=== PATIENT | male | born 1945 | race Caucasian/White ===

== ENCOUNTER 2017-10-18 08:28 | Inpatient (IN) | payer MEDICARE, SELFPAY ==
[2017-10-18] VITALS (15 sets, daily range): BP systolic 119–189; BP diastolic 68–94; PULSE 68–98; RESP 14–21; TEMP 36.5–36.9; O2SAT 88–98; BMI 35.1; BMI 35.2
--- NOTE | 2017-10-18 08:42 | EKG12_ITS ---
Test Reason : FALL Blood Pressure : / mmHG Vent. Rate : 069 BPM Atrial Rate : 069 BPM P-R Int : 206 ms QRS Dur : 086 ms QT Int : 422 ms P-R-T Axes : 015 -06 044 degrees QTc Int : 452 ms Normal sinus rhythm Normal ECG Confirmed by HELDER BEEBE ([id number]), senior editor LOUIS GUTIERRES ([id number]) on 10/21/2017 10:35:23 AM Referred By: MAXINE Confirmed By:HELDER BEEBE
[2017-10-18 08:59] LABS: Absolute Lymphocyte Count 0.93 X10^3/ul (0.83-4.51); Absolute Neutrophil Count 15.6 X10^3/uL (2.0-7.7); Basophil# 0.03 X10^3/uL; Basophil% 0.2 % (0-1); Eosinophil# 1.04 X10^3/uL; Eosinophils% 5.6 % (0-5); Hematocrit 39.8 % (40-54); Hemoglobin 12.9 g/dl (13.0-16.5); Lymphocyte # 0.93 X10^3/ul (4.0); Mean Corp Hgb Conc 32.4 g/gl (32-36); Mean Corpuscular Hgb 28.9 pg (27.0-32.0); Mean Corpuscular Volume 89.2 fL (80-94); Mean Platelet Vol. 9.6 fl (6.2-12.0); Monocyte# 1.14 X10^3/uL; Monocyte% 6.1 % (0-10); Neutrophil # 15.55 X10^3/uL (2.7-7.7); Neutrophil % 82.9 % (47-70); POSITIVE COUNT NO; POSITIVE DIFFERENTIAL NO; POSITIVE MORPHOLOGY NO; Platelet Count 260 K/mm3 (150-450); RBC Distribution Width CV 14.3 % (11.6-14.6); RBC Distribution Width SD 46.5 fl (35.1-43.9); Red Blood Count 4.46 M/mm3 (4.6-6.2); White Blood Count 18.7 K/mm3 (4.4-11.0)
--- NOTE | 2017-10-18 09:00 | RAD_ITS ---
STUDY: X-RAY CHEST REASON FOR EXAM: Male, 71 years old. Chest pain. TECHNIQUE: Single AP portable view of the chest. COMPARISON: None. FINDINGS: EKG electrodes are seen. Mild degree of vascular congestion. Blunting of left costophrenic angle. Normal size heart. Normal mediastinum and rica. Normal visualized pulmonary arteries. There is atherosclerotic tortuosity of the aortic arch and descending thoracic aorta. There are diffuse degenerative changes of the visualized thoracic spine. Normal visualized ribs, clavicles, and shoulders. There is no demonstrated abnormality of the visualized soft tissue structures of the upper abdomen. RAD/Chest 1 View (Portable) IMPRESSION: Mild degree of vascular congestion. Blunting of the left costophrenic angle. Electronically Signed: Oscar Alvarez MD at 9:27 EDT Tel [phone], Service support ,
[2017-10-18 09:13] LABS: Anion Gap 6 (5-15); BUN 45 mg/dL (7-18); BUN/Creat Ratio 17.1 RATIO (10-20); Calcium,Total 8.8 mg/dL (8.5-10.1); Chloride 107 mmol/L (98-107); Creatinine, Serum 2.63 mg/dL (0.70-1.30); EST Glomerular Filtration Rate 26 mL/min (>60); Est Glom Filt Rate - Afr Amer 31 mL/min (>60); Estimated Creatinine Clearance 27.44 ml/min; Glucose 111 mg/dL (74-106); Potassium 4.2 mmol/L (3.5-5.1); Sodium Level 139 mmol/L (136-145)
[2017-10-18 09:26] LABS: Allen Test POS; Base Excess -2 mmol/L (-2 to +2); Bicarbonate 25.1 mmol/L (22-26); Blood Gas Specimen Type ART; O2 Delivery Device Nasal Can; PO2 81 mmHG (75-100); SITE R Brachial; SO2 94 % (95-99); Time Given 917; Total Carbon Dioxide 27 mmol/L; pCO2 53.4 mmHg (35-45); pH 7.28 (7.35-7.45)
--- NOTE | 2017-10-18 09:31 | ED.VISSUMM ---
- ER Visit Summary Date of Service: 10/18/17 Chief Complaint: Generalized weakness and fall History of Present Illness: The patient is a 71 M suddenly hospitalized. Patient has a history of insulin-dependent diabetes, hypertension, COPD PD requiring as needed O2 and reportedly a prior stroke. Patient states he just got weak at home his legs gave out and he fell to the floor. He denies hitting his head. He denies any LOC. He denies being on blood thinners. Just states he feels so weak. He denies headache, neck pain, chest pain or abdominal pain. He denies fever or chills. He denies vomiting or diarrhea. Physical Examination: Older male no acute distress vital signs are stable afebrile on 2 L is 94% without hypoxia without O2 he is hypoxic. H EENT exam atraumatic. Pupils are round reactive light. No facial droop. Normal speech. Neck nontender. Lungs clear to auscultation bilaterally. Heart regular rhythm no murmur rate about 70. Abdomen is obese soft nontender. Normal bowel sounds no peritoneal signs. Patient is moving all 4 extremities. They are generally weak but symmetrical. 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 His lower extremities have 1+ pitting edema below the knees bilaterally. There is no hip pain, shortening or deformities. Back exam is nontender neurologically he is awake and alert. He was unsure of the month he did know the year and where he was at. He does seem to have a slow affect. But he is answering questions. Test Results: EKG shows a sinus rhythm rate is 69 with no acute signs of NM or ischemia. Blood gas shows a pH of 7.28 with a PCO2 of 53 and a PO2 of 81 on 2 L. CBC shows an elevated white count 18.7. Hemoglobin 12. No bands. Electrolytes unremarkable gap of 6 BUN of 45 creatinine 2.63 he has a history of chronic renal insufficiency. Seen on prior labs. Urinalysis pending. Troponin normal. BNP 105. Chest x-ray shows chronic changes with some vascular congestion but no significant acute abnormality. Emergency Department Course and Treatment: Nurses attempted to walk the patient he was too weak to stand. He will need to be admitted to the hospital. Treatment Plan: Hospitalist on page for admission. She will be started on broad-spectrum antibiotics, IV Zosyn, until we have a source. Disposition: Admission Impression: Acute generalized weakness Acute fall Respiratory acidosis Leukocytosis of uncertain etiology. This note was generated with Melodig[employer] dictation software. It may contain incorrect words, spelling, and punctuation that were not noted in review of the chart prior to signing ED Disposition - Plan for ED Patient: Chief Complaint: Fall Referrals: [facility] Doctor,Out of [Primary Care Provider] -
--- NOTE | 2017-10-18 09:34 | ED.DCSUM_ITS ---
- ER Visit Summary Date of Service: 10/18/17 Chief Complaint: Generalized weakness and fall History of Present Illness: The patient is a 71 M suddenly hospitalized. Patient has a history of insulin-dependent diabetes, hypertension, COPD PD requiring as needed O2 and reportedly a prior stroke. Patient states he just got weak at home his legs gave out and he fell to the floor. He denies hitting his head. He denies any LOC. He denies being on blood thinners. Just states he feels so weak. He denies headache, neck pain, chest pain or abdominal pain. He denies fever or chills. He denies vomiting or diarrhea. Physical Examination: Older male no acute distress vital signs are stable afebrile on 2 L is 94% without hypoxia without O2 he is hypoxic. H EENT exam atraumatic. Pupils are round reactive light. No facial droop. Normal speech. Neck nontender. Lungs clear to auscultation bilaterally. Heart regular rhythm no murmur rate about 70. Abdomen is obese soft nontender. Normal bowel sounds no peritoneal signs. Patient is moving all 4 extremities. They are generally weak but symmetrical. 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 His lower extremities have 1+ pitting edema below the knees bilaterally. There is no hip pain, shortening or deformities. Back exam is nontender neurologically he is awake and alert. He was unsure of the month he did know the year and where he was at. He does seem to have a slow affect. But he is answering questions. Test Results: EKG shows a sinus rhythm rate is 69 with no acute signs of LA or ischemia. Blood gas shows a pH of 7.28 with a PCO2 of 53 and a PO2 of 81 on 2 L. CBC shows an elevated white count 18.7. Hemoglobin 12. No bands. Electrolytes unremarkable gap of 6 BUN of 45 creatinine 2.63 he has a history of chronic renal insufficiency. Seen on prior labs. Urinalysis pending. Troponin normal. BNP 105. Chest x-ray shows chronic changes with some vascular congestion but no significant acute abnormality. Emergency Department Course and Treatment: Nurses attempted to walk the patient he was too weak to stand. He will need to be admitted to the hospital. Treatment Plan: Hospitalist on page for admission. She will be started on broad -spectrum antibiotics, IV Zosyn, until we have a source. Disposition: Admission Impression: Acute generalized weakness Acute fall Respiratory acidosis Leukocytosis of uncertain etiology. This note was generated with [employer] dictation software. It may contain incorrect words, spelling, and punctuation that were not noted in review of the chart prior to signing ED Disposition - Plan for ED Patient: Chief Complaint: Fall Referrals: [facility] Doctor,Out of [Primary Care Provider] -
--- NOTE | 2017-10-18 10:08 | ED.RN ---
called dr ted saleh. to fax med list
--- NOTE | 2017-10-18 10:20 | CM.ED ---
CM INITIAL ASSESSMENT: Assessment performed in the ED. Patient was alone in the room. He was agreeable to the interview, but fell asleep during questions. He was not easily awoken. His responses to questions were difficult to understand. Patient states he now lives in [place], but was unable to tell articulate his current address. Home: Patient states he lives alone, in a one story plan. He has three steps into the home. HHS/Aides: Patient denies. DME: Patient denies using walker, cane, wheelchair. Please reassess for validity. Home Oxygen: Unable to assess. Patient did not respond appropriately. Pharmacy: [facility] in [place] Advance Directives: Denies. Patient states he's in the process of getting these done, but is unable to verbalize who is his preferred POA. PCP: Dr. Orellana Specialists: Denies. Please reassess. DC Plan: Undetermined at this time. CM will continue to follow for safe and effective discharge planning.
--- NOTE | 2017-10-18 12:45 | CT_ITS ---
STUDY: CT BRAIN WITHOUT CONTRAST REASON FOR EXAM: Male, 71 years old. History of fall. RADIATION DOSAGE (If Supplied By Facility): CTDIvol = ( 44.99 ) mGy, DLP = ( 880.47 ) mGycm TECHNIQUE: Transaxial CT imaging of the brain was performed without administration of intravenous contrast material. Individualized dose optimization techniques were used for this CT. COMPARISON: None. FINDINGS: Normal soft tissue structures. Normal calvarium. There is mild cerebral atrophy with widening of the extra-axial spaces and ventricular dilatation. There are areas of decreased attenuation within the white matter tracts of the supratentorial brain, consistent with microvascular disease changes. Normal basal ganglia and thalami. Normal brainstem. Normal cerebellum. There is no intracranial hemorrhage. There are no findings of an acute ischemic infarction. Atherosclerotic calcification of the vertebral arteries and cavernous portions of the internal carotid arteries bilaterally. Opacification of the ethmoid sinuses bilaterally and mucosal thickening of the inferior aspects of both maxillary sinuses. Mild mucosal thickening of the sphenoid sinus. CT/Brain/Head without Contrast IMPRESSION: Chronic involutional changes of the brain. Sinusitis. Electronically Signed: Oscar Alvarez MD at 13:55 EDT Tel [phone], Service support ,
--- NOTE | 2017-10-18 13:00 | NURSING ---
DR HUDSON IN ER
[2017-10-18 13:08] LABS: Mucous, Urine 0 SEEN /hpf (<or=2+); Squamous Epithelial Cells - UA 0 SEEN /hpf (0-5)
--- NOTE | 2017-10-18 13:11 | NURSING ---
PCU [facility] GENERALIZED WEAKNESS, UNABLE TO WALK, LEUKOCYTOSIS, RESP ACIDOSIS
[2017-10-18 13:13] LABS: Color, Urine Yellow (Yellow); Glucose, Dipstick Normal (Normal); Ketone-Dipstick 5 mg/dl (Negative); Leukocyte Esterase-Dipstick 25 /ul (Negative); Nitrite-Dipstick Negative (Negative); Occult Blood-Urine 250 /ul (Negative); Protein-Dipstick 30 mg/dl (Negative); Specific Gravity, Urine 1.015 (1.002-1.030); Urine Bilirubin Dipstick Negative (Negative); Urine Clarity Sl. Cloudy (Clear); Urine Urobilinogen Normal (Normal)
--- NOTE | 2017-10-18 13:17 | ED.RN ---
samir started at 1315 unable to document in [facility] due to it being attempted to be documented by another nurse.
[2017-10-18 13:20] LABS: Red Blood Cells-Urine 0-5 SEEN /hpf (0-5); White Blood Cells 0-5 SEEN /hpf (0-5)
[2017-10-18 13:21] LABS: Amorphous Sediment 1+; Bacteria 1+ /hpf (None Seen)
[2017-10-18 14:24] LABS: Lactic Acid 0.8 mmol/L (0.4-2.0)
[2017-10-18] MEDS: 0.9% Normal Saline 1,000 ML 999 ML IV (15:21)
[2017-10-18 16:11] LABS: Bedside Glucose 101 mg/dL (70-110)
[2017-10-18] MEDS: 0.9% Normal Saline 1,000 ML 150 ML IV (16:18)
[2017-10-18] MEDS: Ipratropium/Albuterol Sulfate 3 ML AMPUL.NEB INHALATION (19:05)
--- NOTE | 2017-10-18 20:16 | PCM.HP.STD ---
Problem List (1) Generalized weakness Status: Acute History of Present Illness Date of Admission: 10/18/17 Chief Complaint: Generalized weakness The patient is a 71 year old M who was seen in the emergency room at [facility] after being brought in by squad with complaints of generalized weakness. Patient is a poor informant and I was unable to get much information from the patient as he appeared to be slow in his responses to my questions and also vague. Review of systems was unobtainable from the patient due to this fact. Patient was able to tell me that he lives alone at [place] [address], he does not have a or any children. I obtained information from his physician (Dr. Orellana) in [place] and he confirmed that the patient does not have MRDD or a cognitive defect, he does have uncontrolled type 2 diabetes and chronic kidney disease secondary to diabetes. Patient also had been hospitalized recently in [place]-patient states he was sightseeing there and had to be placed in the hospital due to elevated blood sugar and dehydration. Patient has no specific complaints today to this examiner although he does state that he has some dysuria. Patient denies any fever, chills, cough, purulent sputum production, or abdominal pain. Again, I am not sure how reliable this informant is. Evaluation in the emergency room included chest x-ray which showed vascular congestion, labs which showed an elevated creatinine at 2.63, BUN was elevated at 45, patient's white blood cell count was elevated at 18.7, patient's lactic acid was normal, patient's beta natruretic peptide was slightly elevated at 105, glucose of 111, and urine showed +1 bacteria with 250 occult blood. Patient had a CT of the vein performed which showed involutional changes. Patient had blood gases obtained on 2 L which showed a pH of 7.28, PCO2 of 53, PO2 of 81. During his stay in the emergency room, I had his nurse bolus the patient with 1 L fluid, patient became more alert and more responsive but he still cannot answer several of my questions.. I feel at this time the patient most probably has sepsis from acute cystitis and dehydration, and additionally hypoxia. I am going to admit the patient PCU and treated with IV Zosyn, blood cultures were obtained as well as urine cultures. Past Medical History Past Medical History (Chronic Problems): Chronic Problems Tobacco user (Chronic) Hypertensive retinopathy (Chronic) Benign essential HTN (Chronic) Allergies No Known Allergies Allergy (Verified 10/18/17 08:34) Home Medications: Ambulatory Orders Medication Instructions Recorded Furosemide [Lasix] 20 mg PO DAILY 10/18/17 Hydrochlorothiazide [Hctz] 12.5 mg PO DAILY 10/18/17 Insulin Glargine,Hum.rec.anlog 40 unit SQ BID 10/18/17 [Toujeo Solostar] Labetalol HCl 300 mg PO TID 10/18/17 Omeprazole 40 mg PO DAILY 10/18/17 Surgical History: no surgical history Psychiatric History: No pertinent psych hx Lives: Alone Smoking Status: Light Smoker (<10/day) Tobacco Use: Cigarettes Alcohol: None Drugs: None - *Family History Maternal History Items: Unknown Paternal History Items: Unknown Review of Systems Comment: Viable review of systems was unobtainable from this patient due to cognitive defects VTE Information - Inpt Only VTE Present on Admission: No VTE Mechan Device Prophylaxis: None VTE Pharm Prophylaxis ordered?: Yes Patient Problems: Active and Suspected Problems Generalized weakness (Acute) - Physical Exam General: Cooperative, No apparent distress, Well developed, Well nourished, Confused, Lethargic HEENT: Atraumatic, PERRLA, EOMI, Normocephalic Oral: Dry Mucosa Neck: Supple, Negative Carotid Bruits, No Nuchal Rigidity, Trachea Midline, Thyroid Normal Size and Texture Lungs: Clear to auscultation, Normal air movement, No rhonchi, No rales, Wheezes - Scattered expiratory wheezes bilaterally Cardiovascular: Regular rate, Regular Rhythm, Normal S1, Normal S2, No murmurs, PMI Normal, No rub noted, No Gallop Abdomen: Bowel Sounds Present, Soft, Non Tender, Non-Distended, Obese, No hernias noted Extremities: No clubbing, No cyanosis, Edema - Mild pitting edema of the lower legs is noted Skin: No rashes, No breakdown Musculoskeletal: No Muscle Wasting Neurological: Cranial nerves II-XII grossly intact, Neuro grossly intact, Sensory exam intact to light touch and pain Psych/Mental Status: Flat Affect, - - Patient is moderately confused Vital Signs Temp Pulse Resp BP Pulse Ox 98.3 F 69 20 H 135/74 H 98 10/18/17 15:41 10/18/17 16:35 10/18/17 15:41 10/18/17 15:41 10/18/17 15:41 Oxygen Flow Rate (L/min) 2 Oxygen Delivery Method Nasal Cannula Weight: 114.2 kg Body Mass Index (BMI) 35.2 Intake and Output for Last 24 Hours 10/16/17 10/17/17 10/18/17 23:59 23:59 23:59 Intake Total 456 / 456 Output Total 600 / 600 Balance -144 / -144 POC Glucose 10/18/17 15:57 POC Glucose 101 Assessment/Plan All Active Problems Generalized weakness (Acute) #1 acute sepsis secondary to presumed acute cystitis-patient will be admitted to PCU, he will be given IV fluids at 150 an hour for the next several hours and then his IV fluid rate will be decreased to 100 cc/h, he will be maintained on Zosyn IV, await urine and blood cultures #2 acute dehydration on a backdrop of chronic kidney disease secondary to type 2 diabetes (uncontrolled)-labs will be monitored, IV fluids will be given #3 uncontrolled type 2 diabetes #4 metabolic encephalopathy secondary to #1 and #2 #5 hypoxia-patient has a long history of cigarette smoking, patient states he is currently smoking only several cigarettes a day but was vague about this PT and OT will see the patient Code Visit Inpatient E&M: 99428 Init Hosp L3
[2017-10-18] MEDS: Piperacil/Tazobactam 3.375 GM/50 ML ML IV (21:22)
[2017-10-18] MEDS: Heparin Injection (Vial) 5,000 UNIT/ML VIAL 5000 UNIT SC (21:23)
[2017-10-18 22:00] LABS: Bedside Glucose 98 mg/dL (70-110)
[2017-10-18] MEDS: 0.9% Normal Saline 1,000 ML 100 ML IV (23:40)
[2017-10-19] VITALS (14 sets, daily range): BP systolic 131–140; BP diastolic 55–85; PULSE 67–80; RESP 16–22; TEMP 36.6–37; O2SAT 92–95
[2017-10-19] MEDS: Ipratropium/Albuterol Sulfate 3 ML AMPUL.NEB INHALATION ×4 (00:37→18:55)
[2017-10-19] MEDS: Piperacil/Tazobactam 3.375 GM/50 ML ML IV ×3 (05:30→22:33)
[2017-10-19] MEDS: Heparin Injection (Vial) 5,000 UNIT/ML VIAL 5000 UNIT SC ×3 (05:32→22:33)
[2017-10-19] MEDS: Labetalol 200 MG Tablet 300 MG PO ×3 (05:36→22:33)
--- NOTE | 2017-10-19 05:55 | RAD_ITS ---
STUDY: X-RAY CHEST REASON FOR EXAM: Male, 71 years old. Shortness of breath, weakness TECHNIQUE: Single AP portable view of the chest. COMPARISON: 10/18/2017. FINDINGS: EKG lines overlying the chest. The lungs are expanded. Hazy right lower lung opacity. Blunted left costophrenic angle. There is no demonstrated pleural abnormality. Normal size heart. Normal mediastinum and rica. Normal visualized pulmonary arteries. Normal visualized aortic arch and descending thoracic aorta. Normal visualized thoracic spine. Normal visualized ribs, clavicles, and shoulders. There is no demonstrated abnormality of the visualized soft tissue structures of the upper abdomen. RAD/Chest 1 View (Portable) IMPRESSION: Right lower lung atelectasis and/or infiltrate. Small left effusion. Electronically Signed: Wilber Mcarthur DO at 9:16 EDT , Service support ,
[2017-10-19 05:56] LABS: Basophil# 0.02 X10^3/uL; Basophil% 0.1 % (0-1); Eosinophils% 6.4 % (0-5); Hematocrit 36.8 % (40-54); Hemoglobin 11.6 g/dl (13.0-16.5); Lymphocyte % 12.1 % (19-41); Mean Corp Hgb Conc 31.5 g/gl (32-36); Mean Corpuscular Hgb 28.9 pg (27.0-32.0); Mean Corpuscular Volume 91.5 fL (80-94); Mean Platelet Vol. 10.2 fl (6.2-12.0); Monocyte# 1.43 X10^3/uL; Monocyte% 10.2 % (0-10); Neutrophil # 9.99 X10^3/uL (2.7-7.7); Neutrophil % 70.9 % (47-70); Platelet Count 267 K/mm3 (150-450); RBC Distribution Width CV 14.3 % (11.6-14.6); RBC Distribution Width SD 47.2 fl (35.1-43.9); Red Blood Count 4.02 M/mm3 (4.6-6.2); White Blood Count 14.1 K/mm3 (4.4-11.0)
[2017-10-19 05:58] LABS: POSITIVE COUNT NO; POSITIVE DIFFERENTIAL NO; POSITIVE MORPHOLOGY NO
[2017-10-19 06:16] LABS: Anion Gap 6 (5-15); BUN 34 mg/dL (7-18); BUN/Creat Ratio 15.2 RATIO (10-20); Chloride 108 mmol/L (98-107); Creatinine, Serum 2.23 mg/dL (0.70-1.30); EST Glomerular Filtration Rate 31 mL/min (>60); Est Glom Filt Rate - Afr Amer 37 mL/min (>60); Estimated Creatinine Clearance 31.37 ml/min; Glucose 80 mg/dL (74-106); Potassium 3.9 mmol/L (3.5-5.1); Sodium Level 143 mmol/L (136-145)
[2017-10-19 06:51] LABS: Bedside Glucose 82 mg/dL (70-110)
[2017-10-19] MEDS: 0.9% Normal Saline 1,000 ML 100 ML IV (09:24)
[2017-10-19] MEDS: Pantoprazole Sodium 40 MG Tablet PO (09:47)
[2017-10-19] MEDS: Glucerna Shake 120 ML LIQUID PO ×2 (09:47→12:17)
--- NOTE | 2017-10-19 11:01 | CT_ITS ---
STUDY: CT CHEST WITHOUT CONTRAST REASON FOR EXAM: Male, 71 years old. Cough. Right lower lobe infiltrate versus atelectasis on chest x-ray. Uncontrolled diabetes. Smoker. RADIATION DOSAGE (If Supplied By Facility): CTDIvol = ( 20.15 ) mGy, DLP = ( 569.53 ) mGycm TECHNIQUE: Transaxial imaging was performed without the administration of intravenous contrast material. Coronal and sagittal reconstructions were performed. Individualized dose optimization techniques were used for this CT. COMPARISON: 05/02/2016. FINDINGS: Calcified granuloma in the posterior aspect of the left upper lobe. Breathing motion degradation artifacts in the lower lobes. Minimal subsegmental atelectases in the left posterior lung base. No suspicious pneumonia. Minimal left posterior pleural thickening. Calcifications of the left coronary artery branches and right coronary artery. Cardiac size is normal. No pericardial fluid. Normal mediastinum. Normal hilar regions. Normal unenhanced pulmonary arteries. Normal aorta arch and descending thoracic aorta. Normal osseous structures. There is no demonstrated abnormality of the visualized upper abdomen. CT/Chest without Contrast IMPRESSION: 1. Calcified granuloma in the left upper lobe is unchanged. 2. Breathing motion degradation artifacts in the lower lobes. 3. No suspicious pneumonia. 4. Minimal subsegmental atelectasis in the left posterior lung base. 5. Minimal left posterior pleural thickening. Electronically Signed: Jason Thomson MD at 11:53 EDT , Service support ,
--- NOTE | 2017-10-19 11:02 | PCM.PROGNOTE ---
Patient Problems: Active and Suspected Problems Generalized weakness (Acute) Subjective: He feels better today. He has no chest pain, dysuria, or abdominal symptoms. +cough, but no change from baseline. Afebrile. WBC is elevated still, but trending down. - Physical Exam General: Alert, Oriented x3, Cooperative, No apparent distress HEENT: Atraumatic, PERRLA, EOMI, Normocephalic Oral: Moist Mucosa, No Gingival or Mucosal Lesions/ Ulcerations Neck: Supple, No JVD Lungs: Clear to auscultation, No rhonchi, No wheeze, No rales, Diminished Cardiovascular: Regular rate, Regular Rhythm, Normal S1, Normal S2, No murmurs, No Ectopic Activity Abdomen: Bowel Sounds Present, Soft, Non Tender, Non-Distended, No Hepato-splenomegaly, Obese Extremities: No clubbing, No cyanosis, Edema - trace to 1+ edema bilaterally. Skin: No rashes Musculoskeletal: No Tenderness to Palpation of Joints or Extremities, No Muscle Wasting Lymphatic: No Cervical, Supraclavicular, or Inguinal Adenopathy Neurological: Cranial nerves II-XII grossly intact, Neuro grossly intact Psych/Mental Status: Flat Affect Vital Signs Temp Pulse Resp BP Pulse Ox 98.4 F 70 20 H 140/67 H 94 10/19/17 09:30 10/19/17 09:30 10/19/17 09:30 10/19/17 09:30 10/19/17 09:30 Oxygen Flow Rate (L/min) 2 Oxygen Delivery Method Nasal Cannula Weight: 251 lb 12.286 oz Body Mass Index (BMI) 35.2 Intake and Output for Last 24 Hours 10/17/17 10/18/17 10/19/17 23:59 23:59 23:59 Intake Total 1111 / 1111 606 / 606 Output Total 1050 / 1050 400 / 400 Balance 61 / 61 206 / 206 Laboratory Tests Past 24 Hrs 10/19/17 10/19/17 05:15 05:15 WBC 14.1 H RBC 4.02 L Hgb 11.6 L Hct 36.8 L MCV 91.5 MCH 28.9 MCHC 31.5 L RDW 14.3 RDW Differential 47.2 H Plt Count 267 MPV 10.2 Immature Gran % (Auto) 0.300 Neut % (Auto) 70.9 H Lymph % (Auto) 12.1 L [place] % (Auto) 10.2 H Eos % (Auto) 6.4 H Baso % (Auto) 0.1 Absolute Neuts (auto) 10.0 H Absolute Lymphs (auto) 1.70 Total Counted Not Reportable Sodium 143 Potassium 3.9 Chloride 108 H Carbon Dioxide 29.0 Anion Gap 6 BUN 34 H Creatinine 2.23 H Estim Creat Clear Calc 31.37 Est GFR (MDRD) Af Amer 37 L Est GFR (MDRD) Non-Af 31 L BUN/Creatinine Ratio 15.2 Glucose 80 Calcium 8.0 L POC Glucose 10/19/17 10/18/17 10/18/17 06:42 21:16 15:57 POC Glucose 82 [address] 10/18/17 12:45 IMPRESSION: Chronic involutional changes of the brain. Sinusitis. Electronically Signed: Oscar Alvarez MD at 13:55 EDT Tel [phone], Service support , Chest X-Ray 10/19/17 05:55 IMPRESSION: Right lower lung atelectasis and/or infiltrate. Small left effusion. Electronically Signed: Wilber Mcarthur DO at 9:16 EDT , Service support , Medical Necessity - Tobacco Use Smoking Status: Light Smoker (<10/day) Tobacco Use: Cigarettes Assessment/Plan All Active Problems Generalized weakness (Acute) Patient is a 71 years old male, admitted for generalized weakness and confusion due to sepsis on 10/18/17. The source of infection was not clear, but thought to be due to UTI. Initial CXR was unremarkable. He had mild hypoxia, but etiology is not clear. He is a smoker, but has no previous diagnosis of COPD. #1 Sepsis. Lactic acid 0.8, but had high WBC count with hypoxia, hypercapnia, and DARYL. Source of infection is not clear, but presumed UTI. Started on Zosyn empirically. IVF resuscitation, continue maintenance IVF. #2 Acute cystitis. As above. #3 Right LL infiltrate vs. atelectasis. Non-contrast CT of chest today. #4 MIld respiratory failure with hypoxia/hypercapnia, acute. ABG with oxygen on admission showed pH 7.28, PCO2 53, PO2 81. He may have underlining COPD. Continue bronchodilator and oxygen supplement. Consider to add systemic steroid. 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 Sliding scale insulin. #6 Essential Hypertension. BP is stable. Continue Labetalol. #7 DARYL. Creatinine on admission was 2.63, improved to 2.23. Continue IVF. Monitor BMP. VTE prophylaxis: heparin sq. GI prophylaxis: PPI po. He is full code. Disposition: to be determined. Code Visit Inpatient E&M: 06462 Subs Hosp L3
--- NOTE | 2017-10-19 11:20 | PN_ITS ---
Patient Problems: Active and Suspected Problems Generalized weakness (Acute) Subjective: He feels better today. He has no chest pain, dysuria, or abdominal symptoms. + cough, but no change from baseline. Afebrile. WBC is elevated still, but trending down. - Physical Exam General: Alert, Oriented x3, Cooperative, No apparent distress HEENT: Atraumatic, PERRLA, EOMI, Normocephalic Oral: Moist Mucosa, No Gingival or Mucosal Lesions/ Ulcerations Neck: Supple, No JVD Lungs: Clear to auscultation, No rhonchi, No wheeze, No rales, Diminished Cardiovascular: Regular rate, Regular Rhythm, Normal S1, Normal S2, No murmurs, No Ectopic Activity Abdomen: Bowel Sounds Present, Soft, Non Tender, Non-Distended, No Hepato- splenomegaly, Obese Extremities: No clubbing, No cyanosis, Edema - trace to 1+ edema bilaterally. Skin: No rashes Musculoskeletal: No Tenderness to Palpation of Joints or Extremities, No Muscle Wasting Lymphatic: No Cervical, Supraclavicular, or Inguinal Adenopathy Neurological: Cranial nerves II-XII grossly intact, Neuro grossly intact Psych/Mental Status: Flat Affect Vital Signs Temp Pulse Resp BP Pulse Ox 98.4 F 70 20 H 140/67 H 94 10/19/17 09:30 10/19/17 09:30 10/19/17 09:30 10/19/17 09:30 10/19/17 09:30 Oxygen Flow Rate (L/min) 2 Oxygen Delivery Method Nasal Cannula Weight: 251 lb 12.286 oz Body Mass Index (BMI) 35.2 Intake and Output for Last 24 Hours 10/17/17 10/18/17 10/19/17 23:59 23:59 23:59 Intake Total 1111 / 1111 606 / 606 Output Total 1050 / 1050 400 / 400 Balance 61 / 61 206 / 206 Laboratory Tests Past 24 Hrs 10/19/17 10/19/17 05:15 05:15 WBC 14.1 H RBC 4.02 L Hgb 11.6 L Hct 36.8 L MCV 91.5 MCH 28.9 MCHC 31.5 L RDW 14.3 RDW Differential 47.2 H Plt Count 267 MPV 10.2 Immature Gran % (Auto) 0.300 Neut % (Auto) 70.9 H Lymph % (Auto) 12.1 L Power % (Auto) 10.2 H Eos % (Auto) 6.4 H Baso % (Auto) 0.1 Absolute Neuts (auto) 10.0 H Absolute Lymphs (auto) 1.70 Total Counted Not Reportable Sodium 143 Potassium 3.9 Chloride 108 H Carbon Dioxide 29.0 Anion Gap 6 BUN 34 H Creatinine 2.23 H Estim Creat Clear Calc 31.37 Est GFR (MDRD) Af Amer 37 L Est GFR (MDRD) Non-Af 31 L BUN/Creatinine Ratio 15.2 Glucose 80 Calcium 8.0 L POC Glucose 10/19/17 10/18/17 10/18/17 06:42 21:16 15:57 POC Glucose 82 [address] 10/18/17 12:45 IMPRESSION: Chronic involutional changes of the brain. Sinusitis. Electronically Signed: Oscar Alvarez MD at 13:55 EDT Tel [phone], Service support , Chest X-Ray 10/19/17 05:55 IMPRESSION: Right lower lung atelectasis and/or infiltrate. Small left effusion. Electronically Signed: Wilber Mcarthur DO at 9:16 EDT , Service support , Medical Necessity - Tobacco Use Smoking Status: Light Smoker (<10/day) Tobacco Use: Cigarettes Assessment/Plan All Active Problems Generalized weakness (Acute) Patient is a 71 years old male, admitted for generalized weakness and confusion due to sepsis on 10/18/17. The source of infection was not clear, but thought to be due to UTI. Initial CXR was unremarkable. He had mild hypoxia, but etiology is not clear. He is a smoker, but has no previous diagnosis of COPD. #1 Sepsis. Lactic acid 0.8, but had high WBC count with hypoxia, hypercapnia, and DARYL. Source of infection is not clear, but presumed UTI. Started on Zosyn empirically. IVF resuscitation, continue maintenance IVF. #2 Acute cystitis. As above. #3 Right LL infiltrate vs. atelectasis. Non-contrast CT of chest today. #4 MIld respiratory failure with hypoxia/hypercapnia, acute. ABG with oxygen on admission showed pH 7.28, PCO2 53, PO2 81. He may have underlining COPD. Continue bronchodilator and oxygen supplement. Consider to add systemic steroid. 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 Sliding scale insulin. #6 Essential Hypertension. BP is stable. Continue Labetalol. #7 DARYL. Creatinine on admission was 2.63, improved to 2.23. Continue IVF. Monitor BMP. VTE prophylaxis: heparin sq. GI prophylaxis: PPI po. He is full code. Disposition: to be determined. Code Visit Inpatient E&M: 52795 Subs Hosp L3
[2017-10-19] MEDS: Dext 5%-0.45% NS 1,000 ML 100 ML IV (12:17)
--- NOTE | 2017-10-19 12:30 | CASEMGMT ---
Addendum entered by Siobhan Valero 10/19/17 12:49: SW brought in list of nursing homes for pt, asked if he is able to read, pt states he can read, okay. SW [place] [facility] [place] in [place], pt is open to going to a facility in [place], has no preference. SW will follow up Saturday w/referrals to SNF's in [place]. GUY Goyal, DRIER FEEDER Original Note: SW spoke w/pt in room in regard to prior level of function and discharge plan. Pt confirmed is living at [place] [address], and states is normally independent with his ADL's. Pt states uses a walker, otherwise does not use any other DME. (As per PT, pt goes out for meals). SW asked if Dr. Orellana is his PCP, pt states no. SW asked who is PCP is, pt states, Dr. Orellana. SW asked what pharmacy he uses, pt cannot remember. Pt states he had a stroke 6 months ago, maybe longer, and since then has memory issues. SW asked who Melissa Green is listed on his face sheet. Pt states she is his [id number], was to his brother who has . SW asked pt about POA, pt states he wants to have a POA, plans to speak to an attorney law clerk about it, as he doesn't trust his [id number]. SW asked pt about going somewhere for rehab. Pt seems agreeable to this. Pt has had home health in the past, has not been to a rehab facility. SW explained will bring him a list of SNF's and have the SW follow up w/him on Saturday. Pt is agreeable. GUY Goyal, DRIER FEEDER
[2017-10-19 12:31] LABS: Bedside Glucose 141 mg/dL (70-110)
[2017-10-19 16:16] LABS: Bedside Glucose 235 mg/dL (70-110)
[2017-10-19] MEDS: Insulin Lispro 100 UNIT/ML INSULN.PEN SC (17:40)
[2017-10-19] MEDS: 0.45% Normal Saline 1,000 ML 100 ML IV (17:55)
[2017-10-19] MEDS: Acetaminophen 325 MG Tablet 650 MG PO (17:58)
[2017-10-20] VITALS (16 sets, daily range): BP systolic 130–165; BP diastolic 65–85; PULSE 66–80; RESP 14–18; TEMP 36.6–37.1; O2SAT 2–95
[2017-10-20 00:16] LABS: Bedside Glucose 96 mg/dL (70-110)
[2017-10-20 01:11] LABS: Bedside Glucose 176 mg/dL (70-110)
[2017-10-20] MEDS: Ipratropium/Albuterol Sulfate 3 ML AMPUL.NEB INHALATION ×3 (01:37→20:11)
[2017-10-20] MEDS: 0.45% Normal Saline 1,000 ML 100 ML IV ×3 (04:04→23:08)
[2017-10-20] MEDS: Heparin Injection (Vial) 5,000 UNIT/ML VIAL 5000 UNIT SC ×3 (05:08→21:50)
[2017-10-20] MEDS: Piperacil/Tazobactam 3.375 GM/50 ML ML IV ×3 (05:08→21:50)
[2017-10-20] MEDS: Labetalol 200 MG Tablet 300 MG PO ×3 (05:08→21:50)
[2017-10-20 05:51] LABS: Hematocrit 34.7 % (40-54); Hemoglobin 10.8 g/dl (13.0-16.5); Mean Corp Hgb Conc 31.1 g/gl (32-36); Mean Corpuscular Hgb 28.3 pg (27.0-32.0); Mean Corpuscular Volume 90.8 fL (80-94); Mean Platelet Vol. 9.7 fl (6.2-12.0); Platelet Count 259 K/mm3 (150-450); RBC Distribution Width CV 14.5 % (11.6-14.6); RBC Distribution Width SD 48.2 fl (35.1-43.9); Red Blood Count 3.82 M/mm3 (4.6-6.2); White Blood Count 10.8 K/mm3 (4.4-11.0)
[2017-10-20 06:23] LABS: Anion Gap 7 (5-15); BUN 29 mg/dL (7-18); BUN/Creat Ratio 13.3 RATIO (10-20); Calcium,Total 8.2 mg/dL (8.5-10.1); Chloride 112 mmol/L (98-107); Creatinine, Serum 2.18 mg/dL (0.70-1.30); EST Glomerular Filtration Rate 32 mL/min (>60); Est Glom Filt Rate - Afr Amer 38 mL/min (>60); Estimated Creatinine Clearance 32.09 ml/min; Glucose 73 mg/dL (74-106); Potassium 3.9 mmol/L (3.5-5.1); Sodium Level 145 mmol/L (136-145)
[2017-10-20 06:38] LABS: Scan Indicated on CBC? Y/N NO
[2017-10-20 06:51] LABS: Bedside Glucose 75 mg/dL (70-110)
[2017-10-20] MEDS: Pantoprazole Sodium 40 MG Tablet PO (07:51)
[2017-10-20] MEDS: Glucerna Shake 120 ML LIQUID PO ×3 (07:52→16:44)
[2017-10-20 11:50] LABS: Bedside Glucose 108 mg/dL (70-110)
--- NOTE | 2017-10-20 11:56 | PCM.PROGNOTE ---
Patient Problems: Active and Suspected Problems Generalized weakness (Acute) Subjective: He feels well today. He has no complains. PT evaluation from 10/19 indicates that he needs significant assistance. CT of chest on 10/19 showed no evidence of pneumonia. - Physical Exam General: Alert, Oriented x3, Cooperative, No apparent distress HEENT: Atraumatic, PERRLA, EOMI, Normocephalic Oral: Moist Mucosa, No Gingival or Mucosal Lesions/ Ulcerations Neck: Supple, No JVD Lungs: Clear to auscultation, No rhonchi, No wheeze, No rales, Diminished Cardiovascular: Regular rate, Regular Rhythm, Normal S1, Normal S2, No murmurs, No Ectopic Activity Abdomen: Bowel Sounds Present, Soft, Non Tender, Non-Distended, No Hepato-splenomegaly, Obese Extremities: No clubbing, No cyanosis, Edema - trace to 1+ edema bilaterally. Skin: No rashes Musculoskeletal: No Tenderness to Palpation of Joints or Extremities, No Muscle Wasting Lymphatic: No Cervical, Supraclavicular, or Inguinal Adenopathy Neurological: Cranial nerves II-XII grossly intact, Neuro grossly intact Psych/Mental Status: Flat Affect - Physical Exam Vital Signs Temp Pulse Resp BP Pulse Ox 98.2 F 66 18 136/68 H 2 10/20/17 07:42 10/20/17 11:09 10/20/17 07:42 10/20/17 07:42 10/20/17 08:38 Oxygen Flow Rate (L/min) 2 Oxygen Delivery Method Nasal Cannula Weight: 251 lb 12.286 oz Body Mass Index (BMI) 35.2 Intake and Output for Last 24 Hours 10/18/17 10/19/17 10/20/17 23:59 23:59 23:59 Intake Total 1111 / 1111 3200 / 3200 751 / 751 Output Total 1050 / 1050 1175 / 1175 975 / 975 Balance 61 / 61 2025 / 2024 -224 / -224 Laboratory Tests Past 24 Hrs 10/20/17 10/20/17 04:49 04:49 WBC 10.8 RBC 3.82 L Hgb 10.8 L Hct 34.7 L MCV 90.8 MCH 28.3 MCHC 31.1 L RDW 14.5 RDW Differential 48.2 H Plt Count 259 MPV 9.7 Sodium 145 Potassium 3.9 Chloride 112 H Carbon Dioxide 26.0 Anion Gap 7 BUN 29 H Creatinine 2.18 H Estim Creat Clear Calc 32.09 Est GFR (MDRD) Af Amer 38 L Est GFR (MDRD) Non-Af 32 L BUN/Creatinine Ratio 13.3 Glucose 73 L Calcium 8.2 L POC Glucose 10/20/17 10/20/17 10/20/17 11:25 06:47 01:05 POC Glucose 108 75 176 H 10/19/17 10/19/17 10/19/17 22:30 16:07 12:16 POC Glucose 96 235 H 141 H Diagnostic Data Brain CT 10/18/17 12:45 IMPRESSION: Chronic involutional changes of the brain. Sinusitis. Electronically Signed: Oscar Alvarez MD at 13:55 EDT Tel [phone], Service support , Chest X-Ray 10/19/17 05:55 IMPRESSION: Right lower lung atelectasis and/or infiltrate. Small left effusion. Electronically Signed: Wilber Mcarthur DO at 9:16 EDT , Service support , Chest CT 10/19/17 11:01 IMPRESSION: 1. Calcified granuloma in the left upper lobe is unchanged. 2. Breathing motion degradation artifacts in the lower lobes. 3. No suspicious pneumonia. 4. Minimal subsegmental atelectasis in the left posterior lung base. 5. Minimal left posterior pleural thickening. Electronically Signed: Jason Thomson MD at 11:53 EDT , Service support , Medical Necessity - Tobacco Use Smoking Status: Light Smoker (<10/day) Tobacco Use: Cigarettes Assessment/Plan All Active Problems Generalized weakness (Acute) Patient is a 71 years old male, admitted for generalized weakness and confusion due to sepsis on 10/18/17. The source of infection was not clear, but thought to be due to UTI. Initial CXR was unremarkable. He had mild hypoxia, but etiology is not clear. He is a smoker, but has no previous diagnosis of COPD. #1 Sepsis. Lactic acid 0.8, but had high WBC count with hypoxia, hypercapnia, and DARYL. Source of infection is not clear, but presumed UTI. Started on Zosyn empirically. Continue. S/P IVF resuscitation. BCX 10/18/17 no growth 48 hours. Urine CX 10/18/17 showed no growth. #2 Acute cystitis. As above. #3 Acute mental status change. With confusion. It seems that he is at baseline. He states that he has history of CVA in 02/2017. He likely has some degree of cognitive deficit. #4 Mild respiratory failure with hypoxia/hypercapnia, acute. ABG with oxygen on admission showed pH 7.28, PCO2 53, PO2 81. He may have underlining COPD. Continue bronchodilator and oxygen supplement. He is doing better. Non-contrast CT of chest was done, did not show any evidence of pneumonia. 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 Sliding scale insulin. Lantus on hold, but BS are stable. #6 Essential Hypertension. BP is stable. Continue Labetalol. #7 DARYL on CKD III. Creatinine on admission was 2.63, improved to 2.18, likely at baseline. D/C IVF(10/20). Monitor BMP. #8 Generalized weakness. He is significantly weaker than his baseline. PT/OT. Plan to continue rehab at SNF. VTE prophylaxis: heparin sq. GI prophylaxis: PPI po. He is full code. Disposition: [facility] for rehab. Code Visit Inpatient E&M: 63696 Subs Hosp L2
--- NOTE | 2017-10-20 12:09 | PN_ITS ---
Patient Problems: Active and Suspected Problems Generalized weakness (Acute) Subjective: He feels well today. He has no complains. PT evaluation from 10/19 indicates that he needs significant assistance. CT of chest on 10/19 showed no evidence of pneumonia. - Physical Exam General: Alert, Oriented x3, Cooperative, No apparent distress HEENT: Atraumatic, PERRLA, EOMI, Normocephalic Oral: Moist Mucosa, No Gingival or Mucosal Lesions/ Ulcerations Neck: Supple, No JVD Lungs: Clear to auscultation, No rhonchi, No wheeze, No rales, Diminished Cardiovascular: Regular rate, Regular Rhythm, Normal S1, Normal S2, No murmurs, No Ectopic Activity Abdomen: Bowel Sounds Present, Soft, Non Tender, Non-Distended, No Hepato- splenomegaly, Obese Extremities: No clubbing, No cyanosis, Edema - trace to 1+ edema bilaterally. Skin: No rashes Musculoskeletal: No Tenderness to Palpation of Joints or Extremities, No Muscle Wasting Lymphatic: No Cervical, Supraclavicular, or Inguinal Adenopathy Neurological: Cranial nerves II-XII grossly intact, Neuro grossly intact Psych/Mental Status: Flat Affect - Physical Exam Vital Signs Temp Pulse Resp BP Pulse Ox 98.2 F 66 18 136/68 H 2 10/20/17 07:42 10/20/17 11:09 10/20/17 07:42 10/20/17 07:42 10/20/17 08:38 Oxygen Flow Rate (L/min) 2 Oxygen Delivery Method Nasal Cannula Weight: 251 lb 12.286 oz Body Mass Index (BMI) 35.2 Intake and Output for Last 24 Hours 10/18/17 10/19/17 10/20/17 23:59 23:59 23:59 Intake Total 1111 / 1111 3200 / 3200 751 / 751 Output Total 1050 / 1050 1175 / 1175 975 / 975 Balance 61 / 61 2025 / 2024 -224 / -224 Laboratory Tests Past 24 Hrs 10/20/17 10/20/17 04:49 04:49 WBC 10.8 RBC 3.82 L Hgb 10.8 L Hct 34.7 L MCV 90.8 MCH 28.3 MCHC 31.1 L RDW 14.5 RDW Differential 48.2 H Plt Count 259 MPV 9.7 Sodium 145 Potassium 3.9 Chloride 112 H Carbon Dioxide 26.0 Anion Gap 7 BUN 29 H Creatinine 2.18 H Estim Creat Clear Calc 32.09 Est GFR (MDRD) Af Amer 38 L Est GFR (MDRD) Non-Af 32 L BUN/Creatinine Ratio 13.3 Glucose 73 L Calcium 8.2 L POC Glucose 10/20/17 10/20/17 10/20/17 11:25 06:47 01:05 POC Glucose 108 75 176 H 10/19/17 10/19/17 10/19/17 22:30 16:07 12:16 POC Glucose 96 235 H 141 H Diagnostic Data Brain CT 10/18/17 12:45 IMPRESSION: Chronic involutional changes of the brain. Sinusitis. Electronically Signed: Oscar Alvarez MD at 13:55 EDT Tel [phone], Service support , Chest X-Ray 10/19/17 05:55 IMPRESSION: Right lower lung atelectasis and/or infiltrate. Small left effusion. Electronically Signed: Wilber Mcarthur DO at 9:16 EDT , Service support , Chest CT 10/19/17 11:01 IMPRESSION: 1. Calcified granuloma in the left upper lobe is unchanged. 2. Breathing motion degradation artifacts in the lower lobes. 3. No suspicious pneumonia. 4. Minimal subsegmental atelectasis in the left posterior lung base. 5. Minimal left posterior pleural thickening. Electronically Signed: Jason Thomson MD at 11:53 EDT , Service support , Medical Necessity - Tobacco Use Smoking Status: Light Smoker (<10/day) Tobacco Use: Cigarettes Assessment/Plan All Active Problems Generalized weakness (Acute) Patient is a 71 years old male, admitted for generalized weakness and confusion due to sepsis on 10/18/17. The source of infection was not clear, but thought to be due to UTI. Initial CXR was unremarkable. He had mild hypoxia, but etiology is not clear. He is a smoker, but has no previous diagnosis of COPD. #1 Sepsis. Lactic acid 0.8, but had high WBC count with hypoxia, hypercapnia, and DARYL. Source of infection is not clear, but presumed UTI. Started on Zosyn empirically. Continue. S/P IVF resuscitation. BCX 10/18/17 no growth 48 hours. Urine CX 10/18/17 showed no growth. #2 Acute cystitis. As above. #3 Acute mental status change. With confusion. It seems that he is at baseline. He states that he has history of CVA in 02/2017. He likely has some degree of cognitive deficit. #4 Mild respiratory failure with hypoxia/hypercapnia, acute. ABG with oxygen on admission showed pH 7.28, PCO2 53, PO2 81. He may have underlining COPD. Continue bronchodilator and oxygen supplement. He is doing better. Non-contrast CT of chest was done, did not show any evidence of pneumonia. 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 Sliding scale insulin. Lantus on hold, but BS are stable. #6 Essential Hypertension. BP is stable. Continue Labetalol. #7 DARYL on CKD III. Creatinine on admission was 2.63, improved to 2.18, likely at baseline. D/C IVF(10/20). Monitor BMP. #8 Generalized weakness. He is significantly weaker than his baseline. PT/OT. Plan to continue rehab at SNF. VTE prophylaxis: heparin sq. GI prophylaxis: PPI po. He is full code. Disposition: [facility] for rehab. Code Visit Inpatient E&M: 56623 Subs Hosp L2
[2017-10-20 16:51] LABS: Bedside Glucose 75 mg/dL (70-110)
[2017-10-20 22:01] LABS: Bedside Glucose 125 mg/dL (70-110)
[2017-10-21] VITALS (17 sets, daily range): BP systolic 141–164; BP diastolic 64–72; PULSE 64–76; RESP 16–18; TEMP 36.5–37.1; O2SAT 93–96
[2017-10-21] MEDS: Piperacil/Tazobactam 3.375 GM/50 ML ML IV ×3 (05:51→21:31)
[2017-10-21] MEDS: Heparin Injection (Vial) 5,000 UNIT/ML VIAL 5000 UNIT SC ×3 (05:51→21:31)
[2017-10-21] MEDS: Labetalol 200 MG Tablet 300 MG PO ×3 (05:51→21:31)
[2017-10-21 06:13] LABS: Hematocrit 35.7 % (40-54); Hemoglobin 11.3 g/dl (13.0-16.5); Mean Corp Hgb Conc 31.7 g/gl (32-36); Mean Corpuscular Volume 91.8 fL (80-94); Mean Platelet Vol. 9.6 fl (6.2-12.0); Platelet Count 294 K/mm3 (150-450); RBC Distribution Width CV 14.5 % (11.6-14.6); RBC Distribution Width SD 47.9 fl (35.1-43.9); Red Blood Count 3.89 M/mm3 (4.6-6.2); White Blood Count 11.3 K/mm3 (4.4-11.0)
[2017-10-21 06:27] LABS: Anion Gap 7 (5-15); BUN 21 mg/dL (7-18); BUN/Creat Ratio 9.8 RATIO (10-20); Calcium,Total 8.6 mg/dL (8.5-10.1); Chloride 108 mmol/L (98-107); Creatinine, Serum 2.15 mg/dL (0.70-1.30); EST Glomerular Filtration Rate 32 mL/min (>60); Est Glom Filt Rate - Afr Amer 39 mL/min (>60); Estimated Creatinine Clearance 32.54 ml/min; Glucose 87 mg/dL (74-106); Sodium Level 145 mmol/L (136-145)
[2017-10-21 06:41] LABS: Scan Indicated on CBC? Y/N NO
[2017-10-21] MEDS: Ipratropium/Albuterol Sulfate 3 ML AMPUL.NEB INHALATION ×2 (06:48→20:04)
[2017-10-21 06:49] LABS: Bedside Glucose 92 mg/dL (70-110)
[2017-10-21] MEDS: Pantoprazole Sodium 40 MG Tablet PO (08:22)
[2017-10-21] MEDS: Glucerna Shake 120 ML LIQUID PO ×3 (08:22→17:22)
[2017-10-21] MEDS: 0.45% Normal Saline 1,000 ML 100 ML IV (08:23)
--- NOTE | 2017-10-21 09:13 | CASEMGMT ---
REFERRAL FAXED TO THE [facility].
--- NOTE | 2017-10-21 10:19 | PCM.PN.HOSP ---
Patient Problems: Active and Suspected Problems Generalized weakness (Acute) Subjective: Patient was seen and examined. He feels much improved. Denies any chest pain or dizziness or shortness of breath. Waiting on insurance precertification for discharge Objective: Physical Exam General: Alert, Oriented x3, Cooperative, No apparent distress HEENT: Atraumatic, PERRLA, EOMI, Normocephalic Oral: Moist Mucosa, No Gingival or Mucosal Lesions/ Ulcerations Neck: Supple, No JVD Lungs: Clear to auscultation, No rhonchi, No wheeze, No rales, Diminished Cardiovascular: Regular rate, Regular Rhythm, Normal S1, Normal S2, No murmurs, No Ectopic Activity Abdomen: Bowel Sounds Present, Soft, Non Tender, Non-Distended, No Hepato-splenomegaly, Obese Extremities: No clubbing, No cyanosis, Edema - trace to 1+ edema bilaterally. Skin: No rashes Musculoskeletal: No Tenderness to Palpation of Joints or Extremities, No Muscle Wasting Lymphatic: No Cervical, Supraclavicular, or Inguinal Adenopathy Neurological: Cranial nerves II-XII grossly intact, Neuro grossly intact Psych/Mental Status: Appropriate affect Vitals/I&O's: Vital Signs Temp Pulse Resp BP Pulse Ox 97.7 F L 72 18 141/65 H 95 10/21/17 09:35 10/21/17 09:35 10/21/17 09:35 10/21/17 09:35 10/21/17 09:35 Oxygen Flow Rate (L/min) 2 Oxygen Delivery Method Nasal Cannula Weight: 114.2 kg Body Mass Index (BMI) 35.2 Intake and Output for Last 24 Hours 10/19/17 10/20/17 10/21/17 23:59 23:59 23:59 Intake Total 3200 / 3200 2809 / 2809 716.8 / 716.8 Output Total 1175 / 1175 3075 / 3075 1100 / 1100 Balance 2024 / 2024 -266 / -266 -383.2 / -383.2 Laboratory Results 10/20/17 11:25: POC Glucose 108 10/20/17 16:41: POC Glucose 75 10/20/17 21:45: POC Glucose 125 H 10/21/17 05:20: WBC 11.3 H, RBC 3.89 L, Hgb 11.3 L, Hct 35.7 L, MCV 91.8, MCH 29.0, MCHC 31.7 L, RDW 14.5, RDW Differential 47.9 H, Plt Count 294, MPV 9.6 10/21/17 05:20: Sodium 145, Potassium 4.0, Chloride 108 H, Carbon Dioxide 30.0, Anion Gap 7, BUN 21 H, Creatinine 2.15 H, Estim Creat Clear Calc 32.54, Est GFR (MDRD) Af Amer 39 L, Est GFR (MDRD) Non-Af 32 L, BUN/Creatinine Ratio 9.8 L, Glucose 87, Calcium 8.6 10/21/17 06:45: POC Glucose 92 Current Medications Acetaminophen (Tylenol) 650 mg PO Q6H PRN PRN PRN Reason: Mild Pain (1-3)/Temp > 100.7 F Last Admin: 10/19/17 17:58 Dose: 650 mg Albuterol/Ipratropium (Duoneb) 3 ml INHALATION Q6H.RT [facility] Last Admin: 10/21/17 06:48 Dose: 3 ml Heparin Sodium (Porcine) (Heparin Na) 5,000 unit SC Q8 [facility] Last Admin: 10/21/17 05:51 Dose: 5,000 units Piperacillin Sod/Tazobactam Sod (Zosyn) 3.375 gm in 50 mls @ 12.5 mls/hr IV Q8 [facility] Last Admin: 10/21/17 05:51 Dose: 12.5 mls/hr Sodium Chloride () 1,000 mls @ 100 mls/hr IV .Q10H [facility] Last Admin: 10/21/17 08:23 Dose: 100 mls/hr Insulin Human Lispro (Humalog Kwikpen (Bkc)) 0 unit SC ACHS [facility] PRN Reason: Protocol Last Admin: 10/21/17 07:24 Dose: Not Given Labetalol HCl (Trandate) 300 mg PO TID [facility] Last Admin: 10/21/17 05:51 Dose: 300 mg Nutritional Formula (Lactose Free) (Glucerna Shake) 120 ml PO TIDCM [facility] Last Admin: 10/21/17 08:22 Dose: 120 ml Ondansetron HCl (Zofran) 4 mg IV Q8H PRN PRN PRN Reason: NAUSEA Pantoprazole Sodium (Protonix) 40 mg PO DAILY [facility] Last Admin: 10/21/17 08:22 Dose: 40 mg Sodium Chloride () 5 - 30 ml IV UD PRN PRN Reason: SALINE FLUSH Medical Necessity - Tobacco Use Smoking Status: Light Smoker (<10/day) Tobacco Use: Cigarettes Assessment/Plan All Active Problems Generalized weakness (Acute) 71 years old male, admitted for generalized weakness and confusion on 10/18/17. The source of infection was not clear, but thought to be due to UTI. Initial CXR was unremarkable. 1. Sepsis due to presumed UTI, blood and urine culture shows no growth, IV Zosyn day 4, will switch to oral Levaquin for 3 more days. 2. Acute cystitis, management as above 3. Acute mental status change, h/o CVA in 02/2017, at baseline now 4. Acute hypoxic/hypercapneic respiratory insufficiency, unclear etiology, CT scan of the chest did not show any acute pathology, remains on 2L oxygen, continue on breathing treatments as needed. 5. DM II with renal complications, sugars are fairly controlled, continue with insulin sliding scale as well as Accu-Cheks. 6. Essential Hypertension, controlled, continue on labetalol 7. DARYL on CKD III, creatinine on admission was 2.63, improved to 2.18, at baseline, follow-up with nephrology at discharge 8. Debility related to current co-morbidities, patient skilled for rehab. 9. DVT PPx- Heparin SC 10. Disposition: DC when bed is available Code Visit Inpatient E&M: 63556 Subs Hosp L2
--- NOTE | 2017-10-21 10:21 | CASEMGMT ---
RECEIVED CALL FROM [employer] ([facility] [place]). PER [employer], WHEN CHECKING INSURANCE, SHE FOUND OUT PT HAS ANTHEM. [employer] WILL FAX COPY OF INSURANCE CARD TO [facility]. [employer] IS ABLE TO TRY FOR PRE-CERT DESPITE THE [facility] BEING OUT OF NETWORK. RILEY UPDATED OF SAME.
--- NOTE | 2017-10-21 11:21 | CASEMGMT ---
RECEIVED CALL FROM [facility] AT [facility]. [facility] DOES NOT HAVE A MALE BED AVAILABLE AT THIS TIME. REFERRAL FAXED TO [facility] PER REQUEST.
[2017-10-21] MEDS: Insulin Lispro 100 UNIT/ML INSULN.PEN SC ×2 (11:26→21:38)
[2017-10-21 11:40] LABS: Bedside Glucose 221 mg/dL (70-110)
--- NOTE | 2017-10-21 13:52 | CASEMGMT ---
RILEY spoke with patient and he was not agreeing to go anywhere for rehab. SW also obtained his insurance card and he has [place] Medicare not straight Medicare. Physician went back in and spoke with patient and he agreed to TCU. RILEY spoke with [facility] in TCU and they have one bed available. She can take patient and she will start the pre-cert. RN NAZIA spoke with patient letting him know that TCU can take him pending insurance approval. RILEY notified [facility] and [place] that patient is going to [facility]CU. Plan: [facility] TCU pending insurance approval. Phuong BOB MSW
[2017-10-21 16:29] LABS: BNP,B-Type NATRIURETIC PEPTIDE 58.2 pg/mL (0-100)
[2017-10-21 16:36] LABS: Bedside Glucose 135 mg/dL (70-110)
[2017-10-21 22:36] LABS: Bedside Glucose 156 mg/dL (70-110)
[2017-10-22] VITALS (10 sets, daily range): BP systolic 131–159; BP diastolic 54–63; PULSE 67–75; RESP 16–18; TEMP 36.9–37.1; O2SAT 92–97
[2017-10-22] MEDS: Acetaminophen 325 MG Tablet 650 MG PO (01:37)
[2017-10-22] MEDS: Piperacil/Tazobactam 3.375 GM/50 ML ML IV ×2 (05:21→13:49)
[2017-10-22] MEDS: Labetalol 200 MG Tablet 300 MG PO ×2 (05:21→13:51)
[2017-10-22] MEDS: Heparin Injection (Vial) 5,000 UNIT/ML VIAL 5000 UNIT SC ×2 (05:21→13:49)
[2017-10-22 06:12] LABS: Hematocrit 35.1 % (40-54); Hemoglobin 11.2 g/dl (13.0-16.5); Mean Corp Hgb Conc 31.9 g/gl (32-36); Mean Corpuscular Hgb 28.9 pg (27.0-32.0); Mean Corpuscular Volume 90.7 fL (80-94); Mean Platelet Vol. 9.4 fl (6.2-12.0); Platelet Count 294 K/mm3 (150-450); RBC Distribution Width CV 14.3 % (11.6-14.6); RBC Distribution Width SD 46.3 fl (35.1-43.9); Red Blood Count 3.87 M/mm3 (4.6-6.2)
[2017-10-22 06:20] LABS: Scan Indicated on CBC? Y/N NO
[2017-10-22 06:35] LABS: Anion Gap 6 (5-15); BUN 22 mg/dL (7-18); BUN/Creat Ratio 10.2 RATIO (10-20); Calcium,Total 8.6 mg/dL (8.5-10.1); Chloride 106 mmol/L (98-107); Creatinine, Serum 2.15 mg/dL (0.70-1.30); EST Glomerular Filtration Rate 32 mL/min (>60); Est Glom Filt Rate - Afr Amer 39 mL/min (>60); Estimated Creatinine Clearance 32.54 ml/min; Glucose 97 mg/dL (74-106); Potassium 3.9 mmol/L (3.5-5.1); Sodium Level 141 mmol/L (136-145)
[2017-10-22 06:56] LABS: Bedside Glucose 105 mg/dL (70-110)
[2017-10-22] MEDS: Ipratropium/Albuterol Sulfate 3 ML AMPUL.NEB INHALATION ×2 (07:50→13:04)
[2017-10-22] MEDS: Glucerna Shake 120 ML LIQUID PO ×3 (08:05→18:15)
[2017-10-22] MEDS: Pantoprazole Sodium 40 MG Tablet PO (11:00)
[2017-10-22 11:10] LABS: Bedside Glucose 164 mg/dL (70-110)
--- NOTE | 2017-10-22 12:33 | PCM.TXEXTCAR ---
- Diet 10/18/17 14:40 Diet: Cardiac/Low Cholesterol/ Diabetic diet/1500mls fluid restriction Food consistency:: Regular Liquid Consistency:: Regular/Thin Is pt able to select menu?: Yes - Routine Orders/Code Status Suppository Type: Dulcolax 10mg Suppository Frequency: Daily PRN O2 Liters per Minute: 2 Keep PO Greater than or Equal to (%): 94 - Encourage use of incentive spirometer Routine Lab Work: CBC - weekly, BMP - weekly Code Status: Full Code - Therapies Physical Therapy: Eval and Treat Occupational Therapy: Eval and Treat - Allergies/Procedures Done in Hospital Allergies/Adverse Reactions: Allergies No Known Allergies Allergy (Verified 10/18/17 08:34) - Type of Care/Length of Stay Estimated LOS: Convalescent Care Less Than 30 days Type of Care Needed: Skilled Rehab Potential: Good Prognosis: Good - Additional Orders/Day of Discharge Day of Discharge: 10/22/17 - Dietary and Speech Recommendations Dietitian Recommendations/Changes: Rec diet change to 1800 nitish Cardiac/low sodium w/ fluid restriction as indicated d/t pmhx. D/C Glucerna TID as adequate intake at meals established. - Follow Up Care Primary Care Physician: Jose Alberto Doctor,Out of [NON-STAFF] - Please follow up with your Primary Care Physician in: in 2 weeks Please Follow Up With: Linda Chaves DO When: in 2 weeks
--- NOTE | 2017-10-22 12:36 | ECHOD_ITS ---
Reason For Study: dyspnea/SOB Procedure This was a 2D Doppler, Color Flow transthoracic echocardiogram. The study was technically difficult. Contrast injection was performed. Exam performed portable in patient room. Left Ventricle Normal LV size. Left ventricular systolic function is normal. The estimated ejection fraction is 65 %. There is evidence of diastolic dysfunction. No regional wall motion abnormalities noted. Right Ventricle Normal RV size. Normal systolic function. Atria Normal left atrium. Normal right atrium. No doppler evidence for ASD. Mitral Valve There is no mitral annular calcification. Normal mitral valve. Trivial mitral valve insufficiency. Tricuspid Valve Normal tricuspid valve. Trivial tricuspid valve insufficiency. Unable to estimate RV systolic pressure/pulmonary artery pressure due to technically difficult study. Aortic Valve Trisinus/trileaflet aortic valve. Mild diffuse aortic valve thickening. Mild diffuse aortic valve calcification. Mild aortic stenosis. Mild (1+) aortic valve insufficiency. Pulmonic Valve The pulmonic valve is not well visualized. Great Vessels Normal sized aortic root. Pericardium/Pleural No pericardial effusion. Medication Diluted definity 2.0ml given slow IV push to enhance endocardial definition. MMode/2D Measurements & Calculations LVIDd: 4.9 cm IVSd: 1.3 cm LVOT diam: 2.2 cm LVIDs: 2.8 cm LVPWd: 1.1 cm LVOT area: 3.8 cm2 FS: 41.8 % Ao root diam: 3.4 cm LAV(MOD-bp): 72.5 ml LA A4 area: 23.3 cm2 LAV(MOD-bp) Indexed: 31.5 ml/m2 LAV(MOD-sp2): 66.0 ml LAV(MOD-sp4): 79.4 ml RA A4 area: 21.4 cm2 Doppler Measurements & Calculations MV E max levi: 115.4 cm/sec Lat Peak E' Levi: 7.4 cm/sec Med Peak E' Levi: 6.3 cm/sec MV A max levi: 143.7 cm/sec E/E' lat: 15.5 E/E' med: 18.4 MV E/A: 0.80 Ao V2 max: 296.5 cm/sec AI max levi: 368.3 cm/sec LV V1 max: 125.2 cm/sec Ao max P.2 mmHg AI max P.3 mmHg LV V1 max P.3 mmHg Ao V2 mean: 205.4 cm/sec AI dec slope: 226.6 cm/sec2 LV V1 mean P.0 mmHg Ao mean P.5 mmHg AI P1/2t: 476.2 msec LV V1 mean: 82.3 cm/sec Ao V2 VTI: 67.4 cm LV V1 VTI: 27.7 cm JUSTINE(I,D): 1.6 cm2 JUSTINE(V,D): 1.6 cm2 SV(LVOT): 104.9 ml PA V2 max: 96.9 cm/sec Interpretation Summary The study was technically difficult. Contrast injection was performed. Left ventricular systolic function is normal. The estimated ejection fraction is 65 %. Trivial mitral valve insufficiency. Trivial tricuspid valve insufficiency. Mild aortic stenosis. Mild (1+) aortic valve insufficiency. Unable to estimate RV systolic pressure/pulmonary artery pressure due to technically difficult study. There is evidence of diastolic dysfunction. Ordering Physician: Emily Cooper Performed By: Taya Gómez RDCS, RVT
--- NOTE | 2017-10-22 12:37 | CASEMGMT ---
Social Work Phone call from Keiry in TCU and pt has been approved by insurance and can be admitted to TCU today. Physician notified and pt is ready for d/c today. Met with pt in room and informed and he is agreeable to transfer to TCU today. With pt permission phone call placed to pt friend Melissa and notified her of transfer today. Orders faxed to TCU. No further d/c needs. Plan: TCU today [facility]
--- NOTE | 2017-10-22 12:38 | PCM.DC.SUM ---
Discharge Date and Diagnosis - Problem List Patient Problems: Active and Suspected Problems Generalized weakness (Acute) Date of Admission: 10/18/17 Date of Discharge: 10/22/17 - Primary Discharge Diagnosis Active and Suspected Problems Generalized weakness (Acute) Sepsis secondary to UTI Acute cystitis Altered mental status Acute hypoxic/hypercapnic respiratory insufficiency Debility - Secondary Discharge Diagnosis Chronic Problems Tobacco user (Chronic) Hypertensive retinopathy (Chronic) Benign essential HTN (Chronic) Hospital Course and Treatment Imaging Results: 10/22/17 12:36 Echo Complete [ECHO] Routine None Operations: None Procedures: 2-D Echocardiogram Summary of Care Provided: 71 years old male, admitted for generalized weakness and confusion on 10/18/17. The source of infection was not clear, but thought to be due to UTI. Initial CXR was unremarkable. 1. Sepsis due to presumed UTI, blood and urine culture shows no growth, IV Zosyn day 4, discharged on 2 more days of levaquin. 2. Acute cystitis, management as above 3. Acute mental status change, h/o CVA in 02/2017, at baseline now 4. Acute hypoxic/hypercapneic respiratory insufficiency, unclear etiology, CT scan of the chest did not show any acute pathology, remains on 2L oxygen, encourage use of incentive spirometer, wean off oxygen. 5. DM II with renal complications, sugars are fairly controlled, continue with insulin sliding scale as well as Accu-Cheks. 6. Essential Hypertension, controlled, continue on labetalol 7. DARYL on CKD III, creatinine on admission was 2.63, improved to 2.18, at baseline, follow-up with nephrology at discharge 8. Debility related to current co-morbidities,discharged to SNF. Discharge Diet: Low fat/ Low Cholesterol, 2000 mg Sodium Diet Discharge Activity: Return to Normal Activity Home Medications: Medications to take at Discharge Labetalol HCl 300 mg PO TID 10/18/17 Omeprazole 40 mg PO DAILY 10/18/17 Acetaminophen [Tylenol Tablet] 650 mg PO Q6H PRN PRN tablet 10/22/17 Glucerna Shake 120 ml PO TIDCM liquid 10/22/17 Heparin Injection (Vial) [Heparin Na] 5,000 unit SC Q8 vial 10/22/17 Insulin Glargine,Hum.rec.anlog [Evelio Herndon] 5 unit SQ BID #0 10/22/17 Insulin Lispro [Humalog KwikPen] See Protocol SC ACHS insuln.pen 10/22/17 Ipratropium/Albuterol Sulfate [Duoneb] 3 ml INHALATION Q6H.RT ampul.neb 10/22/17 Levofloxacin [Levaquin] 500 mg PO DAILY #3 tablet 10/22/17 Following Prescrptions Were Given to Patient: Levofloxacin [Levaquin] 500 mg PO DAILY #3 tablet Primary Care Physician: Jose Alberto Doctor,Out of [NON-STAFF] - Please follow up with your Primary Care Physician in: in 2 weeks Please Follow Up With: Linda Chaves DO When: in 2 weeks Disposition: Halfway facility Minutes spent on discharge:: 45 Patient Condition:: Stable Medical Necessity - Tobacco Use Smoking Status: Light Smoker (<10/day) Tobacco Use: Cigarettes Meaningful Use Info Meaningful Use Diagnoses (Choose all that apply): None applicable Code Visit Inpatient E&M: 84898 Disch Hosp
[2017-10-22] MEDS: Insulin Lispro 100 UNIT/ML INSULN.PEN SC ×2 (13:49→18:15)
[2017-10-22 14:07] LABS: Hemoglobin A1c 6.3 % (4.2-6.3)
[2017-10-22 16:45] LABS: Bedside Glucose 160 mg/dL (70-110)
== END 2017-10-22 18:45 | disposition skilled nursing facility (03) | DRG 689 ==
LOC: ED 10:45 → PCU 13:23
PROVIDERS: Hospitalist; Admitting Provider Internal Medicine; Emergency Provider Emergency Medicine; Family Provider Family Medicine; PCP Family Medicine; Visit Provider Internal Medicine
DX: N30.00 Acute cystitis without hematuria (principal); G93.41 Metabolic encephalopathy; E86.0 Dehydration; F17.210 Nicotine dependence, cigarettes, uncomplicated; R53.81 Other malaise; H35.039 Hypertensive retinopathy, unspecified eye; Z86.73 Personal history of transient ischemic attack (TIA), and cerebral infarction without residual deficits; R06.89 Other abnormalities of breathing; I12.9 Hypertensive chronic kidney disease with stage 1 through stage 4 chronic kidney disease, or unspecified chronic kidney disease; E11.22 Type 2 diabetes mellitus with diabetic chronic kidney disease; N18.3 Chronic kidney disease, stage 3 (moderate); Z79.4 Long term (current) use of insulin
CPT/HCPCS: 36415; 36600; 70450; 71045; 71250; 80048; 81001; 82803; 82962; 83036; 83605; 83880; 84484; 85025; 85027; 87040; 87086; 93005; 93306; 94640; 97110; 97116; 97162; 97166; 97530; 97535; 97802; 99251; 99285; J7030; J7050; Q9957; A4216; C8929; G0463; J7799

== ENCOUNTER 2017-10-22 19:02 | Inpatient (IN) | payer MEDICARE, SELFPAY ==
[2017-10-22 19:12] VITALS: BP 159/77; PULSE 73; RESP 18; TEMP 35.9; O2SAT 94
[2017-10-22 19:59] VITALS: PULSE 79; RESP 16; O2SAT 95
[2017-10-22] MEDS: Ipratropium/Albuterol Sulfate 3 ML AMPUL.NEB INHALATION (19:59)
[2017-10-22 21:11] LABS: Bedside Glucose 149 mg/dL (70-110)
[2017-10-22] MEDS: levoFLOXacin 500 MG Tablet PO (21:19)
[2017-10-22] MEDS: Labetalol 200 MG Tablet 300 MG PO (21:20)
[2017-10-22 21:32] VITALS: BMI 34.8
[2017-10-22 21:36] VITALS: BMI 34.9
[2017-10-22] MEDS: Heparin Injection (Vial) 5,000 UNIT/ML VIAL 5000 UNIT SC (21:45)
--- NOTE | 2017-10-22 21:58 | PCM.HP.STD ---
Problem List (1) Fall Status: Acute (2) Sepsis Status: Acute (3) Encephalopathy Status: Acute (4) Urinary tract infection Status: Acute (5) Diabetes mellitus Status: Chronic (6) Hypertension Status: Chronic (7) Hyperlipidemia Status: Chronic (8) COPD (chronic obstructive pulmonary disease) Status: Chronic (9) Stroke Status: Chronic (10) Chronic kidney disease Status: Chronic (11) GERD (gastroesophageal reflux disease) Status: Chronic (12) Generalized weakness Status: Chronic History of Present Illness Date of Admission: 10/22/17 Chief Complaint: Here for rehabilitation, strengthening, prior to discharge home. The patient is a 71 year old Male with below past medical history presented to [facility] Emergency Department 10/18/2017 with generalized weakness, fall. 10/18/2017 EKG Normal Sinus Rhythm, Normal EKG. Legs gave out, fell. Patient confused. WBC 18.7, Hemoglobin 12. BUN 45, Cr 2.63, Troponin normal, BNP 105. Chest X-ray showed vascular congestion. ABG showed respiratory acidosis. 10/18/2017 CT brain showed chronic involutional changes, sinusitis. 10/18/2017 Admit to Hospital. Zosyn IV, Normal Saline 1 Liter IV, given after blood, urine cultures sent. Treated for sepsis. 10/19/2017 CT chest atelectasis left posterior lung base. 10/20/2017 Sepsis secondary urinary tract infection, continue IV Zosyn. 10/21/2017 Blood, urine cultures negative. IV Zosyn changed to oral Levaquin. Cr improved from 2.63 to 2.18. 10/22/2017 Echo Left ventricular systolic function normal. EF 65%. Diastolic dysfunction present. Encephalopathy improved with treatment sepsis/UTI. 10/22/2017 Admit to TCU for rehabilitation, strengthening, prior to discharge home. Past Medical History Past Medical History (Chronic Problems): Chronic Problems Generalized weakness (Chronic) Diabetes mellitus (Chronic) Hypertension (Chronic) Hyperlipidemia (Chronic) COPD (chronic obstructive pulmonary disease) (Chronic) Stroke (Chronic) Chronic kidney disease (Chronic) GERD (gastroesophageal reflux disease) (Chronic) Tobacco user (Chronic) Hypertensive retinopathy (Chronic) Benign essential HTN (Chronic) Allergies No Known Allergies Allergy (Verified 10/18/17 08:34) Home Medications: Ambulatory Orders Medication Instructions Recorded Labetalol HCl 300 mg PO TID 10/18/17 Omeprazole 40 mg PO DAILY 10/18/17 Acetaminophen [Tylenol Tablet] 650 mg PO Q6H PRN PRN tablet 10/22/17 Glucerna Shake 120 ml PO TIDCM 10/22/17 Heparin Injection (Vial) [Heparin 5,000 unit SC Q8 10/22/17 Na] Insulin Glargine,Hum.rec.anlog 5 unit SQ BID #0 10/22/17 [Toujeo Solostar] Insulin Lispro [Humalog KwikPen] See Protocol SC ACHS 10/22/17 Ipratropium/Albuterol Sulfate 3 ml INHALATION Q6H.RT 10/22/17 [Duoneb] Levofloxacin [Levaquin] 500 mg PO DAILY 10/22/17 Surgical History: no surgical history Psychiatric History: No pertinent psych hx Lives: Alone Smoking Status: Light Smoker (<10/day) Tobacco Use: Cigarettes Alcohol: None Drugs: None - *Family History Maternal History Items: Unknown Paternal History Items: Unknown Review of Systems Constitutional: Reports: Weakness. Denies: Chills, Fever, Weight Change HEENT: Denies: Head Aches, Sinus Congestion, Sinus Drainage Cardiovascular: Denies: Chest Pain, Palpitations Respiratory: Denies: Cough, Shortness of breath at rest, Sputum production Gastrointestinal: Denies: Abdominal Pain, Nausea, Vomiting Genitourinary: Denies: Dysuria Musculoskeletal: Denies: Joint Pain, Joint Tenderness Skin: Denies: Rash, Wounds Neurological: Denies: Numbness, Tingling, Focal weakness Psychiatric: Denies: Anxiety, Depression, Homicidal Ideations, Suicidal Ideations Hematologic/ Lymphatic: Denies: Easy Bruising, Easy Bleeding VTE Information - Inpt Only VTE Present on Admission: No VTE Mechan Device Prophylaxis: Knee High MARIIA Hose VTE Pharm Prophylaxis ordered?: Yes Patient Problems: Active and Suspected Problems Fall (Acute) Sepsis (Acute) Encephalopathy (Acute) Urinary tract infection (Acute) - Physical Exam General: Alert, Oriented x3, Cooperative HEENT: Atraumatic, PERRLA, EOMI, Normocephalic Neck: Supple, No JVD, Negative Carotid Bruits Lungs: Clear to auscultation, Normal air movement Cardiovascular: Regular rate, No murmurs Abdomen: Bowel Sounds Present, Soft, Non Tender Extremities: Capillary Refill Less than 3 Seconds, Edema - Trace bilaterally. Skin: No rashes, No breakdown Musculoskeletal: No Tenderness to Palpation of Joints or Extremities Neurological: Cranial nerves II-XII grossly intact Psych/Mental Status: Normal Affect, Appropriate Vital Signs Temp Pulse Resp BP Pulse Ox 96.7 F L 79 16 159/77 H 95 10/22/17 19:12 10/22/17 19:59 10/22/17 19:59 10/22/17 19:12 10/22/17 19:59 Oxygen Flow Rate (L/min) 2 Oxygen Delivery Method Nasal Cannula Weight: 113.4 kg Body Mass Index (BMI) 34.8 POC Glucose 10/22/17 21:07 POC Glucose 149 H Assessment/Plan All Active Problems Fall (Acute) Sepsis (Acute) Encephalopathy (Acute) Urinary tract infection (Acute) 71 year old male with below past medical history hospitalized for sepsis secondary to urinary tract infection, complicated by encephalopathy, acute on chronic kidney disease, admitted to TCU with debility, here for rehabilitation, strengthening, prior to discharge home. Debility - PT/OT. Pain - Tylenol 1000MG Q8H PRN mild pain. Bowel - Miralax 17GM daily, Senna/colace 1 tablet BID, Dulcolax 10MG VA daily PRN Pneumonia vaccination - Administer Prevnar 13 and/or Pneumovax 23 as necessary. DVT prophylaxis - Lovenox 30MG SC daily. Nutrition - Glucerna 120ML PO TIDCM. Diabetes Mellitus II - Lantus 5 units BID. COPD - Duoneb 3ML Q6HRT Hypertension - Labetalol 300MG TID. UTI - Levaquin 500MG daily thru 10/24/2017. GERD - Pantoprazole 40MG daily.
--- NOTE | 2017-10-22 22:07 | HP.PCM_ITS ---
Problem List (1) Fall Status: Acute (2) Sepsis Status: Acute (3) Encephalopathy Status: Acute (4) Urinary tract infection Status: Acute (5) Diabetes mellitus Status: Chronic (6) Hypertension Status: Chronic (7) Hyperlipidemia Status: Chronic (8) COPD (chronic obstructive pulmonary disease) Status: Chronic (9) Stroke Status: Chronic (10) Chronic kidney disease Status: Chronic (11) GERD (gastroesophageal reflux disease) Status: Chronic (12) Generalized weakness Status: Chronic History of Present Illness Date of Admission: 10/22/17 Chief Complaint: Here for rehabilitation, strengthening, prior to discharge home. The patient is a 71 year old Male with below past medical history presented to [facility] Emergency Department 10/18/2017 with generalized weakness, fall. 10/18/2017 EKG Normal Sinus Rhythm, Normal EKG. Legs gave out, fell. Patient confused. WBC 18.7, Hemoglobin 12. BUN 45, Cr 2.63, Troponin normal, BNP 105. Chest X-ray showed vascular congestion. ABG showed respiratory acidosis. 10/18/2017 CT brain showed chronic involutional changes, sinusitis. 10/18/2017 Admit to Hospital. Zosyn IV, Normal Saline 1 Liter IV, given after blood, urine cultures sent. Treated for sepsis. 10/19/2017 CT chest atelectasis left posterior lung base. 10/20/2017 Sepsis secondary urinary tract infection, continue IV Zosyn. 10/21/2017 Blood, urine cultures negative. IV Zosyn changed to oral Levaquin. Cr improved from 2.63 to 2.18. 10/22/2017 Echo Left ventricular systolic function normal. EF 65%. Diastolic dysfunction present. Encephalopathy improved with treatment sepsis/UTI. 10/22/2017 Admit to TCU for rehabilitation, strengthening, prior to discharge home. Past Medical History Past Medical History (Chronic Problems): Chronic Problems Generalized weakness (Chronic) Diabetes mellitus (Chronic) Hypertension (Chronic) Hyperlipidemia (Chronic) COPD (chronic obstructive pulmonary disease) (Chronic) Stroke (Chronic) Chronic kidney disease (Chronic) GERD (gastroesophageal reflux disease) (Chronic) Tobacco user (Chronic) Hypertensive retinopathy (Chronic) Benign essential HTN (Chronic) Allergies No Known Allergies Allergy (Verified 10/18/17 08:34) Home Medications: Ambulatory Orders Medication Instructions Recorded Labetalol HCl 300 mg PO TID 10/18/17 Omeprazole 40 mg PO DAILY 10/18/17 Acetaminophen [Tylenol Tablet] 650 mg PO Q6H PRN PRN tablet 10/22/17 Glucerna Shake 120 ml PO TIDCM 10/22/17 Heparin Injection (Vial) [Heparin 5,000 unit SC Q8 10/22/17 Na] Insulin Glargine,Hum.rec.anlog 5 unit SQ BID #0 10/22/17 [Toujeo Solostar] Insulin Lispro [Humalog KwikPen] See Protocol SC ACHS 10/22/17 Ipratropium/Albuterol Sulfate 3 ml INHALATION Q6H.RT 10/22/17 [Duoneb] Levofloxacin [Levaquin] 500 mg PO DAILY 10/22/17 Surgical History: no surgical history Psychiatric History: No pertinent psych hx Lives: Alone Smoking Status: Light Smoker (<10/day) Tobacco Use: Cigarettes Alcohol: None Drugs: None - *Family History Maternal History Items: Unknown Paternal History Items: Unknown Review of Systems Constitutional: Reports: Weakness. Denies: Chills, Fever, Weight Change HEENT: Denies: Head Aches, Sinus Congestion, Sinus Drainage Cardiovascular: Denies: Chest Pain, Palpitations Respiratory: Denies: Cough, Shortness of breath at rest, Sputum production Gastrointestinal: Denies: Abdominal Pain, Nausea, Vomiting Genitourinary: Denies: Dysuria Musculoskeletal: Denies: Joint Pain, Joint Tenderness Skin: Denies: Rash, Wounds Neurological: Denies: Numbness, Tingling, Focal weakness Psychiatric: Denies: Anxiety, Depression, Homicidal Ideations, Suicidal Ideations Hematologic/ Lymphatic: Denies: Easy Bruising, Easy Bleeding VTE Information - Inpt Only VTE Present on Admission: No VTE Mechan Device Prophylaxis: Knee High MARIIA Hose VTE Pharm Prophylaxis ordered?: Yes Patient Problems: Active and Suspected Problems Fall (Acute) Sepsis (Acute) Encephalopathy (Acute) Urinary tract infection (Acute) - Physical Exam General: Alert, Oriented x3, Cooperative HEENT: Atraumatic, PERRLA, EOMI, Normocephalic Neck: Supple, No JVD, Negative Carotid Bruits Lungs: Clear to auscultation, Normal air movement Cardiovascular: Regular rate, No murmurs Abdomen: Bowel Sounds Present, Soft, Non Tender Extremities: Capillary Refill Less than 3 Seconds, Edema - Trace bilaterally. Skin: No rashes, No breakdown Musculoskeletal: No Tenderness to Palpation of Joints or Extremities Neurological: Cranial nerves II-XII grossly intact Psych/Mental Status: Normal Affect, Appropriate Vital Signs Temp Pulse Resp BP Pulse Ox 96.7 F L 79 16 159/77 H 95 10/22/17 19:12 10/22/17 19:59 10/22/17 19:59 10/22/17 19:12 10/22/17 19:59 Oxygen Flow Rate (L/min) 2 Oxygen Delivery Method Nasal Cannula Weight: 113.4 kg Body Mass Index (BMI) 34.8 POC Glucose 10/22/17 21:07 POC Glucose 149 H Assessment/Plan All Active Problems Fall (Acute) Sepsis (Acute) Encephalopathy (Acute) Urinary tract infection (Acute) 71 year old male with below past medical history hospitalized for sepsis secondary to urinary tract infection, complicated by encephalopathy, acute on chronic kidney disease, admitted to TCU with debility, here for rehabilitation, strengthening, prior to discharge home. * Debility - PT/OT. * Pain - Tylenol 1000MG Q8H PRN mild pain. * Bowel - Miralax 17GM daily, Senna/colace 1 tablet BID, Dulcolax 10MG LA daily PRN * Pneumonia vaccination - Administer Prevnar 13 and/or Pneumovax 23 as necessary. * DVT prophylaxis - Lovenox 30MG SC daily. * Nutrition - Glucerna 120ML PO TIDCM. * Diabetes Mellitus II - Lantus 5 units BID. * COPD - Duoneb 3ML Q6HRT * Hypertension - Labetalol 300MG TID. * UTI - Levaquin 500MG daily thru 10/24/2017. * GERD - Pantoprazole 40MG daily.
[2017-10-23] MEDS: Menthol/Lanolin/Calamine/Znox 113 GM Tube 1 APPLIC TOPICAL ×3 (05:21→21:28)
[2017-10-23] MEDS: Labetalol 200 MG Tablet 300 MG PO ×3 (05:23→21:28)
[2017-10-23] MEDS: levoFLOXacin 500 MG Tablet PO (05:23)
[2017-10-23] MEDS: Nystatin Powder 15gm Bottle 1 APPLIC TOPICAL ×2 (05:24→21:32)
[2017-10-23] MEDS: Enoxaparin 30 MG/0.3 ML Syringe SC (05:24)
[2017-10-23] MEDS: Senna/Docusate Sodium 1 Tablet PO (05:24)
[2017-10-23] MEDS: Polyethylene Glycol 3350 17 GM PACKET PO (05:24)
[2017-10-23] MEDS: Pantoprazole Sodium 40 MG Tablet PO (05:25)
[2017-10-23 06:09] LABS: Anion Gap 8 (5-15); BUN 20 mg/dL (7-18); BUN/Creat Ratio 9.9 RATIO (10-20); Calcium,Total 9.2 mg/dL (8.5-10.1); Chloride 105 mmol/L (98-107); Creatinine, Serum 2.02 mg/dL (0.70-1.30); EST Glomerular Filtration Rate 35 mL/min (>60); Est Glom Filt Rate - Afr Amer 42 mL/min (>60); Estimated Creatinine Clearance 35.72 ml/min; Glucose 110 mg/dL (74-106); Potassium 3.9 mmol/L (3.5-5.1); Sodium Level 143 mmol/L (136-145)
[2017-10-23 06:41] VITALS: PULSE 78; RESP 18; O2SAT 98
[2017-10-23] MEDS: Ipratropium/Albuterol Sulfate 3 ML AMPUL.NEB INHALATION ×3 (06:41→18:20)
[2017-10-23 07:16] LABS: Bedside Glucose 111 mg/dL (70-110)
[2017-10-23 11:05] LABS: Bedside Glucose 118 mg/dL (70-110)
[2017-10-23 13:09] VITALS: PULSE 75; RESP 18
[2017-10-23] MEDS: Tuberculin,Purif.prot.deriv. 50 TU/ML Vial 5 ML ID (13:28)
[2017-10-23 15:38] VITALS: BP 127/70; PULSE 78; RESP 20; TEMP 36.3; O2SAT 96
[2017-10-23 16:56] LABS: Bedside Glucose 139 mg/dL (70-110)
[2017-10-23 18:20] VITALS: PULSE 73; RESP 18; O2SAT 98
[2017-10-23 21:00] LABS: Bedside Glucose 149 mg/dL (70-110)
[2017-10-23 21:38] VITALS: PULSE 72; O2SAT 95
[2017-10-24 01:32] VITALS: PULSE 80; RESP 18
[2017-10-24] MEDS: Ipratropium/Albuterol Sulfate 3 ML AMPUL.NEB INHALATION ×3 (01:32→18:58)
[2017-10-24] MEDS: Menthol/Lanolin/Calamine/Znox 113 GM Tube 1 APPLIC TOPICAL ×3 (06:04→19:48)
[2017-10-24] MEDS: Enoxaparin 30 MG/0.3 ML Syringe SC (06:07)
[2017-10-24] MEDS: Labetalol 200 MG Tablet 300 MG PO ×3 (06:07→19:51)
[2017-10-24] MEDS: Senna/Docusate Sodium 1 Tablet PO (06:08)
[2017-10-24] MEDS: levoFLOXacin 500 MG Tablet PO (06:08)
[2017-10-24] MEDS: Pantoprazole Sodium 40 MG Tablet PO (06:08)
[2017-10-24] MEDS: Nystatin Powder 15gm Bottle 1 APPLIC TOPICAL ×2 (06:08→19:48)
[2017-10-24] MEDS: Polyethylene Glycol 3350 17 GM PACKET PO (06:09)
[2017-10-24 06:55] LABS: Bedside Glucose 119 mg/dL (70-110)
[2017-10-24 10:00] VITALS: PULSE 76; RESP 18; O2SAT 96
[2017-10-24 11:16] LABS: Bedside Glucose 162 mg/dL (70-110)
[2017-10-24 12:50] VITALS: PULSE 79; RESP 16
[2017-10-24 15:30] VITALS: BP 139/76; PULSE 73; RESP 20; TEMP 37; O2SAT 94
[2017-10-24 16:51] LABS: Bedside Glucose 116 mg/dL (70-110)
[2017-10-24 19:01] VITALS: PULSE 74; RESP 16
--- NOTE | 2017-10-24 20:58 | NURSING ---
pt has rubbing around ears from nasal cannula ear protectors put on at this time. Skin intact denies any discomfort or pain.
[2017-10-25 00:54] VITALS: PULSE 80; RESP 18; O2SAT 97
[2017-10-25] MEDS: Ipratropium/Albuterol Sulfate 3 ML AMPUL.NEB INHALATION ×4 (00:54→19:02)
[2017-10-25 05:27] VITALS: PULSE 77; O2SAT 95
[2017-10-25] MEDS: Labetalol 200 MG Tablet 300 MG PO ×3 (05:38→21:23)
[2017-10-25] MEDS: Pantoprazole Sodium 40 MG Tablet PO (05:38)
[2017-10-25] MEDS: Senna/Docusate Sodium 1 Tablet PO ×2 (05:38→18:39)
[2017-10-25] MEDS: Polyethylene Glycol 3350 17 GM PACKET PO (05:39)
[2017-10-25] MEDS: Enoxaparin 30 MG/0.3 ML Syringe SC (05:43)
[2017-10-25] MEDS: Menthol/Lanolin/Calamine/Znox 113 GM Tube 1 APPLIC TOPICAL ×3 (05:46→21:24)
[2017-10-25] MEDS: Nystatin Powder 15gm Bottle 1 APPLIC TOPICAL ×2 (05:46→21:24)
[2017-10-25 06:35] VITALS: PULSE 77; RESP 16; O2SAT 96
[2017-10-25 06:41] LABS: Bedside Glucose 118 mg/dL (70-110)
[2017-10-25 12:44] VITALS: PULSE 78; RESP 16
--- NOTE | 2017-10-25 13:47 | CASEMGMT ---
Insurance Clinical information sent. Pending continued stay approval at this time. Auth#[id number] Emerita CORDOVA, LOCOMOTIVE ENGINEER
[2017-10-25 15:31] VITALS: BP 155/69; PULSE 76; RESP 20; TEMP 36.8; O2SAT 96
[2017-10-25 17:21] LABS: Bedside Glucose 119 mg/dL (70-110)
[2017-10-25 19:02] VITALS: PULSE 77; RESP 17
[2017-10-25 21:06] LABS: Bedside Glucose 135 mg/dL (70-110)
--- NOTE | 2017-10-25 22:31 | PCA ---
patient had called out to go to bed. SUPERINTENDENT COMMISSARY Alexa was in room and patient stated that his C debit card was missing. SUPERINTENDENT COMMISSARY's Alexa, Carla, Amanda assisted patient with looking through wallet and personal belongings. Did not see debit card. RN's Elly and Mel notified. I called the package line relief operator to make sure it wasn't in the safe. Nothing down there. Attempted to call Melissa who is listed on his contact list. Number is not valid.
[2017-10-26 05:49] VITALS: BP 106/46; PULSE 72
[2017-10-26] MEDS: Menthol/Lanolin/Calamine/Znox 113 GM Tube 1 APPLIC TOPICAL ×3 (05:51→19:43)
[2017-10-26] MEDS: Senna/Docusate Sodium 1 Tablet PO ×2 (05:52→16:56)
[2017-10-26] MEDS: Pantoprazole Sodium 40 MG Tablet PO (05:52)
[2017-10-26] MEDS: Polyethylene Glycol 3350 17 GM PACKET PO (05:52)
[2017-10-26] MEDS: Labetalol 200 MG Tablet 300 MG PO ×3 (05:52→19:44)
[2017-10-26] MEDS: Enoxaparin 30 MG/0.3 ML Syringe SC (05:52)
[2017-10-26] MEDS: Nystatin Powder 15gm Bottle 1 APPLIC TOPICAL ×2 (05:54→19:43)
[2017-10-26 06:59] VITALS: PULSE 77; RESP 18; O2SAT 97
[2017-10-26] MEDS: Ipratropium/Albuterol Sulfate 3 ML AMPUL.NEB INHALATION ×3 (06:59→19:10)
[2017-10-26 07:01] LABS: Bedside Glucose 126 mg/dL (70-110)
--- NOTE | 2017-10-26 07:16 | NURSING ---
It was brought to my attention by FOXER's last evening pt stating to of lost his debit card. Pt A&Ox3. Belongings were searched but was unable to be found. This nurse in room Last evening and pt was unaware of when he had last saw his card. Pt did not seem very concerned and stated If I feel like it is a problem I will cancel my card tomorrow. Next of kin was attempted to be contacted by this nurse and sec. multiple times throughout the night but number was disconnected. [facility] was notified. building custodial supervisor notified, refrigeration unit repairer notified in the AM. At 0700 this nurse into ask pt about if he had another contact number for next of kin. Pt was unsure of the number but states she should be in today. This nurse asked again if he was able to remember at all the last time he saw his card. pt stated After I thought about it Im pretty sure I had it when I came to the ER. Pt states he only knows what is in his account when he gets his statement in the mail. This nurse encouraged pt to ask next of kin when she was in if she knew about where abouts of card. Pt resting in recliner, O2 on and call light in reach.
--- NOTE | 2017-10-26 08:04 | NURSING ---
Immigration Attorney Keiry notified at 0740. Pt informed this nurse he thinks card number ended in [phone] and exp . Pt denied wanting staff to assist with cancel of card. Pt states, I will wait till Regi comes in, she handles my finances. Pt denies knowledge of phone number(s) to contact family/friend. Pt informed this nurse he remembers card last seen in ER. This nurse asked pt if he would like wallet locked in hospital safe, pt denied, Pt stated, I am checking out today. I can not afford to pay the hospital bill and be robbed. SW present on floor at 0800 and updated.
[2017-10-26 13:08] VITALS: PULSE 80; RESP 18
[2017-10-26 15:14] VITALS: BP 144/76; PULSE 79; RESP 18; TEMP 36.7; O2SAT 95
[2017-10-26 16:45] LABS: Bedside Glucose 118 mg/dL (70-110)
[2017-10-26 19:10] VITALS: PULSE 75; RESP 18
[2017-10-26 22:18] VITALS: O2SAT 95
[2017-10-27] MEDS: Polyethylene Glycol 3350 17 GM PACKET PO (05:30)
[2017-10-27] MEDS: Menthol/Lanolin/Calamine/Znox 113 GM Tube 1 APPLIC TOPICAL ×3 (05:30→20:54)
[2017-10-27] MEDS: Enoxaparin 30 MG/0.3 ML Syringe SC (05:31)
[2017-10-27] MEDS: Nystatin Powder 15gm Bottle 1 APPLIC TOPICAL ×2 (05:33→20:53)
[2017-10-27] MEDS: Senna/Docusate Sodium 1 Tablet PO ×2 (05:37→17:20)
[2017-10-27] MEDS: Labetalol 200 MG Tablet 300 MG PO ×3 (05:37→20:52)
[2017-10-27] MEDS: Pantoprazole Sodium 40 MG Tablet PO (05:37)
[2017-10-27 05:38] VITALS: PULSE 70; RESP 18; O2SAT 96
[2017-10-27 06:52] VITALS: PULSE 74; RESP 16; O2SAT 97
[2017-10-27] MEDS: Ipratropium/Albuterol Sulfate 3 ML AMPUL.NEB INHALATION ×3 (06:52→19:29)
[2017-10-27 07:06] LABS: Bedside Glucose 123 mg/dL (70-110)
[2017-10-27 13:18] VITALS: PULSE 74; RESP 16
[2017-10-27 16:00] VITALS: BP 137/70; PULSE 74; RESP 20; TEMP 35.9; O2SAT 96
[2017-10-27 19:32] VITALS: PULSE 78; RESP 18; O2SAT 98
[2017-10-28] MEDS: Polyethylene Glycol 3350 17 GM PACKET PO (05:27)
[2017-10-28] MEDS: Enoxaparin 30 MG/0.3 ML Syringe SC (05:28)
[2017-10-28] MEDS: Senna/Docusate Sodium 1 Tablet PO ×2 (05:29→17:12)
[2017-10-28] MEDS: Labetalol 200 MG Tablet 300 MG PO ×3 (05:29→21:06)
[2017-10-28] MEDS: Pantoprazole Sodium 40 MG Tablet PO (05:29)
[2017-10-28] MEDS: Nystatin Powder 15gm Bottle 1 APPLIC TOPICAL ×2 (05:30→21:05)
[2017-10-28] MEDS: Menthol/Lanolin/Calamine/Znox 113 GM Tube 1 APPLIC TOPICAL ×3 (05:30→21:04)
[2017-10-28 06:30] VITALS: PULSE 74; RESP 16; O2SAT 97
[2017-10-28] MEDS: Ipratropium/Albuterol Sulfate 3 ML AMPUL.NEB INHALATION ×3 (06:30→18:54)
[2017-10-28 07:01] LABS: Bedside Glucose 118 mg/dL (70-110)
--- NOTE | 2017-10-28 10:24 | CASEMGMT ---
Insurance Continued stay denied with last cover day being 10/30/17 and resident to discharge or financial responsibility to begin on 10/31/17. Auth#[id number] Emerita CORDOVA, CREDIT RISK OFFICER
--- NOTE | 2017-10-28 10:26 | CASEMGMT ---
Social Work Spoke with resident in room. This case management social worker communicating that continued stay has been denied with a last cover day of 10/30/17 and resident to discharge on or financial responsibility to begin on 10/31/17. Resident reporting to not feel ready to discharge home alone at this time. Resident voicing that resident believes that if resident was given another 8-10days resident would be ready to discharge to home alone. Resident is new on oxygen and does have limited support within the home. Resident currently requires assistance with bathing and dressing and does not have anyone to assist resident with this. Resident given information on appeal. Resident signing NOMN[employer] and initiating appeal. Resident reporting that resident would discharge home alone on 10/31/17 IF resident does not win appeal. Support given. Proposed discharge date: 10/31/17 pending appeal. Will continue to follow. Emerita CORDOVA, HYDROGEN POWER PLANT ENGINEER
[2017-10-28 12:25] VITALS: PULSE 78; RESP 16
--- NOTE | 2017-10-28 13:42 | CASEMGMT ---
Brief interview for mental status (BIMS) and resident mood interview (PHQ-9) completed on this day. BIMS score 15. PHQ-9 score 05/25
--- NOTE | 2017-10-28 14:06 | CASEMGMT ---
Social Work Spoke with resident in room to collaborate on discharge plan in the event that continued stay is denied. Resident plans to discharge to [facility], where resident has been living since June. Resident reporting to have no transportation to get home and to be able to walk home. This transition social worker communicating to resident that there are other options then resident walking home. Resident is agreeable to this transition social worker setting up transportation through [facility] Transportation services for resident. This transition social worker communicating that physical and occupational therapy are recommending for resident to continue with services within the home. Resident is agreeable to recommendation and requesting for home health services to be set up through [facility] ([facility]). Resident is also agreeable to social work and a home health aide referral. Resident also new on oxygen, nursing staff to complete home oxygen test with resident on 10/30/17 in the event resident looses appeal. Support given. Telephone call to [facility] Transportation, Transportation set up for 10/31/17 @ 1:30pm. Resident to be at main entrance by 1:30pm. Telephone call to [facility], [place]. This transition social worker making referral for physical and occupational therapy as well as a home health aide and transition social worker. [place] not sure if home health will go to [place] [phone]. [place] to contact this transition social worker back. Proposed discharge date: 10/31/17 pending appeal. Emeirta CORDOVA, BATCH AND FURNACE MANAGER
--- NOTE | 2017-10-28 14:45 | PHA.CONS_ITS ---
<Saturnino Richey D - Last Filed: 10/28/17 14:39> Progress Note - Pharmacy Subjective: TCU Admission Objective: Allergies No Known Allergies Allergy (Verified 10/18/17 08:34) Current Medications Generic Name Dose Route Start Last Admin Trade Name Freq PRN Reason Stop Dose Admin Acetaminophen 1,000 mg 10/22/17 22:14 Tylenol PO Q8H PRN PRN MILD PAIN (1-3/10) Albuterol/Ipratropium 3 ml 10/22/17 19:30 10/28/17 12:25 Duoneb INHALATION 3 ml Q6H.RT KARENA Administration Bisacodyl 10 mg 10/22/17 19:17 Dulcolax RECTAL DAILY PRN Constipation Calamine/Phenol 1 applic 10/23/17 06:00 10/28/17 14:13 Calmoseptine Ointment TOPICAL 1 applicatio TID KARENA Administration Protocol Emollient Ointment 1 applic 10/23/17 06:00 10/28/17 05:31 Eucerin Intensive Repair TOPICAL 1 applicatio 599,2199 KARENA Administration Protocol Enoxaparin Sodium 30 mg 10/23/17 06:00 10/28/17 05:28 Lovenox SC 30 mg DAILY@0600 KARENA Administration Insulin Glargine 5 units 10/23/17 06:00 10/28/17 06:49 Lantus (Bkc) SC 5 u BID KARENA Administration Labetalol HCl 300 mg 10/22/17 22:00 10/28/17 14:12 Trandate PO 300 mg TID KARENA Administration Nystatin 1 applic 10/23/17 06:00 10/28/17 05:30 Mycostatin Powder TOPICAL 1 applicatio 599,0 [facility] Administration Protocol Pantoprazole Sodium 40 mg 10/23/17 06:00 10/28/17 05:29 Protonix PO 40 mg DAILY KARENA Administration Polyethylene Glycol 17 gm 10/23/17 06:00 10/28/17 05:27 Miralax PO 17 gm DAILY KARENA Administration Senna/Docusate Sodium 1 tablet 10/23/17 06:00 10/28/17 05:29 Senokot-S, Erica-Colace PO 1 tablet BID KARENA Administration Tuberculin PPD 5 tu 10/30/17 10:00 Tubersol, Aplisol, Ppd ID 10/30/17 10:01 X1 ONE Problem List Fall (Acute) Sepsis (Acute) Encephalopathy (Acute) Urinary tract infection (Acute) Diabetes mellitus (Chronic) Hypertension (Chronic) Hyperlipidemia (Chronic) COPD (chronic obstructive pulmonary disease) (Chronic) Stroke (Chronic) Chronic kidney disease (Chronic) GERD (gastroesophageal reflux disease) (Chronic) Vital Signs Temp Pulse Resp BP Pulse Ox 96.7 F L 78 16 137/70 H 97 10/27/17 16:00 10/28/17 12:25 10/28/17 12:25 10/27/17 16:00 10/28/17 06:30 Oxygen Flow Rate (L/min) 2 Oxygen Delivery Method Nasal Cannula Weight: 113.4 kg Body Mass Index (BMI) 34.8 Sodium 143 mmol/L (136-145) 10/23/17 05:05 Potassium 3.9 mmol/L (3.5-5.1) 10/23/17 05:05 Chloride 105 mmol/L (98-107) 10/23/17 05:05 Carbon Dioxide 30.0 mmol/L (21.0-32.0) 10/23/17 05:05 Anion Gap 8 (5-15) 10/23/17 05:05 BUN 20 mg/dL (7-18) H 10/23/17 05:05 Creatinine 2.02 mg/dL (0.70-1.30) H 10/23/17 05:05 Est GFR (MDRD) Af Amer 42 mL/min (>60) L 10/23/17 05:05 Est GFR (MDRD) Non-Af 35 mL/min (>60) L 10/23/17 05:05 BUN/Creatinine Ratio 9.9 RATIO (10-20) L 10/23/17 05:05 Glucose 110 mg/dL (74-106) H 10/23/17 05:05 Assessment/Plan: 1) Pain APAP for mild pain. Continue to monitor prn medication use, daily pain scores. 2) HTN Labetalol 3x daily. Continue to monitor BP/HR. 3) DM2 Insulin glargine twice daily. Avg BGT < 140 mg/dL. Continue to monitor s/s hyper/hypoglycemia. 4) COPD Duoneb aerosols scheduled. Continue to monitor for shortness of breath. 5) GI Pantoprazole daily. Continue to monitor s/s GI distress. 6) Derm Calmoseptine, nystatin, emollient. Continue to monitor clinically. 7) DVT PPx Enoxaparin daily. Continue to monitor s/s bleeding/clot. Psychotropic Medications: None Unnecessary Medications: None Bowel Regimen: 8) Senna/s, PEG, prn bisacodyl. Continue to monitor prn medication use, for constipation/diarrhea. Date of Note:: 10/28/17 - Provider Comments Provider responsibility: Provider responsible to enter orders to implement recommendations <Carson Dale Chi - Last Filed: 10/28/17 17:48> Progress Note - Pharmacy Subjective: [] Objective: Allergies No Known Allergies Allergy (Verified 10/18/17 08:34) Current Medications Generic Name Dose Route Start Last Admin Trade Name Freq PRN Reason Stop Dose Admin Acetaminophen 1,000 mg 10/22/17 22:14 Tylenol PO Q8H PRN PRN MILD PAIN (1-3/10) Albuterol/Ipratropium 3 ml 10/22/17 19:30 10/28/17 12:25 Duoneb INHALATION 3 ml Q6H.RT KARENA Administration Bisacodyl 10 mg 10/22/17 19:17 Dulcolax RECTAL DAILY PRN Constipation Calamine/Phenol 1 applic 10/23/17 06:00 10/28/17 14:13 Calmoseptine Ointment TOPICAL 1 applicatio TID [facility] Administration Protocol Emollient Ointment 1 applic 10/23/17 06:00 10/28/17 05:31 Eucerin Intensive Repair TOPICAL 1 applicatio 599,0 [facility] Administration Protocol Enoxaparin Sodium 30 mg 10/23/17 06:00 10/28/17 05:28 Lovenox SC 30 mg DAILY@0600 KARENA Administration Insulin Glargine 5 units 10/23/17 06:00 10/28/17 17:12 Lantus (Bkc) SC 5 u BID KARENA Administration Labetalol HCl 300 mg 10/22/17 22:00 10/28/17 14:12 Trandate PO 300 mg TID KARENA Administration Nystatin 1 applic 10/23/17 06:00 10/28/17 05:30 Mycostatin Powder TOPICAL 1 applicatio 599,0 [facility] Administration Protocol Pantoprazole Sodium 40 mg 10/23/17 06:00 07/02/18 05:29 Protonix PO 40 mg DAILY KARENA Administration Polyethylene Glycol 17 gm 10/23/17 06:00 10/28/17 05:27 Miralax PO 17 gm DAILY KARENA Administration Senna/Docusate Sodium 1 tablet 10/23/17 06:00 10/28/17 17:12 Senokot-S, Erica-Colace PO 1 tablet BID KARENA Administration Tuberculin PPD 5 tu 10/30/17 10:00 Tubersol, Aplisol, Ppd ID 10/30/17 10:01 X1 ONE Problem List Fall (Acute) Sepsis (Acute) Encephalopathy (Acute) Urinary tract infection (Acute) Diabetes mellitus (Chronic) Hypertension (Chronic) Hyperlipidemia (Chronic) COPD (chronic obstructive pulmonary disease) (Chronic) Stroke (Chronic) Chronic kidney disease (Chronic) GERD (gastroesophageal reflux disease) (Chronic) Vital Signs Temp Pulse Resp BP Pulse Ox 97.0 F L 75 22 H 140/68 H 99 10/28/17 16:00 10/28/17 16:00 10/28/17 16:00 10/28/17 16:00 10/28/17 16:00 Oxygen Flow Rate (L/min) 2 Oxygen Delivery Method Nasal Cannula Weight: 113.4 kg Body Mass Index (BMI) 34.8 Sodium 143 mmol/L (136-145) 10/23/17 05:05 Potassium 3.9 mmol/L (3.5-5.1) 10/23/17 05:05 Chloride 105 mmol/L (98-107) 10/23/17 05:05 Carbon Dioxide 30.0 mmol/L (21.0-32.0) 10/23/17 05:05 Anion Gap 8 (5-15) 10/23/17 05:05 BUN 20 mg/dL (7-18) H 10/23/17 05:05 Creatinine 2.02 mg/dL (0.70-1.30) H 10/23/17 05:05 Est GFR (MDRD) Af Amer 42 mL/min (>60) L 10/23/17 05:05 Est GFR (MDRD) Non-Af 35 mL/min (>60) L 10/23/17 05:05 BUN/Creatinine Ratio 9.9 RATIO (10-20) L 10/23/17 05:05 Glucose 110 mg/dL (74-106) H 10/23/17 05:05 Assessment/Plan: Psychotropic Medications: Unnecessary Medications: Bowel Regimen: - Provider Comments Provider responsibility: Provider responsible to enter orders to implement recommendations Provider Comments to Recommendations by Pharmacy: Agree
[2017-10-28 16:00] VITALS: BP 140/68; PULSE 75; RESP 22; TEMP 36.1; O2SAT 99
[2017-10-28 16:46] LABS: Bedside Glucose 110 mg/dL (70-110)
[2017-10-28 18:54] VITALS: PULSE 74; RESP 18; O2SAT 97
--- NOTE | 2017-10-28 21:20 | PCM.DC ---
- Discharge Diagnoses Current Active Problems: Current Active and Chronic Problems Fall (Acute) Sepsis (Acute) Encephalopathy (Acute) Urinary tract infection (Acute) Diabetes mellitus (Chronic) Hypertension (Chronic) Hyperlipidemia (Chronic) COPD (chronic obstructive pulmonary disease) (Chronic) Stroke (Chronic) Chronic kidney disease (Chronic) GERD (gastroesophageal reflux disease) (Chronic) You will use the following diet at home:: No restrictions, Regular Your food should be the consistency of: Regular Your liquids should be the consistency of: Regular/Thin Discharge Activity: Return to Normal Activity, May Shower, Use Walker Weight Bearing Status: Weight bearing as tolerated Call your doctor if you observe: Fever of 101 or Higher, Inability to urinate, Inability to have a bowel movement, Shortness of breath, Chest pain, Uncontrolled pain Allergies/Adverse Reactions: Allergies No Known Allergies Allergy (Verified 10/18/17 08:34) Medications to take at Discharge Labetalol HCl 300 mg PO TID 10/18/17 Omeprazole 40 mg PO DAILY 10/18/17 Insulin Glargine,Hum.rec.anlog [Evelio Herndon] 5 unit SQ BID #0 10/22/17 Acetaminophen [Tylenol] 1,000 mg PO Q8H PRN PRN tablet 10/28/17 Ipratropium/Albuterol Sulfate [Duoneb] 3 ml INHALATION Q6H.RT #30 ampul.neb 10/28/17 Menthol/Lanolin/Calamine/Znox [Calmoseptine Ointment] 1 applic TOPICAL TID tube 10/28/17 Nystatin Powder [Mycostatin Powder] 1 applic TOPICAL 0600,2200 bottle 10/28/17 The following prescriptions were given: Ipratropium/Albuterol Sulfate [Duoneb] 3 ml INHALATION Q6H.RT #30 ampul.[facility] Primary Care Physician: Rick Orellana DO [Primary Care Provider] - Please follow up with your Primary Care Physician in: 1 week. Test Results: Proposed Discharge Date: 10/31/17
--- NOTE | 2017-10-28 21:22 | PCM.DC.SUM ---
Discharge Date and Diagnosis - Problem List Patient Problems: Active and Suspected Problems Fall (Acute) Sepsis (Acute) Encephalopathy (Acute) Urinary tract infection (Acute) Date of Admission: 10/22/17 Date of Discharge: 10/31/17 - Primary Discharge Diagnosis Active and Suspected Problems Fall (Acute) Sepsis (Acute) Encephalopathy (Acute) Urinary tract infection (Acute) - Secondary Discharge Diagnosis Chronic Problems Generalized weakness (Chronic) Diabetes mellitus (Chronic) Hypertension (Chronic) Hyperlipidemia (Chronic) COPD (chronic obstructive pulmonary disease) (Chronic) Stroke (Chronic) Chronic kidney disease (Chronic) GERD (gastroesophageal reflux disease) (Chronic) Tobacco user (Chronic) Hypertensive retinopathy (Chronic) Benign essential HTN (Chronic) Hospital Course and Treatment Imaging Results: 10/23/17 14:20 Diet: Cardiac: Calorie-Controlled Food consistency:: Regular Liquid Consistency:: Regular/Thin Dietary Modifications:: Fluid Restricted Diet Is pt able to select menu?: Yes Diet Comments: 1500ml fr, low salt How many daily calories?: 1800 calorie Labs (Last 48 Hours) 10/27/17 10/28/17 10/28/17 06:41 06:42 16:41 POC Glucose 123 H 118 H 110 Operations: None Procedures: None Summary of Care Provided: The patient is a 71 year old Male with below past medical history hospitalized for sepsis secondary to urinary tract infection, complicated by encephalopathy, acute on chronic kidney disease, admitted to TCU with debility, here for rehabilitation, strengthening, prior to discharge home. Discharge home to [address], along with Home Health Services. Discharge Diet: No Restrictions Discharge Activity: Return to Normal Activity, May Shower, Use Walker Weight Bearing Status: Weight bearing as tolerated Call your doctor if you observe: Fever of 101 or Higher, Inability to urinate, Inability to have a bowel movement, Shortness of breath, Chest pain, Uncontrolled pain Home Medications: Medications to take at Discharge Labetalol HCl 300 mg PO TID 10/18/17 Omeprazole 40 mg PO DAILY 10/18/17 Insulin Glargine,Hum.rec.anlog [Toufernandoo Solostar] 5 unit SQ BID #0 10/22/17 Acetaminophen [Tylenol] 1,000 mg PO Q8H PRN PRN tablet 10/28/17 Ipratropium/Albuterol Sulfate [Duoneb] 3 ml INHALATION Q6H.RT #30 ampul.neb 10/28/17 Menthol/Lanolin/Calamine/Znox [Calmoseptine Ointment] 1 applic TOPICAL TID tube 10/28/17 Nystatin Powder [Mycostatin Powder] 1 applic TOPICAL 0600,2200 bottle 10/28/17 Following Prescrptions Were Given to Patient: Ipratropium/Albuterol Sulfate [Duoneb] 3 ml INHALATION Q6H.RT #30 ampul.marta Primary Care Physician: Rick Orellana DO [Primary Care Provider] - Please follow up with your Primary Care Physician in: 1 week. Disposition: Home with Home Health Minutes spent on discharge:: 35 Patient Condition:: Stable Medical Necessity - Tobacco Use Smoking Status: Light Smoker (<10/day) Tobacco Use: Cigarettes Meaningful Use Info Meaningful Use Diagnoses (Choose all that apply): None applicable
--- NOTE | 2017-10-28 21:24 | PCM.PN.HH ---
Home Health Note - Plan Overview of reason of hospitalization: The patient is a 71 year old Male with below past medical history hospitalized for sepsis secondary to urinary tract infection, complicated by encephalopathy, acute on chronic kidney disease, admitted to TCU with debility, here for rehabilitation, strengthening, prior to discharge home. Discharge home to [address], along with Home Health Services. Problems: Patient was seen for Fall (Acute) Sepsis (Acute) Encephalopathy (Acute) Urinary tract infection (Acute) Diabetes mellitus (Chronic) Hypertension (Chronic) Hyperlipidemia (Chronic) COPD (chronic obstructive pulmonary disease) (Chronic) Stroke (Chronic) Chronic kidney disease (Chronic) GERD (gastroesophageal reflux disease) (Chronic) Complete List of Medical Problems Generalized weakness (Chronic) Fall (Acute) Sepsis (Acute) Encephalopathy (Acute) Urinary tract infection (Acute) Diabetes mellitus (Chronic) Hypertension (Chronic) Hyperlipidemia (Chronic) COPD (chronic obstructive pulmonary disease) (Chronic) Stroke (Chronic) Chronic kidney disease (Chronic) GERD (gastroesophageal reflux disease) (Chronic) Tobacco user (Chronic) Hypertensive retinopathy (Chronic) Benign essential HTN (Chronic) - Requirements and Reasons Disciplines Needed/Ordered: Physical Therapy Reason for Disciplines: Gait Training, Stair Training, Fall Prevention, Home Safety/Equipment Instruction, Balance and/or Posture Training, Transfer Training Related To: Limited/Poor Endurance, Shortness of Breath with Activity, Physical Impairments, Unsteady Gait/Balance, Fall Risk Patient is unable to leave the home: Without Aid of Supportive Devices (crutches, cane, wheelchair, walker), Without the assistance of another person - Additional Disciplines Additional Disciplines Needed/Ordered: Occupational Therapy, Sheet Metal Helper, Home Health Aide
[2017-10-29] MEDS: Nystatin Powder 15gm Bottle 1 APPLIC TOPICAL ×2 (05:15→21:08)
[2017-10-29] MEDS: Menthol/Lanolin/Calamine/Znox 113 GM Tube 1 APPLIC TOPICAL ×3 (05:15→21:07)
[2017-10-29] MEDS: Enoxaparin 30 MG/0.3 ML Syringe SC (05:15)
[2017-10-29] MEDS: Labetalol 200 MG Tablet 300 MG PO ×3 (05:16→21:08)
[2017-10-29] MEDS: Senna/Docusate Sodium 1 Tablet PO ×2 (05:16→18:20)
[2017-10-29] MEDS: Pantoprazole Sodium 40 MG Tablet PO (05:16)
[2017-10-29 06:46] LABS: Bedside Glucose 112 mg/dL (70-110)
[2017-10-29] MEDS: Ipratropium/Albuterol Sulfate 3 ML AMPUL.NEB INHALATION ×2 (07:40→19:00)
[2017-10-29 09:11] VITALS: PULSE 77; RESP 19
--- NOTE | 2017-10-29 09:50 | CASEMGMT ---
Plan of care meeting held. Resident present, no support person present. Resident reporting to have limited support systems. Resident aware that current contact listed on chart phone number is invalid and does not work. Resident reporting to not know any other contact information for other support. Resident plans to discharge on 10/31/17 pending response of appeal. Resident reporting to also need a walker at time of discharge. Resident does not have a preference of [facility] [employer] to be utilized. Resident to continue with further care and treatment on the transitional care unit pending appeal response. Support given. PLAN: Discharge home alone with home health services. Proposed discharge date: 10/31/17 pending appeal. Will continue to follow to set up walker after determination of appeal. Emerita CORDOVA, HR ADMINISTRATIVE ASSISTANT
[2017-10-29 15:29] VITALS: BP 161/43; PULSE 77; RESP 20; TEMP 37.3; O2SAT 89
[2017-10-29 17:01] LABS: Bedside Glucose 130 mg/dL (70-110)
--- NOTE | 2017-10-29 17:04 | CASEMGMT ---
Social Work Telephone call from [facility], resident lost appeal. Last cover day continues to be 10/30/17 with discharge or resident financial responsibility to begin on 10/31/17. Spoke with resident in room. Resident voicing to have already spoken with pro and to be choosing to discharge home on 10/31/17. Resident plans to discharge home alone with home health services. Resident to have transportation provided by [facility] transportation at 1:30pm on day of discharge. Support given. Referral for walker made to [facility]. Order faxed. Shyla to have walker delivered to resident room prior to resident discharge. Proposed discharge date: 10/31/17 PLAN: Discharge home alone with home health services. Emerita CORDOVA, MASTER AUTOMOTIVE TECHNICIAN
[2017-10-29 22:18] VITALS: PULSE 80; RESP 16
[2017-10-30 05:09] VITALS: BP 147/71; PULSE 82
[2017-10-30] MEDS: Menthol/Lanolin/Calamine/Znox 113 GM Tube 1 APPLIC TOPICAL ×3 (05:09→20:44)
[2017-10-30] MEDS: Pantoprazole Sodium 40 MG Tablet PO (05:12)
[2017-10-30] MEDS: Nystatin Powder 15gm Bottle 1 APPLIC TOPICAL ×2 (05:12→20:44)
[2017-10-30] MEDS: Labetalol 200 MG Tablet 300 MG PO ×3 (05:12→20:42)
[2017-10-30] MEDS: Enoxaparin 30 MG/0.3 ML Syringe SC (05:14)
[2017-10-30 06:58] LABS: Absolute Lymphocyte Count 2.01 X10^3/ul (0.83-4.51); Absolute Neutrophil Count 6.8 X10^3/uL (2.0-7.7); Basophil# 0.06 X10^3/uL; Basophil% 0.6 % (0-1); Eosinophil# 0.83 X10^3/uL; Eosinophils% 7.7 % (0-5); Hematocrit 39.8 % (40-54); Hemoglobin 12.6 g/dl (13.0-16.5); Lymphocyte # 2.01 X10^3/ul (4.0); Lymphocyte % 18.7 % (19-41); Mean Corp Hgb Conc 31.7 g/gl (32-36); Mean Corpuscular Hgb 28.4 pg (27.0-32.0); Mean Corpuscular Volume 89.6 fL (80-94); Mean Platelet Vol. 9.9 fl (6.2-12.0); Monocyte# 0.99 X10^3/uL; Monocyte% 9.2 % (0-10); Neutrophil # 6.84 X10^3/uL (2.7-7.7); Neutrophil % 63.4 % (47-70); Platelet Count 261 K/mm3 (150-450); RBC Distribution Width CV 13.8 % (11.6-14.6); RBC Distribution Width SD 44.9 fl (35.1-43.9); Red Blood Count 4.44 M/mm3 (4.6-6.2); White Blood Count 10.8 K/mm3 (4.4-11.0)
[2017-10-30 07:03] LABS: Anion Gap 8 (5-15); BUN 25 mg/dL (7-18); BUN/Creat Ratio 11.7 RATIO (10-20); Calcium,Total 9.3 mg/dL (8.5-10.1); Chloride 105 mmol/L (98-107); Creatinine, Serum 2.14 mg/dL (0.70-1.30); EST Glomerular Filtration Rate 32 mL/min (>60); Est Glom Filt Rate - Afr Amer 39 mL/min (>60); Estimated Creatinine Clearance 33.23 ml/min; Glucose 112 mg/dL (74-106); Potassium 3.5 mmol/L (3.5-5.1); Sodium Level 140 mmol/L (136-145)
[2017-10-30 07:04] LABS: POSITIVE COUNT NO; POSITIVE DIFFERENTIAL NO; POSITIVE MORPHOLOGY NO
[2017-10-30 07:15] LABS: Bedside Glucose 123 mg/dL (70-110)
[2017-10-30 07:30] VITALS: PULSE 78; RESP 20; O2SAT 90
[2017-10-30] MEDS: Ipratropium/Albuterol Sulfate 3 ML AMPUL.NEB INHALATION ×2 (07:32→20:30)
[2017-10-30 10:00] VITALS: O2SAT 98
[2017-10-30] MEDS: Tuberculin,Purif.prot.deriv. 50 TU/ML Vial 5 ML ID (14:23)
[2017-10-30 15:45] VITALS: BP 143/74; PULSE 74; RESP 18; TEMP 36.8; O2SAT 95
[2017-10-30 17:06] LABS: Bedside Glucose 122 mg/dL (70-110)
[2017-10-30 20:30] VITALS: PULSE 80; RESP 18; O2SAT 92
[2017-10-31] MEDS: Pantoprazole Sodium 40 MG Tablet PO (05:12)
[2017-10-31] MEDS: Labetalol 200 MG Tablet 300 MG PO ×2 (05:12→13:08)
[2017-10-31] MEDS: Enoxaparin 30 MG/0.3 ML Syringe SC (05:18)
[2017-10-31] MEDS: Nystatin Powder 15gm Bottle 1 APPLIC TOPICAL (05:20)
[2017-10-31] MEDS: Menthol/Lanolin/Calamine/Znox 113 GM Tube 1 APPLIC TOPICAL ×2 (05:20→13:09)
[2017-10-31 06:46] LABS: Bedside Glucose 116 mg/dL (70-110)
[2017-10-31] MEDS: Ipratropium/Albuterol Sulfate 3 ML AMPUL.NEB INHALATION ×2 (07:17→12:40)
[2017-10-31 07:18] VITALS: PULSE 70; RESP 20; O2SAT 98
[2017-10-31 10:00] VITALS: PULSE 68; RESP 18; O2SAT 96
[2017-10-31 12:40] VITALS: PULSE 69; RESP 20
[2017-10-31 12:51] VITALS: BP 143/67; PULSE 78; RESP 18; TEMP 36; O2SAT 97
--- NOTE | 2017-11-04 10:22 | MDS.RN ---
Information for the mds was obtained from review of the clinical record, interview of resident, staff, and direct observation of resident's care.
== END 2017-10-31 13:30 | disposition home health service (06) | DRG 947 ==
PROVIDERS: Admitting Provider Family Medicine Geriatric Medicine; Family Provider Family Medicine; PCP Family Medicine; Visit Provider Family Medicine Geriatric Medicine
DX: R53.81 Other malaise (principal); G93.40 Encephalopathy, unspecified; N39.0 Urinary tract infection, site not specified; N17.9 Acute kidney failure, unspecified; K21.9 Gastro-esophageal reflux disease without esophagitis; J44.9 Chronic obstructive pulmonary disease, unspecified; E11.22 Type 2 diabetes mellitus with diabetic chronic kidney disease; I12.9 Hypertensive chronic kidney disease with stage 1 through stage 4 chronic kidney disease, or unspecified chronic kidney disease; N18.9 Chronic kidney disease, unspecified; F17.210 Nicotine dependence, cigarettes, uncomplicated; H35.039 Hypertensive retinopathy, unspecified eye; E78.5 Hyperlipidemia, unspecified; Z91.81 History of falling; Z23 Encounter for immunization
CPT/HCPCS: 36415; 80048; 82962; 85025; 90732; 94640; 97110; 97116; 97162; 97166; 97530; 97535; 97802; G0009

== ENCOUNTER 2018-08-15 09:04 | Emergency (ER) | payer MEDICARE, SELFPAY ==
[2018-08-15 09:05] VITALS: BP 150/81; PULSE 82; RESP 16; TEMP 37.2; O2SAT 97; BMI 34.9
--- NOTE | 2018-08-15 09:15 | CT_ITS ---
STUDY: CT BRAIN WITHOUT CONTRAST REASON FOR EXAM: Male, 72 years old. Weakness. RADIATION DOSAGE (If Supplied By Facility): CTDIvol = ( 44.99 ) mGy, DLP = ( 779.24 ) mGycm TECHNIQUE: Transaxial CT imaging of the brain was performed without administration of intravenous contrast material. Individualized dose optimization techniques were used for this CT. COMPARISON: Comparison is made with prior study dated October 18, 2017. FINDINGS: Normal soft tissue structures. Normal calvarium. There is mild cerebral atrophy with widening of the extra-axial spaces and ventricular dilatation. There are areas of decreased attenuation within the white matter tracts of the supratentorial brain, consistent with microvascular disease changes. Normal basal ganglia and thalami. Normal brainstem. Normal cerebellum. There is no intracranial hemorrhage. There are no findings of an acute ischemic infarction. Atherosclerotic calcification of the vertebral arteries and cavernous portions of the internal carotid arteries bilaterally. Opacification of the ethmoid sinuses and focal mucosal thickening of the left sphenoid sinus. Mucosal thickening of the sphenoid sinus. CT/Brain/Head without Contrast IMPRESSION: Chronic involutional changes of the brain. Sinusitis. Electronically Signed: Oscar Alvarez, at 10:50 EDT , Service support ,
--- NOTE | 2018-08-15 09:15 | EKG12_ITS ---
Test Reason : FALL Blood Pressure : / mmHG Vent. Rate : 080 BPM Atrial Rate : 080 BPM P-R Int : 186 ms QRS Dur : 084 ms QT Int : 382 ms P-R-T Axes : 018 035 069 degrees QTc Int : 440 ms Normal sinus rhythm Normal ECG Confirmed by MARILU ZIMMERMAN, FIORDALIZA ([id number]), supervising editor trailer MEGAN ESTRELLA ([id number]) on 08/18/2018 10:40:05 AM Referred By: CARMELO Confirmed By:FIORDALIZA MICHEL MD
--- NOTE | 2018-08-15 09:15 | RAD_ITS ---
STUDY: X-RAY CHEST REASON FOR EXAM: Male, 72 years old. Cough. History of fall. TECHNIQUE: Single AP portable view of the chest. COMPARISON: Comparison is made with prior study dated October 19, 2017. FINDINGS: Hyperinflation. Scattered calcified granulomas. There is no demonstrated pleural abnormality. Normal size heart. Normal mediastinum and rica. Normal visualized pulmonary arteries. There is atherosclerotic tortuosity of the aortic arch and descending thoracic aorta. There are diffuse degenerative changes of the visualized thoracic spine. There is degenerative osteoarthritis of the bilateral shoulders. There is no demonstrated abnormality of the visualized soft tissue structures of the upper abdomen. RAD/Chest 1 View (Portable) IMPRESSION: Hyperinflation. The lungs are clear. Electronically Signed: Oscar Alvarez, at 14:37 EDT , Service support ,
[2018-08-15 09:35] LABS: Absolute Lymphocyte Count 1.78 X10^3/ul (0.83-4.51); Absolute Neutrophil Count 9.9 X10^3/uL (2.0-7.7); Basophil# 0.05 X10^3/uL; Basophil% 0.3 % (0-1); Eosinophil# 1.37 X10^3/uL; Eosinophils% 9.4 % (0-5); Hematocrit 39.5 % (40-54); Hemoglobin 12.9 g/dl (13.0-16.5); Lymphocyte # 1.78 X10^3/ul (4.0); Lymphocyte % 12.3 % (19-41); Mean Corp Hgb Conc 32.7 g/gl (32-36); Mean Corpuscular Hgb 29.7 pg (27.0-32.0); Mean Platelet Vol. 9.4 fl (6.2-12.0); Monocyte# 1.34 X10^3/uL; Monocyte% 9.2 % (0-10); Neutrophil # 9.94 X10^3/uL (2.7-7.7); Neutrophil % 68.5 % (47-70); Platelet Count 226 K/mm3 (150-450); RBC Distribution Width CV 14.2 % (11.6-14.6); Red Blood Count 4.34 M/mm3 (4.6-6.2); White Blood Count 14.5 K/mm3 (4.4-11.0)
[2018-08-15 09:36] LABS: POSITIVE COUNT NO; POSITIVE DIFFERENTIAL NO; POSITIVE MORPHOLOGY NO
--- NOTE | 2018-08-15 09:36 | ED.DCSUM_ITS ---
- ER Visit Summary Date of Service: 08/15/18 Chief Complaint: Fall History of Present Illness: The patient is a 72 M who presents after a fall. He states he was walking to the park when he fell. He states that he just lost his footing. He denies any head trauma. He denies any pain anywhere. His legs fe el little bit weak at this time. He admits to a history of hypertension and diabetes. He admits that he is also homeless at this time. EMS was called and they transported him here without any further intervention. Physical Examination: Vital signs reviewed. HEENT exam unremarkable. Heart is regular rate and rhythm without murmurs. Lungs are clear to auscultation. Abdomen is soft and nontender. Extremities reveal no edema. Skin exam normal. Neurologic exam normal. Test Results: EKG sinus rhythm with no ST changes. Laboratory studies reveal a white blood cell count of 14.5. Hemoglobin 12.9. Creatinine 2.12 which is baseline. Urinalysis and chest x-ray revealed no evidence of infection. CAT scan of the head reveals chronic changes. Emergency Department Course and Treatment: The patient told EMS that he wanted to be transported here because he is homeless and wanted to get out of the rain. I see no focal causes for his weakness. Patient will be ambulated in the emergency department and will be discharged to the [facility] where he is staying. Treatment Plan: [] Disposition: Discharge Impression: Fall, weakness This note was generated with [employer] dictation software. It may contain incorrect words, spelling, and punctuation that were not noted in review of the chart prior to signing ED Disposition - Plan for ED Patient: Referrals: Rick Orellana DO [Primary Care Provider] -
[2018-08-15 09:53] LABS: AST(SGOT) 17 U/L (15-37); Alanine Aminotransfer ALT/SGPT 17 U/L (16-61); Albumin, Serum 3.7 g/dL (3.2-5.0); Alkaline Phosphatase 76 U/L (45-117); Anion Gap 10 (5-15); BUN 31 mg/dL (7-18); BUN/Creat Ratio 14.6 RATIO (10-20); Calcium,Total 8.8 mg/dL (8.5-10.1); Chloride 108 mmol/L (98-107); Creatinine, Serum 2.12 mg/dL (0.70-1.30); EST Glomerular Filtration Rate 33 mL/min (>60); Est Glom Filt Rate - Afr Amer 40 mL/min (>60); Estimated Creatinine Clearance 33.55 ml/min; Globulin 3.6 g/dL (2.2-4.2); Glucose 99 mg/dL (74-106); Potassium 4.9 mmol/L (3.5-5.1); Protein, Total 7.3 g/dL (6.4-8.2); Sodium Level 140 mmol/L (136-145)
[2018-08-15 11:33] VITALS: BP 139/84; PULSE 73; RESP 15; O2SAT 98
[2018-08-15 11:47] LABS: Bacteria 0 SEEN /hpf (None Seen); Mucous, Urine 0 SEEN /hpf (<or=2+); Red Blood Cells-Urine 0 SEEN /hpf (0-5); Squamous Epithelial Cells - UA 0 SEEN /hpf (0-5); White Blood Cells 0 SEEN /hpf (0-5)
[2018-08-15 11:52] LABS: Color, Urine Yellow (Yellow); Glucose, Dipstick Normal (Normal); Ketone-Dipstick Negative (Negative); Leukocyte Esterase-Dipstick Negative /ul (Negative); Nitrite-Dipstick Negative (Negative); Occult Blood-Urine 25 /ul (Negative); Protein-Dipstick 30 mg/dl (Negative); Specific Gravity, Urine 1.015 (1.002-1.030); Urine Bilirubin Dipstick Negative (Negative); Urine Clarity Clear (Clear); Urine Urobilinogen Normal (Normal)
--- NOTE | 2018-08-15 12:16 | ED.DEP ---
ED Disposition - Plan for ED Patient: Disposition: Home or Assisted Living Instructions: ED Weakness [facility] Referrals: Rick Orellana DO [Primary Care Provider] -
[2018-08-15 12:28] VITALS: BP 139/75; PULSE 61; RESP 15; O2SAT 98
== END 2018-08-15 12:30 | disposition home or self-care (01) ==
PROVIDERS: Emergency Provider Emergency Medicine; Family Provider Family Medicine; PCP Family Medicine
DX: R53.1 Weakness (principal); I10 Essential (primary) hypertension; E11.9 Type 2 diabetes mellitus without complications; Z59.0 Homelessness; Z79.4 Long term (current) use of insulin; Z79.899 Other long term (current) drug therapy; W18.30XA Fall on same level, unspecified, initial encounter; Y93.01 Activity, walking, marching and hiking; Y92.830 Public park as the place of occurrence of the external cause; Y99.8 Other external cause status
CPT/HCPCS: 70450; 71045; 80053; 81001; 84484; 85025; 93005; 99285; A4216

== ENCOUNTER 2018-09-17 13:07 | Inpatient (IN) | payer MEDICARE, MEDICAID, SELFPAY ==
[2018-09-17] VITALS (25 sets, daily range): BP systolic 124–205; BP diastolic 62–100; PULSE 68–121; RESP 12–38; TEMP 36.4–37.4; O2SAT 81–100; BMI 31.6; BMI 31.7; BMI 32.0
--- NOTE | 2018-09-17 13:22 | EKG12_ITS ---
Test Reason : SOB Blood Pressure : / mmHG Vent. Rate : 117 BPM Atrial Rate : 117 BPM P-R Int : 158 ms QRS Dur : 082 ms QT Int : 332 ms P-R-T Axes : 063 025 078 degrees QTc Int : 463 ms Sinus tachycardia Possible Left atrial enlargement Cannot rule out Inferior infarct , age undetermined Abnormal ECG Confirmed by HELDER BEEBE ([id number]), market editor MEGAN ESTRELLA ([id number]) on 09/25/2018 9:25:10 AM Referred By: MADISON Confirmed By:HELDER BEEBE
[2018-09-17] MEDS: MethylPREDNISolone 125 MG/2 ML Vial IV (13:35)
[2018-09-17] MEDS: Ipratropium/Albuterol Sulfate 3 ML AMPUL.NEB INHALATION ×3 (13:35→23:23)
[2018-09-17] MEDS: 0.9% Normal Saline 1,000 ML 999 ML IV (13:42)
--- NOTE | 2018-09-17 13:45 | ED.VISSUMM ---
- ER Visit Summary Date of Service: 09/17/18 Chief Complaint: Cough History of Present Illness: The patient is a [address] Orellana. He reports that he has a cough began 2 weeks ago. Is productive of white sputum without blood. Has had subjective fever, chills, chest pain, and severe shortness of breath. He reports that he quit smoking approximately 2 months ago. Does state that he has had similar episodes previously. Physical Examination: Vitals: 99.1, 179/94, 121, 24, 85% on room air which is hypoxic. General: Well-nourished and well-developed. Head: Normocephalic atraumatic. Neck: Supple, no lymphadenopathy. No JVD. Nontender. Cardiovascular: Regular rate and rhythm. No murmurs. Respiratory: Mild respiratory distress. Mild wheezing bilaterally with greatly decreased air movement Abdominal: Soft, nontender, nondistended, normal bowel sounds. No guarding, rebound, or peritoneal signs. Back: Nontender. Extremities: Nontender, no edema. Skin: Normal color, no rash. Neurologic: Alert and oriented ?3. Cranial nerves II through XII are intact. Normal strength and sensation. Psych: Normal affect. Test Results: EKG is sinus tach [address] changes. CBC is remarkable for a white count of 21.6 with 78 segmented neutrophils and lymphocytes. Chem-7 shows a BUN of 32, creatinine 2.35, glucose 163. Troponin is negative. Lactic acid is normal. Clinical Impression(s) from Imaging Studies Chest X-Ray 09/17/18 14:10 IMPRESSION: Increased interstitial markings as described. This may represent vascular congestion. Electronically Signed: Oscar Alvarez, at 14:33 EDT , Service support , Emergency Department Course and Treatment: Patient was treated albuterol Atrovent aerosols. He was given Solu-Medrol IV. Patient was given Rocephin and Zithromax IV. The patient has improved, but continues to have a difficult time breathing. His pulse ox is 93% on 6 L nasal cannula. He was placed on BiPAP. Treatment Plan: The patient is hypoxic and will require admission. My obtain the x-ray shows an atypical pneumonia. He was discussed with the hospitalist and will be admitted for further evaluation and treatment. Disposition: Admitted in improved condition. Impression: 1. Pneumonia, healthcare acquired. 2. Hypoxia. 3. Respiratory failure on BiPAP. 4. Critical care time 30 minutes. This note was generated with [employer] software. It may contain incorrect words, spelling, and punctuation that were not noted in review of the chart prior to signing ED Disposition - Plan for ED Patient: Referrals: NOT,DEFINED [NON-STAFF] -
--- NOTE | 2018-09-17 13:49 | ED.DCSUM_ITS ---
- ER Visit Summary Date of Service: 09/17/18 Chief Complaint: Cough History of Present Illness: The patient is a [address] Orellana. He reports that he has a cough began 2 weeks ago. Is productive of white sputum without blood. Has had subjective fever, chills, chest pain, and severe shortness of breath. He reports that he quit smoking approximately 2 months ago. Does state that he has had similar episodes previously. Physical Examination: Vitals: 99.1, 179/94, 121, 24, 85% on room air which is hypoxic. General: Well-nourished and well-developed. Head: Normocephalic atraumatic. Neck: Supple, no lymphadenopathy. No JVD. Nontender. Cardiovascular: Regular rate and rhythm. No murmurs. Respiratory: Mild respiratory distress. Mild wheezing bilaterally with greatly decreased air movement Abdominal: Soft, nontender, nondistended, normal bowel sounds. No guarding, rebound, or peritoneal signs. Back: Nontender. Extremities: Nontender, no edema. Skin: Normal color, no rash. Neurologic: Alert and oriented ?3. Cranial nerves II through XII are intact. Normal strength and sensation. Psych: Normal affect. Test Results: EKG is sinus tach [address] changes. CBC is remarkable for a white count of 21.6 with 78 segmented neutrophils and lymphocytes. Chem-7 shows a BUN of 32, creatinine 2.35, glucose 163. Troponin is negative. Lactic acid is normal. Clinical Impression(s) from Imaging Studies Chest X-Ray 09/17/18 14:10 IMPRESSION: Increased interstitial markings as described. This may represent vascular congestion. Electronically Signed: Oscar Alvarez, at 14:33 EDT , Service support , Emergency Department Course and Treatment: Patient was treated albuterol Atrovent aerosols. He was given Solu-Medrol IV. Patient was given Rocephin and Zithromax IV. The patient has improved, but continues to have a difficult time breathing. His pulse ox is 93% on 6 L nasal cannula. He was placed on BiPAP. Treatment Plan: The patient is hypoxic and will require admission. My obtain the x-ray shows an atypical pneumonia. He was discussed with the hospitalist and will be admitted for further evaluation and treatment. Disposition: Admitted in improved condition. Impression: 1. Pneumonia, healthcare acquired. 2. Hypoxia. 3. Respiratory failure on BiPAP. 4. Critical care time 30 minutes. This note was generated with [employer] software. It may contain incorrect words, spelling, and punctuation that were not noted in review of the chart prior to signing ED Disposition - Plan for ED Patient: Referrals: NOT,DEFINED [NON-STAFF] -
[2018-09-17 14:04] LABS: Absolute Lymphocyte Count 1.68 X10^3/ul (0.83-4.51); Absolute Neutrophil Count 16.8 X10^3/uL (2.0-7.7); Basophil# 0.08 X10^3/uL; Basophil% 0.4 % (0-1); Eosinophil# 0.04 X10^3/uL; Eosinophils% 0.2 % (0-5); Hematocrit 42.7 % (40-54); Hemoglobin 14.1 g/dl (13.0-16.5); Lymphocyte # 1.68 X10^3/ul (4.0); Lymphocyte % 7.8 % (19-41); Mean Corpuscular Hgb 30.1 pg (27.0-32.0); Mean Platelet Vol. 9.7 fl (6.2-12.0); Monocyte% 13.4 % (0-10); Neutrophil # 16.75 X10^3/uL (2.7-7.7); Neutrophil % 77.6 % (47-70); Platelet Count 351 K/mm3 (150-450); RBC Distribution Width CV 13.7 % (11.6-14.6); RBC Distribution Width SD 45.3 fl (35.1-43.9); Red Blood Count 4.69 M/mm3 (4.6-6.2); White Blood Count 21.6 K/mm3 (4.4-11.0)
[2018-09-17 14:05] LABS: Differential Indicated SCAN CRITERIA MET; POSITIVE COUNT NO; POSITIVE DIFFERENTIAL YES; POSITIVE MORPHOLOGY NO
[2018-09-17 14:08] LABS: Anion Gap 6 (5-15); BUN 32 mg/dL (7-18); BUN/Creat Ratio 13.6 RATIO (10-20); Calcium,Total 9.6 mg/dL (8.5-10.1); Chloride 107 mmol/L (98-107); Creatinine, Serum 2.35 mg/dL (0.70-1.30); EST Glomerular Filtration Rate 29 mL/min (>60); Est Glom Filt Rate - Afr Amer 35 mL/min (>60); Estimated Creatinine Clearance 30.26 ml/min; Glucose 163 mg/dL (74-106); Potassium 3.8 mmol/L (3.5-5.1); Sodium Level 139 mmol/L (136-145)
--- NOTE | 2018-09-17 14:10 | RAD_ITS ---
STUDY: X-RAY CHEST REASON FOR EXAM: Male, 72 years old. Shortness of breath. TECHNIQUE: AP and lateral views of the chest. COMPARISON: Comparison is made with prior study dated August 15, 2018. FINDINGS: EKG electrodes are seen. Hyperinflation. Since prior study, there has been an increase in the interstitial markings in both lungs. This may represent vascular congestion. There is no demonstrated pleural abnormality. There is borderline cardiomegaly. Normal mediastinum and rica. Normal visualized pulmonary arteries. There is atherosclerotic calcification of the aortic arch with tortuosity. There are diffuse degenerative changes of the visualized thoracic spine. Normal visualized ribs, clavicles, and shoulders. There is no demonstrated abnormality of the visualized soft tissue structures of the upper abdomen. RAD/Chest PA and Lateral IMPRESSION: Increased interstitial markings as described. This may represent vascular congestion. Electronically Signed: Oscar Alvarez, at 14:33 EDT , Service support ,
[2018-09-17 14:18] LABS: Lactic Acid 1.4 mmol/L (0.4-2.0)
[2018-09-17 14:25] LABS: Platelet Estimate ADEQUATE (ADEQ); Red Cell Morphology NORM C+C NORMAL (NORM C&C)
[2018-09-17] MEDS: Ceftriaxone 1 GM/50 ML BAG IV (14:41)
--- NOTE | 2018-09-17 15:49 | CASEMGMT ---
RN CM Assessment Introduced role of RN CM to patient and patient [id number] Melissa Green at bedside.? Patient is alert, oriented and able?to participate in RN CM Assessment. ?Care providers, pharmacy, and demographics verified. Patient Cell on Demographics was not correct at time of assessment. Patient Cell . Presentation: Sick the past several days, SOB, Productive Cough. Admit Dx: Acute Hypoxic Resp Failure Re-Admit: No, ER 08/15/18 for Weakness/Fall. Barriers/Issues: Patient lives at [facility], inquiring about living at SNF LT and or similar. This senior grant writer discuss SNF criteria, patient states that the [facility] is currently trying to assist him with finding an apartment. States some of the locations they offered, patient did not want to go- was told that he should stay in [place] as he would be able to receive more help. CM did explain some resource that might be able to help and did provide General Resource Guide discussing RETIREMENT, Transportation, Etc. Also provided Information on [employer]. Patient states re-applied to Medicaid and application currently in process, states 1yr ago did not qualify financially making $50 more than the limit. Patient states needs to find a PCP closer to him, this senior grant writer provided patient with a PCP list. Denies any further questions/concerns. PCP: Rick Orellana Specialists: None Preferred Pharmacy: [facility] Insurance: ALBERTO BRODERICK Rx Benefit:?Yes LNOK: [id number] Melissa Green LW/HPOA: None, Would like Information. Living Arrangements:?Lives at the [facility] Currently. ADL?s: Independent with ambulation and ADL's Transportation: Patient Nephew ([id number] Melissa's Son) and same on DC DME: None. Patient states if DME needed, prefers to use the Company that took over for [employer]. If Company is not available, has no preference. HHC: None SNF: None Goal: Return back to [facility] and find housing. DC PLAN: Back to [facility] with possible Home O2. DANNI Velarde
[2018-09-17 16:51] LABS: Bedside Glucose 192 mg/dL (70-110)
--- NOTE | 2018-09-17 16:52 | HP.PCM_ITS ---
<Richie Merino - Last Filed: 09/17/18 16:44> Problem List (1) Acute and chronic respiratory failure with hypoxia Status: Chronic (2) PNA (pneumonia) Status: Acute (3) Sepsis Status: Acute (4) Benign essential HTN Status: Chronic (5) COPD (chronic obstructive pulmonary disease) Status: Chronic (6) Chronic kidney disease Status: Chronic (7) Diabetes mellitus Status: Chronic (8) GERD (gastroesophageal reflux disease) Status: Chronic (9) Hyperlipidemia Status: Chronic (10) Hypertension Status: Chronic (11) Hypertensive retinopathy Status: Chronic (12) Stroke Status: Chronic (13) Tobacco user Status: Chronic (14) Diastolic CHF Status: Chronic (15) CKD (chronic kidney disease) stage 3, GFR 30-59 ml/min Status: Chronic History of Present Illness Date of Admission: 09/17/18 Chief Complaint: SOB The patient is a 72 year old M with pmhx of chronic hypoxic respiratory failure, diastolic CHF, nicotine abuse, CKDIII, DMt2, htn, who presented to the ER with SOB. This has been increasing over the past 2 weeks. The patient has had a cough with sputum production showing white mucus and occasionally blood. He reports intermittent fevers and chills. He reports sick contacts however did not specify who - he is fairly lethargic at this time. He was hypoxic on arrival and placed on increasing amounts of O2 and then Bipap in the ER. He denies CP and his EKG shows sinus rhythm. His CXR shows vascular congestion and he reports a 15 pound weight gain however his BNP is normal and he has minimal edema. He has no orthopnea. [] Past Medical History Past Medical History (Chronic Problems): Chronic Problems Generalized weakness (Chronic) Diabetes mellitus (Chronic) Hypertension (Chronic) Hyperlipidemia (Chronic) COPD (chronic obstructive pulmonary disease) (Chronic) Stroke (Chronic) Chronic kidney disease (Chronic) GERD (gastroesophageal reflux disease) (Chronic) CKD (chronic kidney disease) stage 3, GFR 30-59 ml/min (Chronic) Acute and chronic respiratory failure with hypoxia (Chronic) Diastolic CHF (Chronic) Tobacco user (Chronic) Hypertensive retinopathy (Chronic) Benign essential HTN (Chronic) Allergies bee venom protein (honey bee) Allergy (Verified 09/17/18 13:12) Anaphylaxis Home Medications: Ambulatory Orders Medication Instructions Recorded Insulin Glargine,Hum.rec.anlog 40 unit SQ BID 09/17/18 [Evelio Herndon] Labetalol HCl 300 mg PO TID 09/17/18 Surgical History: no surgical history Psychiatric History: No pertinent psych hx Smoking Status: Former smoker Tobacco Use: Cigarettes - *Family History Maternal History Items: Unknown Paternal History Items: Unknown Review of Systems Constitutional: Denies: Chills, Fever, Weight Change HEENT: Denies: Head Aches, Sinus Congestion, Sinus Drainage Cardiovascular: Denies: Chest Pain, Chest Tightness, Heaviness, Light Headedness, Palpitations Respiratory: Reports: Cough, Hemoptysis, Shortness of Breath, Shortness of breath at rest, Shortness of breath upon exertion, Sputum production. Denies: Pleuritic Pain, Wheezing Gastrointestinal: Denies: Abdominal Pain, Nausea, Vomiting Genitourinary: Denies: Dysuria Musculoskeletal: Denies: Joint Pain, Joint Tenderness Skin: Denies: Rash, Wounds Neurological: Denies: Numbness, Tingling, Focal weakness Psychiatric: Denies: Anxiety, Depression, Homicidal Ideations, Suicidal Ideations Hematologic/ Lymphatic: Denies: Easy Bruising, Easy Bleeding VTE Information - Inpt Only VTE Present on Admission: No VTE Mechan Device Prophylaxis: None VTE Pharm Prophylaxis ordered?: Yes Patient Problems: Active and Suspected Problems PNA (pneumonia) (Acute) - Physical Exam General: Alert, Oriented x3, Cooperative, Lethargic HEENT: Atraumatic, PERRLA, EOMI, Normocephalic Neck: Supple, No JVD, Negative Carotid Bruits Lungs: Diminished, Rales Cardiovascular: Regular rate, No murmurs Abdomen: Bowel Sounds Present, Soft, Non Tender Extremities: Capillary Refill Less than 3 Seconds, Edema - trace edema Skin: No rashes, No breakdown Musculoskeletal: No Tenderness to Palpation of Joints or Extremities Neurological: Cranial nerves II-XII grossly intact Psych/Mental Status: Normal Affect, Appropriate, Alert and oriented to time, place, person, mood and affect Vital Signs Temp Pulse Resp BP Pulse Ox 97.7 F L 85 28 H 169/96 H 96 09/17/18 16:31 09/17/18 16:31 09/17/18 16:31 09/17/18 16:31 09/17/18 16:31 Oxygen Flow Rate (L/min) 3 Oxygen Delivery Method Bi-pap Weight: 223 lb Body Mass Index (BMI) 32.0 Laboratory Tests Past 24 Hrs 09/17/18 09/17/18 09/17/18 13:40 13:40 13:40 WBC 21.6 H RBC 4.69 Hgb 14.1 Hct 42.7 MCV 91.0 MCH 30.1 MCHC 33.0 RDW 13.7 RDW Differential 45.3 H Plt Count 351 MPV 9.7 Immature Gran % (Auto) 0.600 Neut % (Auto) 77.6 H Lymph % (Auto) 7.8 L [place] % (Auto) 13.4 H Eos % (Auto) 0.2 Baso % (Auto) 0.4 Absolute Neuts (auto) 16.8 H Absolute Lymphs (auto) 1.68 Total Counted Not Reportable Differential Comment Diff Path Review May foll Platelet Estimate ADEQUATE RBC Morphology NORM C+C Sodium 139 Potassium 3.8 Chloride 107 Carbon Dioxide 26.0 Anion Gap 6 BUN 32 H Creatinine 2.35 H Estim Creat Clear Calc 30.26 Est GFR (MDRD) Af Amer 35 L Est GFR (MDRD) Non-Af 29 L BUN/Creatinine Ratio 13.6 Glucose 163 H Lactic Acid 1.4 Calcium 9.6 Troponin I < 0.015 B-Natriuretic Peptide 09/17/18 13:40 WBC RBC Hgb Hct MCV MCH MCHC RDW RDW Differential Plt Count MPV Immature Gran % (Auto) Neut % (Auto) Lymph % (Auto) [place] % (Auto) Eos % (Auto) Baso % (Auto) Absolute Neuts (auto) Absolute Lymphs (auto) Total Counted Differential Comment Diff Path Review Platelet Estimate RBC Morphology Sodium Potassium Chloride Carbon Dioxide Anion Gap BUN Creatinine Estim Creat Clear Calc Est GFR (MDRD) Af Amer Est GFR (MDRD) Non-Af BUN/Creatinine Ratio Glucose Lactic Acid Calcium Troponin I B-Natriuretic Peptide 60.0 Assessment/Plan All Active Problems Fall (Acute) Sepsis (Acute) Encephalopathy (Acute) Urinary tract infection (Acute) PNA (pneumonia) (Acute) 1. Acute on chronic hypoxic respiratory failure 2/2 CAP with sepsis - presumed streptococcal. Continue rocephin and azithromycin. Check blood/sputum cultures, urine antigens. Provide duonebs, PEP therapy, incentive spirometer. Monitor for ongoing hemoptysis. Check ABG. Pt currently on Bipap. CXR with vascular congestion vs diffuse pna. Lactate negative. WBC 21k, tachycardia, tachypneic. Afebrile. Trop negative x2. UA negative. 2. Chronic diastolic CHF - bnp negative. avoid over hydration. trace edema. reported 15 pound weight gain over two weeks. Monitor I/O. 3. CKDIII - at baseline 4. DMt2 with obesity - hold orals- SSI. 5. Accelerated htn - prn lebatolol given. Add hydralazine prn. DVT ppx: SCDs. Caution with hemoptysis. DC planning: PTOT This patient was seen by Richie Merino PA-C under the supervision of Dr. Cooper. <Emily Cooper - Last Filed: 09/17/18 18:17> History of Present Illness The patient is a 72 year old M [] Past Medical History Allergies bee venom protein (honey bee) Allergy (Verified 09/17/18 13:12) Anaphylaxis - Physical Exam Vital Signs Temp Pulse Resp BP Pulse Ox 98.3 F 82 29 H 174/70 H 95 09/17/18 18:00 09/17/18 18:00 09/17/18 18:00 09/17/18 18:00 09/17/18 18:00 Oxygen Flow Rate (L/min) 3 Oxygen Delivery Method Bi-pap Weight: 101.151 kg Body Mass Index (BMI) 32.0 Intake and Output for Last 24 Hours 09/15/18 09/16/18 09/17/18 23:59 23:59 23:59 Intake Total 125 / 125 Balance 125 / 125 Laboratory Tests Past 24 Hrs 09/17/18 09/17/18 09/17/18 13:40 13:40 13:40 WBC 21.6 H RBC 4.69 Hgb 14.1 Hct 42.7 MCV 91.0 MCH 30.1 MCHC 33.0 RDW 13.7 RDW Differential 45.3 H Plt Count 351 MPV 9.7 Immature Gran % (Auto) 0.600 Neut % (Auto) 77.6 H Lymph % (Auto) 7.8 L [place] % (Auto) 13.4 H Eos % (Auto) 0.2 Baso % (Auto) 0.4 Absolute Neuts (auto) 16.8 H Absolute Lymphs (auto) 1.68 Total Counted Not Reportable Differential Comment Diff Path Review May foll Platelet Estimate ADEQUATE RBC Morphology NORM C+C Specimen Type Sample Site pH Bicarbonate Actual POC Total CO2 Base Excess O2 Saturation O2 % ABG pCO2 ABG pO2 Elias Test Respiration Rate O2 Delivery Device EPAP IPAP Blood Gas Notified Whom Blood Gas Notified Time Sodium 139 Potassium 3.8 Chloride 107 Carbon Dioxide 26.0 Anion Gap 6 BUN 32 H Creatinine 2.35 H Estim Creat Clear Calc 30.26 Est GFR (MDRD) Af Amer 35 L Est GFR (MDRD) Non-Af 29 L BUN/Creatinine Ratio 13.6 Glucose 163 H Lactic Acid 1.4 Calcium 9.6 Troponin I < 0.015 B-Natriuretic Peptide 09/17/18 09/17/18 13:40 17:18 WBC RBC Hgb Hct MCV MCH MCHC RDW RDW Differential Plt Count MPV Immature Gran % (Auto) Neut % (Auto) Lymph % (Auto) [place] % (Auto) Eos % (Auto) Baso % (Auto) Absolute Neuts (auto) Absolute Lymphs (auto) Total Counted Differential Comment Diff Path Review Platelet Estimate RBC Morphology Specimen Type ART Sample Site R Radial pH 7.24 L Bicarbonate Actual 23.9 POC Total CO2 26 Base Excess -4 L O2 Saturation 94 L O2 % 40 ABG pCO2 55.6 H ABG pO2 86 Elias Test POS Respiration Rate 12 O2 Delivery Device Bi / C PAP EPAP 8 IPAP 12 Blood Gas Notified Whom RN Blood Gas Notified Time 1717 Sodium Potassium Chloride Carbon Dioxide Anion Gap BUN Creatinine Estim Creat Clear Calc Est GFR (MDRD) Af Amer Est GFR (MDRD) Non-Af BUN/Creatinine Ratio Glucose Lactic Acid Calcium Troponin I B-Natriuretic Peptide 60.0 POC Glucose 09/17/18 16:36 POC Glucose 192 H Assessment/Plan This patient was seen in conjunction with NINA Wright. I have independently interviewed and examined the patient and reviewed pertinent historical, laboratory, and other data. Please refer to NINA Wright note for his patient's presentation, findings, and recommendations. I have reviewed and his note and concur with his documentation CC: Cough, progressive shortness of breath, fever and chills HPI: 72-year-old male with past medical history of chronic respiratory failure, on 2 L of oxygen comes in with a 2-week history of cough productive of whitish sputum, subjective fever and chills as well as progressive shortness of breath. PMHX: COPD, hypertension, hyperlipidemia, type II DM, CKD stage IV, history of CVA, chronic respiratory failure, diastolic CHF, PSHx: No surgical history FHX: No pertinent history SHX: Denies use of alcohol, quit cigarettes 2 months ago Physical Exam: Vitals: Gen: Looks in some discomfort, not pale, not jaundiced CVS:HS I +II, regular, no murmurs RESP: Diminished at lung bases GI: BS present and normal, soft, nontender, no palpable organs EXT:No edema Labs: WBC count is 21.6, hemoglobin is 14.1, platelet count is 351 ABG shows pH of 7.24, P CO2 of 55.6, PO2 is 86 BMP shows normal electrolytes, BUN is 32, creatinine is 2.35, troponins are negative, lactic acid is 1.4 BNPep is 60 Chest x-ray shows hyperinflation, increased interstitial markings ASSESSMENT: 1. Acute on chronic combined respiratory failure secondary to community- acquired pneumonia 2. Sepsis secondary to community-acquired pneumonia 3. Accelerated hypertension 4. CKD stage IV 5. Chronic diastolic CHF 6. Type II DM 7. Obesity Plan: Admit to PCU, continue on BiPAP, change to monitor vitals closely Continue IV ceftriaxone and azithromycin Continue with blood pressure with as needed hydralazine Repeat blood work in a.m. Continue on home insulin regimen with Accu-Chek with insulin sliding scale Code Visit Inpatient E&M: 59862 Init Hosp L3
[2018-09-17 17:26] LABS: Allen Test POS; Base Excess -4 mmol/L (-2 to +2); Bicarbonate 23.9 mmol/L (22-26); Blood Gas Specimen Type ART; EPAP 8; FI02 40; IPAP 12; PO2 86 mmHG (75-100); RR 12; SITE R Radial; SO2 94 % (95-99); Time Given 1717; Total Carbon Dioxide 26 mmol/L; pCO2 55.6 mmHg (35-45); pH 7.24 (7.35-7.45)
--- NOTE | 2018-09-17 17:41 | CPS ---
AVAPS order given by Dr. Cooper per Richie Merino
[2018-09-17 19:25] LABS: Allen Test POS; Base Excess -2 mmol/L (-2 to +2); Bicarbonate 25.6 mmol/L (22-26); Blood Gas Specimen Type ART; EPAP 8; FI02 35; IPAP 20; PO2 82 mmHG (75-100); RR 24; SITE R Radial; SO2 93 % (95-99); Time Given 1900; Total Carbon Dioxide 28 mmol/L; pCO2 65.7 mmHg (35-45)
--- NOTE | 2018-09-17 19:56 | NURSING ---
Intubation note 1957 20mg etomidate given IV 2000 intubated. etCO2 good color change noted, 23cm at lip, trinity breath sounds noted. CXR ordered.
--- NOTE | 2018-09-17 20:09 | NURSING ---
HO Richard called report to ICU. This RN called Dwan, secretary specialist to confirm okay to transport pt. Pt transported to ICU per this RN, HO Villa, and PROSPER Alarcon.
--- NOTE | 2018-09-17 20:15 | RAD_ITS ---
STUDY: X-RAY CHEST REASON FOR EXAM: Male, 72 years old. ET tube TECHNIQUE: Single AP portable view of the chest. COMPARISON: 17 Sep 2018 FINDINGS: Endotracheal tube overlies the mid trachea approximately 6 cm from the nini. Prominent interstitial markings with underlying areas of patchy airspace disease not excluded. There is no demonstrated pleural abnormality. Normal size heart. Normal mediastinum and rica. Normal visualized pulmonary arteries. Normal visualized aortic arch and descending thoracic aorta. Normal visualized thoracic spine. Normal visualized ribs, clavicles, and shoulders. There is no demonstrated abnormality of the visualized soft tissue structures of the upper abdomen. RAD/Chest 1 View (Portable) IMPRESSION: Endotracheal tube in proper position as above. Prominent interstitial markings with areas of patchy airspace disease not excluded somewhat improved compared to previous exam. Electronically Signed: Mirza Santiago DO at 21:15 EDT , Service support ,
--- NOTE | 2018-09-17 20:23 | PRO.PCM_ITS ---
Problem List (1) Acute and chronic respiratory failure Status: Chronic (2) Respiratory acidosis Status: Acute (3) Comatose Status: Acute Procedure Report Date of Procedure: 09/17/18 Endotracheal intubation under GlideScope Indication: Acute on chronic hypoxic hypercarbic respiratory failure Protection of airway for comatose patient Patient was on BiPAP and then AVAPS but blood gas did not improve. pH dropped from 7.24-7.20 and PCO2 55-65.7. Patient has normal bicarb suggestive of acute respiratory acidosis. Patient was oxygenated to 96% and then under kaleidoscope, suction was done. Thick yellow, sticky oropharyngeal secretions were found. Patient has dentures and removed, under kaleidoscope laryngeal blade size 4, epiglottis, vocal cord was visualized and 7.5 mm endotracheal tube was inserted. OG was inserted. Chest x-ray ordered. Endotracheal sputum culture, respiratory panel ordered. Antibiotic coverage broadened from ceftriaxone to Zosyn. Lasix 40 mg IV twice daily Chairperson Anesthesiology consult for further management. Propofol and fentanyl for ICU sedation for vent, Total critical time spent 50 minutes. Code Visit Procedures: [id number] Insert Emergency Airway
--- NOTE | 2018-09-17 20:30 | RAD_ITS ---
STUDY: X-RAY - ABDOMEN/PELVIS REASON FOR EXAM: Male, 72 years old. OGT placement. TECHNIQUE: Single AP view of the abdomen / pelvis. COMPARISON: None. FINDINGS: Normal visualized lung bases. Nonvisualized OG tube entering the stomach region is noted. Superior coiling is not completely excluded. Exam limited by overlying lines on the chest. There is an unremarkable bowel gas pattern. There is no demonstrated free abdominal air. The visualized liver, spleen and kidneys are grossly normal in size and morphology. Normal soft tissue structures. Normal visualized osseous structures. RAD/Abdomen Single View (Portable) IMPRESSION: OG tube not seen entering the GE junction or stomach region with prior chest film showing NG tube likely terminating in the midesophagus. Exam is limited by overlying lines and tubes in the chest. Electronically Signed: Mirza Santiago DO at 21:17 EDT , Service support ,
[2018-09-17] MEDS: Furosemide 40 MG/4 ML Vial IV (20:56)
[2018-09-17] MEDS: Propofol 10MG/Ml 1,000 MG/100 ML Bottle 6.069 MG CONT INF (20:57)
[2018-09-17] MEDS: fentaNYL drip 100 ML 5 MCG CONT INF (20:58)
[2018-09-17 21:25] LABS: Color, Urine Yellow (Yellow); Glucose, Dipstick 100 mg/dl (Normal); Ketone-Dipstick 15 mg/dl (Negative); Leukocyte Esterase-Dipstick 25 /ul (Negative); Nitrite-Dipstick Negative (Negative); Occult Blood-Urine 25 /ul (Negative); Protein-Dipstick 500 mg/dl (Negative); Urine Clarity Clear (Clear); Urine Urobilinogen 4 mg/dl (Normal)
[2018-09-17 21:29] LABS: Urine Bilirubin Dipstick 1 mg/dL (Negative)
[2018-09-17 21:33] LABS: Red Blood Cells-Urine 0-5 SEEN /hpf (0-5); White Blood Cells 0-5 SEEN /hpf (0-5)
[2018-09-17 21:37] LABS: Bacteria 3+ /hpf (None Seen); Fine Granular Cast- Urine 0-5 SEEN /lpf (0-5); Hyaline Cast 0-5 SEEN /lpf (0-5); Mucous, Urine 1+ /hpf (<or=2+); Squamous Epithelial Cells - UA 0-5 SEEN /hpf (0-5)
[2018-09-17 22:28] LABS: M R Staph aureus DNA By PCR Negative (Negative); Probe Check PASS; Specimen Processing Control PASS
[2018-09-17] MEDS: Heparin Injection (Vial) 5,000 UNIT/ML VIAL 5000 UNIT SC (23:01)
[2018-09-17] MEDS: Insulin Lispro 100 UNIT/ML INSULN.PEN SQ (23:09)
[2018-09-17 23:20] LABS: Bedside Glucose 240 mg/dL (70-110)
[2018-09-17 23:25] LABS: Base Excess -2 mmol/L (-2 to +2); Bicarbonate 24.4 mmol/L (22-26); Blood Gas Specimen Type ART; FI02 60; Mode A-C; O2 Delivery Device Vent; PEEP 5; PO2 181 mmHG (75-100); RR 16; SITE R Radial; SO2 99 % (95-99); Total Carbon Dioxide 26 mmol/L; Vt 513; pCO2 53.3 mmHg (35-45); pH 7.27 (7.35-7.45)
--- NOTE | 2018-09-17 23:56 | CPS ---
pH 7.[address] Rivers was notified immediately of results
[2018-09-18] VITALS (40 sets, daily range): BP systolic 98–153; BP diastolic 51–68; PULSE 64–89; RESP 14–25; TEMP 36.6–37.6; O2SAT 88–98
[2018-09-18] MEDS: Propofol 10MG/Ml 1,000 MG/100 ML Bottle 6.069 MG CONT INF ×4 (00:12→21:40)
[2018-09-18 04:35] LABS: Absolute Lymphocyte Count 0.88 X10^3/ul (0.83-4.51); Absolute Neutrophil Count 14.4 X10^3/uL (2.0-7.7); Basophil# 0.03 X10^3/uL; Basophil% 0.2 % (0-1); Hematocrit 38.7 % (40-54); Hemoglobin 12.3 g/dl (13.0-16.5); Lymphocyte # 0.88 X10^3/ul (4.0); Lymphocyte % 5.4 % (19-41); Mean Corp Hgb Conc 31.8 g/gl (32-36); Mean Corpuscular Hgb 29.4 pg (27.0-32.0); Mean Corpuscular Volume 92.4 fL (80-94); Mean Platelet Vol. 9.9 fl (6.2-12.0); Monocyte# 0.96 X10^3/uL; Monocyte% 5.9 % (0-10); Neutrophil % 87.8 % (47-70); POSITIVE COUNT NO; POSITIVE DIFFERENTIAL NO; POSITIVE MORPHOLOGY NO; Platelet Count 307 K/mm3 (150-450); RBC Distribution Width CV 13.8 % (11.6-14.6); RBC Distribution Width SD 46.5 fl (35.1-43.9); Red Blood Count 4.19 M/mm3 (4.6-6.2); White Blood Count 16.4 K/mm3 (4.4-11.0)
[2018-09-18 04:47] LABS: Albumin, Serum 2.4 g/dL (3.2-5.0); BUN 48 mg/dL (7-18); BUN/Creat Ratio 15.7 RATIO (10-20); Calcium,Total 9.3 mg/dL (8.5-10.1); Chloride 110 mmol/L (98-107); Creatinine, Serum 3.05 mg/dL (0.70-1.30); EST Glomerular Filtration Rate 22 mL/min (>60); Est Glom Filt Rate - Afr Amer 26 mL/min (>60); Glucose 245 mg/dL (74-106); Phosphorus 4.5 mg/dL (2.5-4.9); Potassium 4.4 mmol/L (3.5-5.1); Sodium Level 143 mmol/L (136-145)
[2018-09-18 04:49] LABS: CPK Total, Creatine Kinase 39 U/L (39-308); Triglycerides 141 mg/dL
[2018-09-18] MEDS: Insulin Lispro 100 UNIT/ML INSULN.PEN SQ (05:00)
--- NOTE | 2018-09-18 05:20 | RAD_ITS ---
STUDY: X-RAY CHEST REASON FOR EXAM: Male, 72 years old. Shortness of breath/dyspnea. Acute hypoxic respiratory failure. TECHNIQUE: Single AP portable view of the chest. COMPARISON: Comparison is made with prior study dated September 17, 2018. FINDINGS: An endotracheal tube is in situ. The tip is at 5.8 cm proximal to the nini. An orogastric tube is seen with the tip below the left hemidiaphragm. EKG electrodes are seen. Hyperinflation. Stable mild increased markings in the left midlung and right lung base suggestive of possible scarring. No acute infiltrate is seen. There is no demonstrated pleural abnormality. Normal size heart. Normal mediastinum and rica. Normal visualized pulmonary arteries. Normal visualized aortic arch and descending thoracic aorta. Normal visualized thoracic spine. Normal visualized ribs, clavicles, and shoulders. There is no demonstrated abnormality of the visualized soft tissue structures of the upper abdomen. RAD/Chest 1 View (Portable) IMPRESSION: Stable examination. Electronically Signed: Oscar Alvarez, at 8:59 EDT , Service support ,
[2018-09-18 06:21] LABS: Bedside Glucose 236 mg/dL (70-110)
[2018-09-18] MEDS: Ipratropium/Albuterol Sulfate 3 ML AMPUL.NEB INHALATION ×4 (06:35→18:39)
--- NOTE | 2018-09-18 07:11 | PCM.CON.CC ---
Reason for Consult Date of Consultation: 09/18/18 Reason for Consultation: Respiratory failure History of Present Illness: The patient is a 72-year-old male, with a history as outlined below, who presented to the emergency department on September 17 with complaints of shortness of breath and productive cough. The patient has a documented history of chronic hypoxemic respiratory failure, questionable COPD, continuous tobacco dependency, chronic kidney disease and heart failure with preserved ejection fraction. Per prior hospital documentation, the patient also reportedly has a component of baseline MRDD or unspecified cognitive deficit. The patient is currently homeless and resides at the [facility]. On presentation to the emergency department, the patient was noted to be tachycardic, hypertensive, tachypneic and hypoxemic. Laboratory evaluation revealed an elevated white blood cell count to 22,000. Chemistry profile revealed evidence of acute on chronic kidney disease with a creatinine of 2.35. Lactate was within normal limits at 1.4. Troponin was negative. BNP was normal. MRSA screen was negative. Plain film chest x-ray revealed prominent interstitial markings bilaterally with clear costophrenic angles. In the emergency department, the patient received aerosol treatments, IV Solu-Medrol and antibiotics. He was subsequently placed on BiPAP therapy. The patient was initially admitted to the progressive care unit. The patients arterial blood gas obtained on BiPAP 04/05 revealed a pH of 7.24 with a corresponding PCO2 of 56 and PO2 of 86. Given that the patient did not respond to bilevel therapy, he was transitioned to AVAPS. Unfortunately, the patient did not respond favorably to the aforementioned either. Therefore, the decision was made to emergently intubate the patient. He was then transferred to the medical intensive care unit for ongoing management. Past Medical History Past Medical History (Chronic Problems): Chronic Problems Generalized weakness (Chronic) Diabetes mellitus (Chronic) Hypertension (Chronic) Hyperlipidemia (Chronic) COPD (chronic obstructive pulmonary disease) (Chronic) Stroke (Chronic) Chronic kidney disease (Chronic) GERD (gastroesophageal reflux disease) (Chronic) CKD (chronic kidney disease) stage 3, GFR 30-59 ml/min (Chronic) Acute and chronic respiratory failure with hypoxia (Chronic) Diastolic CHF (Chronic) Acute and chronic respiratory failure (Chronic) Tobacco user (Chronic) Hypertensive retinopathy (Chronic) Benign essential HTN (Chronic) Allergies bee venom protein (honey bee) Allergy (Verified 09/17/18 13:12) Anaphylaxis Home Medications: Ambulatory Orders Medication Instructions Recorded Insulin Glargine,Hum.rec.anlog 40 unit SQ BID 09/17/18 [Evelio Herndon] Labetalol HCl 300 mg PO TID 09/17/18 Surgical History: no surgical history Psychiatric History: No pertinent psych hx Smoking Status: Former smoker Tobacco Use: Cigarettes - *Family History Maternal History Items: Unknown Paternal History Items: Unknown Review of Systems Unable to obtain accurate/complete ROS d/t: Due to current intubation and mechanical ventilation status. Patient Problems: Active and Suspected Problems PNA (pneumonia) (Acute) Respiratory acidosis (Acute) Comatose (Acute) Objective: The patient's most recent lab work, culture data and imaging studies have all been personally reviewed. Surface echocardiogram from September 2017 revealed normal LV size and function with an ejection fraction of 65%. The right ventricular systolic pressure was unable to be estimated. - Physical Exam General: - - Intubated, sedated and mechanically ventilated. HEENT: Atraumatic, PERRLA, Normocephalic Oral: No Gingival or Mucosal Lesions/ Ulcerations, - - Endotracheal and OG tubes currently in place. Neck: Supple, No Nodes, Trachea Midline Lungs: No rhonchi, No wheeze, No rales, Diminished Cardiovascular: Regular rate, Regular Rhythm, Normal S1, Normal S2, No murmurs Abdomen: Soft, Non Tender, Hypoactive Bowel Sounds, Obese Extremities: No clubbing, No cyanosis, No edema Skin: No breakdown Musculoskeletal: No Tenderness to Palpation of Joints or Extremities Lymphatic: No Cervical, Supraclavicular, or Inguinal Adenopathy Neurological: - - No focal neurological deficits. Currently sedated with a RASS of -2 Vital Signs Temp Pulse Resp BP Pulse Ox 98.3 F 75 16 127/68 H 97 09/18/18 06:00 09/18/18 06:35 09/18/18 06:35 09/18/18 06:00 09/18/18 06:35 Oxygen Flow Rate (L/min) 3 Oxygen Delivery Method Mechanical Ventilator Weight: 213 lb 6.519 oz Body Mass Index (BMI) 32.0 Finger Stick Blood Glucose 240 Intake and Output for Last 24 Hours 09/16/18 09/17/18 09/18/18 23:59 23:59 23:59 Intake Total 125 / 125 270.5 / 270.5 Output Total 510 / 510 Balance 125 / 125 -239.5 / -239.5 Laboratory Tests Past 24 Hrs 09/17/18 09/17/18 09/17/18 13:40 13:40 13:40 WBC 21.6 H RBC 4.69 Hgb 14.1 Hct 42.7 MCV 91.0 MCH 30.1 MCHC 33.0 RDW 13.7 RDW Differential 45.3 H Plt Count 351 MPV 9.7 Immature Gran % (Auto) 0.600 Neut % (Auto) 77.6 H Lymph % (Auto) 7.8 L Colbert % (Auto) 13.4 H Eos % (Auto) 0.2 Baso % (Auto) 0.4 Absolute Neuts (auto) 16.8 H Absolute Lymphs (auto) 1.68 Total Counted Not Reportable Differential Comment Diff Path Review May foll Platelet Estimate ADEQUATE RBC Morphology NORM C+C Specimen Type Sample Site pH Bicarbonate Actual POC Total CO2 Base Excess O2 Saturation O2 % ABG pCO2 ABG pO2 Elias Test Respiration Rate O2 Delivery Device Minute Volume Vent Mode Tidal Volume POC PEEP EPAP IPAP Blood Gas Notified Whom Blood Gas Notified Time Sodium 139 Potassium 3.8 Chloride 107 Carbon Dioxide 26.0 Anion Gap 6 BUN 32 H Creatinine 2.35 H Estim Creat Clear Calc 30.26 Est GFR (MDRD) Af Amer 35 L Est GFR (MDRD) Non-Af 29 L BUN/Creatinine Ratio 13.6 Glucose 163 H Lactic Acid 1.4 Calcium 9.6 Phosphorus Total Creatine Kinase Troponin I < 0.015 B-Natriuretic Peptide Albumin Triglycerides Urine Color Urine Clarity Urine pH Ur Specific Normanna Urine Protein Urine Glucose (UA) Urine Ketones Urine Occult Blood Urine Nitrite Urine Bilirubin Urine Urobilinogen Ur Leukocyte Esterase Urine RBC Urine WBC Ur Squamous Epith Cells Urine Bacteria Hyaline Casts Fine Granular Casts Urine Mucus MRSA (PCR) 09/17/18 09/17/18 09/17/18 13:40 17:18 19:14 WBC RBC Hgb Hct MCV MCH MCHC RDW RDW Differential Plt Count MPV Immature Gran % (Auto) Neut % (Auto) Lymph % (Auto) Colbert % (Auto) Eos % (Auto) Baso % (Auto) Absolute Neuts (auto) Absolute Lymphs (auto) Total Counted Differential Comment Diff Path Review Platelet Estimate RBC Morphology Specimen Type ART ART Sample Site R Radial R Radial pH 7.24 L 7.20 L Bicarbonate Actual 23.9 25.6 POC Total CO2 26 28 Base Excess -4 L -2 O2 Saturation 94 L 93 L O2 % 40 35 ABG pCO2 55.6 H 65.7 H ABG pO2 86 82 Elias Test POS POS Respiration Rate 12 24 O2 Delivery Device Bi / C PAP Bi / C PAP Minute Volume Vent Mode Tidal Volume POC PEEP EPAP 8 8 IPAP 12 20 Blood Gas Notified Whom RN HOSP Blood Gas Notified Time 1717 1900 Sodium Potassium Chloride Carbon Dioxide Anion Gap BUN Creatinine Estim Creat Clear Calc Est GFR (MDRD) Af Amer Est GFR (MDRD) Non-Af BUN/Creatinine Ratio Glucose Lactic Acid Calcium Phosphorus Total Creatine Kinase Troponin I B-Natriuretic Peptide 60.0 Albumin Triglycerides Urine Color Urine Clarity Urine pH Ur Specific Normanna Urine Protein Urine Glucose (UA) Urine Ketones Urine Occult Blood Urine Nitrite Urine Bilirubin Urine Urobilinogen Ur Leukocyte Esterase Urine RBC Urine WBC Ur Squamous Epith Cells Urine Bacteria Hyaline Casts Fine Granular Casts Urine Mucus MRSA (PCR) 09/17/18 09/17/18 09/17/18 20:40 20:40 23:17 WBC RBC Hgb Hct MCV MCH MCHC RDW RDW Differential Plt Count MPV Immature Gran % (Auto) Neut % (Auto) Lymph % (Auto) Colbert % (Auto) Eos % (Auto) Baso % (Auto) Absolute Neuts (auto) Absolute Lymphs (auto) Total Counted Differential Comment Diff Path Review Platelet Estimate RBC Morphology Specimen Type ART Sample Site R Radial pH 7.27 L Bicarbonate Actual 24.4 POC Total CO2 26 Base Excess -2 O2 Saturation 99 O2 % 60 ABG pCO2 53.3 H ABG pO2 181 H Elias Test NA Respiration Rate 16 O2 Delivery Device Vent Minute Volume 8.00 Vent Mode A-C Tidal Volume 513 POC PEEP 5 EPAP IPAP Blood Gas Notified Whom HOSP Blood Gas Notified Time Sodium Potassium Chloride Carbon Dioxide Anion Gap BUN Creatinine Estim Creat Clear Calc Est GFR (MDRD) Af Amer Est GFR (MDRD) Non-Af BUN/Creatinine Ratio Glucose Lactic Acid Calcium Phosphorus Total Creatine Kinase Troponin I B-Natriuretic Peptide Albumin Triglycerides Urine Color Yellow Urine Clarity Clear Urine pH 5.0 Ur Specific Normanna 1.020 Urine Protein 500 H Urine Glucose (UA) 100 H Urine Ketones 15 H Urine Occult Blood 25 H Urine Nitrite Negative Urine Bilirubin 1 H Urine Urobilinogen 4 H Ur Leukocyte Esterase 25 H Urine RBC 0-5 SEEN Urine WBC 0-5 SEEN Ur Squamous Epith Cells 0-5 SEEN Urine Bacteria 3+ Hyaline Casts 0-5 SEEN Fine Granular Casts 0-5 SEEN Urine Mucus 1+ MRSA (PCR) Negative 09/18/18 09/18/18 09/18/18 04:15 04:15 04:15 WBC 16.4 H RBC 4.19 L Hgb 12.3 L Hct 38.7 L MCV 92.4 MCH 29.4 MCHC 31.8 L RDW 13.8 RDW Differential 46.5 H Plt Count 307 MPV 9.9 Immature Gran % (Auto) 0.700 Neut % (Auto) 87.8 H Lymph % (Auto) 5.4 L Colbert % (Auto) 5.9 Eos % (Auto) 0.0 Baso % (Auto) 0.2 Absolute Neuts (auto) 14.4 H Absolute Lymphs (auto) 0.88 Total Counted Not Reportable Differential Comment Diff Path Review Platelet Estimate RBC Morphology Specimen Type Sample Site pH Bicarbonate Actual POC Total CO2 Base Excess O2 Saturation O2 % ABG pCO2 ABG pO2 Elias Test Respiration Rate O2 Delivery Device Minute Volume Vent Mode Tidal Volume POC PEEP EPAP IPAP Blood Gas Notified Whom Blood Gas Notified Time Sodium 143 Potassium 4.4 Chloride 110 H Carbon Dioxide 24.0 Anion Gap BUN 48 H Creatinine 3.05 H Estim Creat Clear Calc 22.60 Est GFR (MDRD) Af Amer 26 L Est GFR (MDRD) Non-Af 22 L BUN/Creatinine Ratio 15.7 Glucose 245 H Lactic Acid Calcium 9.3 Phosphorus 4.5 Total Creatine Kinase 39 Troponin I B-Natriuretic Peptide Albumin 2.4 L Triglycerides 141 Urine Color Urine Clarity Urine pH Ur Specific Normanna Urine Protein Urine Glucose (UA) Urine Ketones Urine Occult Blood Urine Nitrite Urine Bilirubin Urine Urobilinogen Ur Leukocyte Esterase Urine RBC Urine WBC Ur Squamous Epith Cells Urine Bacteria Hyaline Casts Fine Granular Casts Urine Mucus MRSA (PCR) POC Glucose 09/18/18 09/17/18 09/17/18 04:58 23:08 16:36 POC Glucose 236 H 240 H 192 H Clinical Impression(s) from Imaging Studies Chest X-Ray 09/17/18 14:10 IMPRESSION: Increased interstitial markings as described. This may represent vascular congestion. Electronically Signed: Oscar Alvarez, at 14:33 EDT , Service support , Chest X-Ray 09/17/18 20:15 IMPRESSION: Endotracheal tube in proper position as above. Prominent interstitial markings with areas of patchy airspace disease not excluded somewhat improved compared to previous exam. Electronically Signed: Mirza Santiago, at 21:15 EDT , Service support , KUB X-Ray 09/17/18 20:30 IMPRESSION: OG tube not seen entering the GE junction or stomach region with prior chest film showing NG tube likely terminating in the midesophagus. Exam is limited by overlying lines and tubes in the chest. Electronically Signed: Mirza Santiago, at 21:17 EDT , Service support , Assessment/Plan Active and Suspected Problems PNA (pneumonia) (Acute) Respiratory acidosis (Acute) Comatose (Acute) RECOMMENDATIONS: 1. Discontinue Lasix, given worsening renal insufficiency 2. Obtain KUB to confirm placement of OG tube. 3. Continue scheduled bronchodilators and prednisone 40 mg daily. 4. Start tube feeds today. 5. Continue propofol and fentanyl for sedation. 6. Continue subcutaneous heparin and Pepcid for prophylaxis. 7. Continue antimicrobials as ordered, pending infectious work-up. 8. Obtain arterial blood gas. 9. Plan for daily paired spontaneous awakening and breathing trials beginning tomorrow. IMPRESSIONS: 1. Acute on chronic hypoxemic and hypercarbic respiratory failure secondary to presumptive COPD with exacerbation Potential etiologies include viral URI versus community-acquired pneumonia. Agree with continuing antimicrobial coverage, pending infectious work-up. Continue scheduled bronchodilators. Start prednisone 40 mg daily via OG tube. Continue fentanyl and propofol for sedation. Plan to obtain repeat arterial blood gas. If the patient is still acidotic, increase flow rate and decrease respiratory rate in order to facilitate stretching of the patient's I:E ratio. Plan to perform spontaneous awakening and breathing trials beginning tomorrow morning. Okay from my perspective to begin tube feeds. Obtain repeat surface echocardiogram. 2. Severe sepsis with concerns for community-acquired pneumonia Continue current antimicrobial coverage, pending finalized infectious work-up. The patient remains hemodynamically stable. 3. Long-standing tobacco abuse history As noted above, clinical concern for underlying obstructive lung disease. We will continue bronchodilators and wean FiO2 as tolerated. Recommend outpatient pulmonary follow-up and baseline pulmonary function studies. Smoking cessation is advisable. Nicotine replacement therapy can be offered to the patient while admitted to the hospital. 4. Acute on chronic kidney disease The patient's renal function worsened over the course of the night in the setting of diuretic therapy. His prior surface echocardiogram revealed no evidence of heart failure. In addition, his BNP was within normal limits. Therefore, all diuretics have been discontinued. We will continue to monitor urine output. No current indication for renal replacement therapy. 5. Diabetes mellitus/baseline MRDD/hypertension Complicates care, management, recovery and prognosis. Continue sliding scale insulin coverage. TIME: 45 minutes of critical care time, independent of procedures, was spent addressing the patient's acute on chronic combined respiratory failure, COPD with exacerbation, severe sepsis, long-standing tobacco dependency, acute on chronic kidney disease, review of all data and collaboration with the care team. ([id number]) Code Visit [id number]: [id number] Critical care first hour
--- NOTE | 2018-09-18 07:22 | ECHOCS_ITS ---
Reason For Study: DYSPNEA Procedure This was a 2D Doppler, Color Flow transthoracic echocardiogram. Exam performed portable in ICU/CCU. Left Ventricle Normal size and thickness. The estimated ejection fraction is 65 %. Diastolic function is indeterminate. No regional wall motion abnormalities noted. Right Ventricle Normal RV size. Normal systolic function. Atria Normal left atrium. Normal right atrium. No doppler evidence for ASD. Mitral Valve There is no mitral valve stenosis. No mitral valve insufficiency. Tricuspid Valve There is no tricuspid stenosis. Trivial tricuspid valve insufficiency. Unable to estimate RV systolic pressure due to insufficient tricuspid regurgitant envelope. Aortic Valve Trisinus/trileaflet aortic valve. Moderate diffuse aortic valve thickening. Moderate aortic stenosis. Moderate (2+) aortic valve insufficiency. Pulmonic Valve There is no pulmonic valvular stenosis. No pulmonic valve insufficiency. Great Vessels Normal aortic root. Pericardium/Pleural No pericardial effusion. Medication Diluted definity 3.5ml given slow IV push to enhance endocardial definition. MMode/2D Measurements & Calculations LVIDd: 4.4 cm IVSd: 1.2 cm LVOT diam: 2.1 cm LVIDs: 2.6 cm LVPWd: 1.1 cm FS: 41.5 % LVOT area: 3.4 cm2 Ao root diam: 3.8 cm LAV(MOD-bp): 61.4 ml LA A4 area: 17.4 cm2 LAV(MOD-bp) Indexed: 28.6 ml/m2 LAV(MOD-sp2): 70.7 ml LAV(MOD-sp4): 47.8 ml RA A4 area: 15.7 cm2 Time Measurements MV dec time: 0.35 sec Doppler Measurements & Calculations MV E max levi: 101.9 cm/sec Lat Peak E' Levi: 6.6 cm/sec Med Peak E' Levi: 4.3 cm/sec MV A max levi: 126.6 cm/sec E/E' lat: 15.3 E/E' med: 23.9 MV E/A: 0.81 MV V2 max: 134.5 cm/sec Ao V2 max: 289.4 cm/sec AI max levi: 377.9 cm/sec MV max P.2 mmHg Ao max P.6 mmHg AI max P.2 mmHg MV V2 mean: 83.3 cm/sec Ao V2 mean: 221.1 cm/sec AI dec slope: 264.5 cm/sec2 MV mean P.1 mmHg Ao mean P.2 mmHg AI P1/2t: 418.6 msec MV V2 VTI: 43.3 cm Ao V2 VTI: 64.2 cm MVA(VTI): 2.4 cm2 JUSTINE(I,D): 1.6 cm2 JUSTINE(V,D): 1.5 cm2 LV V1 max: 125.4 cm/sec SV(LVOT): 105.1 ml MV P1/2t-pr_phl: 133.6 msec LV V1 max P.3 mmHg LV V1 mean P.7 mmHg LV V1 mean: 89.8 cm/sec LV V1 VTI: 30.7 cm Interpretation Summary The study was technically difficult. Diluted definity 3.5ml given slow IV push to enhance endocardial definition. The estimated ejection fraction is 65 %. Diastolic function is indeterminate. Moderate aortic stenosis. Moderate (2+) aortic valve insufficiency. The study was technically difficult. Ordering Physician: Ben Carranza D.O. Performed By: Ina Morales, JANYCS, RVT
[2018-09-18 07:57] LABS: AST(SGOT) 12 U/L (15-37); Alanine Aminotransfer ALT/SGPT 18 U/L (16-61); Albumin, Serum 2.3 g/dL (3.2-5.0); Alkaline Phosphatase 96 U/L (45-117); Bilirubin, Direct 0.18 mg/dL (0.00-0.30); Globulin 4.7 g/dL (2.2-4.2)
--- NOTE | 2018-09-18 09:05 | RAD_ITS ---
STUDY: X-RAY - ABDOMEN/PELVIS REASON FOR EXAM: Male, 72 years old. Oral gastric tube placement. TECHNIQUE: Single AP view of the abdomen / pelvis. COMPARISON: Comparison is made with prior study dated September 17, 2018. FINDINGS: Normal visualized lung bases. The tip of the oral gastric tube is in the distal portion of the stomach. There is an unremarkable bowel gas pattern. The visualized liver, spleen and kidneys are grossly normal in size and morphology. Normal soft tissue structures. There are diffuse degenerative changes of the visualized lumbar spine. RAD/Abdomen Single View (Portable) IMPRESSION: The tip of the orogastric tube is in the distal portion of the stomach. Electronically Signed: Oscar Alvarez, at 9:33 EDT , Service support ,
[2018-09-18 09:06] LABS: M R Staph aureus DNA By PCR Negative (Negative); Probe Check PASS; Specimen Processing Control PASS
[2018-09-18] MEDS: Chlorhexidine 15 ML PO ×2 (09:20→21:39)
--- NOTE | 2018-09-18 09:26 | PCM.PN.HOSP ---
Patient Problems: Active and Suspected Problems PNA (pneumonia) (Acute) Respiratory acidosis (Acute) Comatose (Acute) Subjective: Patient seen and examined. He was admitted with a complaint of shortness of breath and productive cough. He was noted to be tachycardic, hypotensive, tachypneic and hypoxemic on admission and also had an elevated white cell count of 22,000. He was found to have DARYL on CKD on admission with elevated creatinine of 2.35 and lactic acid was normal. BNP was also normal. Chest x-ray showed prominent interstitial markings bilaterally with clear costophrenic angles. He was started on BiPAP and initially admitted to the PCU. ABG done was on BiPAP showed pH of 7.24 with PCO2 of 56 and PO2 of 86. He did not respond to BiPAP and so was transitioned to a valve. However he also did not respond and he was emergently intubated and transferred to the ICU. Patient seen and examined. He remains intubated. He was unresponsive to voice and sternal pressure. He is currently on propofol and fentanyl. Unable to do review of systems as patient is intubated and sedated. Vitals/I&O's: Vital Signs Temp Pulse Resp BP Pulse Ox 98.5 F 69 16 117/58 L 93 09/18/18 08:00 09/18/18 09:00 09/18/18 09:00 09/18/18 09:00 09/18/18 09:00 Oxygen Flow Rate (L/min) 3 Oxygen Delivery Method Mechanical Ventilator Weight: 213 lb 6.519 oz Body Mass Index (BMI) 32.0 Finger Stick Blood Glucose 240 Intake and Output for Last 24 Hours 09/16/18 09/17/18 09/18/18 23:59 23:59 23:59 Intake Total 125 / 125 270.5 / 270.5 Output Total 510 / 510 Balance 125 / 125 -239.5 / -239.5 General: - - intubated, sedated HEENT: Atraumatic, PERRLA, EOMI, Normocephalic Oral: Dry Mucosa Neck: Supple, No JVD, Negative Carotid Bruits Lungs: - - decreased breath sounds bibasally, no wheezes or crackles. intubated and sedated Cardiovascular: Regular rate, Regular Rhythm, Normal S1, Normal S2, No murmurs Abdomen: Bowel Sounds Present, Soft, Non Tender, Non-Distended, No Hepato-splenomegaly Extremities: No clubbing, No cyanosis, No edema, Capillary Refill Less than 3 Seconds Skin: No rashes, No breakdown Musculoskeletal: No Tenderness to Palpation of Joints or Extremities Lymphatic: No Cervical, Supraclavicular, or Inguinal Adenopathy Neurological: Cranial nerves II-XII grossly intact Psych/Mental Status: - - intubated, sedated Microbiology Past 72 Hours 09/18/18 07:30 Urine Catheter - Michel Streptococcus pneumoniae Antigen (M - Final 09/18/18 07:30 Urine Catheter - Michel Legionella Antigen - Final Laboratory Results 09/17/18 13:40: WBC 21.6 H, RBC 4.69, Hgb 14.1, Hct 42.7, MCV 91.0, MCH 30.1, MCHC 33.0, RDW 13.7, RDW Differential 45.3 H, Plt Count 351, MPV 9.7, Immature Gran % (Auto) 0.600, Neut % (Auto) 77.6 H, Lymph % (Auto) 7.8 L, [place] % (Auto) 13.4 H, Eos % (Auto) 0.2, Baso % (Auto) 0.4, Absolute Neuts (auto) 16.8 H, Absolute Lymphs (auto) 1.68, Total Counted Not Reportable, Differential Comment , Diff Path Review August, Platelet Estimate ADEQUATE, RBC Morphology NORM C+C 09/17/18 13:40: Sodium 139, Potassium 3.8, Chloride 107, Carbon Dioxide 26.0, Anion Gap 6, BUN 32 H, Creatinine 2.35 H, Estim Creat Clear Calc 30.26, Est GFR (MDRD) Af Amer 35 L, Est GFR (MDRD) Non-Af 29 L, BUN/Creatinine Ratio 13.6, Glucose 163 H, Calcium 9.6, Troponin I < 0.015 09/17/18 13:40: Lactic Acid 1.4 09/17/18 13:40: B-Natriuretic Peptide 60.0 09/17/18 16:36: POC Glucose 192 H 09/17/18 17:18: Specimen Type ART, Sample Site R Radial, pH 7.24 L, Bicarbonate Actual 23.9, POC Total CO2 26, Base Excess -4 L, O2 Saturation 94 L, O2 % 40, ABG pCO2 55.6 H, ABG pO2 86, Elias Test POS, Respiration Rate 12, O2 Delivery Device Bi / C PAP, EPAP 8, IPAP 12, Blood Gas Notified Whom RN, Blood Gas Notified Time 1717 09/17/18 19:14: Specimen Type ART, Sample Site R Radial, pH 7.20 L, Bicarbonate Actual 25.6, POC Total CO2 28, Base Excess -2, O2 Saturation 93 L, O2 % 35, ABG pCO2 65.7 H, ABG pO2 82, Elias Test POS, Respiration Rate 24, O2 Delivery Device Bi / C PAP, EPAP 8, IPAP 20, Blood Gas Notified Whom [facility] , Blood Gas Notified Time 1900 09/17/18 20:40: MRSA (PCR) Negative 09/17/18 20:40: Urine Color Yellow, Urine Clarity Clear, Urine pH 5.0, Ur Specific [place] 1.020, Urine Protein 500 H, Urine Glucose (UA) 100 H, Urine Ketones 15 H, Urine Occult Blood 25 H, Urine Nitrite Negative, Urine Bilirubin 1 H, Urine Urobilinogen 4 H, Ur Leukocyte Esterase 25 H, Urine RBC 0-5 SEEN, Urine WBC 0-5 SEEN, Ur Squamous Epith Cells 0-5 SEEN, Urine Bacteria 3+, Hyaline Casts 0-5 SEEN, Fine Granular Casts 0-5 SEEN, Urine Mucus 1+ 09/17/18 23:08: POC Glucose 240 H 09/17/18 23:17: Specimen Type ART, Sample Site R Radial, pH 7.27 L, Bicarbonate Actual 24.4, POC Total CO2 26, Base Excess -2, O2 Saturation 99, O2 % 60, ABG pCO2 53.3 H, ABG pO2 181 H, Elias Test NA, Respiration Rate 16, O2 Delivery Device Vent, Minute Volume 8.00, Vent Mode A-C, Tidal Volume 513, POC PEEP 5, Blood Gas Notified Whom SANA ZIMMERMAN 09/18/18 04:15: WBC 16.4 H, RBC 4.19 L, Hgb 12.3 L, Hct 38.7 L, MCV 92.4, MCH 29.4, MCHC 31.8 L, RDW 13.8, RDW Differential 46.5 H, Plt Count 307, MPV 9.9, Immature Gran % (Auto) 0.700, Neut % (Auto) 87.8 H, Lymph % (Auto) 5.4 L, [place] % (Auto) 5.9, Eos % (Auto) 0.0, Baso % (Auto) 0.2, Absolute Neuts (auto) 14.4 H, Absolute Lymphs (auto) 0.88, Total Counted Not Reportable 09/18/18 04:15: Sodium 143, Potassium 4.4, Chloride 110 H, Carbon Dioxide 24.0, BUN 48 H, Creatinine 3.05 H, Estim Creat Clear Calc 22.60, Est GFR (MDRD) Af Amer 26 L, Est GFR (MDRD) Non-Af 22 L, BUN/Creatinine Ratio 15.7, Glucose 245 H, Calcium 9.3, Phosphorus 4.5, Albumin 2.4 L 09/18/18 04:15: Total Creatine Kinase 39, Triglycerides 141 09/18/18 04:15: Total Creatine Kinase Cancelled 09/18/18 04:15: Total Bilirubin 0.50, Direct Bilirubin 0.18, AST 12 L, ALT 18, Alkaline Phosphatase 96, Total Protein 7.0, Albumin 2.3 L, Globulin 4.7 H 09/18/18 04:15: Triglycerides Cancelled 09/18/18 04:58: POC Glucose 236 H 09/18/18 07:35: MRSA (PCR) Negative Diagnostic Data Chest X-Ray 09/18/18 05:20 IMPRESSION: Stable examination. Electronically Signed: Oscar Alvarez, at 8:59 EDT , Service support , Current Medications Acetaminophen (Tylenol) 650 mg PO Q6H PRN PRN PRN Reason: Mild pain 1-3/Temp > 100.7 F Albuterol Sulfate (Ventolin Aerosols) 2.5 mg INHALATION Q2H PRN PRN PRN Reason: SOB &/OR WHEEZING Albuterol/Ipratropium (Duoneb) 3 ml INHALATION Q4HWA.RT KARENA Last Admin: 09/18/18 06:35 Dose: 3 ml Chlorhexidine Gluconate () 15 ml PO BID KARENA Last Admin: 09/18/18 09:20 Dose: 15 ml Chlorhexidine Gluconate () 1 each TOPICAL DAILY KARENA Dextrose (D50w Syringe) 0 gm IV X1 PRN; Protocol PRN Reason: Hypoglycemia Famotidine (Pepcid) 20 mg GT DAILY [facility] Glucagon () 1 mg IM .X1 PRN PRN Reason: Hypoglycemia Heparin Sodium (Porcine) (Heparin Na) 5,000 unit SC Q12 [facility] Last Admin: 09/17/18 23:01 Dose: 5,000 unit Hydralazine HCl (Apresoline Iv) 5 mg IV Q6H PRN PRN PRN Reason: BLOOD PRESSURE Fentanyl () 100 mls @ 5 mls/hr CONT INF .Q20H [facility] Last Admin: 09/17/18 20:58 Dose: 5 mls/hr Propofol (Diprivan) 1,000 mg in 100 mls @ 6.069 mls/hr CONT INF .Q12H [facility] Last Admin: 09/18/18 09:20 Dose: 6.069 mls/hr Piperacillin Sod/Tazobactam (Sod 3.375 gm/ Sodium Chloride) 50 mls @ 12.5 mls/hr IV Q8 [facility] Last Admin: 09/18/18 05:00 Dose: 12.5 mls/hr Sodium Chloride () 250 mls @ 15 mls/hr IV .[id number] PRN PRN Reason: SALINE FLUSH Enteral Nutritional Formula (Vital Af 1.2 Best Liquid) 1,000 mls @ 60 mls/hr GT .[id number] [facility] Insulin Glargine (Lantus (Bkc)) 40 units SC 06,18 [facility] Insulin Human Lispro (Humalog Kwikpen (Bkc)) 0 unit SC Q6 [facility]; Protocol Nitroglycerin (Nitrostat) 0.4 mg SUBLINGUAL Q5M PRN PRN Reason: CARDIAC/CHEST PAIN Ondansetron HCl (Zofran) 4 mg IV Q8H PRN PRN PRN Reason: NAUSEA/VOMITING Prednisone () 40 mg PO 1200 KARENA Sodium Chloride () 5 - 15 ml IV UD PRN PRN Reason: SALINE FLUSH Sodium Chloride () 5 - 15 ml IV UD PRN PRN Reason: SALINE FLUSH Medical Necessity - Tobacco Use Smoking Status: Former smoker Tobacco Use: Cigarettes Assessment/Plan All Active Problems Fall (Acute) Sepsis (Acute) Encephalopathy (Acute) Urinary tract infection (Acute) PNA (pneumonia) (Acute) Respiratory acidosis (Acute) Comatose (Acute) 1. 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 DARYL on CKD: CR is up to 3.05 todfay, from 2.35 on admission. baseline Cr is ~ 2. On IVF. WIll monitor 4. Diabetes: on ISS. Accuchecks q6hrs. 5. Hypertension: on IV hydralazine prn. 6. Chronic diastolic heart failure: stable. BNP was WNL on admission, making acute heart failure unlikely. weight on admission was 223 pounds, now down to 213 pounds. will monitor DVT prophylaxis: SCDs. no anticoagulation o/a of history of hemoptysis GI prophylaxis; famotidine Code Visit Inpatient E&M: [id number] [facility] L3
--- NOTE | 2018-09-18 09:30 | PN_ITS ---
Patient Problems: Active and Suspected Problems PNA (pneumonia) (Acute) Respiratory acidosis (Acute) Comatose (Acute) Subjective: Patient seen and examined. He was admitted with a complaint of shortness of breath and productive cough. He was noted to be tachycardic, hypotensive, tachypneic and hypoxemic on admission and also had an elevated white cell count of 22,000. He was found to have DARYL on CKD on admission with elevated creatinine of 2.35 and lactic acid was normal. BNP was also normal. Chest x- ray showed prominent interstitial markings bilaterally with clear costophrenic angles. He was started on BiPAP and initially admitted to the PCU. ABG done was on BiPAP showed pH of 7.24 with PCO2 of 56 and PO2 of 86. He did not respond to BiPAP and so was transitioned to a valve. However he also did not respond and he was emergently intubated and transferred to the ICU. Patient seen and examined. He remains intubated. He was unresponsive to voice and sternal pressure. He is currently on propofol and fentanyl. Unable to do review of systems as patient is intubated and sedated. Vitals/I&O's: Vital Signs Temp Pulse Resp BP Pulse Ox 98.5 F 69 16 117/58 L 93 09/18/18 08:00 09/18/18 09:00 09/18/18 09:00 09/18/18 09:00 09/18/18 09:00 Oxygen Flow Rate (L/min) 3 Oxygen Delivery Method Mechanical Ventilator Weight: 213 lb 6.519 oz Body Mass Index (BMI) 32.0 Finger Stick Blood Glucose 240 Intake and Output for Last 24 Hours 09/16/18 09/17/18 09/18/18 23:59 23:59 23:59 Intake Total 125 / 125 270.5 / 270.5 Output Total 510 / 510 Balance 125 / 125 -239.5 / -239.5 General: - - intubated, sedated HEENT: Atraumatic, PERRLA, EOMI, Normocephalic Oral: Dry Mucosa Neck: Supple, No JVD, Negative Carotid Bruits Lungs: - - decreased breath sounds bibasally, no wheezes or crackles. intubated and sedated Cardiovascular: Regular rate, Regular Rhythm, Normal S1, Normal S2, No murmurs Abdomen: Bowel Sounds Present, Soft, Non Tender, Non-Distended, No Hepato- splenomegaly Extremities: No clubbing, No cyanosis, No edema, Capillary Refill Less than 3 Seconds Skin: No rashes, No breakdown Musculoskeletal: No Tenderness to Palpation of Joints or Extremities Lymphatic: No Cervical, Supraclavicular, or Inguinal Adenopathy Neurological: Cranial nerves II-XII grossly intact Psych/Mental Status: - - intubated, sedated Microbiology Past 72 Hours 09/18/18 07:30 Urine Catheter - Michel Streptococcus pneumoniae Antigen (M - Final 09/18/18 07:30 Urine Catheter - Michel Legionella Antigen - Final Laboratory Results 09/17/18 13:40: WBC 21.6 H, RBC 4.69, Hgb 14.1, Hct 42.7, MCV 91.0, MCH 30.1, MCHC 33.0, RDW 13.7, RDW Differential 45.3 H, Plt Count 351, MPV 9.7, Immature Gran % (Auto) 0.600, Neut % (Auto) 77.6 H, Lymph % (Auto) 7.8 L, [place] % (Auto) 13.4 H, Eos % (Auto) 0.2, Baso % (Auto) 0.4, Absolute Neuts (auto) 16.8 H, Absolute Lymphs (auto) 1.68, Total Counted Not Reportable, Differential Comment , Diff Path Review August, Platelet Estimate ADEQUATE, RBC Morphology NORM C+C 09/17/18 13:40: Sodium 139, Potassium 3.8, Chloride 107, Carbon Dioxide 26.0, Anion Gap 6, BUN 32 H, Creatinine 2.35 H, Estim Creat Clear Calc 30.26, Est GFR (MDRD) Af Amer 35 L, Est GFR (MDRD) Non-Af 29 L, BUN/Creatinine Ratio 13.6, Glucose 163 H, Calcium 9.6, Troponin I < 0.015 09/17/18 13:40: Lactic Acid 1.4 09/17/18 13:40: B-Natriuretic Peptide 60.0 09/17/18 16:36: POC Glucose 192 H 09/17/18 17:18: Specimen Type ART, Sample Site R Radial, pH 7.24 L, Bicarbonate Actual 23.9, POC Total CO2 26, Base Excess -4 L, O2 Saturation 94 L, O2 % 40, ABG pCO2 55.6 H, ABG pO2 86, Elias Test POS, Respiration Rate 12, O2 Delivery Device Bi / C PAP, EPAP 8, IPAP 12, Blood Gas Notified Whom RN, Blood Gas Notified Time 1717 09/17/18 19:14: Specimen Type ART, Sample Site R Radial, pH 7.20 L, Bicarbonate Actual 25.6, POC Total CO2 28, Base Excess -2, O2 Saturation 93 L, O2 % 35, ABG pCO2 65.7 H, ABG pO2 82, Elias Test POS, Respiration Rate 24, O2 Delivery Device Bi / C PAP, EPAP 8, IPAP 20, Blood Gas Notified Whom [facility] , Blood Gas Notified Time 1900 09/17/18 20:40: MRSA (PCR) Negative 09/17/18 20:40: Urine Color Yellow, Urine Clarity Clear, Urine pH 5.0, Ur Specific [place] 1.020, Urine Protein 500 H, Urine Glucose (UA) 100 H, Urine Ketones 15 H, Urine Occult Blood 25 H, Urine Nitrite Negative, Urine Bilirubin 1 H, Urine Urobilinogen 4 H, Ur Leukocyte Esterase 25 H, Urine RBC 0-5 SEEN, Urine WBC 0-5 SEEN, Ur Squamous Epith Cells 0-5 SEEN, Urine Bacteria 3+, Hyaline Casts 0-5 SEEN, Fine Granular Casts 0-5 SEEN, Urine Mucus 1+ 09/17/18 23:08: POC Glucose 240 H 09/17/18 23:17: Specimen Type ART, Sample Site R Radial, pH 7.27 L, Bicarbonate Actual 24.4, POC Total CO2 26, Base Excess -2, O2 Saturation 99, O2 % 60, ABG pCO2 53.3 H, ABG pO2 181 H, Elias Test NA, Respiration Rate 16, O2 Delivery Device Vent, Minute Volume 8.00, Vent Mode A-C, Tidal Volume 513, POC PEEP 5, Blood Gas Notified Whom SANA ZIMMERMAN 09/18/18 04:15: WBC 16.4 H, RBC 4.19 L, Hgb 12.3 L, Hct 38.7 L, MCV 92.4, MCH 29.4, MCHC 31.8 L, RDW 13.8, RDW Differential 46.5 H, Plt Count 307, MPV 9.9, Immature Gran % (Auto) 0.700, Neut % (Auto) 87.8 H, Lymph % (Auto) 5.4 L, Mathe[place] % (Auto) 5.9, Eos % (Auto) 0.0, Baso % (Auto) 0.2, Absolute Neuts (auto) 14.4 H, Absolute Lymphs (auto) 0.88, Total Counted Not Reportable 09/18/18 04:15: Sodium 143, Potassium 4.4, Chloride 110 H, Carbon Dioxide 24.0, BUN 48 H, Creatinine 3.05 H, Estim Creat Clear Calc 22.60, Est GFR (MDRD) Af Amer 26 L, Est GFR (MDRD) Non-Af 22 L, BUN/Creatinine Ratio 15.7, Glucose 245 H, Calcium 9.3, Phosphorus 4.5, Albumin 2.4 L 09/18/18 04:15: Total Creatine Kinase 39, Triglycerides 141 09/18/18 04:15: Total Creatine Kinase Cancelled 09/18/18 04:15: Total Bilirubin 0.50, Direct Bilirubin 0.18, AST 12 L, ALT 18, Alkaline Phosphatase 96, Total Protein 7.0, Albumin 2.3 L, Globulin 4.7 H 09/18/18 04:15: Triglycerides Cancelled 09/18/18 04:58: POC Glucose 236 H 09/18/18 07:35: MRSA (PCR) Negative Diagnostic Data Chest X-Ray 09/18/18 05:20 IMPRESSION: Stable examination. Electronically Signed: Oscar Alvarez, at 8:59 EDT , Service support , Current Medications Acetaminophen (Tylenol) 650 mg PO Q6H PRN PRN PRN Reason: Mild pain 1-3/Temp > 100.7 F Albuterol Sulfate (Ventolin Aerosols) 2.5 mg INHALATION Q2H PRN PRN PRN Reason: SOB &/OR WHEEZING Albuterol/Ipratropium (Duoneb) 3 ml INHALATION Q4HWA.RT KARENA Last Admin: 09/18/18 06:35 Dose: 3 ml Chlorhexidine Gluconate () 15 ml PO BID KARENA Last Admin: 09/18/18 09:20 Dose: 15 ml Chlorhexidine Gluconate () 1 each TOPICAL DAILY KARENA Dextrose (D50w Syringe) 0 gm IV X1 PRN; Protocol PRN Reason: Hypoglycemia Famotidine (Pepcid) 20 mg GT DAILY [facility] Glucagon () 1 mg IM .X1 PRN PRN Reason: Hypoglycemia Heparin Sodium (Porcine) (Heparin Na) 5,000 unit SC Q12 [facility] Last Admin: 09/17/18 23:01 Dose: 5,000 unit Hydralazine HCl (Apresoline Iv) 5 mg IV Q6H PRN PRN PRN Reason: BLOOD PRESSURE Fentanyl () 100 mls @ 5 mls/hr CONT INF .Q20H [facility] Last Admin: 09/17/18 20:58 Dose: 5 mls/hr Propofol (Diprivan) 1,000 mg in 100 mls @ 6.069 mls/hr CONT INF .Q12H [facility] Last Admin: 09/18/18 09:20 Dose: 6.069 mls/hr Piperacillin Sod/Tazobactam (Sod 3.375 gm/ Sodium Chloride) 50 mls @ 12.5 mls/hr IV Q8 [facility] Last Admin: 09/18/18 05:00 Dose: 12.5 mls/hr Sodium Chloride () 250 mls @ 15 mls/hr IV .[id number] PRN PRN Reason: SALINE FLUSH Enteral Nutritional Formula (Vital Af 1.2 Best Liquid) 1,000 mls @ 60 mls/hr GT .[id number] [facility] Insulin Glargine (Lantus (Bkc)) 40 units SC 06,18 [facility] Insulin Human Lispro (Humalog Kwikpen (Bkc)) 0 unit SC Q6 [facility]; Protocol Nitroglycerin (Nitrostat) 0.4 mg SUBLINGUAL Q5M PRN PRN Reason: CARDIAC/CHEST PAIN Ondansetron HCl (Zofran) 4 mg IV Q8H PRN PRN PRN Reason: NAUSEA/VOMITING Prednisone () 40 mg PO 1200 KARENA Sodium Chloride () 5 - 15 ml IV UD PRN PRN Reason: SALINE FLUSH Sodium Chloride () 5 - 15 ml IV UD PRN PRN Reason: SALINE FLUSH Medical Necessity - Tobacco Use Smoking Status: Former smoker Tobacco Use: Cigarettes Assessment/Plan All Active Problems Fall (Acute) Sepsis (Acute) Encephalopathy (Acute) Urinary tract infection (Acute) PNA (pneumonia) (Acute) Respiratory acidosis (Acute) Comatose (Acute) 1. 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 Sepsis due to community acquired pneumonia * SIRS was 2/4 on admission- tachypnea and leucocytosis, with source of infection likely pneumonia * SIRS criteria now 1/4- leucocytosis * on IV zOsyn * car rental agent on board * wbc is down to 16.4 from 21 yesterday * urine culture, blood cultures, and urine for strep and legionella are negative * 3. DARYL on CKD: CR is up to 3.05 todfay, from 2.35 on admission. baseline Cr is ~ 2. On IVF. WIll monitor 4. Diabetes: on ISS. Accuchecks q6hrs. 5. Hypertension: on IV hydralazine prn. 6. Chronic diastolic heart failure: * stable. * BNP was WNL on admission, making acute heart failure unlikely. weight on admission was 223 pounds, now down to 213 pounds. * will monitor * DVT prophylaxis: SCDs. no anticoagulation o/a of history of hemoptysis GI prophylaxis; famotidine Code Visit Inpatient E&M: [id number] [facility] H[facility] L3
[2018-09-18] MEDS: Heparin Injection (Vial) 5,000 UNIT/ML VIAL 5000 UNIT SC ×2 (09:33→21:41)
[2018-09-18] MEDS: Famotidine 20 MG Tablet GT (09:33)
[2018-09-18] MEDS: CHLORHEXIDINE GLUC 2% CLOTH 1 EACH TOWELETTE TOPICAL ×2 (09:35→21:39)
[2018-09-18 12:20] LABS: Bedside Glucose 198 mg/dL (70-110)
[2018-09-18] MEDS: predniSONE 20 MG Tablet 40 MG PO (12:21)
[2018-09-18] MEDS: fentaNYL drip 100 ML 5 MCG CONT INF (12:21)
[2018-09-18] MEDS: Insulin Lispro 100 UNIT/ML INSULN.PEN SC ×3 (12:21→23:57)
[2018-09-18] MEDS: Vital AF 1.2 Cal Liquid 1,000 ML 60 ML GT (12:22)
[2018-09-18 13:31] LABS: Allen Test POS; Base Excess -4 mmol/L (-2 to +2); Bicarbonate 23.2 mmol/L (22-26); Blood Gas Specimen Type ART; FI02 35; Mode A-C; O2 Delivery Device Vent; PEEP 5; PO2 77 mmHG (75-100); RR 16; SITE R Brachial; SO2 93 % (95-99); Time Given 1327; Total Carbon Dioxide 25 mmol/L; Vt 500; pCO2 49.4 mmHg (35-45); pH 7.28 (7.35-7.45)
--- NOTE | 2018-09-18 13:44 | CHAPLAIN ---
Type of Pastoral Visit _x__ Initial Visit ___ Follow-up Visit ___ On-call Visit ___ General Patient Visit ___ Spiritual Assessment ___ Family Conference ___ Bereavement ___ Rapid Response ___ Code Blue ___ Other (describe below) Pastoral Care Referral From ___ Patient ___ Family ___ Nurse ___ Physician ___ Life Cycle Assessment Analyst ___ Lead Front Desk Agent _x__ Other (describe below) Sacrament/Intervention ___ Active listening ___ Anointing ___ Hoahaoism ___ Bereavement ___ Communion ___ Sravanthi exploration ___ ___ Life review _x__ Prayer ___ Reconciliation ___ Sacrament of Sick _x__ Supportive presence ___ Wedding ___ Other (describe below) Pastoral Comments left a calling card to notify family of this visit by
[2018-09-18 14:35] LABS: Pathologist Review Reviewed
[2018-09-18 18:05] LABS: Bedside Glucose 215 mg/dL (70-110)
[2018-09-19] VITALS (46 sets, daily range): BP systolic 140–179; BP diastolic 56–80; PULSE 61–94; RESP 14–26; TEMP 37.3–37.8; O2SAT 35–99
[2018-09-19 00:06] LABS: Bedside Glucose 218 mg/dL (70-110)
--- NOTE | 2018-09-19 02:30 | NURSING ---
S/P bath,noted LH IV site to be oozing blood at insertion point. Attempted to only change tegaderm drsg, site began bleeding profusely. IV site DC'd,catheter intact,pressure held at site x5 min. Hematoma massaged out. New PIV started to LFA w/out turniquet,no difficulty,no bleeding. Pt nigel all well
[2018-09-19 04:25] LABS: Anion Gap 8 (5-15); BUN 70 mg/dL (7-18); BUN/Creat Ratio 19.8 RATIO (10-20); Calcium,Total 8.8 mg/dL (8.5-10.1); Chloride 111 mmol/L (98-107); Creatinine, Serum 3.53 mg/dL (0.70-1.30); EST Glomerular Filtration Rate 18 mL/min (>60); Est Glom Filt Rate - Afr Amer 22 mL/min (>60); Estimated Creatinine Clearance 19.53 ml/min; Glucose 225 mg/dL (74-106); Sodium Level 144 mmol/L (136-145)
[2018-09-19 04:31] LABS: Absolute Lymphocyte Count 1.33 X10^3/ul (0.83-4.51); Basophil# 0.04 X10^3/uL; Basophil% 0.2 % (0-1); Differential Indicated SCAN CRITERIA MET; Hematocrit 37.2 % (40-54); Hemoglobin 11.9 g/dl (13.0-16.5); Lymphocyte # 1.33 X10^3/ul (4.0); Lymphocyte % 6.4 % (19-41); Mean Corpuscular Hgb 29.3 pg (27.0-32.0); Mean Corpuscular Volume 91.6 fL (80-94); Mean Platelet Vol. 9.8 fl (6.2-12.0); Monocyte# 2.13 X10^3/uL; Monocyte% 10.2 % (0-10); Neutrophil # 16.97 X10^3/uL (2.7-7.7); Neutrophil % 81.6 % (47-70); POSITIVE COUNT NO; POSITIVE DIFFERENTIAL YES; POSITIVE MORPHOLOGY NO; Platelet Count 330 K/mm3 (150-450); RBC Distribution Width CV 13.8 % (11.6-14.6); RBC Distribution Width SD 46.5 fl (35.1-43.9); Red Blood Count 4.06 M/mm3 (4.6-6.2); White Blood Count 20.8 K/mm3 (4.4-11.0)
[2018-09-19] MEDS: Insulin Lispro 100 UNIT/ML INSULN.PEN SC ×2 (06:09→17:20)
[2018-09-19 06:21] LABS: Bedside Glucose 160 mg/dL (70-110)
--- NOTE | 2018-09-19 06:50 | PCM.PN.INT ---
Subjective: The patient was seen and examined at the bedside this morning. Events from the last 24 hours have been reviewed. The patient currently has a low-grade fever. He has remained hemodynamically stable. FiO2 requirement is currently 35%. The patient failed his spontaneous breathing trial this morning due to hypoxemia and tachypnea. Tube feeds are currently at goal. White blood cell count remains elevated at 20,000 this morning. Creatinine has worsened to 3.53. Patient is currently overall net +794 mL's for the admission. Objective: The patient's most recent lab work, culture data and imaging studies have all been personally reviewed. Surface echocardiogram dated September 18 revealed normal LV size and function with an ejection fraction of 65%. Diastolic function was indeterminate. Right ventricular systolic pressure was unable to be estimated. Moderate aortic stenosis was noted. Blood and urine cultures are pending. Sputum culture is pending. Strep and urine Legionella antigens were both negative. Respiratory viral panel was positive for rhinovirus. General: - - Remains intubated, sedated and mechanically ventilated. No ventilator dyssynchrony noted. HEENT: Atraumatic, PERRLA, Normocephalic Oral: No Gingival or Mucosal Lesions/ Ulcerations, - - Endotracheal and OG tubes remain in place Neck: Supple, No Nodes, Trachea Midline Lungs: No rhonchi, No wheeze, No rales, Diminished Cardiovascular: Regular rate, Regular Rhythm, Normal S1, Normal S2, Murmur - SONNY Abdomen: Bowel Sounds Present, Soft, Non Tender, Obese Extremities: No clubbing, No cyanosis, No edema Skin: - - No significant change from previous Musculoskeletal: No Tenderness to Palpation of Joints or Extremities Lymphatic: No Cervical, Supraclavicular, or Inguinal Adenopathy Neurological: - - No focal neurological deficits. Currently sedated with a RASS of -1. Vital Signs Temp Pulse Resp BP Pulse Ox 99.2 F H 82 18 155/80 H 91 09/19/18 06:00 09/19/18 06:00 09/19/18 06:00 09/19/18 06:00 09/19/18 06:00 Oxygen Flow Rate (L/min) 3 Oxygen Delivery Method Mechanical Ventilator Weight: 212 lb 15.465 oz Body Mass Index (BMI) 32.0 Finger Stick Blood Glucose 240 Intake and Output for Last 24 Hours 09/17/18 09/18/18 09/19/18 23:59 23:59 23:59 Intake Total 125 / 125 1290.5 / 1290.5 734 / 734 Output Total 1005 / 1005 350 / 350 Balance 125 / 125 285.5 / 285.5 384 / 384 Labs (Last 48 Hours) 09/17/18 09/17/18 09/17/18 13:40 13:40 13:40 WBC 21.6 H RBC 4.69 Hgb 14.1 Hct 42.7 MCV 91.0 MCH 30.1 MCHC 33.0 RDW 13.7 RDW Differential 45.3 H Plt Count 351 MPV 9.7 Immature Gran % (Auto) 0.600 Neut % (Auto) 77.6 H Lymph % (Auto) 7.8 L [place] % (Auto) 13.4 H Eos % (Auto) 0.2 Baso % (Auto) 0.4 Absolute Neuts (auto) 16.8 H Absolute Lymphs (auto) 1.68 Total Counted Not Reportable Differential Comment Diff Path Review Reviewed Platelet Estimate ADEQUATE RBC Morphology NORM C+C Specimen Type Sample Site pH Bicarbonate Actual POC Total CO2 Base Excess O2 Saturation O2 % ABG pCO2 ABG pO2 Elias Test Respiration Rate O2 Delivery Device Minute Volume Vent Mode Tidal Volume POC PEEP EPAP IPAP Blood Gas Notified Whom Blood Gas Notified Time Sodium 139 Potassium 3.8 Chloride 107 Carbon Dioxide 26.0 Anion Gap 6 BUN 32 H Creatinine 2.35 H Estim Creat Clear Calc 30.26 Est GFR (MDRD) Af Amer 35 L Est GFR (MDRD) Non-Af 29 L BUN/Creatinine Ratio 13.6 Glucose 163 H Lactic Acid 1.4 Calcium 9.6 Phosphorus Total Bilirubin Direct Bilirubin AST ALT Alkaline Phosphatase Total Creatine Kinase Troponin I < 0.015 B-Natriuretic Peptide Total Protein Albumin Globulin Triglycerides Urine Color Urine Clarity Urine pH Ur Specific [place] Urine Protein Urine Glucose (UA) Urine Ketones Urine Occult Blood Urine Nitrite Urine Bilirubin Urine Urobilinogen Ur Leukocyte Esterase Urine RBC Urine WBC Ur Squamous Epith Cells Urine Bacteria Hyaline Casts Fine Granular Casts Urine Mucus MRSA (PCR) POC Glucose 09/17/18 09/17/18 09/17/18 13:40 16:36 17:18 WBC RBC Hgb Hct MCV MCH MCHC RDW RDW Differential Plt Count MPV Immature Gran % (Auto) Neut % (Auto) Lymph % (Auto) [place] % (Auto) Eos % (Auto) Baso % (Auto) Absolute Neuts (auto) Absolute Lymphs (auto) Total Counted Differential Comment Diff Path Review Platelet Estimate RBC Morphology Specimen Type ART Sample Site R Radial pH 7.24 L Bicarbonate Actual 23.9 POC Total CO2 26 Base Excess -4 L O2 Saturation 94 L O2 % 40 ABG pCO2 55.6 H ABG pO2 86 Elias Test POS Respiration Rate 12 O2 Delivery Device Bi / C PAP Minute Volume Vent Mode Tidal Volume POC PEEP EPAP 8 IPAP 12 Blood Gas Notified Whom RN Blood Gas Notified Time 1717 Sodium Potassium Chloride Carbon Dioxide Anion Gap BUN Creatinine Estim Creat Clear Calc Est GFR (MDRD) Af Amer Est GFR (MDRD) Non-Af BUN/Creatinine Ratio Glucose Lactic Acid Calcium Phosphorus Total Bilirubin Direct Bilirubin AST ALT Alkaline Phosphatase Total Creatine Kinase Troponin I B-Natriuretic Peptide 60.0 Total Protein Albumin Globulin Triglycerides Urine Color Urine Clarity Urine pH Ur Specific [place] Urine Protein Urine Glucose (UA) Urine Ketones Urine Occult Blood Urine Nitrite Urine Bilirubin Urine Urobilinogen Ur Leukocyte Esterase Urine RBC Urine WBC Ur Squamous Epith Cells Urine Bacteria Hyaline Casts Fine Granular Casts Urine Mucus MRSA (PCR) POC Glucose 192 H 09/17/18 09/17/18 09/17/18 19:14 20:40 20:40 WBC RBC Hgb Hct MCV MCH MCHC RDW RDW Differential Plt Count MPV Immature Gran % (Auto) Neut % (Auto) Lymph % (Auto) [place] % (Auto) Eos % (Auto) Baso % (Auto) Absolute Neuts (auto) Absolute Lymphs (auto) Total Counted Differential Comment Diff Path Review Platelet Estimate RBC Morphology Specimen Type ART Sample Site R Radial pH 7.20 L Bicarbonate Actual 25.6 POC Total CO2 28 Base Excess -2 O2 Saturation 93 L O2 % 35 ABG pCO2 65.7 H ABG pO2 82 Elias Test POS Respiration Rate 24 O2 Delivery Device Bi / C PAP Minute Volume Vent Mode Tidal Volume POC PEEP EPAP 8 IPAP 20 Blood Gas Notified Whom SANA ZIMMERMAN Blood Gas Notified Time 1900 Sodium Potassium Chloride Carbon Dioxide Anion Gap BUN Creatinine Estim Creat Clear Calc Est GFR (MDRD) Af Amer Est GFR (MDRD) Non-Af BUN/Creatinine Ratio Glucose Lactic Acid Calcium Phosphorus Total Bilirubin Direct Bilirubin AST ALT Alkaline Phosphatase Total Creatine Kinase Troponin I B-Natriuretic Peptide Total Protein Albumin Globulin Triglycerides Urine Color Yellow Urine Clarity Clear Urine pH 5.0 Ur Specific [place] 1.020 Urine Protein 500 H Urine Glucose (UA) 100 H Urine Ketones 15 H Urine Occult Blood 25 H Urine Nitrite Negative Urine Bilirubin 1 H Urine Urobilinogen 4 H Ur Leukocyte Esterase 25 H Urine RBC 0-5 SEEN Urine WBC 0-5 SEEN Ur Squamous Epith Cells 0-5 SEEN Urine Bacteria 3+ Hyaline Casts 0-5 SEEN Fine Granular Casts 0-5 SEEN Urine Mucus 1+ MRSA (PCR) Negative POC Glucose 09/17/18 09/17/18 09/18/18 23:08 23:17 04:15 WBC 16.4 H RBC 4.19 L Hgb 12.3 L Hct 38.7 L MCV 92.4 MCH 29.4 MCHC 31.8 L RDW 13.8 RDW Differential 46.5 H Plt Count 307 MPV 9.9 Immature Gran % (Auto) 0.700 Neut % (Auto) 87.8 H Lymph % (Auto) 5.4 L [place] % (Auto) 5.9 Eos % (Auto) 0.0 Baso % (Auto) 0.2 Absolute Neuts (auto) 14.4 H Absolute Lymphs (auto) 0.88 Total Counted Not Reportable Differential Comment Diff Path Review Platelet Estimate RBC Morphology Specimen Type ART Sample Site R Radial pH 7.27 L Bicarbonate Actual 24.4 POC Total CO2 26 Base Excess -2 O2 Saturation 99 O2 % 60 ABG pCO2 53.3 H ABG pO2 181 H Elias Test NA Respiration Rate 16 O2 Delivery Device Vent Minute Volume 8.00 Vent Mode A-C Tidal Volume 513 POC PEEP 5 EPAP IPAP Blood Gas Notified Whom HOSP Blood Gas Notified Time Sodium Potassium Chloride Carbon Dioxide Anion Gap BUN Creatinine Estim Creat Clear Calc Est GFR (MDRD) Af Amer Est GFR (MDRD) Non-Af BUN/Creatinine Ratio Glucose Lactic Acid Calcium Phosphorus Total Bilirubin Direct Bilirubin AST ALT Alkaline Phosphatase Total Creatine Kinase Troponin I B-Natriuretic Peptide Total Protein Albumin Globulin Triglycerides Urine Color Urine Clarity Urine pH Ur Specific [place] Urine Protein Urine Glucose (UA) Urine Ketones Urine Occult Blood Urine Nitrite Urine Bilirubin Urine Urobilinogen Ur Leukocyte Esterase Urine RBC Urine WBC Ur Squamous Epith Cells Urine Bacteria Hyaline Casts Fine Granular Casts Urine Mucus MRSA (PCR) POC Glucose 240 H 09/18/18 09/18/18 09/18/18 04:15 04:15 04:15 WBC RBC Hgb Hct MCV MCH MCHC RDW RDW Differential Plt Count MPV Immature Gran % (Auto) Neut % (Auto) Lymph % (Auto) [place] % (Auto) Eos % (Auto) Baso % (Auto) Absolute Neuts (auto) Absolute Lymphs (auto) Total Counted Differential Comment Diff Path Review Platelet Estimate RBC Morphology Specimen Type Sample Site pH Bicarbonate Actual POC Total CO2 Base Excess O2 Saturation O2 % ABG pCO2 ABG pO2 Elias Test Respiration Rate O2 Delivery Device Minute Volume Vent Mode Tidal Volume POC PEEP EPAP IPAP Blood Gas Notified Whom Blood Gas Notified Time Sodium 143 Potassium 4.4 Chloride 110 H Carbon Dioxide 24.0 Anion Gap BUN 48 H Creatinine 3.05 H Estim Creat Clear Calc 22.60 Est GFR (MDRD) Af Amer 26 L Est GFR (MDRD) Non-Af 22 L BUN/Creatinine Ratio 15.7 Glucose 245 H Lactic Acid Calcium 9.3 Phosphorus 4.5 Total Bilirubin Direct Bilirubin AST ALT Alkaline Phosphatase Total Creatine Kinase 39 Cancelled Troponin I B-Natriuretic Peptide Total Protein Albumin 2.4 L Globulin Triglycerides 141 Urine Color Urine Clarity Urine pH Ur Specific [place] Urine Protein Urine Glucose (UA) Urine Ketones Urine Occult Blood Urine Nitrite Urine Bilirubin Urine Urobilinogen Ur Leukocyte Esterase Urine RBC Urine WBC Ur Squamous Epith Cells Urine Bacteria Hyaline Casts Fine Granular Casts Urine Mucus MRSA (PCR) POC Glucose 09/18/18 09/18/18 09/18/18 04:15 04:15 04:58 WBC RBC Hgb Hct MCV MCH MCHC RDW RDW Differential Plt Count MPV Immature Gran % (Auto) Neut % (Auto) Lymph % (Auto) [place] % (Auto) Eos % (Auto) Baso % (Auto) Absolute Neuts (auto) Absolute Lymphs (auto) Total Counted Differential Comment Diff Path Review Platelet Estimate RBC Morphology Specimen Type Sample Site pH Bicarbonate Actual POC Total CO2 Base Excess O2 Saturation O2 % ABG pCO2 ABG pO2 Elias Test Respiration Rate O2 Delivery Device Minute Volume Vent Mode Tidal Volume POC PEEP EPAP IPAP Blood Gas Notified Whom Blood Gas Notified Time Sodium Potassium Chloride Carbon Dioxide Anion Gap BUN Creatinine Estim Creat Clear Calc Est GFR (MDRD) Af Amer Est GFR (MDRD) Non-Af BUN/Creatinine Ratio Glucose Lactic Acid Calcium Phosphorus Total Bilirubin 0.50 Direct Bilirubin 0.18 AST 12 L ALT 18 Alkaline Phosphatase 96 Total Creatine Kinase Troponin I B-Natriuretic Peptide Total Protein 7.0 Albumin 2.3 L Globulin 4.7 H Triglycerides Cancelled Urine Color Urine Clarity Urine pH Ur Specific [place] Urine Protein Urine Glucose (UA) Urine Ketones Urine Occult Blood Urine Nitrite Urine Bilirubin Urine Urobilinogen Ur Leukocyte Esterase Urine RBC Urine WBC Ur Squamous Epith Cells Urine Bacteria Hyaline Casts Fine Granular Casts Urine Mucus MRSA (PCR) POC Glucose 236 H 09/18/18 09/18/18 09/18/18 07:35 12:17 13:27 WBC RBC Hgb Hct MCV MCH MCHC RDW RDW Differential Plt Count MPV Immature Gran % (Auto) Neut % (Auto) Lymph % (Auto) [place] % (Auto) Eos % (Auto) Baso % (Auto) Absolute Neuts (auto) Absolute Lymphs (auto) Total Counted Differential Comment Diff Path Review Platelet Estimate RBC Morphology Specimen Type ART Sample Site R Brachial pH 7.28 L Bicarbonate Actual 23.2 POC Total CO2 25 Base Excess -4 L O2 Saturation 93 L O2 % 35 ABG pCO2 49.4 H ABG pO2 77 Elias Test POS Respiration Rate 16 O2 Delivery Device Vent Minute Volume Vent Mode A-C Tidal Volume 500 POC PEEP 5 EPAP IPAP Blood Gas Notified Whom ICU Blood Gas Notified Time 1327 Sodium Potassium Chloride Carbon Dioxide Anion Gap BUN Creatinine Estim Creat Clear Calc Est GFR (MDRD) Af Amer Est GFR (MDRD) Non-Af BUN/Creatinine Ratio Glucose Lactic Acid Calcium Phosphorus Total Bilirubin Direct Bilirubin AST ALT Alkaline Phosphatase Total Creatine Kinase Troponin I B-Natriuretic Peptide Total Protein Albumin Globulin Triglycerides Urine Color Urine Clarity Urine pH Ur Specific [place] Urine Protein Urine Glucose (UA) Urine Ketones Urine Occult Blood Urine Nitrite Urine Bilirubin Urine Urobilinogen Ur Leukocyte Esterase Urine RBC Urine WBC Ur Squamous Epith Cells Urine Bacteria Hyaline Casts Fine Granular Casts Urine Mucus MRSA (PCR) Negative POC Glucose 198 H 09/18/18 09/18/18 09/19/18 17:58 23:56 04:05 WBC 20.8 H RBC 4.06 L Hgb 11.9 L Hct 37.2 L MCV 91.6 MCH 29.3 MCHC 32.0 RDW 13.8 RDW Differential 46.5 H Plt Count 330 MPV 9.8 Immature Gran % (Auto) 1.600 H Neut % (Auto) 81.6 H Lymph % (Auto) 6.4 L [place] % (Auto) 10.2 H Eos % (Auto) 0.0 Baso % (Auto) 0.2 Absolute Neuts (auto) 17.0 H Absolute Lymphs (auto) 1.33 Total Counted Not Reportable Differential Comment Diff Path Review May foll Platelet Estimate RBC Morphology Specimen Type Sample Site pH Bicarbonate Actual POC Total CO2 Base Excess O2 Saturation O2 % ABG pCO2 ABG pO2 Elias Test Respiration Rate O2 Delivery Device Minute Volume Vent Mode Tidal Volume POC PEEP EPAP IPAP Blood Gas Notified Whom Blood Gas Notified Time Sodium Potassium Chloride Carbon Dioxide Anion Gap BUN Creatinine Estim Creat Clear Calc Est GFR (MDRD) Af Amer Est GFR (MDRD) Non-Af BUN/Creatinine Ratio Glucose Lactic Acid Calcium Phosphorus Total Bilirubin Direct Bilirubin AST ALT Alkaline Phosphatase Total Creatine Kinase Troponin I B-Natriuretic Peptide Total Protein Albumin Globulin Triglycerides Urine Color Urine Clarity Urine pH Ur Specific [place] Urine Protein Urine Glucose (UA) Urine Ketones Urine Occult Blood Urine Nitrite Urine Bilirubin Urine Urobilinogen Ur Leukocyte Esterase Urine RBC Urine WBC Ur Squamous Epith Cells Urine Bacteria Hyaline Casts Fine Granular Casts Urine Mucus MRSA (PCR) POC Glucose 215 H 218 H 09/19/18 09/19/18 04:05 06:05 WBC RBC Hgb Hct MCV MCH MCHC RDW RDW Differential Plt Count MPV Immature Gran % (Auto) Neut % (Auto) Lymph % (Auto) [place] % (Auto) Eos % (Auto) Baso % (Auto) Absolute Neuts (auto) Absolute Lymphs (auto) Total Counted Differential Comment Diff Path Review Platelet Estimate RBC Morphology Specimen Type Sample Site pH Bicarbonate Actual POC Total CO2 Base Excess O2 Saturation O2 % ABG pCO2 ABG pO2 Elias Test Respiration Rate O2 Delivery Device Minute Volume Vent Mode Tidal Volume POC PEEP EPAP IPAP Blood Gas Notified Whom Blood Gas Notified Time Sodium 144 Potassium 4.0 Chloride 111 H Carbon Dioxide 25.0 Anion Gap 8 BUN 70 H Creatinine 3.53 H Estim Creat Clear Calc 19.53 Est GFR (MDRD) Af Amer 22 L Est GFR (MDRD) Non-Af 18 L BUN/Creatinine Ratio 19.8 Glucose 225 H Lactic Acid Calcium 8.8 Phosphorus Total Bilirubin Direct Bilirubin AST ALT Alkaline Phosphatase Total Creatine Kinase Troponin I B-Natriuretic Peptide Total Protein Albumin Globulin Triglycerides Urine Color Urine Clarity Urine pH Ur Specific [place] Urine Protein Urine Glucose (UA) Urine Ketones Urine Occult Blood Urine Nitrite Urine Bilirubin Urine Urobilinogen Ur Leukocyte Esterase Urine RBC Urine WBC Ur Squamous Epith Cells Urine Bacteria Hyaline Casts Fine Granular Casts Urine Mucus MRSA (PCR) POC Glucose 160 H Microbiology 09/17/18 20:20 Sputum, Induced/Lukens Gram Stain - Final 09/17/18 20:20 Mucosa - Nose Respiratory Panel (PCR) - Final Rhinovirus 09/18/18 07:30 Urine Catheter - Michel Streptococcus pneumoniae Antigen (M - Final 09/18/18 07:30 Urine Catheter - Michel Legionella Antigen - Final Clinical Impression(s) from Imaging Studies Chest X-Ray 09/17/18 14:10 IMPRESSION: Increased interstitial markings as described. This may represent vascular congestion. Electronically Signed: Oscar Alvarez, at 14:33 EDT , Service support , Chest X-Ray 09/17/18 20:15 IMPRESSION: Endotracheal tube in proper position as above. Prominent interstitial markings with areas of patchy airspace disease not excluded somewhat improved compared to previous exam. Electronically Signed: Mirza Santiago DO at 21:15 EDT , Service support , KUB X-Ray 09/17/18 20:30 IMPRESSION: OG tube not seen entering the GE junction or stomach region with prior chest film showing NG tube likely terminating in the midesophagus. Exam is limited by overlying lines and tubes in the chest. Electronically Signed: Mirza Santiago DO at 21:17 EDT , Service support , Chest X-Ray 09/18/18 05:20 IMPRESSION: Stable examination. Electronically Signed: Oscar Alvarez, at 8:59 EDT , Service support , KUB X-Ray 09/18/18 09:05 IMPRESSION: The tip of the orogastric tube is in the distal portion of the stomach. Electronically Signed: Oscar Alvarez, at 9:33 EDT , Service support , Medical Necessity - Tobacco Use Smoking Status: Former smoker Tobacco Use: Cigarettes Assessment/Plan All Active Problems Fall (Acute) Sepsis (Acute) Encephalopathy (Acute) Urinary tract infection (Acute) PNA (pneumonia) (Acute) Respiratory acidosis (Acute) Comatose (Acute) RECOMMENDATIONS: 1. Transition from propofol to Precedex for sedation to help facilitate weaning from mechanical ventilation. 2. Plan to repeat spontaneous awakening and breathing trial tomorrow. 3. Continue tube feeds and supplemental IV fluid hydration. 4. Obtain renal ultrasound. 5. Given worsening creatinine, will obtain nephrology consultation. 6. Continue scheduled bronchodilators and prednisone. 7. Continue subcutaneous heparin and Pepcid for prophylaxis. 8. Continue Lantus and sliding scale insulin coverage. IMPRESSIONS: 1. Acute on chronic hypoxemic and hypercarbic respiratory failure secondary to presumptive COPD with exacerbation Secondary to rhinovirus URI and suspected community acquired pneumonia. Continue broad-spectrum antimicrobial coverage, pending finalized infectious work-up. In addition, the patient will be continued on scheduled bronchodilators and prednisone. Given the patient's anxiety associated with his spontaneous breathing trial, he will be transitioned from propofol to Precedex to help facilitate weaning from mechanical ventilation. Plan to repeat spontaneous awakening and breathing trials tomorrow morning. Continue tube feeds as ordered. 2. Severe sepsis 2/2 Rhinovirus URI and suspected CAP Continue current antimicrobial coverage, pending finalized infectious work-up. The patient remains hemodynamically stable. 3. Long-standing tobacco abuse history As noted above, clinical concern for underlying obstructive lung disease. We will continue bronchodilators and wean FiO2 as tolerated. Recommend outpatient pulmonary follow-up and baseline pulmonary function studies. Smoking cessation is advisable. Nicotine replacement therapy can be offered to the patient while admitted to the hospital. 4. Acute on chronic kidney disease Creatinine continues to worsen. Renal function initially worsened in the setting of diuretic therapy on admission to the hospital. All diuretics and potentially nephrotoxic medications were discontinued. The patient has been receiving supplemental IV fluid hydration along with tube feeds. Given worsening creatinine, will obtain nephrology consultation today. Orders for renal ultrasound have also been placed. 5. Diabetes mellitus/baseline MRDD/hypertension Complicates care, management, recovery and prognosis. Continue basal insulin and sliding scale insulin coverage. TIME: 38 minutes of critical care time, independent of procedures, was spent addressing the patient's acute on chronic combined respiratory failure, COPD with exacerbation, severe sepsis, long-standing tobacco dependency, acute on chronic kidney disease, review of all data and collaboration with the care team. ([id number]) Code Visit [id number]: [id number] Critical care first hour
--- NOTE | 2018-09-19 06:53 | PN_ITS ---
Subjective: The patient was seen and examined at the bedside this morning. Events from the last 24 hours have been reviewed. The patient currently has a low-grade fever. He has remained hemodynamically stable. FiO2 requirement is currently 35%. The patient failed his spontaneous breathing trial this morning due to hypoxemia and tachypnea. Tube feeds are currently at goal. White blood cell count remains elevated at 20,000 this morning. Creatinine has worsened to 3.53. Patient is currently overall net +794 mL's for the admission. Objective: The patient's most recent lab work, culture data and imaging studies have all been personally reviewed. Surface echocardiogram dated September 18 revealed normal LV size and function with an ejection fraction of 65%. Diastolic function was indeterminate. Right ventricular systolic pressure was unable to be estimated. Moderate aortic stenosis was noted. Blood and urine cultures are pending. Sputum culture is pending. Strep and urine Legionella antigens were both negative. Respiratory viral panel was positive for rhinovirus. General: - - Remains intubated, sedated and mechanically ventilated. No ventilator dyssynchrony noted. HEENT: Atraumatic, PERRLA, Normocephalic Oral: No Gingival or Mucosal Lesions/ Ulcerations, - - Endotracheal and OG tubes remain in place Neck: Supple, No Nodes, Trachea Midline Lungs: No rhonchi, No wheeze, No rales, Diminished Cardiovascular: Regular rate, Regular Rhythm, Normal S1, Normal S2, Murmur - SONNY Abdomen: Bowel Sounds Present, Soft, Non Tender, Obese Extremities: No clubbing, No cyanosis, No edema Skin: - - No significant change from previous Musculoskeletal: No Tenderness to Palpation of Joints or Extremities Lymphatic: No Cervical, Supraclavicular, or Inguinal Adenopathy Neurological: - - No focal neurological deficits. Currently sedated with a RASS of -1. Vital Signs Temp Pulse Resp BP Pulse Ox 99.2 F H 82 18 155/80 H 91 09/19/18 06:00 09/19/18 06:00 09/19/18 06:00 09/19/18 06:00 09/19/18 06:00 Oxygen Flow Rate (L/min) 3 Oxygen Delivery Method Mechanical Ventilator Weight: 212 lb 15.465 oz Body Mass Index (BMI) 32.0 Finger Stick Blood Glucose 240 Intake and Output for Last 24 Hours 09/17/18 09/18/18 09/19/18 23:59 23:59 23:59 Intake Total 125 / 125 1290.5 / 1290.5 734 / 734 Output Total 1005 / 1005 350 / 350 Balance 125 / 125 285.5 / 285.5 384 / 384 Labs (Last 48 Hours) 09/17/18 09/17/18 09/17/18 13:40 13:40 13:40 WBC 21.6 H RBC 4.69 Hgb 14.1 Hct 42.7 MCV 91.0 MCH 30.1 MCHC 33.0 RDW 13.7 RDW Differential 45.3 H Plt Count 351 MPV 9.7 Immature Gran % (Auto) 0.600 Neut % (Auto) 77.6 H Lymph % (Auto) 7.8 L Payne % (Auto) 13.4 H Eos % (Auto) 0.2 Baso % (Auto) 0.4 Absolute Neuts (auto) 16.8 H Absolute Lymphs (auto) 1.68 Total Counted Not Reportable Differential Comment Diff Path Review Reviewed Platelet Estimate ADEQUATE RBC Morphology NORM C+C Specimen Type Sample Site pH Bicarbonate Actual POC Total CO2 Base Excess O2 Saturation O2 % ABG pCO2 ABG pO2 Elias Test Respiration Rate O2 Delivery Device Minute Volume Vent Mode Tidal Volume POC PEEP EPAP IPAP Blood Gas Notified Whom Blood Gas Notified Time Sodium 139 Potassium 3.8 Chloride 107 Carbon Dioxide 26.0 Anion Gap 6 BUN 32 H Creatinine 2.35 H Estim Creat Clear Calc 30.26 Est GFR (MDRD) Af Amer 35 L Est GFR (MDRD) Non-Af 29 L BUN/Creatinine Ratio 13.6 Glucose 163 H Lactic Acid 1.4 Calcium 9.6 Phosphorus Total Bilirubin Direct Bilirubin AST ALT Alkaline Phosphatase Total Creatine Kinase Troponin I < 0.015 B-Natriuretic Peptide Total Protein Albumin Globulin Triglycerides Urine Color Urine Clarity Urine pH Ur Specific [place] Urine Protein Urine Glucose (UA) Urine Ketones Urine Occult Blood Urine Nitrite Urine Bilirubin Urine Urobilinogen Ur Leukocyte Esterase Urine RBC Urine WBC Ur Squamous Epith Cells Urine Bacteria Hyaline Casts Fine Granular Casts Urine Mucus MRSA (PCR) POC Glucose 09/17/18 09/17/18 09/17/18 13:40 16:36 17:18 WBC RBC Hgb Hct MCV MCH MCHC RDW RDW Differential Plt Count MPV Immature Gran % (Auto) Neut % (Auto) Lymph % (Auto) Payne % (Auto) Eos % (Auto) Baso % (Auto) Absolute Neuts (auto) Absolute Lymphs (auto) Total Counted Differential Comment Diff Path Review Platelet Estimate RBC Morphology Specimen Type ART Sample Site R Radial pH 7.24 L Bicarbonate Actual 23.9 POC Total CO2 26 Base Excess -4 L O2 Saturation 94 L O2 % 40 ABG pCO2 55.6 H ABG pO2 86 Elias Test POS Respiration Rate 12 O2 Delivery Device Bi / C PAP Minute Volume Vent Mode Tidal Volume POC PEEP EPAP 8 IPAP 12 Blood Gas Notified Whom RN Blood Gas Notified Time 1717 Sodium Potassium Chloride Carbon Dioxide Anion Gap BUN Creatinine Estim Creat Clear Calc Est GFR (MDRD) Af Amer Est GFR (MDRD) Non-Af BUN/Creatinine Ratio Glucose Lactic Acid Calcium Phosphorus Total Bilirubin Direct Bilirubin AST ALT Alkaline Phosphatase Total Creatine Kinase Troponin I B-Natriuretic Peptide 60.0 Total Protein Albumin Globulin Triglycerides Urine Color Urine Clarity Urine pH Ur Specific [place] Urine Protein Urine Glucose (UA) Urine Ketones Urine Occult Blood Urine Nitrite Urine Bilirubin Urine Urobilinogen Ur Leukocyte Esterase Urine RBC Urine WBC Ur Squamous Epith Cells Urine Bacteria Hyaline Casts Fine Granular Casts Urine Mucus MRSA (PCR) POC Glucose 192 H 09/17/18 09/17/18 09/17/18 19:14 20:40 20:40 WBC RBC Hgb Hct MCV MCH MCHC RDW RDW Differential Plt Count MPV Immature Gran % (Auto) Neut % (Auto) Lymph % (Auto) Payne % (Auto) Eos % (Auto) Baso % (Auto) Absolute Neuts (auto) Absolute Lymphs (auto) Total Counted Differential Comment Diff Path Review Platelet Estimate RBC Morphology Specimen Type ART Sample Site R Radial pH 7.20 L Bicarbonate Actual 25.6 POC Total CO2 28 Base Excess -2 O2 Saturation 93 L O2 % 35 ABG pCO2 65.7 H ABG pO2 82 Elias Test POS Respiration Rate 24 O2 Delivery Device Bi / C PAP Minute Volume Vent Mode Tidal Volume POC PEEP EPAP 8 IPAP 20 Blood Gas Notified Whom SANA ZIMMERMAN Blood Gas Notified Time 1900 Sodium Potassium Chloride Carbon Dioxide Anion Gap BUN Creatinine Estim Creat Clear Calc Est GFR (MDRD) Af Amer Est GFR (MDRD) Non-Af BUN/Creatinine Ratio Glucose Lactic Acid Calcium Phosphorus Total Bilirubin Direct Bilirubin AST ALT Alkaline Phosphatase Total Creatine Kinase Troponin I B-Natriuretic Peptide Total Protein Albumin Globulin Triglycerides Urine Color Yellow Urine Clarity Clear Urine pH 5.0 Ur Specific [place] 1.020 Urine Protein 500 H Urine Glucose (UA) 100 H Urine Ketones 15 H Urine Occult Blood 25 H Urine Nitrite Negative Urine Bilirubin 1 H Urine Urobilinogen 4 H Ur Leukocyte Esterase 25 H Urine RBC 0-5 SEEN Urine WBC 0-5 SEEN Ur Squamous Epith Cells 0-5 SEEN Urine Bacteria 3+ Hyaline Casts 0-5 SEEN Fine Granular Casts 0-5 SEEN Urine Mucus 1+ MRSA (PCR) Negative POC Glucose 09/17/18 09/17/18 09/18/18 23:08 23:17 04:15 WBC 16.4 H RBC 4.19 L Hgb 12.3 L Hct 38.7 L MCV 92.4 MCH 29.4 MCHC 31.8 L RDW 13.8 RDW Differential 46.5 H Plt Count 307 MPV 9.9 Immature Gran % (Auto) 0.700 Neut % (Auto) 87.8 H Lymph % (Auto) 5.4 L Payne % (Auto) 5.9 Eos % (Auto) 0.0 Baso % (Auto) 0.2 Absolute Neuts (auto) 14.4 H Absolute Lymphs (auto) 0.88 Total Counted Not Reportable Differential Comment Diff Path Review Platelet Estimate RBC Morphology Specimen Type ART Sample Site R Radial pH 7.27 L Bicarbonate Actual 24.4 POC Total CO2 26 Base Excess -2 O2 Saturation 99 O2 % 60 ABG pCO2 53.3 H ABG pO2 181 H Elias Test NA Respiration Rate 16 O2 Delivery Device Vent Minute Volume 8.00 Vent Mode A-C Tidal Volume 513 POC PEEP 5 EPAP IPAP Blood Gas Notified Whom HOSP Blood Gas Notified Time Sodium Potassium Chloride Carbon Dioxide Anion Gap BUN Creatinine Estim Creat Clear Calc Est GFR (MDRD) Af Amer Est GFR (MDRD) Non-Af BUN/Creatinine Ratio Glucose Lactic Acid Calcium Phosphorus Total Bilirubin Direct Bilirubin AST ALT Alkaline Phosphatase Total Creatine Kinase Troponin I B-Natriuretic Peptide Total Protein Albumin Globulin Triglycerides Urine Color Urine Clarity Urine pH Ur Specific [place] Urine Protein Urine Glucose (UA) Urine Ketones Urine Occult Blood Urine Nitrite Urine Bilirubin Urine Urobilinogen Ur Leukocyte Esterase Urine RBC Urine WBC Ur Squamous Epith Cells Urine Bacteria Hyaline Casts Fine Granular Casts Urine Mucus MRSA (PCR) POC Glucose 240 H 09/18/18 09/18/18 09/18/18 04:15 04:15 04:15 WBC RBC Hgb Hct MCV MCH MCHC RDW RDW Differential Plt Count MPV Immature Gran % (Auto) Neut % (Auto) Lymph % (Auto) Payne % (Auto) Eos % (Auto) Baso % (Auto) Absolute Neuts (auto) Absolute Lymphs (auto) Total Counted Differential Comment Diff Path Review Platelet Estimate RBC Morphology Specimen Type Sample Site pH Bicarbonate Actual POC Total CO2 Base Excess O2 Saturation O2 % ABG pCO2 ABG pO2 Elias Test Respiration Rate O2 Delivery Device Minute Volume Vent Mode Tidal Volume POC PEEP EPAP IPAP Blood Gas Notified Whom Blood Gas Notified Time Sodium 143 Potassium 4.4 Chloride 110 H Carbon Dioxide 24.0 Anion Gap BUN 48 H Creatinine 3.05 H Estim Creat Clear Calc 22.60 Est GFR (MDRD) Af Amer 26 L Est GFR (MDRD) Non-Af 22 L BUN/Creatinine Ratio 15.7 Glucose 245 H Lactic Acid Calcium 9.3 Phosphorus 4.5 Total Bilirubin Direct Bilirubin AST ALT Alkaline Phosphatase Total Creatine Kinase 39 Cancelled Troponin I B-Natriuretic Peptide Total Protein Albumin 2.4 L Globulin Triglycerides 141 Urine Color Urine Clarity Urine pH Ur Specific [place] Urine Protein Urine Glucose (UA) Urine Ketones Urine Occult Blood Urine Nitrite Urine Bilirubin Urine Urobilinogen Ur Leukocyte Esterase Urine RBC Urine WBC Ur Squamous Epith Cells Urine Bacteria Hyaline Casts Fine Granular Casts Urine Mucus MRSA (PCR) POC Glucose 09/18/18 09/18/18 09/18/18 04:15 04:15 04:58 WBC RBC Hgb Hct MCV MCH MCHC RDW RDW Differential Plt Count MPV Immature Gran % (Auto) Neut % (Auto) Lymph % (Auto) Payne % (Auto) Eos % (Auto) Baso % (Auto) Absolute Neuts (auto) Absolute Lymphs (auto) Total Counted Differential Comment Diff Path Review Platelet Estimate RBC Morphology Specimen Type Sample Site pH Bicarbonate Actual POC Total CO2 Base Excess O2 Saturation O2 % ABG pCO2 ABG pO2 Elias Test Respiration Rate O2 Delivery Device Minute Volume Vent Mode Tidal Volume POC PEEP EPAP IPAP Blood Gas Notified Whom Blood Gas Notified Time Sodium Potassium Chloride Carbon Dioxide Anion Gap BUN Creatinine Estim Creat Clear Calc Est GFR (MDRD) Af Amer Est GFR (MDRD) Non-Af BUN/Creatinine Ratio Glucose Lactic Acid Calcium Phosphorus Total Bilirubin 0.50 Direct Bilirubin 0.18 AST 12 L ALT 18 Alkaline Phosphatase 96 Total Creatine Kinase Troponin I B-Natriuretic Peptide Total Protein 7.0 Albumin 2.3 L Globulin 4.7 H Triglycerides Cancelled Urine Color Urine Clarity Urine pH Ur Specific [place] Urine Protein Urine Glucose (UA) Urine Ketones Urine Occult Blood Urine Nitrite Urine Bilirubin Urine Urobilinogen Ur Leukocyte Esterase Urine RBC Urine WBC Ur Squamous Epith Cells Urine Bacteria Hyaline Casts Fine Granular Casts Urine Mucus MRSA (PCR) POC Glucose 236 H 09/18/18 09/18/18 09/18/18 07:35 12:17 13:27 WBC RBC Hgb Hct MCV MCH MCHC RDW RDW Differential Plt Count MPV Immature Gran % (Auto) Neut % (Auto) Lymph % (Auto) Payne % (Auto) Eos % (Auto) Baso % (Auto) Absolute Neuts (auto) Absolute Lymphs (auto) Total Counted Differential Comment Diff Path Review Platelet Estimate RBC Morphology Specimen Type ART Sample Site R Brachial pH 7.28 L Bicarbonate Actual 23.2 POC Total CO2 25 Base Excess -4 L O2 Saturation 93 L O2 % 35 ABG pCO2 49.4 H ABG pO2 77 Elias Test POS Respiration Rate 16 O2 Delivery Device Vent Minute Volume Vent Mode A-C Tidal Volume 500 POC PEEP 5 EPAP IPAP Blood Gas Notified Whom ICU Blood Gas Notified Time 1327 Sodium Potassium Chloride Carbon Dioxide Anion Gap BUN Creatinine Estim Creat Clear Calc Est GFR (MDRD) Af Amer Est GFR (MDRD) Non-Af BUN/Creatinine Ratio Glucose Lactic Acid Calcium Phosphorus Total Bilirubin Direct Bilirubin AST ALT Alkaline Phosphatase Total Creatine Kinase Troponin I B-Natriuretic Peptide Total Protein Albumin Globulin Triglycerides Urine Color Urine Clarity Urine pH Ur Specific [place] Urine Protein Urine Glucose (UA) Urine Ketones Urine Occult Blood Urine Nitrite Urine Bilirubin Urine Urobilinogen Ur Leukocyte Esterase Urine RBC Urine WBC Ur Squamous Epith Cells Urine Bacteria Hyaline Casts Fine Granular Casts Urine Mucus MRSA (PCR) Negative POC Glucose 198 H 09/18/18 09/18/18 09/19/18 17:58 23:56 04:05 WBC 20.8 H RBC 4.06 L Hgb 11.9 L Hct 37.2 L MCV 91.6 MCH 29.3 MCHC 32.0 RDW 13.8 RDW Differential 46.5 H Plt Count 330 MPV 9.8 Immature Gran % (Auto) 1.600 H Neut % (Auto) 81.6 H Lymph % (Auto) 6.4 L Payne % (Auto) 10.2 H Eos % (Auto) 0.0 Baso % (Auto) 0.2 Absolute Neuts (auto) 17.0 H Absolute Lymphs (auto) 1.33 Total Counted Not Reportable Differential Comment Diff Path Review May foll Platelet Estimate RBC Morphology Specimen Type Sample Site pH Bicarbonate Actual POC Total CO2 Base Excess O2 Saturation O2 % ABG pCO2 ABG pO2 Elias Test Respiration Rate O2 Delivery Device Minute Volume Vent Mode Tidal Volume POC PEEP EPAP IPAP Blood Gas Notified Whom Blood Gas Notified Time Sodium Potassium Chloride Carbon Dioxide Anion Gap BUN Creatinine Estim Creat Clear Calc Est GFR (MDRD) Af Amer Est GFR (MDRD) Non-Af BUN/Creatinine Ratio Glucose Lactic Acid Calcium Phosphorus Total Bilirubin Direct Bilirubin AST ALT Alkaline Phosphatase Total Creatine Kinase Troponin I B-Natriuretic Peptide Total Protein Albumin Globulin Triglycerides Urine Color Urine Clarity Urine pH Ur Specific [place] Urine Protein Urine Glucose (UA) Urine Ketones Urine Occult Blood Urine Nitrite Urine Bilirubin Urine Urobilinogen Ur Leukocyte Esterase Urine RBC Urine WBC Ur Squamous Epith Cells Urine Bacteria Hyaline Casts Fine Granular Casts Urine Mucus MRSA (PCR) POC Glucose 215 H 218 H 09/19/18 09/19/18 04:05 06:05 WBC RBC Hgb Hct MCV MCH MCHC RDW RDW Differential Plt Count MPV Immature Gran % (Auto) Neut % (Auto) Lymph % (Auto) Payne % (Auto) Eos % (Auto) Baso % (Auto) Absolute Neuts (auto) Absolute Lymphs (auto) Total Counted Differential Comment Diff Path Review Platelet Estimate RBC Morphology Specimen Type Sample Site pH Bicarbonate Actual POC Total CO2 Base Excess O2 Saturation O2 % ABG pCO2 ABG pO2 Elias Test Respiration Rate O2 Delivery Device Minute Volume Vent Mode Tidal Volume POC PEEP EPAP IPAP Blood Gas Notified Whom Blood Gas Notified Time Sodium 144 Potassium 4.0 Chloride 111 H Carbon Dioxide 25.0 Anion Gap 8 BUN 70 H Creatinine 3.53 H Estim Creat Clear Calc 19.53 Est GFR (MDRD) Af Amer 22 L Est GFR (MDRD) Non-Af 18 L BUN/Creatinine Ratio 19.8 Glucose 225 H Lactic Acid Calcium 8.8 Phosphorus Total Bilirubin Direct Bilirubin AST ALT Alkaline Phosphatase Total Creatine Kinase Troponin I B-Natriuretic Peptide Total Protein Albumin Globulin Triglycerides Urine Color Urine Clarity Urine pH Ur Specific [place] Urine Protein Urine Glucose (UA) Urine Ketones Urine Occult Blood Urine Nitrite Urine Bilirubin Urine Urobilinogen Ur Leukocyte Esterase Urine RBC Urine WBC Ur Squamous Epith Cells Urine Bacteria Hyaline Casts Fine Granular Casts Urine Mucus MRSA (PCR) POC Glucose 160 H Microbiology 09/17/18 20:20 Sputum, Induced/Lukens Gram Stain - Final 09/17/18 20:20 Mucosa - Nose Respiratory Panel (PCR) - Final Rhinovirus 09/18/18 07:30 Urine Catheter - Michel Streptococcus pneumoniae Antigen (M - Final 09/18/18 07:30 Urine Catheter - Michel Legionella Antigen - Final Clinical Impression(s) from Imaging Studies Chest X-Ray 09/17/18 14:10 IMPRESSION: Increased interstitial markings as described. This may represent vascular congestion. Electronically Signed: Oscar Alvarez, at 14:33 EDT , Service support , Chest X-Ray 09/17/18 20:15 IMPRESSION: Endotracheal tube in proper position as above. Prominent interstitial markings with areas of patchy airspace disease not excluded somewhat improved compared to previous exam. Electronically Signed: Mirza Santiago DO at 21:15 EDT , Service support , KUB X-Ray 09/17/18 20:30 IMPRESSION: OG tube not seen entering the GE junction or stomach region with prior chest film showing NG tube likely terminating in the midesophagus. Exam is limited by overlying lines and tubes in the chest. Electronically Signed: Mirza Santiago DO at 21:17 EDT , Service support , Chest X-Ray 09/18/18 05:20 IMPRESSION: Stable examination. Electronically Signed: Oscar Alvarez, at 8:59 EDT , Service support , KUB X-Ray 09/18/18 09:05 IMPRESSION: The tip of the orogastric tube is in the distal portion of the stomach. Electronically Signed: Oscar Alvarez, at 9:33 EDT , Service support , Medical Necessity - Tobacco Use Smoking Status: Former smoker Tobacco Use: Cigarettes Assessment/Plan All Active Problems Fall (Acute) Sepsis (Acute) Encephalopathy (Acute) Urinary tract infection (Acute) PNA (pneumonia) (Acute) Respiratory acidosis (Acute) Comatose (Acute) RECOMMENDATIONS: 1. Transition from propofol to Precedex for sedation to help facilitate weaning from mechanical ventilation. 2. Plan to repeat spontaneous awakening and breathing trial tomorrow. 3. Continue tube feeds and supplemental IV fluid hydration. 4. Obtain renal ultrasound. 5. Given worsening creatinine, will obtain nephrology consultation. 6. Continue scheduled bronchodilators and prednisone. 7. Continue subcutaneous heparin and Pepcid for prophylaxis. 8. Continue Lantus and sliding scale insulin coverage. IMPRESSIONS: 1. Acute on chronic hypoxemic and hypercarbic respiratory failure secondary to presumptive COPD with exacerbation Secondary to rhinovirus URI and suspected community acquired pneumonia. Continue broad-spectrum antimicrobial coverage, pending finalized infectious work-up. In addition, the patient will be continued on scheduled bronchodilators and prednisone. Given the patient's anxiety associated with his spontaneous breathing trial, he will be transitioned from propofol to Precedex to help facilitate weaning from mechanical ventilation. Plan to repeat spontaneous awakening and breathing trials tomorrow morning. Continue tube feeds as ordered. 2. Severe sepsis 2/2 Rhinovirus URI and suspected CAP Continue current antimicrobial coverage, pending finalized infectious work-up. The patient remains hemodynamically stable. 3. Long-standing tobacco abuse history As noted above, clinical concern for underlying obstructive lung disease. We will continue bronchodilators and wean FiO2 as tolerated. Recommend outpatient pulmonary follow-up and baseline pulmonary function studies. Smoking cessation is advisable. Nicotine replacement therapy can be offered to the patient while admitted to the hospital. 4. Acute on chronic kidney disease Creatinine continues to worsen. Renal function initially worsened in the setting of diuretic therapy on admission to the hospital. All diuretics and potentially nephrotoxic medications were discontinued. The patient has been receiving supplemental IV fluid hydration along with tube feeds. Given worsening creatinine, will obtain nephrology consultation today. Orders for renal ultrasound have also been placed. 5. Diabetes mellitus/baseline MRDD/hypertension Complicates care, management, recovery and prognosis. Continue basal insulin and sliding scale insulin coverage. TIME: 38 minutes of critical care time, independent of procedures, was spent addressing the patient's acute on chronic combined respiratory failure, COPD with exacerbation, severe sepsis, long-standing tobacco dependency, acute on chronic kidney disease, review of all data and collaboration with the care team. ([id number]) Code Visit [id number]: [id number] Critical care first hour
--- NOTE | 2018-09-19 06:55 | US_ITS ---
STUDY: RENAL ULTRASOUND - COMPLETE REASON FOR EXAM: Male, 72 years old. Acute renal failure. TECHNIQUE: Ultrasound evaluation of the kidneys was performed with real-time and static jonas-scale imaging. Limited exam due to patient's condition. COMPARISON: None. FINDINGS: RIGHT KIDNEY: Normal location of the right kidney, which is normal in size. The right kidney measures 11.9 cm x 4.8 cm x 5.7 cm. There is a normal cortex of the right kidney. The renal cortex measures 2.0 cm. There is no right renal mass or cyst. There are no right renal calculi. There is no right hydronephrosis. DISTAL RIGHT URETER: There is non-visualization of the distal right ureter. There is no demonstrated right ureterovesical junction calculus. There is no demonstrated right ureteral jet. LEFT KIDNEY: Normal location of the left kidney, which is normal in size. The left kidney measures 10.2 cm x 3.8 cm x 3.2 cm. There is a normal cortex of the left kidney. The renal cortex measures 1.2 cm. There is no left renal mass or cyst. There are no left renal calculi. There is no left hydronephrosis. DISTAL LEFT URETER: There is non-visualization of the distal left ureter. There is no demonstrated left ureterovesical junction calculus. There is no demonstrated left ureteral jet. BLADDER: A Michel catheter is seen within a decompressed bladder. US/Kidney and Bladder IMPRESSION: Normal ultrasound of the kidneys. Electronically Signed: Oscar Alvarez, at 13:14 EDT , Service support ,
[2018-09-19] MEDS: Ipratropium/Albuterol Sulfate 3 ML AMPUL.NEB INHALATION ×4 (07:14→18:54)
[2018-09-19] MEDS: 0.45% Normal Saline 1,000 ML 125 ML IV ×3 (08:33→21:10)
[2018-09-19] MEDS: Famotidine 20 MG Tablet GT (08:34)
[2018-09-19] MEDS: Heparin Injection (Vial) 5,000 UNIT/ML VIAL 5000 UNIT SC ×2 (08:34→21:10)
[2018-09-19] MEDS: Chlorhexidine 15 ML PO ×2 (08:35→21:09)
--- NOTE | 2018-09-19 09:15 | CASEMGMT ---
RN CM NOTE: Participated in inter-disciplinary rounds. Pt remains intubated/on vent. Failed spontaneous breathing trial this AM. PT/OT evals pending. Discharge plan undetermined at this time. CM to continue to follow. Walter BSN RN CM
--- NOTE | 2018-09-19 09:36 | PCM.PN.HOSP ---
Patient Problems: Active and Suspected Problems PNA (pneumonia) (Acute) Respiratory acidosis (Acute) Comatose (Acute) Subjective: Patient seen and examined. He remains intubated and sedated. He failed spontaneous breathing trial this morning as he became tachypneic and tachycardic and required increasing amounts of oxygen. Sedatives been switched from propofol and fentanyl to Precedex. Labs and vitals reviewed. Creatinine noticed to have trended up to 3.53 and he has some neck positive balance by 794 mls since admission. Vitals/I&O's: Vital Signs Temp Pulse Resp BP Pulse Ox 99.1 F 79 26 H 179/78 H 97 09/19/18 08:00 09/19/18 09:25 09/19/18 09:25 09/19/18 09:00 09/19/18 09:25 Oxygen Flow Rate (L/min) 3 Oxygen Delivery Method Mechanical Ventilator Weight: 212 lb 15.465 oz Body Mass Index (BMI) 32.0 Finger Stick Blood Glucose 240 Intake and Output for Last 24 Hours 09/17/18 09/18/18 09/19/18 23:59 23:59 23:59 Intake Total 125 / 125 1290.5 / 1290.5 764 / 764 Output Total 1005 / 1005 350 / 350 Balance 125 / 125 285.5 / 285.5 414 / 414 General: - - intubated, sedated HEENT: Atraumatic, PERRLA, EOMI, Normocephalic Oral: Dry Mucosa Neck: Supple, No JVD, Negative Carotid Bruits Lungs: - - decreased breath sounds bibasally, no wheezes or crackles. intubated and sedated Cardiovascular: Regular rate, Regular Rhythm, Normal S1, Normal S2, No murmurs Abdomen: Bowel Sounds Present, Soft, Non Tender, Non-Distended, No Hepato-splenomegaly Extremities: No clubbing, No cyanosis, No edema, Capillary Refill Less than 3 Seconds Skin: No rashes, No breakdown Musculoskeletal: No Tenderness to Palpation of Joints or Extremities Lymphatic: No Cervical, Supraclavicular, or Inguinal Adenopathy Neurological: Cranial nerves II-XII grossly intact Psych/Mental Status: - - intubated, sedated Microbiology Past 72 Hours 09/17/18 20:20 Sputum, Induced/Lukens Gram Stain - Final 09/17/18 20:20 Mucosa - Nose Respiratory Panel (PCR) - Final Rhinovirus 09/18/18 07:30 Urine Catheter - Michel Streptococcus pneumoniae Antigen (M - Final 09/18/18 07:30 Urine Catheter - Michel Legionella Antigen - Final Laboratory Results 09/17/18 13:40: Diff Path Review Reviewed 09/18/18 12:17: POC Glucose 198 H 09/18/18 13:27: Specimen Type ART, Sample Site R Brachial, pH 7.28 L, Bicarbonate Actual 23.2, POC Total CO2 25, Base Excess -4 L, O2 Saturation 93 L, O2 % 35, ABG pCO2 49.4 H, ABG pO2 77, Elias Test POS, Respiration Rate 16, O2 Delivery Device Vent, Vent Mode A-C, Tidal Volume 500, POC PEEP 5, Blood Gas Notified Whom ICU MD, Blood Gas Notified Time 1327 09/18/18 17:58: POC Glucose 215 H 09/18/18 23:56: POC Glucose 218 H 09/19/18 04:05: WBC 20.8 H, RBC 4.06 L, Hgb 11.9 L, Hct 37.2 L, MCV 91.6, MCH 29.3, MCHC 32.0, RDW 13.8, RDW Differential 46.5 H, Plt Count 330, MPV 9.8, Immature Gran % (Auto) 1.600 H, Neut % (Auto) 81.6 H, Lymph % (Auto) 6.4 L, [place] % (Auto) 10.2 H, Eos % (Auto) 0.0, Baso % (Auto) 0.2, Absolute Neuts (auto) 17.0 H, Absolute Lymphs (auto) 1.33, Total Counted Not Reportable, Diff Path Review May foll 09/19/18 04:05: Sodium 144, Potassium 4.0, Chloride 111 H, Carbon Dioxide 25.0, Anion Gap 8, BUN 70 H, Creatinine 3.53 H, Estim Creat Clear Calc 19.53, Est GFR (MDRD) Af Amer 22 L, Est GFR (MDRD) Non-Af 18 L, BUN/Creatinine Ratio 19.8, Glucose 225 H, Calcium 8.8 09/19/18 06:05: POC Glucose 160 H Diagnostic Data Chest X-Ray 09/18/18 05:20 IMPRESSION: Stable examination. Electronically Signed: Oscar Alvarez, at 8:59 EDT , Service support , KUB X-Ray 09/18/18 09:05 IMPRESSION: The tip of the orogastric tube is in the distal portion of the stomach. Electronically Signed: Oscar Alvarez, at 9:33 EDT , Service support , Current Medications Acetaminophen (Tylenol) 650 mg PO Q6H PRN PRN PRN Reason: Mild pain 1-3/Temp > 100.7 F Albuterol Sulfate (Ventolin Aerosols) 2.5 mg INHALATION Q2H PRN PRN PRN Reason: SOB &/OR WHEEZING Albuterol/Ipratropium (Duoneb) 3 ml INHALATION Q4HWA.RT [facility] Last Admin: 09/19/18 07:14 Dose: 3 ml Chlorhexidine Gluconate () 15 ml PO BID [facility] Last Admin: 09/19/18 08:35 Dose: 15 ml Chlorhexidine Gluconate () 1 each TOPICAL DAILY [facility] Last Admin: 09/18/18 21:39 Dose: 1 each Dextrose (D50w Syringe) 0 gm IV X1 PRN; Protocol PRN Reason: Hypoglycemia Famotidine (Pepcid) 20 mg GT DAILY [facility] Last Admin: 09/19/18 08:34 Dose: 20 mg Glucagon () 1 mg IM .X1 PRN PRN Reason: Hypoglycemia Heparin Sodium (Porcine) (Heparin Na) 5,000 unit SC Q12 [facility] Last Admin: 09/19/18 08:34 Dose: 5,000 unit Hydralazine HCl (Apresoline Iv) 5 mg IV Q6H PRN PRN PRN Reason: BLOOD PRESSURE Fentanyl () 100 mls @ 5 mls/hr CONT INF .Q20H [facility] Last Admin: 09/18/18 12:21 Dose: 5 mls/hr Piperacillin Sod/Tazobactam (Sod 3.375 gm/ Sodium Chloride) 50 mls @ 12.5 mls/hr IV Q8 [facility] Last Admin: 09/19/18 06:07 Dose: 12.5 mls/hr Sodium Chloride () 250 mls @ 15 mls/hr IV .[id number] PRN PRN Reason: SALINE FLUSH Enteral Nutritional Formula (Vital Af 1.2 Best Liquid) 1,000 mls @ 60 mls/hr GT .[id number] [facility] Last Admin: 09/19/18 02:59 Dose: Not Given Sodium Chloride () 1,000 mls @ 125 mls/hr IV .Q8H [facility] Last Admin: 09/19/18 08:33 Dose: 125 mls/hr Dexmedetomidine HCl 400 mcg/ (Sodium Chloride) 100 mls @ 12.08 mls/hr CONT INF .Q8H17M [facility] Last Admin: 09/19/18 08:32 Dose: 12.08 mls/hr Insulin Glargine (Lantus (Bkc)) 40 units SC [facility] Last Admin: 09/19/18 06:10 Dose: 40 u Insulin Human Lispro (Humalog Kwikpen (Bkc)) 0 unit SC Q6 [facility]; Protocol Last Admin: 09/19/18 06:09 Dose: 1 u Multi-Ingredient Cream (Eucerin) 1 applic TOPICAL BID PRN PRN; Protocol PRN Reason: DRY SKIN Nitroglycerin (Nitrostat) 0.4 mg SUBLINGUAL Q5M PRN PRN Reason: CARDIAC/CHEST PAIN Ondansetron HCl (Zofran) 4 mg IV Q8H PRN PRN PRN Reason: NAUSEA/VOMITING Prednisone () 40 mg PO 1200 [facility] Last Admin: 09/18/18 12:21 Dose: 40 mg Sodium Chloride () 5 - 15 ml IV UD PRN PRN Reason: SALINE FLUSH Sodium Chloride () 5 - 15 ml IV UD PRN PRN Reason: SALINE FLUSH Medical Necessity - Tobacco Use Smoking Status: Former smoker Tobacco Use: Cigarettes Assessment/Plan All Active Problems Fall (Acute) Sepsis (Acute) Encephalopathy (Acute) Urinary tract infection (Acute) PNA (pneumonia) (Acute) Respiratory acidosis (Acute) Comatose (Acute) 1. 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 2. Sepsis due to community acquired pneumonia SIRS criteria now 2/4- leucocytosis and tachypnea on IV zOsyn amplifier mechanic on board wbc up to 26 today; on steroids respiratory panel positive for rhinovirus urine culture, blood cultures, and urine for strep and legionella are negative 3. DARYL on CKD: CR is up to 3.53 today, from 2.35 on admission. nephrology consulted 4. Diabetes: on ISS. Accuchecks q6hrs.n on lantus 40IU bid. 5. Hypertension: on IV hydralazine prn. 6. Chronic diastolic heart failure: stable. BNP was WNL on admission, making acute heart failure unlikely. weight on admission was 223 pounds, now down to 213 pounds. will monitor 7. Nutrition: on Rylee 60mls/hr through the NG tube. DVT prophylaxis: heparin. Hemoptysis has resolved. GI prophylaxis: famotidine Code Visit Inpatient E&M: 11068 Subs Hosp L3
--- NOTE | 2018-09-19 09:41 | PN_ITS ---
Patient Problems: Active and Suspected Problems PNA (pneumonia) (Acute) Respiratory acidosis (Acute) Comatose (Acute) Subjective: Patient seen and examined. He remains intubated and sedated. He failed spontaneous breathing trial this morning as he became tachypneic and tachycardic and required increasing amounts of oxygen. Sedatives been switched from propofol and fentanyl to Precedex. Labs and vitals reviewed. Creatinine noticed to have trended up to 3.53 and he has some neck positive balance by 794 mls since admission. Vitals/I&O's: Vital Signs Temp Pulse Resp BP Pulse Ox 99.1 F 79 26 H 179/78 H 97 09/19/18 08:00 09/19/18 09:25 09/19/18 09:25 09/19/18 09:00 09/19/18 09:25 Oxygen Flow Rate (L/min) 3 Oxygen Delivery Method Mechanical Ventilator Weight: 212 lb 15.465 oz Body Mass Index (BMI) 32.0 Finger Stick Blood Glucose 240 Intake and Output for Last 24 Hours 09/17/18 09/18/18 09/19/18 23:59 23:59 23:59 Intake Total 125 / 125 1290.5 / 1290.5 764 / 764 Output Total 1005 / 1005 350 / 350 Balance 125 / 125 285.5 / 285.5 414 / 414 General: - - intubated, sedated HEENT: Atraumatic, PERRLA, EOMI, Normocephalic Oral: Dry Mucosa Neck: Supple, No JVD, Negative Carotid Bruits Lungs: - - decreased breath sounds bibasally, no wheezes or crackles. intubated and sedated Cardiovascular: Regular rate, Regular Rhythm, Normal S1, Normal S2, No murmurs Abdomen: Bowel Sounds Present, Soft, Non Tender, Non-Distended, No Hepato- splenomegaly Extremities: No clubbing, No cyanosis, No edema, Capillary Refill Less than 3 Seconds Skin: No rashes, No breakdown Musculoskeletal: No Tenderness to Palpation of Joints or Extremities Lymphatic: No Cervical, Supraclavicular, or Inguinal Adenopathy Neurological: Cranial nerves II-XII grossly intact Psych/Mental Status: - - intubated, sedated Microbiology Past 72 Hours 09/17/18 20:20 Sputum, Induced/Lukens Gram Stain - Final 09/17/18 20:20 Mucosa - Nose Respiratory Panel (PCR) - Final Rhinovirus 09/18/18 07:30 Urine Catheter - Michel Streptococcus pneumoniae Antigen (M - Final 09/18/18 07:30 Urine Catheter - Michel Legionella Antigen - Final Laboratory Results 09/17/18 13:40: Diff Path Review Reviewed 09/18/18 12:17: POC Glucose 198 H 09/18/18 13:27: Specimen Type ART, Sample Site R Brachial, pH 7.28 L, Bicarbonate Actual 23.2, POC Total CO2 25, Base Excess -4 L, O2 Saturation 93 L, O2 % 35, ABG pCO2 49.4 H, ABG pO2 77, Elias Test POS, Respiration Rate 16, O2 Delivery Device Vent, Vent Mode A-C, Tidal Volume 500, POC PEEP 5, Blood Gas Notified Whom ICU MD, Blood Gas Notified Time 1327 09/18/18 17:58: POC Glucose 215 H 09/18/18 23:56: POC Glucose 218 H 09/19/18 04:05: WBC 20.8 H, RBC 4.06 L, Hgb 11.9 L, Hct 37.2 L, MCV 91.6, MCH 29.3, MCHC 32.0, RDW 13.8, RDW Differential 46.5 H, Plt Count 330, MPV 9.8, Immature Gran % (Auto) 1.600 H, Neut % (Auto) 81.6 H, Lymph % (Auto) 6.4 L, [place] % (Auto) 10.2 H, Eos % (Auto) 0.0, Baso % (Auto) 0.2, Absolute Neuts (auto) 17.0 H, Absolute Lymphs (auto) 1.33, Total Counted Not Reportable, Diff Path Review May foll 09/19/18 04:05: Sodium 144, Potassium 4.0, Chloride 111 H, Carbon Dioxide 25.0, Anion Gap 8, BUN 70 H, Creatinine 3.53 H, Estim Creat Clear Calc 19.53, Est GFR (MDRD) Af Amer 22 L, Est GFR (MDRD) Non-Af 18 L, BUN/Creatinine Ratio 19.8, Glucose 225 H, Calcium 8.8 09/19/18 06:05: POC Glucose 160 H Diagnostic Data Chest X-Ray 09/18/18 05:20 IMPRESSION: Stable examination. Electronically Signed: Oscar Alvarez, at 8:59 EDT , Service support , KUB X-Ray 09/18/18 09:05 IMPRESSION: The tip of the orogastric tube is in the distal portion of the stomach. Electronically Signed: Oscar Alvarez, at 9:33 EDT , Service support , Current Medications Acetaminophen (Tylenol) 650 mg PO Q6H PRN PRN PRN Reason: Mild pain 1-3/Temp > 100.7 F Albuterol Sulfate (Ventolin Aerosols) 2.5 mg INHALATION Q2H PRN PRN PRN Reason: SOB &/OR WHEEZING Albuterol/Ipratropium (Duoneb) 3 ml INHALATION Q4HWA.RT [facility] Last Admin: 09/19/18 07:14 Dose: 3 ml Chlorhexidine Gluconate () 15 ml PO BID [facility] Last Admin: 09/19/18 08:35 Dose: 15 ml Chlorhexidine Gluconate () 1 each TOPICAL DAILY [facility] Last Admin: 09/18/18 21:39 Dose: 1 each Dextrose (D50w Syringe) 0 gm IV X1 PRN; Protocol PRN Reason: Hypoglycemia Famotidine (Pepcid) 20 mg GT DAILY [facility] Last Admin: 09/19/18 08:34 Dose: 20 mg Glucagon () 1 mg IM .X1 PRN PRN Reason: Hypoglycemia Heparin Sodium (Porcine) (Heparin Na) 5,000 unit SC Q12 [facility] Last Admin: 09/19/18 08:34 Dose: 5,000 unit Hydralazine HCl (Apresoline Iv) 5 mg IV Q6H PRN PRN PRN Reason: BLOOD PRESSURE Fentanyl () 100 mls @ 5 mls/hr CONT INF .Q20H [facility] Last Admin: 09/18/18 12:21 Dose: 5 mls/hr Piperacillin Sod/Tazobactam (Sod 3.375 gm/ Sodium Chloride) 50 mls @ 12.5 mls/hr IV Q8 [facility] Last Admin: 09/19/18 06:07 Dose: 12.5 mls/hr Sodium Chloride () 250 mls @ 15 mls/hr IV .[id number] PRN PRN Reason: SALINE FLUSH Enteral Nutritional Formula (Vital Af 1.2 Best Liquid) 1,000 mls @ 60 mls/hr GT .[id number] [facility] Last Admin: 09/19/18 02:59 Dose: Not Given Sodium Chloride () 1,000 mls @ 125 mls/hr IV .Q8H [facility] Last Admin: 09/19/18 08:33 Dose: 125 mls/hr Dexmedetomidine HCl 400 mcg/ (Sodium Chloride) 100 mls @ 12.08 mls/hr CONT INF .Q8H17M [facility] Last Admin: 09/19/18 08:32 Dose: 12.08 mls/hr Insulin Glargine (Lantus (Bkc)) 40 units SC [facility] Last Admin: 09/19/18 06:10 Dose: 40 u Insulin Human Lispro (Humalog Kwikpen (Bkc)) 0 unit SC Q6 [facility]; Protocol Last Admin: 09/19/18 06:09 Dose: 1 u Multi-Ingredient Cream (Eucerin) 1 applic TOPICAL BID PRN PRN; Protocol PRN Reason: DRY SKIN Nitroglycerin (Nitrostat) 0.4 mg SUBLINGUAL Q5M PRN PRN Reason: CARDIAC/CHEST PAIN Ondansetron HCl (Zofran) 4 mg IV Q8H PRN PRN PRN Reason: NAUSEA/VOMITING Prednisone () 40 mg PO 1200 [facility] Last Admin: 09/18/18 12:21 Dose: 40 mg Sodium Chloride () 5 - 15 ml IV UD PRN PRN Reason: SALINE FLUSH Sodium Chloride () 5 - 15 ml IV UD PRN PRN Reason: SALINE FLUSH Medical Necessity - Tobacco Use Smoking Status: Former smoker Tobacco Use: Cigarettes Assessment/Plan All Active Problems Fall (Acute) Sepsis (Acute) Encephalopathy (Acute) Urinary tract infection (Acute) PNA (pneumonia) (Acute) Respiratory acidosis (Acute) Comatose (Acute) 1. 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 * 2. 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 DARYL on CKD: CR is up to 3.53 today, from 2.35 on admission. nephrology consulted 4. Diabetes: on ISS. Accuchecks q6hrs.n on lantus 40IU bid. 5. Hypertension: on IV hydralazine prn. 6. Chronic diastolic heart failure: * stable. * BNP was WNL on admission, making acute heart failure unlikely. weight on admission was 223 pounds, now down to 213 pounds. * will monitor * 7. Nutrition: on Rylee 60mls/hr through the NG tube. DVT prophylaxis: heparin. Hemoptysis has resolved. GI prophylaxis: famotidine Code Visit Inpatient E&M: 91850 Subs Hosp L3
[2018-09-19] MEDS: fentaNYL drip 100 ML 5 MCG CONT INF (10:39)
[2018-09-19] MEDS: predniSONE 20 MG Tablet 40 MG PO (11:58)
[2018-09-19 12:10] LABS: Bedside Glucose 147 mg/dL (70-110)
--- NOTE | 2018-09-19 13:00 | PCM.CONS.R ---
Problem List (1) DARYL (acute kidney injury) Status: Acute Consultation - Renal 09/19/18 PCP/ Referring MD: Requesting physician: Dr Carranza Primary care physician: No Primary Care Phys Reason for Consultation:: DARYL - History of Present Illness History of Present Illness: The patient is a 72 year old M who was admitted to the hospital 2 days ago with shortness of breath. Initial diagnosis was fluid overload. He has known history of COPD on home oxygen at 2 L/min. Apparently that has worsened prior to admission. He was initially treated with steroids, inhalers which did not help. Ended up getting intubated on Saturday night. Still on the vent. Failed spontaneous breathing trial this morning. On review of his records, it seems she has history of CKD stage III with baseline creatinine around 2. Apparently he is recently homeless and staying at the [facility]. Review of systems could not be obtained. - Allergies Allergies: Allergies bee venom protein (honey bee) Allergy (Verified 09/17/18 13:12) Anaphylaxis - Current Medications Current Medications: Current Medications Acetaminophen (Tylenol) 650 mg PO Q6H PRN PRN PRN Reason: Mild pain 1-3/Temp > 100.7 F Albuterol Sulfate (Ventolin Aerosols) 2.5 mg INHALATION Q2H PRN PRN PRN Reason: SOB &/OR WHEEZING Albuterol/Ipratropium (Duoneb) 3 ml INHALATION Q4HWA.RT [facility] Last Admin: 09/19/18 11:05 Dose: 3 ml Chlorhexidine Gluconate () 15 ml PO BID [facility] Last Admin: 09/19/18 08:35 Dose: 15 ml Chlorhexidine Gluconate () 1 each TOPICAL DAILY [facility] Last Admin: 09/18/18 21:39 Dose: 1 each Dextrose (D50w Syringe) 0 gm IV X1 PRN; Protocol PRN Reason: Hypoglycemia Famotidine (Pepcid) 20 mg GT DAILY [facility] Last Admin: 09/19/18 08:34 Dose: 20 mg Glucagon () 1 mg IM .X1 PRN PRN Reason: Hypoglycemia Heparin Sodium (Porcine) (Heparin Na) 5,000 unit SC Q12 [facility] Last Admin: 09/19/18 08:34 Dose: 5,000 unit Hydralazine HCl (Apresoline Iv) 5 mg IV Q6H PRN PRN PRN Reason: BLOOD PRESSURE Fentanyl () 100 mls @ 5 mls/hr CONT INF .Q20H [facility] Last Admin: 09/19/18 10:39 Dose: 5 mls/hr Piperacillin Sod/Tazobactam (Sod 3.375 gm/ Sodium Chloride) 50 mls @ 12.5 mls/hr IV Q8 [facility] Last Admin: 09/19/18 06:07 Dose: 12.5 mls/hr Sodium Chloride () 250 mls @ 15 mls/hr IV .[id number] PRN PRN Reason: SALINE FLUSH Enteral Nutritional Formula (Vital Af 1.2 Best Liquid) 1,000 mls @ 60 mls/hr GT .[id number] [facility] Last Admin: 09/19/18 02:59 Dose: Not Given Sodium Chloride () 1,000 mls @ 125 mls/hr IV .Q8H [facility] Last Admin: 09/19/18 08:33 Dose: 125 mls/hr Dexmedetomidine HCl 400 mcg/ (Sodium Chloride) 100 mls @ 12.08 mls/hr CONT INF .Q8H17M [facility] Last Admin: 09/19/18 08:32 Dose: 12.08 mls/hr Insulin Glargine (Lantus (Bkc)) 40 units SC 06,18 [facility] Last Admin: 09/19/18 06:10 Dose: 40 u Insulin Human Lispro (Humalog Kwikpen (Bkc)) 0 unit SC Q6 [facility]; Protocol Last Admin: 09/19/18 11:57 Dose: Not Given Multi-Ingredient Cream (Eucerin) 1 applic TOPICAL BID PRN PRN; Protocol PRN Reason: DRY SKIN Nitroglycerin (Nitrostat) 0.4 mg SUBLINGUAL Q5M PRN PRN Reason: CARDIAC/CHEST PAIN Ondansetron HCl (Zofran) 4 mg IV Q8H PRN PRN PRN Reason: NAUSEA/VOMITING Prednisone () 40 mg PO 1200 [facility] Last Admin: 09/19/18 11:58 Dose: 40 mg Sodium Chloride () 5 - 15 ml IV UD PRN PRN Reason: SALINE FLUSH Sodium Chloride () 5 - 15 ml IV UD PRN PRN Reason: SALINE FLUSH - Past Medical History Past Medical History (Chronic Problems): Chronic Problems Generalized weakness (Chronic) Diabetes mellitus (Chronic) Hypertension (Chronic) Hyperlipidemia (Chronic) COPD (chronic obstructive pulmonary disease) (Chronic) Stroke (Chronic) Chronic kidney disease (Chronic) GERD (gastroesophageal reflux disease) (Chronic) CKD (chronic kidney disease) stage 3, GFR 30-59 ml/min (Chronic) Acute and chronic respiratory failure with hypoxia (Chronic) Diastolic CHF (Chronic) Acute and chronic respiratory failure (Chronic) Tobacco user (Chronic) Hypertensive retinopathy (Chronic) Benign essential HTN (Chronic) - Past Surgical History Surgical History: no surgical history - Social History Smoking Status: Former smoker - Family History Maternal History Items: Unknown Paternal History Items: Unknown Review of Systems Unable to obtain accurate/complete ROS d/t: mental status Patient Problems: Active and Suspected Problems PNA (pneumonia) (Acute) Respiratory acidosis (Acute) Comatose (Acute) DARYL (acute kidney injury) (Acute) - Physical Exam HEENT: Atraumatic, PERRLA, EOMI, Normocephalic Neck: Supple, No JVD, Negative Carotid Bruits Lungs: Clear to auscultation, Normal air movement Cardiovascular: Regular rate, No murmurs Abdomen: Bowel Sounds Present, Soft, Non Tender Extremities: No edema, Capillary Refill Less than 3 Seconds Skin: No rashes, No breakdown Musculoskeletal: No Tenderness to Palpation of Joints or Extremities Neurological: Cranial nerves II-XII grossly intact Vital Signs Temp Pulse Resp BP Pulse Ox 100.1 F H 64 18 157/66 H 93 09/19/18 12:00 09/19/18 12:00 09/19/18 12:00 09/19/18 12:00 09/19/18 12:00 Oxygen Flow Rate (L/min) 3 Oxygen Delivery Method Mechanical Ventilator Weight: 96.6 kg Body Mass Index (BMI) 32.0 Finger Stick Blood Glucose 240 Intake and Output for Last 24 Hours 09/17/18 09/18/18 09/19/18 23:59 23:59 23:59 Intake Total 125 / 125 1290.5 / 1290.5 1752 / 1752 Output Total 1005 / 1005 800 / 800 Balance 125 / 125 285.5 / 285.5 952 / 952 Microbiology Past 72 Hours 09/18/18 14:30 Gram Stain - Final Sputum, Induced/Lukens Respiratory Culture - Preliminary Appears to be normal respiratory lex. Further studies to follow. 09/17/18 20:40 Urine Culture - Preliminary Urine Catheter - Catheter Culture exhibits no growth. 09/17/18 20:20 Gram Stain - Final Sputum, Induced/Lukens Respiratory Culture - Preliminary Appears to be normal respiratory lex. Further studies to follow. 09/17/18 20:20 Respiratory Panel (PCR) - Final Mucosa - Nose Rhinovirus 09/18/18 07:30 Streptococcus pneumoniae Antigen (M - Final Urine Catheter - Michel 09/18/18 07:30 Legionella Antigen - Final Urine Catheter - Michel Laboratory Tests Past 24 Hrs 09/17/18 09/18/18 09/19/18 13:40 13:27 04:05 WBC 20.8 H RBC 4.06 L Hgb 11.9 L Hct 37.2 L MCV 91.6 MCH 29.3 MCHC 32.0 RDW 13.8 RDW Differential 46.5 H Plt Count 330 MPV 9.8 Immature Gran % (Auto) 1.600 H Neut % (Auto) 81.6 H Lymph % (Auto) 6.4 L King % (Auto) 10.2 H Eos % (Auto) 0.0 Baso % (Auto) 0.2 Absolute Neuts (auto) 17.0 H Absolute Lymphs (auto) 1.33 Total Counted Not Reportable Diff Path Review Reviewed May foll Specimen Type ART Sample Site R Brachial pH 7.28 L Bicarbonate Actual 23.2 POC Total CO2 25 Base Excess -4 L O2 Saturation 93 L O2 % 35 ABG pCO2 49.4 H ABG pO2 77 Elias Test POS Respiration Rate 16 O2 Delivery Device Vent Vent Mode A-C Tidal Volume 500 POC PEEP 5 Blood Gas Notified Whom ICU MD Blood Gas Notified Time 1327 Sodium Potassium Chloride Carbon Dioxide Anion Gap BUN Creatinine Estim Creat Clear Calc Est GFR (MDRD) Af Amer Est GFR (MDRD) Non-Af BUN/Creatinine Ratio Glucose Calcium 09/19/18 04:05 WBC RBC Hgb Hct MCV MCH MCHC RDW RDW Differential Plt Count MPV Immature Gran % (Auto) Neut % (Auto) Lymph % (Auto) King % (Auto) Eos % (Auto) Baso % (Auto) Absolute Neuts (auto) Absolute Lymphs (auto) Total Counted Diff Path Review Specimen Type Sample Site pH Bicarbonate Actual POC Total CO2 Base Excess O2 Saturation O2 % ABG pCO2 ABG pO2 Elias Test Respiration Rate O2 Delivery Device Vent Mode Tidal Volume POC PEEP Blood Gas Notified Whom Blood Gas Notified Time Sodium 144 Potassium 4.0 Chloride 111 H Carbon Dioxide 25.0 Anion Gap 8 BUN 70 H Creatinine 3.53 H Estim Creat Clear Calc 19.53 Est GFR (MDRD) Af Amer 22 L Est GFR (MDRD) Non-Af 18 L BUN/Creatinine Ratio 19.8 Glucose 225 H Calcium 8.8 POC Glucose 09/19/18 09/19/18 09/18/18 11:57 06:05 23:56 POC Glucose 147 H 160 H 218 H 09/18/18 17:58 POC Glucose 215 H Assessment/Plan All Active Problems Fall (Acute) Sepsis (Acute) Encephalopathy (Acute) Urinary tract infection (Acute) PNA (pneumonia) (Acute) Respiratory acidosis (Acute) Comatose (Acute) DARYL (acute kidney injury) (Acute) Acute renal failure Chronic kidney disease stage III. Baseline creatinine is around 2.0. Sustained acute renal failure. Creatinine is worsening and is up to 3.5 today. Renal ultrasound has been done. Final read is pending. Reviewed images myself. Bladder is collapsed. I do not see any significant hydronephrosis. Urine analysis is dirty, urine culture negative. DARYL is likely hemodynamic. On discussion with the staff, urine output was fairly low yesterday, today urine output has improved significantly. Currently on half-normal saline at 125 cc an hour and he has made about 450 cc in the last 6 hours. Since urine output is improved and electrolytes are acceptable hold off on dialysis for now. We will continue to follow. Thank you for the consult.
--- NOTE | 2018-09-19 13:04 | CON.PCM_ITS ---
Problem List (1) DARYL (acute kidney injury) Status: Acute Consultation - Renal 09/19/18 PCP/ Referring MD: Requesting physician: Dr Carranza Primary care physician: No Primary Care Phys Reason for Consultation:: DARYL - History of Present Illness History of Present Illness: The patient is a 72 year old M who was admitted to the hospital 2 days ago with shortness of breath. Initial diagnosis was fluid overload. He has known history of COPD on home oxygen at 2 L/min. Apparently that has worsened prior to admission. He was initially treated with steroids, inhalers which did not help. Ended up getting intubated on Saturday night. Still on the vent. Failed spontaneous breathing trial this morning. On review of his records, it seems she has history of CKD stage III with baseline creatinine around 2. Apparently he is recently [facility] and [facility] at the [facility]. Review of systems could not be obtained. - Allergies Allergies: Allergies bee venom protein (honey bee) Allergy (Verified 09/17/18 13:12) Anaphylaxis - Current Medications Current Medications: Current Medications Acetaminophen (Tylenol) 650 mg PO Q6H PRN PRN PRN Reason: Mild pain 1-3/Temp > 100.7 F Albuterol Sulfate (Ventolin Aerosols) 2.5 mg INHALATION Q2H PRN PRN PRN Reason: SOB &/OR WHEEZING Albuterol/Ipratropium (Duoneb) 3 ml INHALATION Q4HWA.RT [facility] Last Admin: 09/19/18 11:05 Dose: 3 ml Chlorhexidine Gluconate () 15 ml PO BID [facility] Last Admin: 09/19/18 08:35 Dose: 15 ml Chlorhexidine Gluconate () 1 each TOPICAL DAILY [facility] Last Admin: 09/18/18 21:39 Dose: 1 each Dextrose (D50w Syringe) 0 gm IV X1 PRN; Protocol PRN Reason: Hypoglycemia Famotidine (Pepcid) 20 mg GT DAILY [facility] Last Admin: 09/19/18 08:34 Dose: 20 mg Glucagon () 1 mg IM .X1 PRN PRN Reason: Hypoglycemia Heparin Sodium (Porcine) (Heparin Na) 5,000 unit SC Q12 [facility] Last Admin: 09/19/18 08:34 Dose: 5,000 unit Hydralazine HCl (Apresoline Iv) 5 mg IV Q6H PRN PRN PRN Reason: BLOOD PRESSURE Fentanyl () 100 mls @ 5 mls/hr CONT INF .Q20H [facility] Last Admin: 09/19/18 10:39 Dose: 5 mls/hr Piperacillin Sod/Tazobactam (Sod 3.375 gm/ Sodium Chloride) 50 mls @ 12.5 mls/hr IV Q8 [facility] Last Admin: 09/19/18 06:07 Dose: 12.5 mls/hr Sodium Chloride () 250 mls @ 15 mls/hr IV .[id number] PRN PRN Reason: SALINE FLUSH Enteral Nutritional Formula (Vital Af 1.2 Best Liquid) 1,000 mls @ 60 mls/hr GT .[id number] [facility] Last Admin: 09/19/18 02:59 Dose: Not Given Sodium Chloride () 1,000 mls @ 125 mls/hr IV .Q8H [facility] Last Admin: 09/19/18 08:33 Dose: 125 mls/hr Dexmedetomidine HCl 400 mcg/ (Sodium Chloride) 100 mls @ 12.08 mls/hr CONT INF .Q8H17M [facility] Last Admin: 09/19/18 08:32 Dose: 12.08 mls/hr Insulin Glargine (Lantus (Bkc)) 40 units SC 06,18 [facility] Last Admin: 09/19/18 06:10 Dose: 40 u Insulin Human Lispro (Humalog Kwikpen (Bkc)) 0 unit SC Q6 [facility]; Protocol Last Admin: 09/19/18 11:57 Dose: Not Given Multi-Ingredient Cream (Eucerin) 1 applic TOPICAL BID PRN PRN; Protocol PRN Reason: DRY SKIN Nitroglycerin (Nitrostat) 0.4 mg SUBLINGUAL Q5M PRN PRN Reason: CARDIAC/CHEST PAIN Ondansetron HCl (Zofran) 4 mg IV Q8H PRN PRN PRN Reason: NAUSEA/VOMITING Prednisone () 40 mg PO 1200 [facility] Last Admin: 09/19/18 11:58 Dose: 40 mg Sodium Chloride () 5 - 15 ml IV UD PRN PRN Reason: SALINE FLUSH Sodium Chloride () 5 - 15 ml IV UD PRN PRN Reason: SALINE FLUSH - Past Medical History Past Medical History (Chronic Problems): Chronic Problems Generalized weakness (Chronic) Diabetes mellitus (Chronic) Hypertension (Chronic) Hyperlipidemia (Chronic) COPD (chronic obstructive pulmonary disease) (Chronic) Stroke (Chronic) Chronic kidney disease (Chronic) GERD (gastroesophageal reflux disease) (Chronic) CKD (chronic kidney disease) stage 3, GFR 30-59 ml/min (Chronic) Acute and chronic respiratory failure with hypoxia (Chronic) Diastolic CHF (Chronic) Acute and chronic respiratory failure (Chronic) Tobacco user (Chronic) Hypertensive retinopathy (Chronic) Benign essential HTN (Chronic) - Past Surgical History Surgical History: no surgical history - Social History Smoking Status: Former smoker - Family History Maternal History Items: Unknown Paternal History Items: Unknown Review of Systems Unable to obtain accurate/complete ROS d/t: mental status Patient Problems: Active and Suspected Problems PNA (pneumonia) (Acute) Respiratory acidosis (Acute) Comatose (Acute) DARYL (acute kidney injury) (Acute) - Physical Exam HEENT: Atraumatic, PERRLA, EOMI, Normocephalic Neck: Supple, No JVD, Negative Carotid Bruits Lungs: Clear to auscultation, Normal air movement Cardiovascular: Regular rate, No murmurs Abdomen: Bowel Sounds Present, Soft, Non Tender Extremities: No edema, Capillary Refill Less than 3 Seconds Skin: No rashes, No breakdown Musculoskeletal: No Tenderness to Palpation of Joints or Extremities Neurological: Cranial nerves II-XII grossly intact Vital Signs Temp Pulse Resp BP Pulse Ox 100.1 F H 64 18 157/66 H 93 09/19/18 12:00 09/19/18 12:00 09/19/18 12:00 09/19/18 12:00 09/19/18 12:00 Oxygen Flow Rate (L/min) 3 Oxygen Delivery Method Mechanical Ventilator Weight: 96.6 kg Body Mass Index (BMI) 32.0 Finger Stick Blood Glucose 240 Intake and Output for Last 24 Hours 09/17/18 09/18/18 09/19/18 23:59 23:59 23:59 Intake Total 125 / 125 1290.5 / 1290.5 1752 / 1752 Output Total 1005 / 1005 800 / 800 Balance 125 / 125 285.5 / 285.5 952 / 952 Microbiology Past 72 Hours 09/18/18 14:30 Gram Stain - Final Sputum, Induced/Lukens Respiratory Culture - Preliminary Appears to be normal respiratory lex. Further studies to follow. 09/17/18 20:40 Urine Culture - Preliminary Urine Catheter - Catheter Culture exhibits no growth. 09/17/18 20:20 Gram Stain - Final Sputum, Induced/Lukens Respiratory Culture - Preliminary Appears to be normal respiratory lex. Further studies to follow. 09/17/18 20:20 Respiratory Panel (PCR) - Final Mucosa - Nose Rhinovirus 09/18/18 07:30 Streptococcus pneumoniae Antigen (M - Final Urine Catheter - Michel 09/18/18 07:30 Legionella Antigen - Final Urine Catheter - Michel Laboratory Tests Past 24 Hrs 09/17/18 09/18/18 09/19/18 13:40 13:27 04:05 WBC 20.8 H RBC 4.06 L Hgb 11.9 L Hct 37.2 L MCV 91.6 MCH 29.3 MCHC 32.0 RDW 13.8 RDW Differential 46.5 H Plt Count 330 MPV 9.8 Immature Gran % (Auto) 1.600 H Neut % (Auto) 81.6 H Lymph % (Auto) 6.4 L Johnson % (Auto) 10.2 H Eos % (Auto) 0.0 Baso % (Auto) 0.2 Absolute Neuts (auto) 17.0 H Absolute Lymphs (auto) 1.33 Total Counted Not Reportable Diff Path Review Reviewed May foll Specimen Type ART Sample Site R Brachial pH 7.28 L Bicarbonate Actual 23.2 POC Total CO2 25 Base Excess -4 L O2 Saturation 93 L O2 % 35 ABG pCO2 49.4 H ABG pO2 77 Elias Test POS Respiration Rate 16 O2 Delivery Device Vent Vent Mode A-C Tidal Volume 500 POC PEEP 5 Blood Gas Notified Whom ICU MD Blood Gas Notified Time 1327 Sodium Potassium Chloride Carbon Dioxide Anion Gap BUN Creatinine Estim Creat Clear Calc Est GFR (MDRD) Af Amer Est GFR (MDRD) Non-Af BUN/Creatinine Ratio Glucose Calcium 09/19/18 04:05 WBC RBC Hgb Hct MCV MCH MCHC RDW RDW Differential Plt Count MPV Immature Gran % (Auto) Neut % (Auto) Lymph % (Auto) Johnson % (Auto) Eos % (Auto) Baso % (Auto) Absolute Neuts (auto) Absolute Lymphs (auto) Total Counted Diff Path Review Specimen Type Sample Site pH Bicarbonate Actual POC Total CO2 Base Excess O2 Saturation O2 % ABG pCO2 ABG pO2 Elias Test Respiration Rate O2 Delivery Device Vent Mode Tidal Volume POC PEEP Blood Gas Notified Whom Blood Gas Notified Time Sodium 144 Potassium 4.0 Chloride 111 H Carbon Dioxide 25.0 Anion Gap 8 BUN 70 H Creatinine 3.53 H Estim Creat Clear Calc 19.53 Est GFR (MDRD) Af Amer 22 L Est GFR (MDRD) Non-Af 18 L BUN/Creatinine Ratio 19.8 Glucose 225 H Calcium 8.8 POC Glucose 09/19/18 09/19/18 09/18/18 11:57 06:05 23:56 POC Glucose 147 H 160 H 218 H 09/18/18 17:58 POC Glucose 215 H Assessment/Plan All Active Problems Fall (Acute) Sepsis (Acute) Encephalopathy (Acute) Urinary tract infection (Acute) PNA (pneumonia) (Acute) Respiratory acidosis (Acute) Comatose (Acute) DARYL (acute kidney injury) (Acute) Acute renal failure Chronic kidney disease stage III. Baseline creatinine is around 2.0. Sustained acute renal failure. Creatinine is worsening and is up to 3.5 today. Renal u ltrasound has been done. Final read is pending. Reviewed images myself. Bladder is collapsed. I do not see any significant hydronephrosis. Urine analysis is dirty, urine culture negative. DARYL is likely hemodynamic. On discussion with the staff, urine output was fairly low yesterday, today urine output has improved significantly. Currently on half-normal saline at 125 cc an hour and he has made about 450 cc in the last 6 hours. Since urine output is improved and electrolytes are acceptable hold off on dialysis for now. We will continue to follow. Thank you for the consult.
[2018-09-19 14:17] LABS: Pathologist Review Reviewed
[2018-09-19] MEDS: hydrALAZINE 20 MG/ML Vial 5 MG IV (15:31)
[2018-09-19] MEDS: Vital AF 1.2 Cal Liquid 1,000 ML 60 ML GT (15:31)
[2018-09-19 17:25] LABS: Bedside Glucose 291 mg/dL (70-110)
[2018-09-20] VITALS (35 sets, daily range): BP systolic 144–167; BP diastolic 58–97; PULSE 61–115; RESP 14–33; TEMP 36.6–37.7; O2SAT 92–97
[2018-09-20 00:51] LABS: Bedside Glucose 262 mg/dL (70-110)
[2018-09-20] MEDS: Insulin Lispro 100 UNIT/ML INSULN.PEN SC ×4 (00:51→21:42)
[2018-09-20 04:39] LABS: Hematocrit 37.7 % (40-54); Hemoglobin 12.2 g/dl (13.0-16.5); Mean Corp Hgb Conc 32.4 g/gl (32-36); Mean Corpuscular Hgb 29.1 pg (27.0-32.0); Mean Platelet Vol. 9.7 fl (6.2-12.0); Platelet Count 327 K/mm3 (150-450); RBC Distribution Width CV 13.4 % (11.6-14.6); RBC Distribution Width SD 43.7 fl (35.1-43.9); Red Blood Count 4.19 M/mm3 (4.6-6.2); White Blood Count 18.2 K/mm3 (4.4-11.0)
[2018-09-20 04:42] LABS: Differential Indicated MANUAL DIFF; POSITIVE COUNT YES; POSITIVE DIFFERENTIAL YES; POSITIVE MORPHOLOGY YES
[2018-09-20 04:52] LABS: Anion Gap 8 (5-15); BUN 70 mg/dL (7-18); BUN/Creat Ratio 24.4 RATIO (10-20); Calcium,Total 8.5 mg/dL (8.5-10.1); Chloride 110 mmol/L (98-107); Creatinine, Serum 2.87 mg/dL (0.70-1.30); EST Glomerular Filtration Rate 23 mL/min (>60); Est Glom Filt Rate - Afr Amer 28 mL/min (>60); Estimated Creatinine Clearance 24.02 ml/min; Glucose 225 mg/dL (74-106); Potassium 4.1 mmol/L (3.5-5.1); Sodium Level 143 mmol/L (136-145)
[2018-09-20 05:03] LABS: Lymphocyte 16 % (19-41); Metamyelocyte 2 % (0-1); Monocyte 6 % (0-10); Neutrophil-Band 5 % (0-5); Neutrophil-Segmented 71 % (47-70); Nucleated Red Bld Cells,Manual 1 % (0-5); Total Cells Counted 100 (MANUAL DIFF)
[2018-09-20 05:04] LABS: Platelet Estimate ADEQUATE (ADEQ); Red Cell Morphology NORM C+C NORMAL (NORM C&C)
[2018-09-20 05:05] LABS: Absolute Lymphocyte Count 2.91 X10^3/ul (0.83-4.51); Absolute Neutrophil Count 13.8 X10^3/uL (2.0-7.7)
[2018-09-20] MEDS: 0.45% Normal Saline 1,000 ML 125 ML IV (06:18)
[2018-09-20] MEDS: CHLORHEXIDINE GLUC 2% CLOTH 1 EACH TOWELETTE TOPICAL (06:18)
[2018-09-20 06:31] LABS: Bedside Glucose 150 mg/dL (70-110)
[2018-09-20] MEDS: Ipratropium/Albuterol Sulfate 3 ML AMPUL.NEB INHALATION ×3 (06:31→19:06)
--- NOTE | 2018-09-20 06:40 | NURSING ---
Pt extubated to 4lpm NC w/out difficulty. ETT and OGT removed.
--- NOTE | 2018-09-20 07:07 | PCM.PN.INT ---
Subjective: The patient was seen and examined at the bedside this morning. Events from the last 24 hours have been reviewed. The patient has had low-grade fevers overnight, likely secondary to the use of Precedex. He remains mechanically ventilated with an FiO2 requirement of 35%. The patient is currently doing well on his spontaneous breathing trial. He is alert and able to follow commands appropriately. The patient is currently documented to be overall net +3.7 L for the admission. Urine output has been good. Creatinine is improving. Objective: The patient's most recent lab work, culture data and imaging studies have all been personally reviewed. Surface echocardiogram dated September 18 revealed normal LV size and function with an ejection fraction of 65%. Diastolic function was indeterminate. Right ventricular systolic pressure was unable to be estimated. Moderate aortic stenosis was noted. Blood and urine cultures are pending. Sputum culture appears to be normal respiratory lex. Strep and urine Legionella antigens were both negative. Respiratory viral panel was positive for rhinovirus. Renal ultrasound revealed normal kidneys. General: Alert, Cooperative, - - Remains intubated and mechanically ventilated. Currently tolerating spontaneous mode of mechanical ventilation without issue. HEENT: Atraumatic, PERRLA, Normocephalic Oral: No Gingival or Mucosal Lesions/ Ulcerations, - - Endotracheal and OG tubes in place Neck: Supple, No Nodes, Trachea Midline Lungs: No rhonchi, No wheeze, No rales, Diminished Cardiovascular: Regular rate, Regular Rhythm, Normal S1, Normal S2, Murmur Abdomen: Bowel Sounds Present, Soft, Non Tender, Obese Extremities: No clubbing, No cyanosis, No edema Skin: No breakdown Musculoskeletal: No Muscle Wasting Lymphatic: No Cervical, Supraclavicular, or Inguinal Adenopathy Neurological: - - No focal neurological deficits. Alert and able to follow commands appropriately. Vital Signs Temp Pulse Resp BP Pulse Ox 99.9 F H 65 28 H 144/67 H 94 09/20/18 06:00 09/20/18 06:00 09/20/18 06:00 09/20/18 06:00 09/20/18 06:00 Oxygen Flow Rate (L/min) 3 Oxygen Delivery Method Mechanical Ventilator Weight: 216 lb 0.848 oz Body Mass Index (BMI) 32.0 Finger Stick Blood Glucose 150 Intake and Output for Last 24 Hours 09/18/18 09/19/18 09/20/18 23:59 23:59 23:59 Intake Total 1290.5 / 1290.5 4429 / 4429 1452 / 1452 Output Total 1005 / 1005 1900 / 1900 600 / 600 Balance 285.5 / 285.5 2529 / 2529 852 / 852 Labs (Last 48 Hours) 09/17/18 09/18/18 09/18/18 13:40 04:15 04:15 WBC RBC Hgb Hct MCV MCH MCHC RDW RDW Differential Plt Count MPV Immature Gran % (Auto) Neut % (Auto) Lymph % (Auto) Greer % (Auto) Eos % (Auto) Baso % (Auto) Absolute Neuts (auto) Absolute Lymphs (auto) Total Counted Neutrophils % (Manual) Band Neutrophils % Lymphocytes % (Manual) Monocytes % (Manual) Metamyelocytes % Nucleated RBCs/100 WBC Diff Path Review Reviewed Platelet Estimate RBC Morphology Specimen Type Sample Site pH Bicarbonate Actual POC Total CO2 Base Excess O2 Saturation O2 % ABG pCO2 ABG pO2 Elias Test Respiration Rate O2 Delivery Device Vent Mode Tidal Volume POC PEEP Blood Gas Notified Whom Blood Gas Notified Time Sodium Potassium Chloride Carbon Dioxide Anion Gap BUN Creatinine Estim Creat Clear Calc Est GFR (MDRD) Af Amer Est GFR (MDRD) Non-Af BUN/Creatinine Ratio Glucose Calcium Total Bilirubin 0.50 Direct Bilirubin 0.18 AST 12 L ALT 18 Alkaline Phosphatase 96 Total Creatine Kinase Cancelled Total Protein 7.0 Albumin 2.3 L Globulin 4.7 H Triglycerides MRSA (PCR) POC Glucose 09/18/18 09/18/18 09/18/18 04:15 07:35 12:17 WBC RBC Hgb Hct MCV MCH MCHC RDW RDW Differential Plt Count MPV Immature Gran % (Auto) Neut % (Auto) Lymph % (Auto) Greer % (Auto) Eos % (Auto) Baso % (Auto) Absolute Neuts (auto) Absolute Lymphs (auto) Total Counted Neutrophils % (Manual) Band Neutrophils % Lymphocytes % (Manual) Monocytes % (Manual) Metamyelocytes % Nucleated RBCs/100 WBC Diff Path Review Platelet Estimate RBC Morphology Specimen Type Sample Site pH Bicarbonate Actual POC Total CO2 Base Excess O2 Saturation O2 % ABG pCO2 ABG pO2 Elias Test Respiration Rate O2 Delivery Device Vent Mode Tidal Volume POC PEEP Blood Gas Notified Whom Blood Gas Notified Time Sodium Potassium Chloride Carbon Dioxide Anion Gap BUN Creatinine Estim Creat Clear Calc Est GFR (MDRD) Af Amer Est GFR (MDRD) Non-Af BUN/Creatinine Ratio Glucose Calcium Total Bilirubin Direct Bilirubin AST ALT Alkaline Phosphatase Total Creatine Kinase Total Protein Albumin Globulin Triglycerides Cancelled MRSA (PCR) Negative POC Glucose 198 H 09/18/18 09/18/18 09/18/18 13:27 17:58 23:56 WBC RBC Hgb Hct MCV MCH MCHC RDW RDW Differential Plt Count MPV Immature Gran % (Auto) Neut % (Auto) Lymph % (Auto) Greer % (Auto) Eos % (Auto) Baso % (Auto) Absolute Neuts (auto) Absolute Lymphs (auto) Total Counted Neutrophils % (Manual) Band Neutrophils % Lymphocytes % (Manual) Monocytes % (Manual) Metamyelocytes % Nucleated RBCs/100 WBC Diff Path Review Platelet Estimate RBC Morphology Specimen Type ART Sample Site R Brachial pH 7.28 L Bicarbonate Actual 23.2 POC Total CO2 25 Base Excess -4 L O2 Saturation 93 L O2 % 35 ABG pCO2 49.4 H ABG pO2 77 Elias Test POS Respiration Rate 16 O2 Delivery Device Vent Vent Mode A-C Tidal Volume 500 POC PEEP 5 Blood Gas Notified Whom ICU MD Blood Gas Notified Time 1327 Sodium Potassium Chloride Carbon Dioxide Anion Gap BUN Creatinine Estim Creat Clear Calc Est GFR (MDRD) Af Amer Est GFR (MDRD) Non-Af BUN/Creatinine Ratio Glucose Calcium Total Bilirubin Direct Bilirubin AST ALT Alkaline Phosphatase Total Creatine Kinase Total Protein Albumin Globulin Triglycerides MRSA (PCR) POC Glucose 215 H 218 H 09/19/18 09/19/18 09/19/18 04:05 04:05 06:05 WBC 20.8 H RBC 4.06 L Hgb 11.9 L Hct 37.2 L MCV 91.6 MCH 29.3 MCHC 32.0 RDW 13.8 RDW Differential 46.5 H Plt Count 330 MPV 9.8 Immature Gran % (Auto) 1.600 H Neut % (Auto) 81.6 H Lymph % (Auto) 6.4 L Greer % (Auto) 10.2 H Eos % (Auto) 0.0 Baso % (Auto) 0.2 Absolute Neuts (auto) 17.0 H Absolute Lymphs (auto) 1.33 Total Counted Not Reportable Neutrophils % (Manual) Band Neutrophils % Lymphocytes % (Manual) Monocytes % (Manual) Metamyelocytes % Nucleated RBCs/100 WBC Diff Path Review Reviewed Platelet Estimate RBC Morphology Specimen Type Sample Site pH Bicarbonate Actual POC Total CO2 Base Excess O2 Saturation O2 % ABG pCO2 ABG pO2 Elias Test Respiration Rate O2 Delivery Device Vent Mode Tidal Volume POC PEEP Blood Gas Notified Whom Blood Gas Notified Time Sodium 144 Potassium 4.0 Chloride 111 H Carbon Dioxide 25.0 Anion Gap 8 BUN 70 H Creatinine 3.53 H Estim Creat Clear Calc 19.53 Est GFR (MDRD) Af Amer 22 L Est GFR (MDRD) Non-Af 18 L BUN/Creatinine Ratio 19.8 Glucose 225 H Calcium 8.8 Total Bilirubin Direct Bilirubin AST ALT Alkaline Phosphatase Total Creatine Kinase Total Protein Albumin Globulin Triglycerides MRSA (PCR) POC Glucose 160 H 09/19/18 09/19/18 09/20/18 11:57 17:19 00:37 WBC RBC Hgb Hct MCV MCH MCHC RDW RDW Differential Plt Count MPV Immature Gran % (Auto) Neut % (Auto) Lymph % (Auto) Greer % (Auto) Eos % (Auto) Baso % (Auto) Absolute Neuts (auto) Absolute Lymphs (auto) Total Counted Neutrophils % (Manual) Band Neutrophils % Lymphocytes % (Manual) Monocytes % (Manual) Metamyelocytes % Nucleated RBCs/100 WBC Diff Path Review Platelet Estimate RBC Morphology Specimen Type Sample Site pH Bicarbonate Actual POC Total CO2 Base Excess O2 Saturation O2 % ABG pCO2 ABG pO2 Elias Test Respiration Rate O2 Delivery Device Vent Mode Tidal Volume POC PEEP Blood Gas Notified Whom Blood Gas Notified Time Sodium Potassium Chloride Carbon Dioxide Anion Gap BUN Creatinine Estim Creat Clear Calc Est GFR (MDRD) Af Amer Est GFR (MDRD) Non-Af BUN/Creatinine Ratio Glucose Calcium Total Bilirubin Direct Bilirubin AST ALT Alkaline Phosphatase Total Creatine Kinase Total Protein Albumin Globulin Triglycerides MRSA (PCR) POC Glucose 147 H 291 H 262 H 09/20/18 09/20/18 09/20/18 04:25 04:25 06:16 WBC 18.2 H RBC 4.19 L Hgb 12.2 L Hct 37.7 L MCV 90.0 MCH 29.1 MCHC 32.4 RDW 13.4 RDW Differential 43.7 Plt Count 327 MPV 9.7 Immature Gran % (Auto) Neut % (Auto) Not Reportable Lymph % (Auto) Greer % (Auto) Eos % (Auto) Baso % (Auto) Absolute Neuts (auto) 13.8 H Absolute Lymphs (auto) 2.91 Total Counted 100 Neutrophils % (Manual) 71 H Band Neutrophils % 5 Lymphocytes % (Manual) 16 L Monocytes % (Manual) 6 Metamyelocytes % 2 H Nucleated RBCs/100 WBC 1 Diff Path Review May foll Platelet Estimate ADEQUATE RBC Morphology NORM C+C Specimen Type Sample Site pH Bicarbonate Actual POC Total CO2 Base Excess O2 Saturation O2 % ABG pCO2 ABG pO2 Elias Test Respiration Rate O2 Delivery Device Vent Mode Tidal Volume POC PEEP Blood Gas Notified Whom Blood Gas Notified Time Sodium 143 Potassium 4.1 Chloride 110 H Carbon Dioxide 25.0 Anion Gap 8 BUN 70 H Creatinine 2.87 H Estim Creat Clear Calc 24.02 Est GFR (MDRD) Af Amer 28 L Est GFR (MDRD) Non-Af 23 L BUN/Creatinine Ratio 24.4 H Glucose 225 H Calcium 8.5 Total Bilirubin Direct Bilirubin AST ALT Alkaline Phosphatase Total Creatine Kinase Total Protein Albumin Globulin Triglycerides MRSA (PCR) POC Glucose 150 H Microbiology 09/17/18 13:44 Blood Culture (Wb) #2 - Right Hand Blood Culture - Preliminary No growth in 48 hours. 09/17/18 13:40 Blood Culture (Wb) - Anticubital Left Blood Culture - Preliminary No growth in 48 hours. 09/18/18 14:30 Sputum, Induced/Lukens Gram Stain - Final 09/18/18 14:30 Sputum, Induced/Lukens Respiratory Culture - Preliminary Appears to be normal respiratory lex. Further studies to follow. 09/17/18 20:40 Urine Catheter - Catheter Urine Culture - Preliminary Culture exhibits no growth. 09/17/18 20:20 Sputum, Induced/Lukens Gram Stain - Final 09/17/18 20:20 Sputum, Induced/Lukens Respiratory Culture - Preliminary Appears to be normal respiratory lex. Further studies to follow. 09/17/18 20:20 Mucosa - Nose Respiratory Panel (PCR) - Final Rhinovirus 09/18/18 07:30 Urine Catheter - Michel Streptococcus pneumoniae Antigen (M - Final 09/18/18 07:30 Urine Catheter - Michel Legionella Antigen - Final Clinical Impression(s) from Imaging Studies Chest X-Ray 09/17/18 14:10 IMPRESSION: Increased interstitial markings as described. This may represent vascular congestion. Electronically Signed: Oscar Alvarez, at 14:33 EDT , Service support , Chest X-Ray 09/17/18 20:15 IMPRESSION: Endotracheal tube in proper position as above. Prominent interstitial markings with areas of patchy airspace disease not excluded somewhat improved compared to previous exam. Electronically Signed: Mirza Santiago DO at 21:15 EDT , Service support , KUB X-Ray 09/17/18 20:30 IMPRESSION: OG tube not seen entering the GE junction or stomach region with prior chest film showing NG tube likely terminating in the midesophagus. Exam is limited by overlying lines and tubes in the chest. Electronically Signed: Mirza Santiago DO at 21:17 EDT , Service support , Chest X-Ray 09/18/18 05:20 IMPRESSION: Stable examination. Electronically Signed: Oscar Alvarez, at 8:59 EDT , Service support , KUB X-Ray 09/18/18 09:05 IMPRESSION: The tip of the orogastric tube is in the distal portion of the stomach. Electronically Signed: Oscar Alvarez, at 9:33 EDT , Service support , Renal Ultrasound 09/19/18 06:55 IMPRESSION: Normal ultrasound of the kidneys. Electronically Signed: Oscar Alvarez, at 13:14 EDT , Service support , Medical Necessity - Tobacco Use Smoking Status: Former smoker Tobacco Use: Cigarettes Assessment/Plan All Active Problems Fall (Acute) Sepsis (Acute) Encephalopathy (Acute) Urinary tract infection (Acute) PNA (pneumonia) (Acute) Respiratory acidosis (Acute) Comatose (Acute) DARYL (acute kidney injury) (Acute) RECOMMENDATIONS: 1. Proceed with a trial of extubation this morning. 2. Once extubated, wean supplemental oxygen to maintain saturations at or above 90%. 3. Okay to perform bedside swallow evaluation and advance diet accordingly. 4. Continue supplemental fluid hydration until the patient's diet is able to be advanced. 5. Continue scheduled bronchodilators and prednisone. 6. Continue subcutaneous heparin and Pepcid for prophylaxis. 7. Continue Lantus and sliding scale insulin coverage. 8. Encourage incentive spirometer use and mobilize patient as tolerated. IMPRESSIONS: 1. Acute on chronic hypoxemic and hypercarbic respiratory failure secondary to presumptive COPD with exacerbation Secondary to rhinovirus URI and suspected community acquired pneumonia. Continue antibiotics as ordered. The patient will be continued on scheduled bronchodilators and prednisone. The patient was able to be weaned from invasive mechanical ventilatory support on the morning of September 20. Recommend weaning supplemental oxygen to maintain saturations at or above 90%. Perform bedside swallow evaluation and advance diet accordingly. Encourage incentive spirometer use and mobilize patient as tolerated. Once the patient's diet is able to be advanced, supplemental IV fluids can be discontinued. 2. Severe sepsis 2/2 Rhinovirus URI and suspected CAP Continue current antimicrobial coverage. The patient remains hemodynamically stable. 3. Long-standing tobacco abuse history As noted above, clinical concern for underlying obstructive lung disease. We will continue bronchodilators and wean FiO2 as tolerated. Recommend outpatient pulmonary follow-up and baseline pulmonary function studies. Smoking cessation is advisable. Nicotine replacement therapy can be offered to the patient while admitted to the hospital. 4. Acute on chronic kidney disease Improving. Renal function initially worsened in the setting of diuretic therapy on admission to the hospital. All diuretics and potentially nephrotoxic medications were discontinued. Nephrology is currently following. Renal ultrasound was unremarkable. Creatinine and urine output has improved in the setting of IV fluid hydration. We will plan to continue supplemental IV fluids, until the patient's diet can be advanced. 5. Diabetes mellitus/baseline MRDD/hypertension Complicates care, management, recovery and prognosis. Continue basal insulin and sliding scale insulin coverage. TIME: 40 minutes of critical care time, independent of procedures, was spent addressing the patient's acute on chronic combined respiratory failure, COPD with exacerbation, severe sepsis, long-standing tobacco dependency, acute on chronic kidney disease, review of all data and collaboration with the care team. ([id number]) Code Visit 9xxxx: [id number] Critical care first hour
--- NOTE | 2018-09-20 07:10 | PN_ITS ---
Subjective: The patient was seen and examined at the bedside this morning. Events from the last 24 hours have been reviewed. The patient has had low-grade fevers overnight, likely secondary to the use of Precedex. He remains mechanically ventilated with an FiO2 requirement of 35%. The patient is currently doing well on his spontaneous breathing trial. He is alert and able to follow commands appropriately. The patient is currently documented to be overall net +3.7 L for the admission. Urine output has been good. Creatinine is improving. Objective: The patient's most recent lab work, culture data and imaging studies have all been personally reviewed. Surface echocardiogram dated September 18 revealed normal LV size and function with an ejection fraction of 65%. Diastolic function was indeterminate. Right ventricular systolic pressure was unable to be estimated. Moderate aortic stenosis was noted. Blood and urine cultures are pending. Sputum culture appears to be normal respiratory lex. Strep and urine Legionella antigens were both negative. Respiratory viral panel was positive for rhinovirus. Renal ultrasound revealed normal kidneys. General: Alert, Cooperative, - - Remains intubated and mechanically ventilated. Currently tolerating spontaneous mode of mechanical ventilation without issue. HEENT: Atraumatic, PERRLA, Normocephalic Oral: No Gingival or Mucosal Lesions/ Ulcerations, - - Endotracheal and OG tubes in place Neck: Supple, No Nodes, Trachea Midline Lungs: No rhonchi, No wheeze, No rales, Diminished Cardiovascular: Regular rate, Regular Rhythm, Normal S1, Normal S2, Murmur Abdomen: Bowel Sounds Present, Soft, Non Tender, Obese Extremities: No clubbing, No cyanosis, No edema Skin: No breakdown Musculoskeletal: No Muscle Wasting Lymphatic: No Cervical, Supraclavicular, or Inguinal Adenopathy Neurological: - - No focal neurological deficits. Alert and able to follow commands appropriately. Vital Signs Temp Pulse Resp BP Pulse Ox 99.9 F H 65 28 H 144/67 H 94 09/20/18 06:00 09/20/18 06:00 09/20/18 06:00 09/20/18 06:00 09/20/18 06:00 Oxygen Flow Rate (L/min) 3 Oxygen Delivery Method Mechanical Ventilator Weight: 216 lb 0.848 oz Body Mass Index (BMI) 32.0 Finger Stick Blood Glucose 150 Intake and Output for Last 24 Hours 09/18/18 09/19/18 09/20/18 23:59 23:59 23:59 Intake Total 1290.5 / 1290.5 4429 / 4429 1452 / 1452 Output Total 1005 / 1005 1900 / 1900 600 / 600 Balance 285.5 / 285.5 2529 / 2529 852 / 852 Labs (Last 48 Hours) 09/17/18 09/18/18 09/18/18 13:40 04:15 04:15 WBC RBC Hgb Hct MCV MCH MCHC RDW RDW Differential Plt Count MPV Immature Gran % (Auto) Neut % (Auto) Lymph % (Auto) [place] % (Auto) Eos % (Auto) Baso % (Auto) Absolute Neuts (auto) Absolute Lymphs (auto) Total Counted Neutrophils % (Manual) Band Neutrophils % Lymphocytes % (Manual) Monocytes % (Manual) Metamyelocytes % Nucleated RBCs/100 WBC Diff Path Review Reviewed Platelet Estimate RBC Morphology Specimen Type Sample Site pH Bicarbonate Actual POC Total CO2 Base Excess O2 Saturation O2 % ABG pCO2 ABG pO2 Elias Test Respiration Rate O2 Delivery Device Vent Mode Tidal Volume POC PEEP Blood Gas Notified Whom Blood Gas Notified Time Sodium Potassium Chloride Carbon Dioxide Anion Gap BUN Creatinine Estim Creat Clear Calc Est GFR (MDRD) Af Amer Est GFR (MDRD) Non-Af BUN/Creatinine Ratio Glucose Calcium Total Bilirubin 0.50 Direct Bilirubin 0.18 AST 12 L ALT 18 Alkaline Phosphatase 96 Total Creatine Kinase Cancelled Total Protein 7.0 Albumin 2.3 L Globulin 4.7 H Triglycerides MRSA (PCR) POC Glucose 09/18/18 09/18/18 09/18/18 04:15 07:35 12:17 WBC RBC Hgb Hct MCV MCH MCHC RDW RDW Differential Plt Count MPV Immature Gran % (Auto) Neut % (Auto) Lymph % (Auto) [place] % (Auto) Eos % (Auto) Baso % (Auto) Absolute Neuts (auto) Absolute Lymphs (auto) Total Counted Neutrophils % (Manual) Band Neutrophils % Lymphocytes % (Manual) Monocytes % (Manual) Metamyelocytes % Nucleated RBCs/100 WBC Diff Path Review Platelet Estimate RBC Morphology Specimen Type Sample Site pH Bicarbonate Actual POC Total CO2 Base Excess O2 Saturation O2 % ABG pCO2 ABG pO2 Elias Test Respiration Rate O2 Delivery Device Vent Mode Tidal Volume POC PEEP Blood Gas Notified Whom Blood Gas Notified Time Sodium Potassium Chloride Carbon Dioxide Anion Gap BUN Creatinine Estim Creat Clear Calc Est GFR (MDRD) Af Amer Est GFR (MDRD) Non-Af BUN/Creatinine Ratio Glucose Calcium Total Bilirubin Direct Bilirubin AST ALT Alkaline Phosphatase Total Creatine Kinase Total Protein Albumin Globulin Triglycerides Cancelled MRSA (PCR) Negative POC Glucose 198 H 09/18/18 09/18/18 09/18/18 13:27 17:58 23:56 WBC RBC Hgb Hct MCV MCH MCHC RDW RDW Differential Plt Count MPV Immature Gran % (Auto) Neut % (Auto) Lymph % (Auto) [place] % (Auto) Eos % (Auto) Baso % (Auto) Absolute Neuts (auto) Absolute Lymphs (auto) Total Counted Neutrophils % (Manual) Band Neutrophils % Lymphocytes % (Manual) Monocytes % (Manual) Metamyelocytes % Nucleated RBCs/100 WBC Diff Path Review Platelet Estimate RBC Morphology Specimen Type ART Sample Site R Brachial pH 7.28 L Bicarbonate Actual 23.2 POC Total CO2 25 Base Excess -4 L O2 Saturation 93 L O2 % 35 ABG pCO2 49.4 H ABG pO2 77 Elias Test POS Respiration Rate 16 O2 Delivery Device Vent Vent Mode A-C Tidal Volume 500 POC PEEP 5 Blood Gas Notified Whom ICU MD Blood Gas Notified Time 1327 Sodium Potassium Chloride Carbon Dioxide Anion Gap BUN Creatinine Estim Creat Clear Calc Est GFR (MDRD) Af Amer Est GFR (MDRD) Non-Af BUN/Creatinine Ratio Glucose Calcium Total Bilirubin Direct Bilirubin AST ALT Alkaline Phosphatase Total Creatine Kinase Total Protein Albumin Globulin Triglycerides MRSA (PCR) POC Glucose 215 H 218 H 09/19/18 09/19/18 09/19/18 04:05 04:05 06:05 WBC 20.8 H RBC 4.06 L Hgb 11.9 L Hct 37.2 L MCV 91.6 MCH 29.3 MCHC 32.0 RDW 13.8 RDW Differential 46.5 H Plt Count 330 MPV 9.8 Immature Gran % (Auto) 1.600 H Neut % (Auto) 81.6 H Lymph % (Auto) 6.4 L [place] % (Auto) 10.2 H Eos % (Auto) 0.0 Baso % (Auto) 0.2 Absolute Neuts (auto) 17.0 H Absolute Lymphs (auto) 1.33 Total Counted Not Reportable Neutrophils % (Manual) Band Neutrophils % Lymphocytes % (Manual) Monocytes % (Manual) Metamyelocytes % Nucleated RBCs/100 WBC Diff Path Review Reviewed Platelet Estimate RBC Morphology Specimen Type Sample Site pH Bicarbonate Actual POC Total CO2 Base Excess O2 Saturation O2 % ABG pCO2 ABG pO2 Elias Test Respiration Rate O2 Delivery Device Vent Mode Tidal Volume POC PEEP Blood Gas Notified Whom Blood Gas Notified Time Sodium 144 Potassium 4.0 Chloride 111 H Carbon Dioxide 25.0 Anion Gap 8 BUN 70 H Creatinine 3.53 H Estim Creat Clear Calc 19.53 Est GFR (MDRD) Af Amer 22 L Est GFR (MDRD) Non-Af 18 L BUN/Creatinine Ratio 19.8 Glucose 225 H Calcium 8.8 Total Bilirubin Direct Bilirubin AST ALT Alkaline Phosphatase Total Creatine Kinase Total Protein Albumin Globulin Triglycerides MRSA (PCR) POC Glucose 160 H 09/19/18 09/19/18 09/20/18 11:57 17:19 00:37 WBC RBC Hgb Hct MCV MCH MCHC RDW RDW Differential Plt Count MPV Immature Gran % (Auto) Neut % (Auto) Lymph % (Auto) [place] % (Auto) Eos % (Auto) Baso % (Auto) Absolute Neuts (auto) Absolute Lymphs (auto) Total Counted Neutrophils % (Manual) Band Neutrophils % Lymphocytes % (Manual) Monocytes % (Manual) Metamyelocytes % Nucleated RBCs/100 WBC Diff Path Review Platelet Estimate RBC Morphology Specimen Type Sample Site pH Bicarbonate Actual POC Total CO2 Base Excess O2 Saturation O2 % ABG pCO2 ABG pO2 Elias Test Respiration Rate O2 Delivery Device Vent Mode Tidal Volume POC PEEP Blood Gas Notified Whom Blood Gas Notified Time Sodium Potassium Chloride Carbon Dioxide Anion Gap BUN Creatinine Estim Creat Clear Calc Est GFR (MDRD) Af Amer Est GFR (MDRD) Non-Af BUN/Creatinine Ratio Glucose Calcium Total Bilirubin Direct Bilirubin AST ALT Alkaline Phosphatase Total Creatine Kinase Total Protein Albumin Globulin Triglycerides MRSA (PCR) POC Glucose 147 H 291 H 262 H 09/20/18 09/20/18 09/20/18 04:25 04:25 06:16 WBC 18.2 H RBC 4.19 L Hgb 12.2 L Hct 37.7 L MCV 90.0 MCH 29.1 MCHC 32.4 RDW 13.4 RDW Differential 43.7 Plt Count 327 MPV 9.7 Immature Gran % (Auto) Neut % (Auto) Not Reportable Lymph % (Auto) [place] % (Auto) Eos % (Auto) Baso % (Auto) Absolute Neuts (auto) 13.8 H Absolute Lymphs (auto) 2.91 Total Counted 100 Neutrophils % (Manual) 71 H Band Neutrophils % 5 Lymphocytes % (Manual) 16 L Monocytes % (Manual) 6 Metamyelocytes % 2 H Nucleated RBCs/100 WBC 1 Diff Path Review May foll Platelet Estimate ADEQUATE RBC Morphology NORM C+C Specimen Type Sample Site pH Bicarbonate Actual POC Total CO2 Base Excess O2 Saturation O2 % ABG pCO2 ABG pO2 Elias Test Respiration Rate O2 Delivery Device Vent Mode Tidal Volume POC PEEP Blood Gas Notified Whom Blood Gas Notified Time Sodium 143 Potassium 4.1 Chloride 110 H Carbon Dioxide 25.0 Anion Gap 8 BUN 70 H Creatinine 2.87 H Estim Creat Clear Calc 24.02 Est GFR (MDRD) Af Amer 28 L Est GFR (MDRD) Non-Af 23 L BUN/Creatinine Ratio 24.4 H Glucose 225 H Calcium 8.5 Total Bilirubin Direct Bilirubin AST ALT Alkaline Phosphatase Total Creatine Kinase Total Protein Albumin Globulin Triglycerides MRSA (PCR) POC Glucose 150 H Microbiology 09/17/18 13:44 Blood Culture (Wb) #2 - Right Hand Blood Culture - Preliminary No growth in 48 hours. 09/17/18 13:40 Blood Culture (Wb) - Anticubital Left Blood Culture - Preliminary No growth in 48 hours. 09/18/18 14:30 Sputum, Induced/Lukens Gram Stain - Final 09/18/18 14:30 Sputum, Induced/Lukens Respiratory Culture - Preliminary Appears to be normal respiratory lex. Further studies to follow. 09/17/18 20:40 Urine Catheter - Catheter Urine Culture - Preliminary Culture exhibits no growth. 09/17/18 20:20 Sputum, Induced/Lukens Gram Stain - Final 09/17/18 20:20 Sputum, Induced/Lukens Respiratory Culture - Preliminary Appears to be normal respiratory lex. Further studies to follow. 09/17/18 20:20 Mucosa - Nose Respiratory Panel (PCR) - Final Rhinovirus 09/18/18 07:30 Urine Catheter - Michel Streptococcus pneumoniae Antigen (M - Final 09/18/18 07:30 Urine Catheter - Michel Legionella Antigen - Final Clinical Impression(s) from Imaging Studies Chest X-Ray 09/17/18 14:10 IMPRESSION: Increased interstitial markings as described. This may represent vascular congestion. Electronically Signed: Oscar Alvarez, at 14:33 EDT , Service support , Chest X-Ray 09/17/18 20:15 IMPRESSION: Endotracheal tube in proper position as above. Prominent interstitial markings with areas of patchy airspace disease not excluded somewhat improved compared to previous exam. Electronically Signed: Mirza Santiago DO at 21:15 EDT , Service support , KUB X-Ray 09/17/18 20:30 IMPRESSION: OG tube not seen entering the GE junction or stomach region with prior chest film showing NG tube likely terminating in the midesophagus. Exam is limited by overlying lines and tubes in the chest. Electronically Signed: Mirza Santiago DO at 21:17 EDT , Service support , Chest X-Ray 09/18/18 05:20 IMPRESSION: Stable examination. Electronically Signed: Oscar Alvarez, at 8:59 EDT , Service support , KUB X-Ray 09/18/18 09:05 IMPRESSION: The tip of the orogastric tube is in the distal portion of the stomach. Electronically Signed: Oscar Alvarez, at 9:33 EDT , Service support , Renal Ultrasound 09/19/18 06:55 IMPRESSION: Normal ultrasound of the kidneys. Electronically Signed: Oscar Alvarez, at 13:14 EDT , Service support , Medical Necessity - Tobacco Use Smoking Status: Former smoker Tobacco Use: Cigarettes Assessment/Plan All Active Problems Fall (Acute) Sepsis (Acute) Encephalopathy (Acute) Urinary tract infection (Acute) PNA (pneumonia) (Acute) Respiratory acidosis (Acute) Comatose (Acute) DARYL (acute kidney injury) (Acute) RECOMMENDATIONS: 1. Proceed with a trial of extubation this morning. 2. Once extubated, wean supplemental oxygen to maintain saturations at or above 90%. 3. Okay to perform bedside swallow evaluation and advance diet accordingly. 4. Continue supplemental fluid hydration until the patient's diet is able to be advanced. 5. Continue scheduled bronchodilators and prednisone. 6. Continue subcutaneous heparin and Pepcid for prophylaxis. 7. Continue Lantus and sliding scale insulin coverage. 8. Encourage incentive spirometer use and mobilize patient as tolerated. IMPRESSIONS: 1. Acute on chronic hypoxemic and hypercarbic respiratory failure secondary to presumptive COPD with exacerbation Secondary to rhinovirus URI and suspected community acquired pneumonia. Continue antibiotics as ordered. The patient will be continued on scheduled bronchodilators and prednisone. The patient was able to be weaned from invasive mechanical ventilatory support on the morning of September 20. Recommend weaning supplemental oxygen to maintain saturations at or above 90%. Perform bedside swallow evaluation and advance diet accordingly. Encourage incentive spirometer use and mobilize patient as tolerated. Once the patient's diet is able to be advanced, supplemental IV fluids can be discontinued. 2. Severe sepsis 2/2 Rhinovirus URI and suspected CAP Continue current antimicrobial coverage. The patient remains hemodynamically stable. 3. Long-standing tobacco abuse history As noted above, clinical concern for underlying obstructive lung disease. We will continue bronchodilators and wean FiO2 as tolerated. Recommend outpatient pulmonary follow-up and baseline pulmonary function studies. Smoking cessation is advisable. Nicotine replacement therapy can be offered to the patient while admitted to the hospital. 4. Acute on chronic kidney disease Improving. Renal function initially worsened in the setting of diuretic therapy on admission to the hospital. All diuretics and potentially nephrotoxic medications were discontinued. Nephrology is currently following. Renal ultrasound was unremarkable. Creatinine and urine output has improved in the setting of IV fluid hydration. We will plan to continue supplemental IV fluids, until the patient's diet can be advanced. 5. Diabetes mellitus/baseline MRDD/hypertension Complicates care, management, recovery and prognosis. Continue basal insulin and sliding scale insulin coverage. TIME: 40 minutes of critical care time, independent of procedures, was spent addressing the patient's acute on chronic combined respiratory failure, COPD with exacerbation, severe sepsis, long-standing tobacco dependency, acute on chronic kidney disease, review of all data and collaboration with the care team. ([id number]) Code Visit 9xxxx: [id number] Critical care first hour
--- NOTE | 2018-09-20 09:28 | CM.UR ---
Participated in inter-disciplinary rounds. Patient was extubated this am. He lives in [facility]. He is agreeable to home care and/or SNF placement. Will await PT/OT evals--to be completed today. Remains on oxygen. Green sheet placed on chart for o2 should he discharge back to [facility]. Discharge plan: Back to [facility] vs SNF. CM to continue to follow. Josie Sullivan RN, CCM.
--- NOTE | 2018-09-20 09:45 | PCM.PN.HOSP ---
Patient Problems: Active and Suspected Problems PNA (pneumonia) (Acute) Respiratory acidosis (Acute) Comatose (Acute) DARYL (acute kidney injury) (Acute) Subjective: Patient seen and examined. He was successfully extubated earlier today. He was saturating well on 3 L of oxygen and had no complaints. He denied any chest pain but did admit to a cough which helped clear the mucus. He denied any fever or chills, palpitations or dizziness, diarrhea vomiting. Review of systems otherwise negative. Labs and vitals reviewed. He was noted to have a low-grade fever which peaked at 99.6 Fahrenheit. Creatinine is trended down to 2.87. Vitals/I&O's: Vital Signs Temp Pulse Resp BP Pulse Ox 99.6 F H 85 27 H 159/62 H 93 09/20/18 07:00 09/20/18 09:00 09/20/18 09:00 09/20/18 09:00 09/20/18 09:00 Oxygen Flow Rate (L/min) 4 Oxygen Delivery Method Nasal Cannula Weight: 216 lb 0.848 oz Body Mass Index (BMI) 32.0 Finger Stick Blood Glucose 150 Intake and Output for Last 24 Hours 09/18/18 09/19/18 09/20/18 23:59 23:59 23:59 Intake Total 1290.5 / 1290.5 4429 / 4429 1452 / 1452 Output Total 1005 / 1005 1900 / 1900 600 / 600 Balance 285.5 / 285.5 2529 / 2529 852 / 852 General: Alert, Oriented x3, Cooperative, No apparent distress HEENT: Atraumatic, PERRLA, EOMI, Normocephalic Oral: Moist Mucosa Neck: Supple, No JVD, Negative Carotid Bruits Lungs: - - has diminished breath sounds in lung bases, with few crackles. No wheezing. On 3L of oxygen by nasal canula Cardiovascular: Regular rate, Regular Rhythm, Normal S1, Normal S2, No murmurs Abdomen: Bowel Sounds Present, Soft, Non Tender, Non-Distended, No Hepato-splenomegaly Extremities: No clubbing, No cyanosis, No edema, Capillary Refill Less than 3 Seconds Skin: No rashes, No breakdown Musculoskeletal: No Tenderness to Palpation of Joints or Extremities Lymphatic: No Cervical, Supraclavicular, or Inguinal Adenopathy Neurological: Cranial nerves II-XII grossly intact Psych/Mental Status: Normal Affect, Appropriate, Alert and oriented to time, place, person, mood and affect Microbiology Past 72 Hours 09/17/18 20:40 Urine Catheter - Catheter Urine Culture - Final Culture exhibits no growth. 09/17/18 20:20 Sputum, Induced/Lukens Gram Stain - Final 09/17/18 20:20 Sputum, Induced/Lukens Respiratory Culture - Preliminary Appears to be normal respiratory lex. Further studies to follow. 09/17/18 13:44 Blood Culture (Wb) #2 - Right Hand Blood Culture - Preliminary No growth in 48 hours. 09/17/18 13:40 Blood Culture (Wb) - Anticubital Left Blood Culture - Preliminary No growth in 48 hours. 09/18/18 14:30 Sputum, Induced/Lukens Gram Stain - Final 09/18/18 14:30 Sputum, Induced/Lukens Respiratory Culture - Preliminary Appears to be normal respiratory lex. Further studies to follow. 09/17/18 20:20 Mucosa - Nose Respiratory Panel (PCR) - Final Rhinovirus 09/18/18 07:30 Urine Catheter - Michel Streptococcus pneumoniae Antigen (M - Final 09/18/18 07:30 Urine Catheter - Michel Legionella Antigen - Final Laboratory Results 09/19/18 04:05: Diff Path Review Reviewed 09/19/18 11:57: POC Glucose 147 H 09/19/18 17:19: POC Glucose 291 H 09/20/18 00:37: POC Glucose 262 H 09/20/18 04:25: WBC 18.2 H, RBC 4.19 L, Hgb 12.2 L, Hct 37.7 L, MCV 90.0, MCH 29.1, MCHC 32.4, RDW 13.4, RDW Differential 43.7, Plt Count 327, MPV 9.7, Neut % (Auto) Not Reportable, Absolute Neuts (auto) 13.8 H, Absolute Lymphs (auto) 2.91, Total Counted 100, Neutrophils % (Manual) 71 H, Band Neutrophils % 5, Lymphocytes % (Manual) 16 L, Monocytes % (Manual) 6, Metamyelocytes % 2 H, Nucleated RBCs/100 WBC 1, Diff Path Review May , Platelet Estimate ADEQUATE, RBC Morphology NORM C+C 09/20/18 04:25: Sodium 143, Potassium 4.1, Chloride 110 H, Carbon Dioxide 25.0, Anion Gap 8, BUN 70 H, Creatinine 2.87 H, Estim Creat Clear Calc 24.02, Est GFR (MDRD) Af Amer 28 L, Est GFR (MDRD) Non-Af 23 L, BUN/Creatinine Ratio 24.4 H, Glucose 225 H, Calcium 8.5 09/20/18 06:16: POC Glucose 150 H Diagnostic Data Chest X-Ray 09/18/18 05:20 IMPRESSION: Stable examination. Electronically Signed: Oscar Alvarez, at 8:59 EDT , Service support , KUB X-Ray 09/18/18 09:05 IMPRESSION: The tip of the orogastric tube is in the distal portion of the stomach. Electronically Signed: Oscar Alvarez, at 9:33 EDT , Service support , Renal Ultrasound 09/19/18 06:55 IMPRESSION: Normal ultrasound of the kidneys. Electronically Signed: Oscar Alvarez, at 13:14 EDT , Service support , Current Medications Acetaminophen (Tylenol) 650 mg PO Q6H PRN PRN PRN Reason: Mild pain 1-3/Temp > 100.7 F Albuterol Sulfate (Ventolin Aerosols) 2.5 mg INHALATION Q2H PRN PRN PRN Reason: SOB &/OR WHEEZING Albuterol/Ipratropium (Duoneb) 3 ml INHALATION Q4HWA.RT [facility] Last Admin: 09/20/18 06:31 Dose: 3 ml Chlorhexidine Gluconate () 15 ml PO BID [facility] Last Admin: 09/19/18 21:09 Dose: 15 ml Chlorhexidine Gluconate () 1 each TOPICAL DAILY [facility] Last Admin: 09/20/18 06:18 Dose: 1 each Dextrose (D50w Syringe) 0 gm IV X1 PRN; Protocol PRN Reason: Hypoglycemia Famotidine (Pepcid) 20 mg GT DAILY [facility] Last Admin: 09/19/18 08:34 Dose: 20 mg Glucagon () 1 mg IM .X1 PRN PRN Reason: Hypoglycemia Heparin Sodium (Porcine) (Heparin Na) 5,000 unit SC Q12 [facility] Last Admin: 09/19/18 21:10 Dose: 5,000 unit Hydralazine HCl (Apresoline Iv) 5 mg IV Q6H PRN PRN PRN Reason: BLOOD PRESSURE Last Admin: 09/19/18 15:31 Dose: 5 mg Fentanyl () 100 mls @ 5 mls/hr CONT INF .Q20H [facility] Last Admin: 09/19/18 10:39 Dose: 5 mls/hr Piperacillin Sod/Tazobactam (Sod 3.375 gm/ Sodium Chloride) 50 mls @ 12.5 mls/hr IV Q8 [facility] Last Admin: 09/20/18 06:20 Dose: 12.5 mls/hr Sodium Chloride () 250 mls @ 15 mls/hr IV .[id number] PRN PRN Reason: SALINE FLUSH Enteral Nutritional Formula (Vital Af 1.2 Best Liquid) 1,000 mls @ 60 mls/hr GT .[id number] [facility] Last Admin: 09/19/18 15:31 Dose: 60 mls/hr Sodium Chloride () 1,000 mls @ 125 mls/hr IV .Q8H [facility] Last Admin: 09/20/18 06:18 Dose: 125 mls/hr Dexmedetomidine HCl 400 mcg/ (Sodium Chloride) 100 mls @ 12.08 mls/hr CONT INF .[id number] [facility] Last Admin: 09/20/18 01:34 Dose: 12.08 mls/hr Insulin Glargine (Lantus (Bkc)) 40 units SC 06,18 [facility] Last Admin: 09/20/18 06:21 Dose: 40 u Insulin Human Lispro (Humalog Kwikpen (Bkc)) 0 unit SC Q6 [facility]; Protocol Last Admin: 09/20/18 06:21 Dose: 1 u Multi-Ingredient Cream (Eucerin) 1 applic TOPICAL BID PRN PRN; Protocol PRN Reason: DRY SKIN Nitroglycerin (Nitrostat) 0.4 mg SUBLINGUAL Q5M PRN PRN Reason: CARDIAC/CHEST PAIN Ondansetron HCl (Zofran) 4 mg IV Q8H PRN PRN PRN Reason: NAUSEA/VOMITING Prednisone () 40 mg PO 1200 [facility] Last Admin: 09/19/18 11:58 Dose: 40 mg Sodium Chloride () 5 - 15 ml IV UD PRN PRN Reason: SALINE FLUSH Sodium Chloride () 5 - 15 ml IV UD PRN PRN Reason: SALINE FLUSH Medical Necessity - Tobacco Use Smoking Status: Former smoker Tobacco Use: Cigarettes Assessment/Plan All Active Problems Fall (Acute) Sepsis (Acute) Encephalopathy (Acute) Urinary tract infection (Acute) PNA (pneumonia) (Acute) Respiratory acidosis (Acute) Comatose (Acute) DARYL (acute kidney injury) (Acute) 1. Acute on chronic hypoxic and hypercapnic respiratory failure due to community acquired pneumonia successfully extubated this morning still has mild temp with temp peaking at 99.6F on breathing treatments and steroids. 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 Sepsis due to community acquired pneumonia SIRS criteria still 2/4- leucocytosis and tachypnea on IV zOsyn mine inspector on board wbc down to 18 today respiratory panel positive for rhinovirus urine culture, blood cultures, and urine for strep and legionella are negative 3. DARYL on CKD: CR is down to 2.87 today, from 2.35 on admission. nephrology on board 4. Diabetes: on ISS. Accuchecks q6hrs.n on lantus 40IU bid. 5. Hypertension: on IV hydralazine prn. 6. Chronic diastolic heart failure: stable. BNP was WNL on admission, making acute heart failure unlikely. will monitor DVT prophylaxis: heparin. GI prophylaxis: famotidine Code Visit Inpatient E&M: 39163 Subs Hosp L3
--- NOTE | 2018-09-20 09:50 | PN_ITS ---
Patient Problems: Active and Suspected Problems PNA (pneumonia) (Acute) Respiratory acidosis (Acute) Comatose (Acute) DARYL (acute kidney injury) (Acute) Subjective: Patient seen and examined. He was successfully extubated earlier today. He was saturating well on 3 L of oxygen and had no complaints. He denied any chest pain but did admit to a cough which helped clear the mucus. He denied any fever or chills, palpitations or dizziness, diarrhea vomiting. Review of systems otherwise negative. Labs and vitals reviewed. He was noted to have a low-grade fever which peaked at 99.6 Fahrenheit. Creatinine is trended down to 2.87. Vitals/I&O's: Vital Signs Temp Pulse Resp BP Pulse Ox 99.6 F H 85 27 H 159/62 H 93 09/20/18 07:00 09/20/18 09:00 09/20/18 09:00 09/20/18 09:00 09/20/18 09:00 Oxygen Flow Rate (L/min) 4 Oxygen Delivery Method Nasal Cannula Weight: 216 lb 0.848 oz Body Mass Index (BMI) 32.0 Finger Stick Blood Glucose 150 Intake and Output for Last 24 Hours 09/18/18 09/19/18 09/20/18 23:59 23:59 23:59 Intake Total 1290.5 / 1290.5 4429 / 4429 1452 / 1452 Output Total 1005 / 1005 1900 / 1900 600 / 600 Balance 285.5 / 285.5 2529 / 2529 852 / 852 General: Alert, Oriented x3, Cooperative, No apparent distress HEENT: Atraumatic, PERRLA, EOMI, Normocephalic Oral: Moist Mucosa Neck: Supple, No JVD, Negative Carotid Bruits Lungs: - - has diminished breath sounds in lung bases, with few crackles. No wheezing. On 3L of oxygen by nasal canula Cardiovascular: Regular rate, Regular Rhythm, Normal S1, Normal S2, No murmurs Abdomen: Bowel Sounds Present, Soft, Non Tender, Non-Distended, No Hepato- splenomegaly Extremities: No clubbing, No cyanosis, No edema, Capillary Refill Less than 3 Seconds Skin: No rashes, No breakdown Musculoskeletal: No Tenderness to Palpation of Joints or Extremities Lymphatic: No Cervical, Supraclavicular, or Inguinal Adenopathy Neurological: Cranial nerves II-XII grossly intact Psych/Mental Status: Normal Affect, Appropriate, Alert and oriented to time, place, person, mood and affect Microbiology Past 72 Hours 09/17/18 20:40 Urine Catheter - Catheter Urine Culture - Final Culture exhibits no growth. 09/17/18 20:20 Sputum, Induced/Lukens Gram Stain - Final 09/17/18 20:20 Sputum, Induced/Lukens Respiratory Culture - Preliminary Appears to be normal respiratory lex. Further studies to follow. 09/17/18 13:44 Blood Culture (Wb) #2 - Right Hand Blood Culture - Preliminary No growth in 48 hours. 09/17/18 13:40 Blood Culture (Wb) - Anticubital Left Blood Culture - Preliminary No growth in 48 hours. 09/18/18 14:30 Sputum, Induced/Lukens Gram Stain - Final 09/18/18 14:30 Sputum, Induced/Lukens Respiratory Culture - Preliminary Appears to be normal respiratory lex. Further studies to follow. 09/17/18 20:20 Mucosa - Nose Respiratory Panel (PCR) - Final Rhinovirus 09/18/18 07:30 Urine Catheter - Michel Streptococcus pneumoniae Antigen (M - Final 09/18/18 07:30 Urine Catheter - Michel Legionella Antigen - Final Laboratory Results 09/19/18 04:05: Diff Path Review Reviewed 09/19/18 11:57: POC Glucose 147 H 09/19/18 17:19: POC Glucose 291 H 09/20/18 00:37: POC Glucose 262 H 09/20/18 04:25: WBC 18.2 H, RBC 4.19 L, Hgb 12.2 L, Hct 37.7 L, MCV 90.0, MCH 29.1, MCHC 32.4, RDW 13.4, RDW Differential 43.7, Plt Count 327, MPV 9.7, Neut % (Auto) Not Reportable, Absolute Neuts (auto) 13.8 H, Absolute Lymphs (auto) 2.91, Total Counted 100, Neutrophils % (Manual) 71 H, Band Neutrophils % 5, Lymphocytes % (Manual) 16 L, Monocytes % (Manual) 6, Metamyelocytes % 2 H, Nucleated RBCs/100 WBC 1, Diff Path Review May , Platelet Estimate ADEQUATE, RBC Morphology NORM C+C 09/20/18 04:25: Sodium 143, Potassium 4.1, Chloride 110 H, Carbon Dioxide 25.0, Anion Gap 8, BUN 70 H, Creatinine 2.87 H, Estim Creat Clear Calc 24.02, Est GFR (MDRD) Af Amer 28 L, Est GFR (MDRD) Non-Af 23 L, BUN/Creatinine Ratio 24.4 H, Glucose 225 H, Calcium 8.5 09/20/18 06:16: POC Glucose 150 H Diagnostic Data Chest X-Ray 09/18/18 05:20 IMPRESSION: Stable examination. Electronically Signed: Oscar Alvarez, at 8:59 EDT , Service support , KUB X-Ray 09/18/18 09:05 IMPRESSION: The tip of the orogastric tube is in the distal portion of the stomach. Electronically Signed: Oscar Alvarez, at 9:33 EDT , Service support , Renal Ultrasound 09/19/18 06:55 IMPRESSION: Normal ultrasound of the kidneys. Electronically Signed: Oscar Alvarez, at 13:14 EDT , Service support , Current Medications Acetaminophen (Tylenol) 650 mg PO Q6H PRN PRN PRN Reason: Mild pain 1-3/Temp > 100.7 F Albuterol Sulfate (Ventolin Aerosols) 2.5 mg INHALATION Q2H PRN PRN PRN Reason: SOB &/OR WHEEZING Albuterol/Ipratropium (Duoneb) 3 ml INHALATION Q4HWA.RT [facility] Last Admin: 09/20/18 06:31 Dose: 3 ml Chlorhexidine Gluconate () 15 ml PO BID [facility] Last Admin: 09/19/18 21:09 Dose: 15 ml Chlorhexidine Gluconate () 1 each TOPICAL DAILY [facility] Last Admin: 09/20/18 06:18 Dose: 1 each Dextrose (D50w Syringe) 0 gm IV X1 PRN; Protocol PRN Reason: Hypoglycemia Famotidine (Pepcid) 20 mg GT DAILY [facility] Last Admin: 09/19/18 08:34 Dose: 20 mg Glucagon () 1 mg IM .X1 PRN PRN Reason: Hypoglycemia Heparin Sodium (Porcine) (Heparin Na) 5,000 unit SC Q12 [facility] Last Admin: 09/19/18 21:10 Dose: 5,000 unit Hydralazine HCl (Apresoline Iv) 5 mg IV Q6H PRN PRN PRN Reason: BLOOD PRESSURE Last Admin: 09/19/18 15:31 Dose: 5 mg Fentanyl () 100 mls @ 5 mls/hr CONT INF .Q20H [facility] Last Admin: 09/19/18 10:39 Dose: 5 mls/hr Piperacillin Sod/Tazobactam (Sod 3.375 gm/ Sodium Chloride) 50 mls @ 12.5 mls/hr IV Q8 [facility] Last Admin: 09/20/18 06:20 Dose: 12.5 mls/hr Sodium Chloride () 250 mls @ 15 mls/hr IV .[id number] PRN PRN Reason: SALINE FLUSH Enteral Nutritional Formula (Vital Af 1.2 Best Liquid) 1,000 mls @ 60 mls/hr GT .[id number] [facility] Last Admin: 09/19/18 15:31 Dose: 60 mls/hr Sodium Chloride () 1,000 mls @ 125 mls/hr IV .Q8H [facility] Last Admin: 09/20/18 06:18 Dose: 125 mls/hr Dexmedetomidine HCl 400 mcg/ (Sodium Chloride) 100 mls @ 12.08 mls/hr CONT INF .Q8H17M [facility] Last Admin: 09/20/18 01:34 Dose: 12.08 mls/hr Insulin Glargine (Lantus (Bkc)) 40 units SC 06,18 [facility] Last Admin: 09/20/18 06:21 Dose: 40 u Insulin Human Lispro (Humalog Kwikpen (Bkc)) 0 unit SC Q6 [facility]; Protocol Last Admin: 09/20/18 06:21 Dose: 1 u Multi-Ingredient Cream (Eucerin) 1 applic TOPICAL BID PRN PRN; Protocol PRN Reason: DRY SKIN Nitroglycerin (Nitrostat) 0.4 mg SUBLINGUAL Q5M PRN PRN Reason: CARDIAC/CHEST PAIN Ondansetron HCl (Zofran) 4 mg IV Q8H PRN PRN PRN Reason: NAUSEA/VOMITING Prednisone () 40 mg PO 1200 [facility] Last Admin: 09/19/18 11:58 Dose: 40 mg Sodium Chloride () 5 - 15 ml IV UD PRN PRN Reason: SALINE FLUSH Sodium Chloride () 5 - 15 ml IV UD PRN PRN Reason: SALINE FLUSH Medical Necessity - Tobacco Use Smoking Status: Former smoker Tobacco Use: Cigarettes Assessment/Plan All Active Problems Fall (Acute) Sepsis (Acute) Encephalopathy (Acute) Urinary tract infection (Acute) PNA (pneumonia) (Acute) Respiratory acidosis (Acute) Comatose (Acute) DARYL (acute kidney injury) (Acute) 1. Acute on chronic hypoxic and hypercapnic respiratory failure due to community acquired pneumonia * successfully extubated this morning * still has mild temp with temp peaking at 99.6F * on breathing treatments and steroids. * cognos analyst on board * 2. Sepsis due to community acquired pneumonia * SIRS criteria still 2/4- leucocytosis and tachypnea * on IV zOsyn * cognos analyst on board * wbc down to 18 today * respiratory panel positive for rhinovirus * urine culture, blood cultures, and urine for strep and legionella are negative * 3. DARYL on CKD: CR is down to 2.87 today, from 2.35 on admission. nephrology on board 4. Diabetes: on ISS. Accuchecks q6hrs.n on lantus 40IU bid. 5. Hypertension: on IV hydralazine prn. 6. Chronic diastolic heart failure: * stable. * BNP was WNL on admission, making acute heart failure unlikely. * will monitor * DVT prophylaxis: heparin. GI prophylaxis: famotidine Code Visit Inpatient E&M: 10186 Subs Hosp L3
[2018-09-20] MEDS: Heparin Injection (Vial) 5,000 UNIT/ML VIAL 5000 UNIT SC ×2 (11:30→21:42)
[2018-09-20] MEDS: Famotidine 20 MG Tablet GT (11:30)
[2018-09-20] MEDS: predniSONE 20 MG Tablet 40 MG PO (11:31)
[2018-09-20 12:26] LABS: Bedside Glucose 134 mg/dL (70-110)
[2018-09-20] MEDS: Labetalol 200 MG Tablet 300 MG PO ×2 (12:38→21:41)
[2018-09-20 17:45] LABS: Bedside Glucose 183 mg/dL (70-110)
--- NOTE | 2018-09-20 20:38 | NURSING ---
Room 129 received from Nursing bailer operators supervisor. Physician paged for orders.
--- NOTE | 2018-09-20 20:44 | NURSING ---
Called report to Jelena.
[2018-09-20] MEDS: 0.9% NaCl Peripheral Flush Adult/Peds IV (21:51)
[2018-09-20 22:05] LABS: Bedside Glucose 303 mg/dL (70-110)
[2018-09-21] VITALS (18 sets, daily range): BP systolic 144–185; BP diastolic 66–83; PULSE 62–91; RESP 18–25; TEMP 36.6–37.3; O2SAT 91–96
[2018-09-21 06:54] LABS: Hematocrit 38.6 % (40-54); Hemoglobin 12.2 g/dl (13.0-16.5); Mean Corp Hgb Conc 31.6 g/gl (32-36); Mean Corpuscular Hgb 28.4 pg (27.0-32.0); Mean Corpuscular Volume 89.8 fL (80-94); Mean Platelet Vol. 9.9 fl (6.2-12.0); Platelet Count 355 K/mm3 (150-450); RBC Distribution Width CV 13.6 % (11.6-14.6); White Blood Count 22.9 K/mm3 (4.4-11.0)
[2018-09-21 07:02] LABS: Anion Gap 8 (5-15); BUN 61 mg/dL (7-18); BUN/Creat Ratio 21.8 RATIO (10-20); Calcium,Total 8.7 mg/dL (8.5-10.1); Chloride 112 mmol/L (98-107); EST Glomerular Filtration Rate 24 mL/min (>60); Est Glom Filt Rate - Afr Amer 29 mL/min (>60); Estimated Creatinine Clearance 24.62 ml/min; Glucose 66 mg/dL (74-106); Potassium 3.6 mmol/L (3.5-5.1); Sodium Level 145 mmol/L (136-145)
[2018-09-21] MEDS: Labetalol 200 MG Tablet 300 MG PO ×3 (07:09→22:31)
[2018-09-21 07:11] LABS: Neutrophil-Band 3 % (0-5); Neutrophil-Segmented 66 % (47-70); Total Cells Counted 100 (MANUAL DIFF)
[2018-09-21 07:12] LABS: Eosinophil 1 % (0-5); Lymphocyte 20 % (19-41); Metamyelocyte 2 % (0-1); Monocyte 7 % (0-10); Myelocyte 1 (0-0); Platelet Estimate ADEQUATE (ADEQ); Toxic Granulation 2+
[2018-09-21 07:13] LABS: Differential Indicated MANUAL DIFF; POSITIVE COUNT YES; POSITIVE DIFFERENTIAL YES; POSITIVE MORPHOLOGY YES; Red Cell Morphology NORM C+C NORMAL (NORM C&C)
[2018-09-21 07:15] LABS: Absolute Lymphocyte Count 4.58 X10^3/ul (0.83-4.51); Absolute Neutrophil Count 15.8 X10^3/uL (2.0-7.7); Lymphocyte # 4.58 X10^3/ul (4.0)
[2018-09-21] MEDS: Ipratropium/Albuterol Sulfate 3 ML AMPUL.NEB INHALATION ×4 (07:18→18:59)
[2018-09-21 07:41] LABS: Bedside Glucose 92 mg/dL (70-110)
[2018-09-21 07:41] LABS: Bedside Glucose 69 mg/dL (70-110)
--- NOTE | 2018-09-21 08:09 | PCM.PN.PUL ---
Patient Problems: Active and Suspected Problems PNA (pneumonia) (Acute) Respiratory acidosis (Acute) Comatose (Acute) DARYL (acute kidney injury) (Acute) Subjective: The patient was seen and examined at the bedside this morning. Events from the last 24 hours have been reviewed. The patient is currently afebrile, hemodynamically stable and maintaining appropriate oxygen saturations on 3 L/min via nasal cannula. The patient is currently sitting upright in bed watching TV. Cough persists. Objective: The patient's most recent lab work, culture data and imaging studies have all been personally reviewed. Surface echocardiogram dated September 18 revealed normal LV size and function with an ejection fraction of 65%. Diastolic function was indeterminate. Right ventricular systolic pressure was unable to be estimated. Moderate aortic stenosis was noted. Blood and urine cultures are pending. Sputum culture appears to be normal respiratory lex. Strep and urine Legionella antigens were both negative. Respiratory viral panel was positive for rhinovirus. Renal ultrasound revealed normal kidneys. - Physical Exam General: Alert, Cooperative, No apparent distress HEENT: Atraumatic, PERRLA, Normocephalic Oral: No Gingival or Mucosal Lesions/ Ulcerations Neck: Supple, No Nodes, Trachea Midline Lungs: No rhonchi, No wheeze, No rales, Diminished Cardiovascular: Regular rate, Regular Rhythm, Normal S1, Normal S2, Murmur Abdomen: Bowel Sounds Present, Soft, Non Tender, Obese Extremities: No clubbing, No cyanosis, No edema Skin: No breakdown Musculoskeletal: No Tenderness to Palpation of Joints or Extremities Lymphatic: No Cervical, Supraclavicular, or Inguinal Adenopathy Neurological: Cranial nerves II-XII grossly intact, Neuro grossly intact Psych/Mental Status: Normal Affect, Appropriate Vital Signs Temp Pulse Resp BP Pulse Ox 97.8 F 68 24 H 147/78 H 94 09/21/18 07:12 09/21/18 07:39 09/21/18 07:39 09/21/18 07:12 09/21/18 07:38 Oxygen Flow Rate (L/min) 4.5 Oxygen Delivery Method Nasal Cannula Weight: 219 lb 5.759 oz Body Mass Index (BMI) 32.0 Finger Stick Blood Glucose 150 Intake and Output for Last 24 Hours 09/19/18 09/20/18 09/21/18 23:59 23:59 23:59 Intake Total 4429 / 4429 2731 / 2731 228 / 228 Output Total 1900 / 1900 1225 / 1225 Balance 2529 / 2529 1506 / 1506 228 / 228 Microbiology Past 72 Hours 09/18/18 14:30 Gram Stain - Final Sputum, Induced/Lukens Respiratory Culture - Final Culture exhibits no growth. 09/17/18 20:40 Urine Culture - Final Urine Catheter - Catheter Culture exhibits no growth. 09/17/18 20:20 Gram Stain - Final Sputum, Induced/Lukens Respiratory Culture - Preliminary Appears to be normal respiratory lex. Further studies to follow. 09/17/18 13:44 Blood Culture - Preliminary Blood Culture (Wb) #2 - Right Hand No growth in 48 hours. 09/17/18 13:40 Blood Culture - Preliminary Blood Culture (Wb) - Anticubital Left No growth in 48 hours. 09/17/18 20:20 Respiratory Panel (PCR) - Final Mucosa - Nose Rhinovirus 09/18/18 07:30 Streptococcus pneumoniae Antigen (M - Final Urine Catheter - Michel 09/18/18 07:30 Legionella Antigen - Final Urine Catheter - Michel Laboratory Tests Past 24 Hrs 09/21/18 09/21/18 06:15 06:15 WBC 22.9 H RBC 4.30 L Hgb 12.2 L Hct 38.6 L MCV 89.8 MCH 28.4 MCHC 31.6 L RDW 13.6 RDW Differential 44.0 H Plt Count 355 MPV 9.9 Neut % (Auto) Not Reportable Absolute Neuts (auto) 15.8 H Absolute Lymphs (auto) 4.58 H Total Counted 100 Neutrophils % (Manual) 66 Band Neutrophils % 3 Lymphocytes % (Manual) 20 Monocytes % (Manual) 7 Eosinophils % (Manual) 1 Metamyelocytes % 2 H Myelocytes % 1 H Diff Path Review May foll Toxic Granulation 2+ Platelet Estimate ADEQUATE RBC Morphology NORM C+C Sodium 145 Potassium 3.6 Chloride 112 H Carbon Dioxide 25.0 Anion Gap 8 BUN 61 H Creatinine 2.80 H Estim Creat Clear Calc 24.62 Est GFR (MDRD) Af Amer 29 L Est GFR (MDRD) Non-Af 24 L BUN/Creatinine Ratio 21.8 H Glucose 66 L Calcium 8.7 POC Glucose 09/21/18 09/21/18 09/20/18 07:34 07:06 21:34 POC Glucose 92 69 L 303 H 09/20/18 09/20/18 17:40 12:21 POC Glucose 183 H 134 H Clinical Impression(s) from Imaging Studies Chest X-Ray 09/17/18 14:10 IMPRESSION: Increased interstitial markings as described. This may represent vascular congestion. Electronically Signed: Oscar Alvarez, at 14:33 EDT , Service support , Chest X-Ray 09/17/18 20:15 IMPRESSION: Endotracheal tube in proper position as above. Prominent interstitial markings with areas of patchy airspace disease not excluded somewhat improved compared to previous exam. Electronically Signed: Mirza Santiago DO at 21:15 EDT , Service support , KUB X-Ray 09/17/18 20:30 IMPRESSION: OG tube not seen entering the GE junction or stomach region with prior chest film showing NG tube likely terminating in the midesophagus. Exam is limited by overlying lines and tubes in the chest. Electronically Signed: Mirza Santiago DO at 21:17 EDT , Service support , Chest X-Ray 09/18/18 05:20 IMPRESSION: Stable examination. Electronically Signed: Oscar Alvarez, at 8:59 EDT , Service support , KUB X-Ray 09/18/18 09:05 IMPRESSION: The tip of the orogastric tube is in the distal portion of the stomach. Electronically Signed: Oscar Alvarez, at 9:33 EDT , Service support , Renal Ultrasound 09/19/18 06:55 IMPRESSION: Normal ultrasound of the kidneys. Electronically Signed: Oscar Alvarez, at 13:14 EDT , Service support , Medical Necessity - Tobacco Use Smoking Status: Former smoker Tobacco Use: Cigarettes Assessment/Plan All Active Problems Fall (Acute) Sepsis (Acute) Encephalopathy (Acute) Urinary tract infection (Acute) PNA (pneumonia) (Acute) Respiratory acidosis (Acute) Comatose (Acute) DARYL (acute kidney injury) (Acute) RECOMMENDATIONS: 1. Wean supplemental oxygen to maintain saturations at or above 90%. 2. Zosyn can be de-escalated to Levaquin with plans to finish a 7-day treatment course of antibiotics. 3. Continue scheduled bronchodilators and prednisone. 4. Continue subcutaneous heparin for prophylaxis. 5. Continue Lantus and sliding scale insulin coverage. 6. Encourage incentive spirometer use and mobilize patient as tolerated. 7. Perform walking oximetry study prior to consideration for discharge from the hospital. 8. The patient would benefit from outpatient pulmonary follow-up. IMPRESSIONS: 1. Acute on chronic hypoxemic and hypercarbic respiratory failure secondary to presumptive COPD with exacerbation Secondary to rhinovirus URI and suspected community acquired pneumonia. Continue antibiotics as ordered. The patient will be continued on scheduled bronchodilators and prednisone. The patient was able to be weaned from invasive mechanical ventilatory support on the morning of September 20. Recommend weaning supplemental oxygen to maintain saturations at or above 90%. Encourage incentive spirometer use and mobilize patient as tolerated. Smoking cessation is advisable along with outpatient pulmonary follow-up upon discharge. 2. Severe sepsis 2/2 Rhinovirus URI and suspected CAP Continue current antimicrobial coverage. The patient remains hemodynamically stable. 3. Long-standing tobacco abuse history As noted above, clinical concern for underlying obstructive lung disease. Recommend outpatient pulmonary follow-up and baseline pulmonary function studies. Smoking cessation is advisable. Nicotine replacement therapy can be offered to the patient while admitted to the hospital. 4. Acute on chronic kidney disease Improving. Renal function initially worsened in the setting of diuretic therapy on admission to the hospital. All diuretics and potentially nephrotoxic medications were discontinued. Nephrology is currently following. Renal ultrasound was unremarkable. Creatinine and urine output has improved in the setting of IV fluid hydration. 5. Diabetes mellitus/baseline MRDD/hypertension Complicates care, management, recovery and prognosis. Continue basal insulin and sliding scale insulin coverage. This note was generated with [employer] software. It may contain incorrect words, spelling, and punctuation that were not noted in checking the note before signing. Code Visit Inpatient E&M: 94794 Subs Hosp L3
[2018-09-21] MEDS: Famotidine 20 MG Tablet GT (10:22)
[2018-09-21] MEDS: Heparin Injection (Vial) 5,000 UNIT/ML VIAL 5000 UNIT SC ×2 (10:22→22:31)
--- NOTE | 2018-09-21 11:11 | PCM.PN.HOSP ---
Patient Problems: Active and Suspected Problems PNA (pneumonia) (Acute) Respiratory acidosis (Acute) Comatose (Acute) DARYL (acute kidney injury) (Acute) Subjective: Patient seen and examined. He had no complaints this morning. He is still coughing but is much better. He denies any shortness of breath, palpitations or chest pain, dizziness, diarrhea vomiting. Review of systems otherwise negative. Labs and vitals reviewed. Vitals/I&O's: Vital Signs Temp Pulse Resp BP Pulse Ox 99.1 F 72 24 H 160/66 H 92 09/21/18 10:18 09/21/18 10:54 09/21/18 10:54 09/21/18 10:18 09/21/18 10:18 Oxygen Flow Rate (L/min) 3.5 Oxygen Delivery Method Nasal Cannula Weight: 219 lb 5.759 oz Body Mass Index (BMI) 32.0 Finger Stick Blood Glucose 150 Intake and Output for Last 24 Hours 09/19/18 09/20/18 09/21/18 23:59 23:59 23:59 Intake Total 4429 / 4429 2731 / 2731 228 / 228 Output Total 1900 / 1900 1225 / 1225 Balance 2529 / 2529 1506 / 1506 228 / 228 General: Alert, Oriented x3, Cooperative, No apparent distress HEENT: Atraumatic, PERRLA, EOMI, Normocephalic Oral: Moist Mucosa Neck: Supple, No JVD, Negative Carotid Bruits Lungs: Tachypneic, - - mildly decreased breath sounds bibasally, no wheezes or crackles. on 3-4L of oxygen Cardiovascular: Regular rate, Regular Rhythm, Normal S1, Normal S2, No murmurs Abdomen: Bowel Sounds Present, Soft, Non Tender, Non-Distended Extremities: No clubbing, No cyanosis, No edema, Capillary Refill Less than 3 Seconds Skin: No rashes, No breakdown Musculoskeletal: No Tenderness to Palpation of Joints or Extremities Lymphatic: No Cervical, Supraclavicular, or Inguinal Adenopathy Neurological: Cranial nerves II-XII grossly intact, Neuro grossly intact, Motor Exam 5/5 strength throughout Psych/Mental Status: Normal Affect, Appropriate, Alert and oriented to time, place, person, mood and affect Microbiology Past 72 Hours 09/17/18 20:20 Sputum, Induced/Lukens Gram Stain - Final 09/17/18 20:20 Sputum, Induced/Lukens Respiratory Culture - Preliminary Appears to be normal respiratory lex. Further studies to follow. 09/18/18 14:30 Sputum, Induced/Lukens Gram Stain - Final 09/18/18 14:30 Sputum, Induced/Lukens Respiratory Culture - Final Culture exhibits no growth. 09/17/18 20:40 Urine Catheter - Catheter Urine Culture - Final Culture exhibits no growth. 09/17/18 13:44 Blood Culture (Wb) #2 - Right Hand Blood Culture - Preliminary No growth in 48 hours. 09/17/18 13:40 Blood Culture (Wb) - Anticubital Left Blood Culture - Preliminary No growth in 48 hours. 09/17/18 20:20 Mucosa - Nose Respiratory Panel (PCR) - Final Rhinovirus 09/18/18 07:30 Urine Catheter - Michel Streptococcus pneumoniae Antigen (M - Final 09/18/18 07:30 Urine Catheter - Michel Legionella Antigen - Final Laboratory Results 09/20/18 12:21: POC Glucose 134 H 09/20/18 17:40: POC Glucose 183 H 09/20/18 21:34: POC Glucose 303 H 09/21/18 06:15: WBC 22.9 H, RBC 4.30 L, Hgb 12.2 L, Hct 38.6 L, MCV 89.8, MCH 28.4, MCHC 31.6 L, RDW 13.6, RDW Differential 44.0 H, Plt Count 355, MPV 9.9, Neut % (Auto) Not Reportable, Absolute Neuts (auto) 15.8 H, Absolute Lymphs (auto) 4.58 H, Total Counted 100, Neutrophils % (Manual) 66, Band Neutrophils % 3, Lymphocytes % (Manual) 20, Monocytes % (Manual) 7, Eosinophils % (Manual) 1, Metamyelocytes % 2 H, Myelocytes % 1 H, Diff Path Review May foll, Toxic Granulation 2+, Platelet Estimate ADEQUATE, RBC Morphology NORM C+C 09/21/18 06:15: Sodium 145, Potassium 3.6, Chloride 112 H, Carbon Dioxide 25.0, Anion Gap 8, BUN 61 H, Creatinine 2.80 H, Estim Creat Clear Calc 24.62, Est GFR (MDRD) Af Amer 29 L, Est GFR (MDRD) Non-Af 24 L, BUN/Creatinine Ratio 21.8 H, Glucose 66 L, Calcium 8.7 09/21/18 07:06: POC Glucose 69 L 09/21/18 07:34: POC Glucose 92 Current Medications Acetaminophen (Tylenol) 650 mg PO Q6H PRN PRN PRN Reason: Mild pain 1-3/Temp > 100.7 F Albuterol Sulfate (Ventolin Aerosols) 2.5 mg INHALATION Q2H PRN PRN PRN Reason: SOB &/OR WHEEZING Albuterol/Ipratropium (Duoneb) 3 ml INHALATION Q4HWA.RT [facility] Last Admin: 09/21/18 10:54 Dose: 3 ml Dextrose (D50w Syringe) 0 gm IV X1 PRN; Protocol PRN Reason: Hypoglycemia Famotidine (Pepcid) 20 mg GT DAILY [facility] Last Admin: 09/21/18 10:22 Dose: 20 mg Glucagon () 1 mg IM .X1 PRN PRN Reason: Hypoglycemia Heparin Sodium (Porcine) (Heparin Na) 5,000 unit SC Q12 [facility] Last Admin: 09/21/18 10:22 Dose: 5,000 unit Hydralazine HCl (Apresoline Iv) 5 mg IV Q6H PRN PRN PRN Reason: BLOOD PRESSURE Last Admin: 09/19/18 15:31 Dose: 5 mg Piperacillin Sod/Tazobactam (Sod 3.375 gm/ Sodium Chloride) 50 mls @ 12.5 mls/hr IV Q8 [facility] Last Admin: 09/21/18 07:09 Dose: 12.5 mls/hr Sodium Chloride () 250 mls @ 15 mls/hr IV .[id number] PRN PRN Reason: SALINE FLUSH Insulin Glargine (Lantus (Bk)) 40 units SC 06,18 [facility] Last Admin: 09/21/18 07:42 Dose: Not Given Insulin Human Lispro (Humalog Kwikpen ([facility])) 0 unit SC ACHS [facility]; Protocol Last Admin: 09/21/18 07:08 Dose: Not Given Labetalol HCl (Trandate) 300 mg PO TID [facility] Last Admin: 09/21/18 07:09 Dose: 300 mg Multi-Ingredient Cream (Eucerin) 1 applic TOPICAL BID PRN PRN; Protocol PRN Reason: DRY SKIN Nitroglycerin (Nitrostat) 0.4 mg SUBLINGUAL Q5M PRN PRN Reason: CARDIAC/CHEST PAIN Ondansetron HCl (Zofran) 4 mg IV Q8H PRN PRN PRN Reason: NAUSEA/VOMITING Prednisone () 40 mg PO 1200 [facility] Last Admin: 09/20/18 11:31 Dose: 40 mg Sodium Chloride () 5 - 15 ml IV UD PRN PRN Reason: SALINE FLUSH Last Admin: 09/20/18 21:51 Dose: 10 ml Sodium Chloride () 5 - 15 ml IV UD PRN PRN Reason: SALINE FLUSH Medical Necessity - Tobacco Use Smoking Status: Former smoker Tobacco Use: Cigarettes Assessment/Plan All Active Problems Fall (Acute) Sepsis (Acute) Encephalopathy (Acute) Urinary tract infection (Acute) PNA (pneumonia) (Acute) Respiratory acidosis (Acute) Comatose (Acute) DARYL (acute kidney injury) (Acute) 1. Acute on chronic hypoxic and hypercapnic respiratory failure due to community acquired pneumonia successfully extubated yesterday and transferred to regular floor. temperature has settled on breathing treatments and steroids. photo engraver on board titrate oxygen to maintain sats>90% 2. Sepsis due to community acquired pneumonia SIRS criteria still 2/4- leucocytosis and tachypnea. However, leucocytosis is also due to steroids on IV zOsyn; will de-escalate antibiotics to PO levaquin photo engraver on board respiratory panel positive for rhinovirus urine culture, blood cultures, and urine for strep and legionella are negative 3. DARYL on CKD: CR is down to 2.80 today, from 2.35 on admission. nephrology on board. Baseline CR is ~ 2 4. Diabetes: on ISS. Accuchecks q6hrs.n on lantus 40IU bid. 5. Hypertension: on IV hydralazine prn. 6. Chronic diastolic heart failure: stable. will monitor DVT prophylaxis: heparin. GI prophylaxis: famotidine Code Visit Inpatient E&M: 60968 [facility] L3
[2018-09-21] MEDS: Insulin Lispro 100 UNIT/ML INSULN.PEN SC ×3 (11:16→22:31)
--- NOTE | 2018-09-21 11:18 | PN_ITS ---
Patient Problems: Active and Suspected Problems PNA (pneumonia) (Acute) Respiratory acidosis (Acute) Comatose (Acute) DARYL (acute kidney injury) (Acute) Subjective: Patient seen and examined. He had no complaints this morning. He is still coughing but is much better. He denies any shortness of breath, palpitations or chest pain, dizziness, diarrhea vomiting. Review of systems otherwise negative. Labs and vitals reviewed. Vitals/I&O's: Vital Signs Temp Pulse Resp BP Pulse Ox 99.1 F 72 24 H 160/66 H 92 09/21/18 10:18 09/21/18 10:54 09/21/18 10:54 09/21/18 10:18 09/21/18 10:18 Oxygen Flow Rate (L/min) 3.5 Oxygen Delivery Method Nasal Cannula Weight: 219 lb 5.759 oz Body Mass Index (BMI) 32.0 Finger Stick Blood Glucose 150 Intake and Output for Last 24 Hours 09/19/18 09/20/18 09/21/18 23:59 23:59 23:59 Intake Total 4429 / 4429 2731 / 2731 228 / 228 Output Total 1900 / 1900 1225 / 1225 Balance 2529 / 2529 1506 / 1506 228 / 228 General: Alert, Oriented x3, Cooperative, No apparent distress HEENT: Atraumatic, PERRLA, EOMI, Normocephalic Oral: Moist Mucosa Neck: Supple, No JVD, Negative Carotid Bruits Lungs: Tachypneic, - - mildly decreased breath sounds bibasally, no wheezes or crackles. on 3-4L of oxygen Cardiovascular: Regular rate, Regular Rhythm, Normal S1, Normal S2, No murmurs Abdomen: Bowel Sounds Present, Soft, Non Tender, Non-Distended Extremities: No clubbing, No cyanosis, No edema, Capillary Refill Less than 3 Seconds Skin: No rashes, No breakdown Musculoskeletal: No Tenderness to Palpation of Joints or Extremities Lymphatic: No Cervical, Supraclavicular, or Inguinal Adenopathy Neurological: Cranial nerves II-XII grossly intact, Neuro grossly intact, Motor Exam 5/5 strength throughout Psych/Mental Status: Normal Affect, Appropriate, Alert and oriented to time, place, person, mood and affect Microbiology Past 72 Hours 09/17/18 20:20 Sputum, Induced/Lukens Gram Stain - Final 09/17/18 20:20 Sputum, Induced/Lukens Respiratory Culture - Preliminary Appears to be normal respiratory lex. Further studies to follow. 09/18/18 14:30 Sputum, Induced/Lukens Gram Stain - Final 09/18/18 14:30 Sputum, Induced/Lukens Respiratory Culture - Final Culture exhibits no growth. 09/17/18 20:40 Urine Catheter - Catheter Urine Culture - Final Culture exhibits no growth. 09/17/18 13:44 Blood Culture (Wb) #2 - Right Hand Blood Culture - Preliminary No growth in 48 hours. 09/17/18 13:40 Blood Culture (Wb) - Anticubital Left Blood Culture - Preliminary No growth in 48 hours. 09/17/18 20:20 Mucosa - Nose Respiratory Panel (PCR) - Final Rhinovirus 09/18/18 07:30 Urine Catheter - Michel Streptococcus pneumoniae Antigen (M - Final 09/18/18 07:30 Urine Catheter - Michel Legionella Antigen - Final Laboratory Results 09/20/18 12:21: POC Glucose 134 H 09/20/18 17:40: POC Glucose 183 H 09/20/18 21:34: POC Glucose 303 H 09/21/18 06:15: WBC 22.9 H, RBC 4.30 L, Hgb 12.2 L, Hct 38.6 L, MCV 89.8, MCH 2 8.4, MCHC 31.6 L, RDW 13.6, RDW Differential 44.0 H, Plt Count 355, MPV 9.9, Neut % (Auto) Not Reportable, Absolute Neuts (auto) 15.8 H, Absolute Lymphs (auto) 4.58 H, Total Counted 100, Neutrophils % (Manual) 66, Band Neutrophils % 3, Lymphocytes % (Manual) 20, Monocytes % (Manual) 7, Eosinophils % (Manual) 1, Metamyelocytes % 2 H, Myelocytes % 1 H, Diff Path Review May foll, Toxic Granulation 2+, Platelet Estimate ADEQUATE, RBC Morphology NORM C+C 09/21/18 06:15: Sodium 145, Potassium 3.6, Chloride 112 H, Carbon Dioxide 25.0, Anion Gap 8, BUN 61 H, Creatinine 2.80 H, Estim Creat Clear Calc 24.62, Est GFR (MDRD) Af Amer 29 L, Est GFR (MDRD) Non-Af 24 L, BUN/Creatinine Ratio 21.8 H, Glucose 66 L, Calcium 8.7 09/21/18 07:06: POC Glucose 69 L 09/21/18 07:34: POC Glucose 92 Current Medications Acetaminophen (Tylenol) 650 mg PO Q6H PRN PRN PRN Reason: Mild pain 1-3/Temp > 100.7 F Albuterol Sulfate (Ventolin Aerosols) 2.5 mg INHALATION Q2H PRN PRN PRN Reason: SOB &/OR WHEEZING Albuterol/Ipratropium (Duoneb) 3 ml INHALATION Q4HWA.RT [facility] Last Admin: 09/21/18 10:54 Dose: 3 ml Dextrose (D50w Syringe) 0 gm IV X1 PRN; Protocol PRN Reason: Hypoglycemia Famotidine (Pepcid) 20 mg GT DAILY [facility] Last Admin: 09/21/18 10:22 Dose: 20 mg Glucagon () 1 mg IM .X1 PRN PRN Reason: Hypoglycemia Heparin Sodium (Porcine) (Heparin Na) 5,000 unit SC Q12 [facility] Last Admin: 09/21/18 10:22 Dose: 5,000 unit Hydralazine HCl (Apresoline Iv) 5 mg IV Q6H PRN PRN PRN Reason: BLOOD PRESSURE Last Admin: 09/19/18 15:31 Dose: 5 mg Piperacillin Sod/Tazobactam (Sod 3.375 gm/ Sodium Chloride) 50 mls @ 12.5 mls/hr IV Q8 [facility] Last Admin: 09/21/18 07:09 Dose: 12.5 mls/hr Sodium Chloride () 250 mls @ 15 mls/hr IV .[id number] PRN PRN Reason: SALINE FLUSH Insulin Glargine (Lantus (Bkc)) 40 units SC 06,18 [facility] Last Admin: 09/21/18 07:42 Dose: Not Given Insulin Human Lispro (Humalog Kwikpen (Bk)) 0 unit SC ACHS [facility]; Protocol Last Admin: 09/21/18 07:08 Dose: Not Given Labetalol HCl (Trandate) 300 mg PO TID [facility] Last Admin: 09/21/18 07:09 Dose: 300 mg Multi-Ingredient Cream (Eucerin) 1 applic TOPICAL BID PRN PRN; Protocol PRN Reason: DRY SKIN Nitroglycerin (Nitrostat) 0.4 mg SUBLINGUAL Q5M PRN PRN Reason: CARDIAC/CHEST PAIN Ondansetron HCl (Zofran) 4 mg IV Q8H PRN PRN PRN Reason: NAUSEA/VOMITING Prednisone () 40 mg PO 1200 [facility] Last Admin: 09/20/18 11:31 Dose: 40 mg Sodium Chloride () 5 - 15 ml IV UD PRN PRN Reason: SALINE FLUSH Last Admin: 09/20/18 21:51 Dose: 10 ml Sodium Chloride () 5 - 15 ml IV UD PRN PRN Reason: SALINE FLUSH Medical Necessity - Tobacco Use Smoking Status: Former smoker Tobacco Use: Cigarettes Assessment/Plan All Active Problems Fall (Acute) Sepsis (Acute) Encephalopathy (Acute) Urinary tract infection (Acute) PNA (pneumonia) (Acute) Respiratory acidosis (Acute) Comatose (Acute) DARYL (acute kidney injury) (Acute) 1. Acute on chronic hypoxic and hypercapnic respiratory failure due to community acquired pneumonia * successfully extubated yesterday and transferred to regular floor. * temperature has settled * on breathing treatments and steroids. * marker machine attendant on board * titrate oxygen to maintain sats>90% * 2. Sepsis due to community acquired pneumonia * SIRS criteria still 2/4- leucocytosis and tachypnea. However, leucocytosis is also due to steroids * on IV zOsyn; will de-escalate antibiotics to PO levaquin * marker machine attendant on board * respiratory panel positive for rhinovirus * urine culture, blood cultures, and urine for strep and legionella are negative * 3. DARYL on CKD: CR is down to 2.80 today, from 2.35 on admission. nephrology on board. Baseline CR is ~ 2 4. Diabetes: on ISS. Accuchecks q6hrs.n on lantus 40IU bid. 5. Hypertension: on IV hydralazine prn. 6. Chronic diastolic heart failure: * stable. * will monitor * DVT prophylaxis: heparin. GI prophylaxis: famotidine Code Visit Inpatient E&M: 18223 Subs Hosp L3
[2018-09-21 11:31] LABS: Bedside Glucose 154 mg/dL (70-110)
[2018-09-21] MEDS: predniSONE 20 MG Tablet 40 MG PO (12:27)
--- NOTE | 2018-09-21 15:08 | PCM.PN.REN ---
Patient Problems: Active and Suspected Problems PNA (pneumonia) (Acute) Respiratory acidosis (Acute) Comatose (Acute) DARYL (acute kidney injury) (Acute) Subjective: No new events - Physical Exam General: Alert, Oriented x3, Cooperative HEENT: Atraumatic, PERRLA, EOMI, Normocephalic Neck: Supple, No JVD, Negative Carotid Bruits Lungs: Clear to auscultation, Normal air movement Cardiovascular: Regular rate, No murmurs Abdomen: Bowel Sounds Present, Soft, Non Tender Extremities: No edema, Capillary Refill Less than 3 Seconds Skin: No rashes, No breakdown Musculoskeletal: No Tenderness to Palpation of Joints or Extremities Neurological: Cranial nerves II-XII grossly intact Psych/Mental Status: Normal Affect, Appropriate Vital Signs Temp Pulse Resp BP Pulse Ox 99.1 F 64 24 H 160/66 H 92 09/21/18 10:18 09/21/18 15:04 09/21/18 10:54 09/21/18 10:18 09/21/18 10:18 Oxygen Flow Rate (L/min) 4 Oxygen Delivery Method Nasal Cannula Weight: 99.5 kg Body Mass Index (BMI) 32.0 Finger Stick Blood Glucose 150 Intake and Output for Last 24 Hours 09/19/18 09/20/18 09/21/18 23:59 23:59 23:59 Intake Total 4429 / 4429 2731 / 2731 775.6 / 775.6 Output Total 1900 / 1900 1225 / 1225 Balance 2529 / 2529 1506 / 1506 775.6 / 775.6 Microbiology Past 72 Hours 09/17/18 20:20 Gram Stain - Final Sputum, Induced/Lukens Respiratory Culture - Preliminary Appears to be normal respiratory lex. Further studies to follow. 09/18/18 14:30 Gram Stain - Final Sputum, Induced/Lukens Respiratory Culture - Final Culture exhibits no growth. 09/17/18 20:40 Urine Culture - Final Urine Catheter - Catheter Culture exhibits no growth. 09/17/18 13:44 Blood Culture - Preliminary Blood Culture (Wb) #2 - Right Hand No growth in 48 hours. 09/17/18 13:40 Blood Culture - Preliminary Blood Culture (Wb) - Anticubital Left No growth in 48 hours. Laboratory Tests Past 24 Hrs 09/21/18 09/21/18 06:15 06:15 WBC 22.9 H RBC 4.30 L Hgb 12.2 L Hct 38.6 L MCV 89.8 MCH 28.4 MCHC 31.6 L RDW 13.6 RDW Differential 44.0 H Plt Count 355 MPV 9.9 Neut % (Auto) Not Reportable Absolute Neuts (auto) 15.8 H Absolute Lymphs (auto) 4.58 H Total Counted 100 Neutrophils % (Manual) 66 Band Neutrophils % 3 Lymphocytes % (Manual) 20 Monocytes % (Manual) 7 Eosinophils % (Manual) 1 Metamyelocytes % 2 H Myelocytes % 1 H Diff Path Review May foll Toxic Granulation 2+ Platelet Estimate ADEQUATE RBC Morphology NORM C+C Sodium 145 Potassium 3.6 Chloride 112 H Carbon Dioxide 25.0 Anion Gap 8 BUN 61 H Creatinine 2.80 H Estim Creat Clear Calc 24.62 Est GFR (MDRD) Af Amer 29 L Est GFR (MDRD) Non-Af 24 L BUN/Creatinine Ratio 21.8 H Glucose 66 L Calcium 8.7 POC Glucose 09/21/18 09/21/18 09/21/18 11:14 07:34 07:06 POC Glucose 154 H 92 69 L 09/20/18 09/20/18 21:34 17:40 POC Glucose 303 H 183 H Medical Necessity - Tobacco Use Smoking Status: Former smoker Tobacco Use: Cigarettes Assessment/Plan All Active Problems Fall (Acute) Sepsis (Acute) Encephalopathy (Acute) Urinary tract infection (Acute) PNA (pneumonia) (Acute) Respiratory acidosis (Acute) Comatose (Acute) DARYL (acute kidney injury) (Acute) Acute renal failure Chronic kidney disease stage III. Baseline creatinine is around 2.0. Sustained acute renal failure. Renal ultrasound without any hydronephrosis. Urine analysis was fairly dirty but culture negative. Creatinine is trending down to baseline of 2.8. He has significantly elevated globulin when compared to albumin. We will check a serum protein electrophoresis. Electrolytes are acceptable. Volume status is okay.
[2018-09-21] MEDS: levoFLOXacin 750 MG Tablet PO (15:40)
[2018-09-21] MEDS: Albuterol 2.5 MG/3 ML VIAL.NEB. INHALATION (15:53)
[2018-09-21] MEDS: hydrALAZINE 20 MG/ML Vial 5 MG IV (16:25)
[2018-09-21] MEDS: 0.9% NaCl Peripheral Flush Adult/Peds IV (16:26)
--- NOTE | 2018-09-21 16:37 | CT_ITS ---
STUDY: CT CHEST WITHOUT CONTRAST REASON FOR EXAM: Male, 72 years old. Shortness of breath RADIATION DOSAGE (If Supplied By Facility): CTDIvol = ( 19.85 ) mGy, DLP = ( 743.90 ) mGycm TECHNIQUE: Transaxial imaging was performed without the administration of intravenous contrast material. Multiplanar coronal and sagittal images were reformatted. Individualized dose optimization techniques were used for this CT. COMPARISON: 10/19/2017. FINDINGS: Faint reticulonodular peribronchial micronodules in the bilateral upper lobes, and bilateral lower lobes new since the prior study. Localized consolidation in the right lower lobe on image 85 is new since the prior study. Localized scarring of the bilateral lower lobes stable since the prior study. No endobronchial lesions. Partially calcified granuloma in the posterior left upper lobe is stable. There is no demonstrated pleural abnormality. Heart size is stable. Coronary artery calcifications are present. There are multiple small lymph nodes within the mediastinum, which are normal in size and morphology most compatible with reactive lymph hyperplasia. Normal hilar regions. Normal unenhanced pulmonary arteries. There is atherosclerotic calcification of the aortic arch with tortuosity and elongation of the aortic arch and descending thoracic aorta. Calcifications of the aortic valve noted. There are multi-level degenerative changes of the thoracic spine. Gallstones are noted. There is severe atrophy of the left kidney, partially visualized. CT/Chest without Contrast IMPRESSION: 1. Bronchovascular micronodularity most typically related to infectious bronchiolitis. Localized consolidation or infiltrate in the right lung base. 2. Severe left renal atrophy. 3. Cholelithiasis. Electronically Signed: Demetris Irwin MD at 17:34 EDT , Service support ,
[2018-09-21 16:55] LABS: Bedside Glucose 194 mg/dL (70-110)
[2018-09-21 17:15] LABS: Allen Test POS; Base Excess -2 mmol/L (-2 to +2); Bicarbonate 23.8 mmol/L (22-26); Blood Gas Specimen Type ART; O2 Delivery Device Nasal Can; PO2 116 mmHG (75-100); SITE L Brachial; SO2 98 % (95-99); Time Given 1711; Total Carbon Dioxide 25 mmol/L; pCO2 41.9 mmHg (35-45); pH 7.36 (7.35-7.45)
[2018-09-21 22:46] LABS: Bedside Glucose 243 mg/dL (70-110)
[2018-09-22] VITALS (18 sets, daily range): BP systolic 140–162; BP diastolic 48–94; PULSE 68–77; RESP 16–26; TEMP 36.1–36.6; O2SAT 92–95
[2018-09-22 06:10] LABS: Hematocrit 39.3 % (40-54); Hemoglobin 12.8 g/dl (13.0-16.5); Mean Corp Hgb Conc 32.6 g/gl (32-36); Mean Corpuscular Hgb 29.2 pg (27.0-32.0); Mean Corpuscular Volume 89.7 fL (80-94); Mean Platelet Vol. 9.7 fl (6.2-12.0); Platelet Count 356 K/mm3 (150-450); RBC Distribution Width CV 13.4 % (11.6-14.6); RBC Distribution Width SD 43.5 fl (35.1-43.9); Red Blood Count 4.38 M/mm3 (4.6-6.2); White Blood Count 23.9 K/mm3 (4.4-11.0)
[2018-09-22 06:11] LABS: Differential Indicated MANUAL DIFF; POSITIVE COUNT YES; POSITIVE DIFFERENTIAL YES; POSITIVE MORPHOLOGY YES
[2018-09-22 06:14] LABS: Anion Gap 8 (5-15); BUN 61 mg/dL (7-18); BUN/Creat Ratio 21.6 RATIO (10-20); Chloride 111 mmol/L (98-107); Creatinine, Serum 2.82 mg/dL (0.70-1.30); EST Glomerular Filtration Rate 24 mL/min (>60); Est Glom Filt Rate - Afr Amer 29 mL/min (>60); Estimated Creatinine Clearance 24.45 ml/min; Glucose 148 mg/dL (74-106); Potassium 4.2 mmol/L (3.5-5.1); Sodium Level 144 mmol/L (136-145)
[2018-09-22] MEDS: Labetalol 200 MG Tablet 300 MG PO ×3 (06:14→21:38)
[2018-09-22] MEDS: 0.9% NaCl Peripheral Flush Adult/Peds IV (06:15)
[2018-09-22 06:26] LABS: Bedside Glucose 139 mg/dL (70-110)
[2018-09-22] MEDS: Ipratropium/Albuterol Sulfate 3 ML AMPUL.NEB INHALATION ×5 (07:18→22:23)
[2018-09-22 07:41] LABS: Eosinophil 1 % (0-5); Lymphocyte 12 % (19-41); Metamyelocyte 3 % (0-1); Monocyte 2 % (0-10); Neutrophil-Segmented 82 % (47-70); Platelet Estimate ADEQUATE (ADEQ); Red Cell Morphology NORM C+C NORMAL (NORM C&C); Total Cells Counted 100 (MANUAL DIFF)
[2018-09-22 07:42] LABS: Absolute Lymphocyte Count 2.86 X10^3/ul (0.83-4.51); Absolute Neutrophil Count 19.6 X10^3/uL (2.0-7.7); Lymphocyte # 1.86 X10^3/ul (4.0); Neutrophil # 19.58 X10^3/uL (2.7-7.7)
[2018-09-22] MEDS: Heparin Injection (Vial) 5,000 UNIT/ML VIAL 5000 UNIT SC ×2 (08:57→21:38)
[2018-09-22] MEDS: Famotidine 20 MG Tablet GT (08:57)
--- NOTE | 2018-09-22 09:20 | PCM.PN.PUL ---
Patient Problems: Active and Suspected Problems PNA (pneumonia) (Acute) Respiratory acidosis (Acute) Comatose (Acute) DARYL (acute kidney injury) (Acute) Subjective: Patient did okay overnight. Patient does report subjective improvement in overall condition. Still requiring supplemental oxygen to maintain saturations. Patient denies any chest pain. Patient does report coughing, but states secretions are improved. Objective: CAT scan was personally reviewed and does show tree-in-bud pattern, particularly on the right side. Patient also has some borderline bronchiectasis noted on the right. - Physical Exam General: Alert, Oriented x3, Cooperative, No apparent distress, - - Obese. No conversational dyspnea noted. HEENT: Atraumatic, PERRLA, EOMI, Normocephalic, - - Slight scleral injection without icterus Oral: Moist Mucosa, No Gingival or Mucosal Lesions/ Ulcerations Neck: Supple, No JVD, No Nodes, Trachea Midline Lungs: No rhonchi, No rales, Diminished, Wheezes - Right greater than left Cardiovascular: Regular rate, Regular Rhythm, Normal S1, Normal S2, Murmur - Grade 2 out of 6 systolic ejection murmur at the right sternal border, No rub noted, No Gallop Abdomen: Bowel Sounds Present, Soft, Non Tender, Non-Distended, Obese Extremities: No clubbing, No cyanosis, No edema, Capillary Refill Less than 3 Seconds Skin: No rashes, No breakdown Musculoskeletal: No Tenderness to Palpation of Joints or Extremities Lymphatic: No Cervical, Supraclavicular, or Inguinal Adenopathy Neurological: Cranial nerves II-XII grossly intact, Neuro grossly intact, Motor Exam 5/5 strength throughout Psych/Mental Status: Alert and oriented to time, place, person, mood and affect Vital Signs Temp Pulse Resp BP Pulse Ox 36.1 C L 70 16 156/78 H 93 09/22/18 08:45 09/22/18 08:45 09/22/18 08:45 09/22/18 08:45 09/22/18 08:45 Oxygen Flow Rate (L/min) 2 Oxygen Delivery Method Nasal Cannula Weight: 98 kg Body Mass Index (BMI) 32.0 Finger Stick Blood Glucose 150 Intake and Output for Last 24 Hours 09/20/18 09/21/18 09/22/18 23:59 23:59 23:59 Intake Total 2731 / 2731 775.6 / 775.6 440 / 440 Output Total 1225 / 1225 1400 / 1400 Balance 1506 / 1506 775.6 / 775.6 -960 / -960 Microbiology Past 72 Hours 09/17/18 20:20 Gram Stain - Final Sputum, Induced/Lukens Respiratory Culture - Preliminary GNR Possible Haemophilus sp. Mixed Meagan 09/18/18 14:30 Gram Stain - Final Sputum, Induced/Lukens Respiratory Culture - Final Culture exhibits no growth. 09/17/18 20:40 Urine Culture - Final Urine Catheter - Catheter Culture exhibits no growth. 09/17/18 13:44 Blood Culture - Preliminary Blood Culture (Wb) #2 - Right Hand No growth in 48 hours. 09/17/18 13:40 Blood Culture - Preliminary Blood Culture (Wb) - Anticubital Left No growth in 48 hours. Laboratory Tests Past 24 Hrs 09/21/18 09/22/18 09/22/18 17:12 05:20 05:20 WBC 23.9 H RBC 4.38 L Hgb 12.8 L Hct 39.3 L MCV 89.7 MCH 29.2 MCHC 32.6 RDW 13.4 RDW Differential 43.5 Plt Count 356 MPV 9.7 Neut % (Auto) Not Reportable Absolute Neuts (auto) 19.6 H Absolute Lymphs (auto) 2.86 Total Counted 100 Neutrophils % (Manual) 82 H Lymphocytes % (Manual) 12 L Monocytes % (Manual) 2 Eosinophils % (Manual) 1 Metamyelocytes % 3 H Diff Path Review May foll Platelet Estimate ADEQUATE RBC Morphology NORM C+C Specimen Type ART Sample Site L Brachial pH 7.36 Bicarbonate Actual 23.8 POC Total CO2 25 Base Excess -2 O2 Saturation 98 ABG pCO2 41.9 ABG pO2 116 H Elias Test POS O2 Delivery Device Nasal Can Liter Flow 4.0 Blood Gas Notified Whom HOSP Blood Gas Notified Time 1711 Sodium 144 Potassium 4.2 Chloride 111 H Carbon Dioxide 25.0 Anion Gap 8 BUN 61 H Creatinine 2.82 H Estim Creat Clear Calc 24.45 Est GFR (MDRD) Af Amer 29 L Est GFR (MDRD) Non-Af 24 L BUN/Creatinine Ratio 21.6 H Glucose 148 H Calcium 9.0 POC Glucose 09/22/18 09/21/18 09/21/18 06:08 22:30 16:22 POC Glucose 139 H 243 H 194 H 09/21/18 11:14 POC Glucose 154 H Clinical Impression(s) from Imaging Studies Chest CT 09/21/18 16:37 IMPRESSION: 1. Bronchovascular micronodularity most typically related to infectious bronchiolitis. Localized consolidation or infiltrate in the right lung base. 2. Severe left renal atrophy. 3. Cholelithiasis. Electronically Signed: Demetris Irwin MD at 17:34 EDT , Service support , Medical Necessity - Tobacco Use Smoking Status: Former smoker Tobacco Use: Cigarettes Assessment/Plan All Active Problems Fall (Acute) Sepsis (Acute) Encephalopathy (Acute) Urinary tract infection (Acute) PNA (pneumonia) (Acute) Respiratory acidosis (Acute) Comatose (Acute) DARYL (acute kidney injury) (Acute) RECOMMENDATIONS: 1. Wean supplemental oxygen to maintain saturations at or above 90%. 2. Zosyn can be de-escalated to Levaquin with plans to finish a 7-day treatment course of antibiotics. 3. Continue scheduled bronchodilators and prednisone. 4. Continue subcutaneous heparin for prophylaxis. 5. Continue Lantus and sliding scale insulin coverage. 6. Encourage incentive spirometer use and mobilize patient as tolerated. 7. Perform walking oximetry study prior to consideration for discharge from the hospital. 8. The patient would benefit from outpatient pulmonary follow-up. IMPRESSIONS: 1. Acute on chronic hypoxemic and hypercarbic respiratory failure secondary to presumptive COPD with exacerbation Patient with rhinovirus and probable Haemophilus superinfection. Patient is on appropriate antibiotics at this time. Would continue with prednisone and bronchodilators at current dosing for now. Tree-in-bud pattern is suggestive of small airways obstruction, commonly seen with viral infections. Smoking cessation is encouraged. Patient will need a walking oximetry prior to discharge. Complete pulmonary function test for quantification and clarification of lung function as an outpatient would be recommended. 2. Severe sepsis 2/2 Rhinovirus URI and suspected CAP Continue current antimicrobial coverage. The patient remains hemodynamically stable. 3. Long-standing tobacco abuse history As noted above, clinical concern for underlying obstructive lung disease. Recommend outpatient pulmonary follow-up and baseline pulmonary function studies. Smoking cessation is advisable. Nicotine replacement therapy can be offered to the patient while admitted to the hospital. 4. Acute on chronic kidney disease Relatively unchanged compared to previous. Renal function initially worsened in the setting of diuretic therapy on admission to the hospital. All diuretics and potentially nephrotoxic medications were discontinued. Nephrology is currently following. Renal ultrasound was unremarkable. 5. Diabetes mellitus/baseline MRDD/hypertension Complicates care, management, recovery and prognosis. Continue basal insulin and sliding scale insulin coverage. Code Visit Inpatient E&M: 77400 Subs Hosp L2
--- NOTE | 2018-09-22 11:06 | PCM.PN.HOSP ---
Patient Problems: Active and Suspected Problems PNA (pneumonia) (Acute) Respiratory acidosis (Acute) Comatose (Acute) DARYL (acute kidney injury) (Acute) Subjective: Patient seen and examined. He remained on ~ 3L during the night, and didn't require BIPAP. He feel well, and has no complaints. Review of systems is otherwise negative. Labs and vitals reviewed. Vitals/I&O's: Vital Signs Temp Pulse Resp BP Pulse Ox 97 F L 70 16 156/78 H 93 09/22/18 08:45 09/22/18 08:45 09/22/18 08:45 09/22/18 08:45 09/22/18 08:45 Oxygen Flow Rate (L/min) 2 Oxygen Delivery Method Nasal Cannula Weight: 216 lb 0.848 oz Body Mass Index (BMI) 32.0 Finger Stick Blood Glucose 150 Intake and Output for Last 24 Hours 09/20/18 09/21/18 09/22/18 23:59 23:59 23:59 Intake Total 2731 / 2731 775.6 / 775.6 440 / 440 Output Total 1225 / 1225 1400 / 1400 Balance 1506 / 1506 775.6 / 775.6 -960 / -960 General: Alert, Oriented x3, Cooperative, No apparent distress HEENT: Atraumatic, PERRLA, EOMI, Normocephalic Oral: Moist Mucosa Neck: Supple, No JVD, Negative Carotid Bruits Lungs: Tachypneic, - - mildly decreased breath sounds bibasally, no wheezes or crackles. on 2L of oxygen Cardiovascular: Regular rate, Regular Rhythm, Normal S1, Normal S2, No murmurs Abdomen: Bowel Sounds Present, Soft, Non Tender, Non-Distended Extremities: No clubbing, No cyanosis, No edema, Capillary Refill Less than 3 Seconds Skin: No rashes, No breakdown Musculoskeletal: No Tenderness to Palpation of Joints or Extremities Lymphatic: No Cervical, Supraclavicular, or Inguinal Adenopathy Neurological: Cranial nerves II-XII grossly intact, Neuro grossly intact, Motor Exam 5/5 strength throughout Psych/Mental Status: Normal Affect, Appropriate, Alert and oriented to time, place, person, mood and affect Microbiology Past 72 Hours 09/17/18 20:20 Sputum, Induced/Lukens Gram Stain - Final 09/17/18 20:20 Sputum, Induced/Lukens Respiratory Culture - Preliminary GNR Possible Haemophilus sp. Mixed Meagan 09/18/18 14:30 Sputum, Induced/Lukens Gram Stain - Final 09/18/18 14:30 Sputum, Induced/Lukens Respiratory Culture - Final Culture exhibits no growth. 09/17/18 20:40 Urine Catheter - Catheter Urine Culture - Final Culture exhibits no growth. 09/17/18 13:44 Blood Culture (Wb) #2 - Right Hand Blood Culture - Preliminary No growth in 48 hours. 09/17/18 13:40 Blood Culture (Wb) - Anticubital Left Blood Culture - Preliminary No growth in 48 hours. Laboratory Results 09/21/18 11:14: POC Glucose 154 H 09/21/18 16:22: POC Glucose 194 H 09/21/18 17:12: Specimen Type ART, Sample Site L Brachial, pH 7.36, Bicarbonate Actual 23.8, POC Total CO2 25, Base Excess -2, O2 Saturation 98, ABG pCO2 41.9, ABG pO2 116 H, Elias Test POS, O2 Delivery Device Nasal Can, Liter Flow 4.0, Blood Gas Notified Whom [facility] , Blood Gas Notified Time 1711 09/21/18 22:30: POC Glucose 243 H 09/22/18 05:20: WBC 23.9 H, RBC 4.38 L, Hgb 12.8 L, Hct 39.3 L, MCV 89.7, MCH 29.2, MCHC 32.6, RDW 13.4, RDW Differential 43.5, Plt Count 356, MPV 9.7, Neut % (Auto) Not Reportable, Absolute Neuts (auto) 19.6 H, Absolute Lymphs (auto) 2.86, Total Counted 100, Neutrophils % (Manual) 82 H, Lymphocytes % (Manual) 12 L, Monocytes % (Manual) 2, Eosinophils % (Manual) 1, Metamyelocytes % 3 H, Diff Path Review August, Platelet Estimate ADEQUATE, RBC Morphology NORM C+C 09/22/18 05:20: Sodium 144, Potassium 4.2, Chloride 111 H, Carbon Dioxide 25.0, Anion Gap 8, BUN 61 H, Creatinine 2.82 H, Estim Creat Clear Calc 24.45, Est GFR (MDRD) Af Amer 29 L, Est GFR (MDRD) Non-Af 24 L, BUN/Creatinine Ratio 21.6 H, Glucose 148 H, Calcium 9.0 09/22/18 06:08: POC Glucose 139 H Current Medications Acetaminophen (Tylenol) 650 mg PO Q6H PRN PRN PRN Reason: Mild pain 1-3/Temp > 100.7 F Albuterol Sulfate (Ventolin Aerosols) 2.5 mg INHALATION Q2H PRN PRN PRN Reason: SOB &/OR WHEEZING Last Admin: 09/21/18 15:53 Dose: 2.5 mg Albuterol/Ipratropium (Duoneb) 3 ml INHALATION Q4HWA.RT [facility] Last Admin: 09/22/18 07:18 Dose: 3 ml Dextrose (D50w Syringe) 0 gm IV X1 PRN; Protocol PRN Reason: Hypoglycemia Famotidine (Pepcid) 20 mg GT DAILY [facility] Last Admin: 09/22/18 08:57 Dose: 20 mg Glucagon () 1 mg IM .X1 PRN PRN Reason: Hypoglycemia Heparin Sodium (Porcine) (Heparin Na) 5,000 unit SC Q12 [facility] Last Admin: 09/22/18 08:57 Dose: 5,000 unit Hydralazine HCl (Apresoline Iv) 5 mg IV Q6H PRN PRN PRN Reason: BLOOD PRESSURE Last Admin: 09/21/18 16:25 Dose: 5 mg Sodium Chloride () 250 mls @ 15 mls/hr IV .[id number] PRN PRN Reason: SALINE FLUSH Insulin Glargine (Lantus (Bkc)) 40 units SC 06,18 [facility] Last Admin: 09/22/18 06:15 Dose: 40 u Insulin Human Lispro (Humalog Kwikpen (Bkc)) 0 unit SC ACHS [facility]; Protocol Last Admin: 09/22/18 06:15 Dose: Not Given Labetalol HCl (Trandate) 300 mg PO TID [facility] Last Admin: 09/22/18 06:14 Dose: 300 mg Levofloxacin (Levaquin Tablet) 750 mg PO Q48 [facility] Multi-Ingredient Cream (Eucerin) 1 applic TOPICAL BID PRN PRN; Protocol PRN Reason: DRY SKIN Nitroglycerin (Nitrostat) 0.4 mg SUBLINGUAL Q5M PRN PRN Reason: CARDIAC/CHEST PAIN Ondansetron HCl (Zofran) 4 mg IV Q8H PRN PRN PRN Reason: NAUSEA/VOMITING Prednisone () 40 mg PO 1200 KARENA Last Admin: 09/21/18 12:27 Dose: 40 mg Sodium Chloride () 5 - 15 ml IV UD PRN PRN Reason: SALINE FLUSH Last Admin: 09/22/18 06:15 Dose: 10 ml Sodium Chloride () 5 - 15 ml IV UD PRN PRN Reason: SALINE FLUSH Medical Necessity - Tobacco Use Smoking Status: Former smoker Tobacco Use: Cigarettes Assessment/Plan All Active Problems Fall (Acute) Sepsis (Acute) Encephalopathy (Acute) Urinary tract infection (Acute) PNA (pneumonia) (Acute) Respiratory acidosis (Acute) Comatose (Acute) DARYL (acute kidney injury) (Acute) 1. Acute on chronic hypoxic and hypercapnic respiratory failure due to community acquired pneumonia was SOB [id number] up ot 5L of oxygen yesterday; chest CT done showed bronchovascular micronodularity typically related to infectious bronchiolitis and localised consolidation or infiltrate in right grisel gbase, severe left renal atrophy and cholelithiasis now down to 3L; didnt require BIPAP overnight. on breathing treatments and steroids. director financial planning on board titrate oxygen to maintain sats>90% 2. Sepsis due to community acquired pneumonia now on PO levaquin director financial planning on board respiratory panel positive for rhinovirus urine culture, blood cultures, and urine for strep and legionella are negative 3. CKD 3: CR is down to 2.80 today, from 2.35 on admission. nephrology on board. Baseline CR is ~ 2. Increased Cr may be his new baseline as it has remained ~ 2.8. WIll monitor 4. Diabetes: on ISS. Accuchecks q6hrs.n on lantus 40IU bid. 5. Hypertension: on IV hydralazine prn. 6. Chronic diastolic heart failure: stable. will monitor DVT prophylaxis: heparin. GI prophylaxis: famotidine Code Visit Inpatient E&M: [id number] [facility] Hosp L3
--- NOTE | 2018-09-22 11:12 | PN_ITS ---
Patient Problems: Active and Suspected Problems PNA (pneumonia) (Acute) Respiratory acidosis (Acute) Comatose (Acute) DARYL (acute kidney injury) (Acute) Subjective: Patient seen and examined. He remained on ~ 3L during the night, and didn't require BIPAP. He feel well, and has no complaints. Review of systems is otherwise negative. Labs and vitals reviewed. Vitals/I&O's: Vital Signs Temp Pulse Resp BP Pulse Ox 97 F L 70 16 156/78 H 93 09/22/18 08:45 09/22/18 08:45 09/22/18 08:45 09/22/18 08:45 09/22/18 08:45 Oxygen Flow Rate (L/min) 2 Oxygen Delivery Method Nasal Cannula Weight: 216 lb 0.848 oz Body Mass Index (BMI) 32.0 Finger Stick Blood Glucose 150 Intake and Output for Last 24 Hours 09/20/18 09/21/18 09/22/18 23:59 23:59 23:59 Intake Total 2731 / 2731 775.6 / 775.6 440 / 440 Output Total 1225 / 1225 1400 / 1400 Balance 1506 / 1506 775.6 / 775.6 -960 / -960 General: Alert, Oriented x3, Cooperative, No apparent distress HEENT: Atraumatic, PERRLA, EOMI, Normocephalic Oral: Moist Mucosa Neck: Supple, No JVD, Negative Carotid Bruits Lungs: Tachypneic, - - mildly decreased breath sounds bibasally, no wheezes or crackles. on 2L of oxygen Cardiovascular: Regular rate, Regular Rhythm, Normal S1, Normal S2, No murmurs Abdomen: Bowel Sounds Present, Soft, Non Tender, Non-Distended Extremities: No clubbing, No cyanosis, No edema, Capillary Refill Less than 3 Seconds Skin: No rashes, No breakdown Musculoskeletal: No Tenderness to Palpation of Joints or Extremities Lymphatic: No Cervical, Supraclavicular, or Inguinal Adenopathy Neurological: Cranial nerves II-XII grossly intact, Neuro grossly intact, Motor Exam 5/5 strength throughout Psych/Mental Status: Normal Affect, Appropriate, Alert and oriented to time, place, person, mood and affect Microbiology Past 72 Hours 09/17/18 20:20 Sputum, Induced/Lukens Gram Stain - Final 09/17/18 20:20 Sputum, Induced/Lukens Respiratory Culture - Preliminary GNR Possible Haemophilus sp. Mixed Meagan 09/18/18 14:30 Sputum, Induced/Lukens Gram Stain - Final 09/18/18 14:30 Sputum, Induced/Lukens Respiratory Culture - Final Culture exhibits no growth. 09/17/18 20:40 Urine Catheter - Catheter Urine Culture - Final Culture exhibits no growth. 09/17/18 13:44 Blood Culture (Wb) #2 - Right Hand Blood Culture - Preliminary No growth in 48 hours. 09/17/18 13:40 Blood Culture (Wb) - Anticubital Left Blood Culture - Preliminary No growth in 48 hours. Laboratory Results 09/21/18 11:14: POC Glucose 154 H 09/21/18 16:22: POC Glucose 194 H 09/21/18 17:12: Specimen Type ART, Sample Site L Brachial, pH 7.36, Bicarbonate Actual 23.8, POC Total CO2 25, Base Excess -2, O2 Saturation 98, ABG pCO2 41.9, ABG pO2 116 H, Elias Test POS, O2 Delivery Device Nasal Can, Liter Flow 4.0, Blood Gas Notified Whom [facility] , Blood Gas Notified Time 1711 09/21/18 22:30: POC Glucose 243 H 09/22/18 05:20: WBC 23.9 H, RBC 4.38 L, Hgb 12.8 L, Hct 39.3 L, MCV 89.7, MCH 29.2, MCHC 32.6, RDW 13.4, RDW Differential 43.5, Plt Count 356, MPV 9.7, Neut % (Auto) Not Reportable, Absolute Neuts (auto) 19.6 H, Absolute Lymphs (auto) 2.86, Total Counted 100, Neutrophils % (Manual) 82 H, Lymphocytes % (Manual) 12 L, Monocytes % (Manual) 2, Eosinophils % (Manual) 1, Metamyelocytes % 3 H, Diff Path Review August, Platelet Estimate ADEQUATE, RBC Morphology NORM C+C 09/22/18 05:20: Sodium 144, Potassium 4.2, Chloride 111 H, Carbon Dioxide 25.0, Anion Gap 8, BUN 61 H, Creatinine 2.82 H, Estim Creat Clear Calc 24.45, Est GFR (MDRD) Af Amer 29 L, Est GFR (MDRD) Non-Af 24 L, BUN/Creatinine Ratio 21.6 H, Glucose 148 H, Calcium 9.0 09/22/18 06:08: POC Glucose 139 H Current Medications Acetaminophen (Tylenol) 650 mg PO Q6H PRN PRN PRN Reason: Mild pain 1-3/Temp > 100.7 F Albuterol Sulfate (Ventolin Aerosols) 2.5 mg INHALATION Q2H PRN PRN PRN Reason: SOB &/OR WHEEZING Last Admin: 09/21/18 15:53 Dose: 2.5 mg Albuterol/Ipratropium (Duoneb) 3 ml INHALATION Q4HWA.RT [facility] Last Admin: 09/22/18 07:18 Dose: 3 ml Dextrose (D50w Syringe) 0 gm IV X1 PRN; Protocol PRN Reason: Hypoglycemia Famotidine (Pepcid) 20 mg GT DAILY [facility] Last Admin: 09/22/18 08:57 Dose: 20 mg Glucagon () 1 mg IM .X1 PRN PRN Reason: Hypoglycemia Heparin Sodium (Porcine) (Heparin Na) 5,000 unit SC Q12 [facility] Last Admin: 09/22/18 08:57 Dose: 5,000 unit Hydralazine HCl (Apresoline Iv) 5 mg IV Q6H PRN PRN PRN Reason: BLOOD PRESSURE Last Admin: 09/21/18 16:25 Dose: 5 mg Sodium Chloride () 250 mls @ 15 mls/hr IV .[id number] PRN PRN Reason: SALINE FLUSH Insulin Glargine (Lantus (Bkc)) 40 units SC 06,18 [facility] Last Admin: 09/22/18 06:15 Dose: 40 u Insulin Human Lispro (Humalog Kwikpen (Bkc)) 0 unit SC ACHS [facility]; Protocol Last Admin: 09/22/18 06:15 Dose: Not Given Labetalol HCl (Trandate) 300 mg PO TID [facility] Last Admin: 09/22/18 06:14 Dose: 300 mg Levofloxacin (Levaquin Tablet) 750 mg PO Q48 [facility] Multi-Ingredient Cream (Eucerin) 1 applic TOPICAL BID PRN PRN; Protocol PRN Reason: DRY SKIN Nitroglycerin (Nitrostat) 0.4 mg SUBLINGUAL Q5M PRN PRN Reason: CARDIAC/CHEST PAIN Ondansetron HCl (Zofran) 4 mg IV Q8H PRN PRN PRN Reason: NAUSEA/VOMITING Prednisone () 40 mg PO 1200 [facility]ARE[facility] Last Admin: 09/21/18 12:27 Dose: 40 mg Sodium Chloride () 5 - 15 ml IV UD PRN PRN Reason: SALINE FLUSH Last Admin: 09/22/18 06:15 Dose: 10 ml Sodium Chloride () 5 - 15 ml IV UD PRN PRN Reason: SALINE FLUSH Medical Necessity - Tobacco Use Smoking Status: Former smoker Tobacco Use: Cigarettes Assessment/Plan All Active Problems Fall (Acute) Sepsis (Acute) Encephalopathy (Acute) Urinary tract infection (Acute) PNA (pneumonia) (Acute) Respiratory acidosis (Acute) Comatose (Acute) DARYL (acute kidney injury) (Acute) 1. Acute on chronic hypoxic and hypercapnic respiratory failure due to community acquired pneumonia * was SOB [id number] up ot 5L of oxygen yesterday; chest CT done showed bronchovascular micronodularity typically related to infectious bronchiolitis and localised consolidation or infiltrate in right grisel gbase, severe left renal atrophy and cholelithiasis * now down to 3L; didnt require BIPAP overnight. * on breathing treatments and steroids. * senior clinical sas programmer on board * titrate oxygen to maintain sats>90% * 2. Sepsis due to community acquired pneumonia * now on PO levaquin * senior clinical sas programmer on board * respiratory panel positive for rhinovirus * urine culture, blood cultures, and urine for strep and legionella are negative * 3. CKD 3: * CR is down to 2.80 today, from 2.35 on admission. nephrology on board. Baseline CR is ~ 2. Increased Cr may be his new baseline as it has remained ~ 2.8. WIll monitor 4. Diabetes: on ISS. Accuchecks q6hrs.n on lantus 40IU bid. 5. Hypertension: on IV hydralazine prn. 6. Chronic diastolic heart failure: * stable. * will monitor * DVT prophylaxis: heparin. GI prophylaxis: famotidine Code Visit Inpatient E&M: [id number] Subs Hosp L3
[2018-09-22] MEDS: Insulin Lispro 100 UNIT/ML INSULN.PEN SC ×2 (11:35→21:48)
[2018-09-22] MEDS: predniSONE 20 MG Tablet 40 MG PO (11:36)
[2018-09-22 11:45] LABS: Bedside Glucose 201 mg/dL (70-110)
[2018-09-22 16:41] LABS: Bedside Glucose 135 mg/dL (70-110)
--- NOTE | 2018-09-22 17:06 | PCM.PN.REN ---
Patient Problems: Active and Suspected Problems PNA (pneumonia) (Acute) Respiratory acidosis (Acute) Comatose (Acute) DARYL (acute kidney injury) (Acute) Subjective: No new complaints - Physical Exam General: Alert, Oriented x3, Cooperative HEENT: Atraumatic, PERRLA, EOMI, Normocephalic Neck: Supple, No JVD, Negative Carotid Bruits Lungs: Clear to auscultation, Normal air movement Cardiovascular: Regular rate, No murmurs Abdomen: Bowel Sounds Present, Soft, Non Tender Extremities: No edema, Capillary Refill Less than 3 Seconds Skin: No rashes, No breakdown Musculoskeletal: No Tenderness to Palpation of Joints or Extremities Neurological: Cranial nerves II-XII grossly intact Psych/Mental Status: Normal Affect, Appropriate Vital Signs Temp Pulse Resp BP Pulse Ox 97.2 F L 72 26 H 144/68 H 92 09/22/18 14:45 09/22/18 15:34 09/22/18 15:34 09/22/18 14:45 09/22/18 14:58 Oxygen Flow Rate (L/min) 1 Oxygen Delivery Method Nasal Cannula Weight: 98 kg Body Mass Index (BMI) 32.0 Finger Stick Blood Glucose 150 Intake and Output for Last 24 Hours 09/20/18 09/21/18 09/22/18 23:59 23:59 23:59 Intake Total 2731 / 2731 775.6 / 775.6 680 / 680 Output Total 1225 / 1225 1400 / 1400 Balance 1506 / 1506 775.6 / 775.6 -720 / -720 Microbiology Past 72 Hours 09/17/18 13:44 Blood Culture - Final Blood Culture (Wb) #2 - Right Hand No growth in 5 days. 09/17/18 13:40 Blood Culture - Final Blood Culture (Wb) - Anticubital Left No growth in 5 days. 09/17/18 20:20 Gram Stain - Final Sputum, Induced/Lukens Respiratory Culture - Final Haemophilus influenzae Mixed Meagan 09/18/18 14:30 Gram Stain - Final Sputum, Induced/Lukens Respiratory Culture - Final Culture exhibits no growth. 09/17/18 20:40 Urine Culture - Final Urine Catheter - Catheter Culture exhibits no growth. Laboratory Tests Past 24 Hrs 09/21/18 09/22/18 09/22/18 17:12 05:20 05:20 WBC 23.9 H RBC 4.38 L Hgb 12.8 L Hct 39.3 L MCV 89.7 MCH 29.2 MCHC 32.6 RDW 13.4 RDW Differential 43.5 Plt Count 356 MPV 9.7 Neut % (Auto) Not Reportable Absolute Neuts (auto) 19.6 H Absolute Lymphs (auto) 2.86 Total Counted 100 Neutrophils % (Manual) 82 H Lymphocytes % (Manual) 12 L Monocytes % (Manual) 2 Eosinophils % (Manual) 1 Metamyelocytes % 3 H Diff Path Review May foll Platelet Estimate ADEQUATE RBC Morphology NORM C+C Specimen Type ART Sample Site L Brachial pH 7.36 Bicarbonate Actual 23.8 POC Total CO2 25 Base Excess -2 O2 Saturation 98 ABG pCO2 41.9 ABG pO2 116 H Elias Test POS O2 Delivery Device Nasal Can Liter Flow 4.0 Blood Gas Notified Whom HOSP Blood Gas Notified Time 1711 Sodium 144 Potassium 4.2 Chloride 111 H Carbon Dioxide 25.0 Anion Gap 8 BUN 61 H Creatinine 2.82 H Estim Creat Clear Calc 24.45 Est GFR (MDRD) Af Amer 29 L Est GFR (MDRD) Non-Af 24 L BUN/Creatinine Ratio 21.6 H Glucose 148 H Calcium 9.0 POC Glucose 09/22/18 09/22/18 09/22/18 16:32 11:34 06:08 POC Glucose 135 H 201 H 139 H 09/21/18 22:30 POC Glucose 243 H Medical Necessity - Tobacco Use Smoking Status: Former smoker Tobacco Use: Cigarettes Assessment/Plan All Active Problems Fall (Acute) Sepsis (Acute) Encephalopathy (Acute) Urinary tract infection (Acute) PNA (pneumonia) (Acute) Respiratory acidosis (Acute) Comatose (Acute) DARYL (acute kidney injury) (Acute) Acute renal failure Chronic kidney disease stage III. Baseline creatinine is around 2.0. Sustained acute renal failure. Renal ultrasound without any hydronephrosis. Urine analysis was fairly dirty but culture negative. Creatinine is trending down. He has significantly elevated globulin when compared to albumin. Serum protein electrophoresis is pending. Electrolytes are acceptable. Volume status is okay.
[2018-09-22 21:55] LABS: Bedside Glucose 254 mg/dL (70-110)
[2018-09-23] VITALS (14 sets, daily range): BP systolic 136–156; BP diastolic 62–81; PULSE 64–80; RESP 14–20; TEMP 36.1–36.6; O2SAT 91–93
[2018-09-23 05:49] LABS: Anion Gap 10 (5-15); BUN 64 mg/dL (7-18); BUN/Creat Ratio 22.7 RATIO (10-20); Chloride 112 mmol/L (98-107); Creatinine, Serum 2.82 mg/dL (0.70-1.30); EST Glomerular Filtration Rate 24 mL/min (>60); Est Glom Filt Rate - Afr Amer 29 mL/min (>60); Estimated Creatinine Clearance 24.45 ml/min; Glucose 63 mg/dL (74-106); Potassium 3.8 mmol/L (3.5-5.1); Sodium Level 145 mmol/L (136-145)
[2018-09-23 06:27] LABS: Hematocrit 37.3 % (40-54); Hemoglobin 12.3 g/dl (13.0-16.5); Mean Corpuscular Hgb 29.4 pg (27.0-32.0); Mean Platelet Vol. 9.4 fl (6.2-12.0); Platelet Count 341 K/mm3 (150-450); RBC Distribution Width CV 13.5 % (11.6-14.6); RBC Distribution Width SD 44.3 fl (35.1-43.9); Red Blood Count 4.19 M/mm3 (4.6-6.2); White Blood Count 18.8 K/mm3 (4.4-11.0)
[2018-09-23 06:31] LABS: Differential Indicated MANUAL DIFF; POSITIVE COUNT YES; POSITIVE DIFFERENTIAL NO; POSITIVE MORPHOLOGY YES
[2018-09-23] MEDS: Labetalol 200 MG Tablet 300 MG PO ×3 (06:41→21:49)
--- NOTE | 2018-09-23 06:47 | NURSING ---
BGT 63 provided two cartons of orange juice, peanut butter saltine crackers, and milk. will recheck BGT
[2018-09-23 07:21] LABS: Lymphocyte 14 % (19-41); Metamyelocyte 3 % (0-1); Monocyte 4 % (0-10); Myelocyte 2 (0-0); Neutrophil-Band 2 % (0-5); Neutrophil-Segmented 75 % (47-70); Platelet Estimate ADEQUATE (ADEQ); Red Cell Morphology NORM C+C NORMAL (NORM C&C); Total Cells Counted 100 (MANUAL DIFF)
[2018-09-23 07:22] LABS: Absolute Lymphocyte Count 2.63 X10^3/ul (0.83-4.51); Absolute Neutrophil Count 14.5 X10^3/uL (2.0-7.7); Lymphocyte # 2.63 X10^3/ul (4.0); Neutrophil # 14.48 X10^3/uL (2.7-7.7)
[2018-09-23 07:26] LABS: Bedside Glucose 96 mg/dL (70-110)
[2018-09-23 07:26] LABS: Bedside Glucose 63 mg/dL (70-110)
[2018-09-23] MEDS: Ipratropium/Albuterol Sulfate 3 ML AMPUL.NEB INHALATION ×3 (07:27→14:55)
--- NOTE | 2018-09-23 08:11 | PCM.PN.PUL ---
Patient Problems: Active and Suspected Problems PNA (pneumonia) (Acute) Respiratory acidosis (Acute) Comatose (Acute) DARYL (acute kidney injury) (Acute) Subjective: Patient did okay overnight. Patient was found on room air and was confused. Patient does report cough, but no chest pain, nausea or vomiting. - Physical Exam General: Alert, Cooperative, No apparent distress, Confused, - - No conversational dyspnea appreciated HEENT: Atraumatic, PERRLA, EOMI, Normocephalic, - - No scleral icterus or injection noted. Oral: Moist Mucosa, No Gingival or Mucosal Lesions/ Ulcerations Neck: Supple, No JVD, No Nodes, Trachea Midline Lungs: No rhonchi, No rales, Diminished, Wheezes, - - Symmetric expansion. Cardiovascular: Regular rate, Regular Rhythm, Normal S1, Normal S2, No murmurs, No rub noted, No Gallop Abdomen: Bowel Sounds Present, Soft, Non Tender, Non-Distended, Obese Extremities: No clubbing, No cyanosis, No edema, Capillary Refill Less than 3 Seconds Skin: - - No significant change compared to previous Musculoskeletal: No Tenderness to Palpation of Joints or Extremities Lymphatic: No Cervical, Supraclavicular, or Inguinal Adenopathy Neurological: Cranial nerves II-XII grossly intact, Neuro grossly intact, Motor Exam 5/5 strength throughout Psych/Mental Status: Flat Affect, Impulsive Vital Signs Temp Pulse Resp BP Pulse Ox 36.6 C 70 16 156/74 H 93 09/23/18 06:48 09/23/18 07:27 09/23/18 07:27 09/23/18 06:48 09/23/18 07:27 Oxygen Flow Rate (L/min) 2 Oxygen Delivery Method Nasal Cannula Weight: 98 kg Body Mass Index (BMI) 32.0 Finger Stick Blood Glucose 150 Intake and Output for Last 24 Hours 09/21/18 09/22/18 09/23/18 23:59 23:59 23:59 Intake Total 775.6 / 775.6 920 / 920 360 / 360 Output Total 1400 / 1400 1000 / 1000 Balance 775.6 / 775.6 -480 / -480 -640 / -640 Microbiology Past 72 Hours 09/17/18 13:44 Blood Culture - Final Blood Culture (Wb) #2 - Right Hand No growth in 5 days. 09/17/18 13:40 Blood Culture - Final Blood Culture (Wb) - Anticubital Left No growth in 5 days. 09/17/18 20:20 Gram Stain - Final Sputum, Induced/Lukens Respiratory Culture - Final Haemophilus influenzae Mixed Meagan 09/18/18 14:30 Gram Stain - Final Sputum, Induced/Lukens Respiratory Culture - Final Culture exhibits no growth. 09/17/18 20:40 Urine Culture - Final Urine Catheter - Catheter Culture exhibits no growth. Laboratory Tests Past 24 Hrs 09/23/18 09/23/18 05:14 05:14 WBC 18.8 H RBC 4.19 L Hgb 12.3 L Hct 37.3 L MCV 89.0 MCH 29.4 MCHC 33.0 RDW 13.5 RDW Differential 44.3 H Plt Count 341 MPV 9.4 Neut % (Auto) Not Reportable Absolute Neuts (auto) 14.5 H Absolute Lymphs (auto) 2.63 Total Counted 100 Neutrophils % (Manual) 75 H Band Neutrophils % 2 Lymphocytes % (Manual) 14 L Monocytes % (Manual) 4 Metamyelocytes % 3 H Myelocytes % 2 H Diff Path Review May foll Platelet Estimate ADEQUATE RBC Morphology NORM C+C Sodium 145 Potassium 3.8 Chloride 112 H Carbon Dioxide 23.0 Anion Gap 10 BUN 64 H Creatinine 2.82 H Estim Creat Clear Calc 24.45 Est GFR (MDRD) Af Amer 29 L Est GFR (MDRD) Non-Af 24 L BUN/Creatinine Ratio 22.7 H Glucose 63 L Calcium 9.0 POC Glucose 09/23/18 09/23/18 09/22/18 07:20 06:36 21:46 POC Glucose 96 63 L 254 H 09/22/18 09/22/18 16:32 11:34 POC Glucose 135 H 201 H Medical Necessity - Tobacco Use Smoking Status: Former smoker Tobacco Use: Cigarettes Assessment/Plan All Active Problems Fall (Acute) Sepsis (Acute) Encephalopathy (Acute) Urinary tract infection (Acute) PNA (pneumonia) (Acute) Respiratory acidosis (Acute) Comatose (Acute) DARYL (acute kidney injury) (Acute) RECOMMENDATIONS: 1. Wean supplemental oxygen to maintain saturations at or above 90%. 2. Finish a 7-day treatment course of antibiotics. 3. Continue scheduled bronchodilators and prednisone. 4. Continue subcutaneous heparin for prophylaxis. 5. Continue Lantus and sliding scale insulin coverage. 6. Encourage incentive spirometer use and mobilize patient as tolerated. 7. Perform walking oximetry study prior to consideration for discharge from the hospital. 8. The patient would benefit from outpatient pulmonary follow-up. 9. Likely stable enough to be transferred to an F IMPRESSIONS: 1. Acute on chronic hypoxemic and hypercarbic respiratory failure secondary to presumptive COPD with exacerbation Patient with rhinovirus and probable Haemophilus superinfection. Patient is on appropriate antibiotics at this time. Would continue with prednisone and bronchodilators at current dosing for now. Tree-in-bud pattern is suggestive of small airways obstruction, commonly seen with viral infections. Smoking cessation is encouraged. Anticipate a protracted course of recovery given infection. Complete pulmonary function test for quantification and clarification of lung function as an outpatient would be recommended. 2. Severe sepsis 2/2 Rhinovirus URI and suspected CAP Continue current antimicrobial coverage. The patient remains hemodynamically stable. 3. Long-standing tobacco abuse history As noted above, clinical concern for underlying obstructive lung disease. Recommend outpatient pulmonary follow-up and baseline pulmonary function studies. Smoking cessation is advisable. Nicotine replacement therapy can be offered to the patient while admitted to the hospital. 4. Acute on chronic kidney disease Relatively unchanged compared to previous. Renal function initially worsened in the setting of diuretic therapy on admission to the hospital. All diuretics and potentially nephrotoxic medications were discontinued. Nephrology is currently following. Renal function is approaching baseline at this time 5. Diabetes mellitus/baseline MRDD/hypertension Complicates care, management, recovery and prognosis. Continue basal insulin and sliding scale insulin coverage. Code Visit Inpatient E&M: [id number] Subs Hosp L2
[2018-09-23] MEDS: levoFLOXacin 750 MG Tablet PO (08:57)
[2018-09-23] MEDS: Heparin Injection (Vial) 5,000 UNIT/ML VIAL 5000 UNIT SC ×2 (08:58→21:48)
[2018-09-23] MEDS: Famotidine 20 MG Tablet GT (08:58)
[2018-09-23 09:11] LABS: Bedside Glucose 139 mg/dL (70-110)
--- NOTE | 2018-09-23 11:21 | CASEMGMT ---
SW spoke w/pt about intermediate placement, as pt would not be able to return to [facility] on oxygen. Also, pt is not moving well with therapy. Pt agreeable to this after a lengthy conversation. Pt is very focused on getting an apartment, SW redirected pt to the plan after pt leaves the hospital. SW explained that SW cannot assist pt in finding an apartment, but can assist in getting pt into a intermediate. SW explained that pt is on O2 and not walking well, cannot go back to [facility] from here, physician feels pt would benefit from some rehab in a intermediate. We reviewed facilities, after much discussion pt agreeable to [facility]. [facility], [facility]. [facility], or [facility]. [facility]. Pt wants to stay in [place] as he is working on getting an apartment, has been at [facility] for three weeks. Pt states that [facility] is helping him to secure housing. SW explained that [facility] may not take his insurance, we can fined out. If they cannot, we will try [facility] and then [facility]. SW called [facility], they do not take pt's insurance. SW called [facility], message left and referral faxed. SW will continue to follow. GUY Goyal
[2018-09-23] MEDS: predniSONE 20 MG Tablet 40 MG PO (11:24)
[2018-09-23] MEDS: Insulin Lispro 100 UNIT/ML INSULN.PEN SC ×3 (11:24→21:49)
--- NOTE | 2018-09-23 12:25 | PCM.PN.REN ---
Patient Problems: Active and Suspected Problems PNA (pneumonia) (Acute) Respiratory acidosis (Acute) Comatose (Acute) DARYL (acute kidney injury) (Acute) Subjective: no new events - Physical Exam General: Alert, Oriented x3, Cooperative HEENT: Atraumatic, PERRLA, EOMI, Normocephalic Neck: Supple, No JVD, Negative Carotid Bruits Lungs: Clear to auscultation, Normal air movement Cardiovascular: Regular rate, No murmurs Abdomen: Bowel Sounds Present, Soft, Non Tender Extremities: No edema, Capillary Refill Less than 3 Seconds Skin: No rashes, No breakdown Musculoskeletal: No Tenderness to Palpation of Joints or Extremities Neurological: Cranial nerves II-XII grossly intact Psych/Mental Status: Normal Affect, Appropriate Vital Signs Temp Pulse Resp BP Pulse Ox 97 F L 72 16 143/72 H 92 09/23/18 08:45 09/23/18 10:41 09/23/18 10:41 09/23/18 08:45 09/23/18 08:45 Oxygen Flow Rate (L/min) 2 Oxygen Delivery Method Nasal Cannula Weight: 98 kg Body Mass Index (BMI) 32.0 Finger Stick Blood Glucose 150 Intake and Output for Last 24 Hours 09/21/18 09/22/18 09/23/18 23:59 23:59 23:59 Intake Total 775.6 / 775.6 920 / 920 600 / 600 Output Total 1400 / 1400 1000 / 1000 Balance 775.6 / 775.6 -480 / -480 -400 / -400 Microbiology Past 72 Hours 09/17/18 13:44 Blood Culture - Final Blood Culture (Wb) #2 - Right Hand No growth in 5 days. 09/17/18 13:40 Blood Culture - Final Blood Culture (Wb) - Anticubital Left No growth in 5 days. 09/17/18 20:20 Gram Stain - Final Sputum, Induced/Lukens Respiratory Culture - Final Haemophilus influenzae Mixed Meagan 09/18/18 14:30 Gram Stain - Final Sputum, Induced/Lukens Respiratory Culture - Final Culture exhibits no growth. 09/17/18 20:40 Urine Culture - Final Urine Catheter - Catheter Culture exhibits no growth. Laboratory Tests Past 24 Hrs 09/23/18 09/23/18 05:14 05:14 WBC 18.8 H RBC 4.19 L Hgb 12.3 L Hct 37.3 L MCV 89.0 MCH 29.4 MCHC 33.0 RDW 13.5 RDW Differential 44.3 H Plt Count 341 MPV 9.4 Neut % (Auto) Not Reportable Absolute Neuts (auto) 14.5 H Absolute Lymphs (auto) 2.63 Total Counted 100 Neutrophils % (Manual) 75 H Band Neutrophils % 2 Lymphocytes % (Manual) 14 L Monocytes % (Manual) 4 Metamyelocytes % 3 H Myelocytes % 2 H Diff Path Review May foll Platelet Estimate ADEQUATE RBC Morphology NORM C+C Sodium 145 Potassium 3.8 Chloride 112 H Carbon Dioxide 23.0 Anion Gap 10 BUN 64 H Creatinine 2.82 H Estim Creat Clear Calc 24.45 Est GFR (MDRD) Af Amer 29 L Est GFR (MDRD) Non-Af 24 L BUN/Creatinine Ratio 22.7 H Glucose 63 L Calcium 9.0 POC Glucose 09/23/18 09/23/18 09/23/18 09:02 07:20 06:36 POC Glucose 139 H 96 63 L 09/22/18 09/22/18 21:46 16:32 POC Glucose 254 H 135 H Medical Necessity - Tobacco Use Smoking Status: Former smoker Tobacco Use: Cigarettes Assessment/Plan All Active Problems Fall (Acute) Sepsis (Acute) Encephalopathy (Acute) Urinary tract infection (Acute) PNA (pneumonia) (Acute) Respiratory acidosis (Acute) Comatose (Acute) DARYL (acute kidney injury) (Acute) Acute renal failure Chronic kidney disease stage III. Baseline creatinine was around 2.0 in the past. Sustained acute renal failure. Renal ultrasound without any hydronephrosis. Urine analysis was fairly dirty but culture negative. creatinine stable. He has significantly elevated globulin when compared to albumin. Serum protein electrophoresis is pending. Electrolytes are acceptable. Volume status is okay.
[2018-09-23 12:45] LABS: Bedside Glucose 170 mg/dL (70-110)
--- NOTE | 2018-09-23 13:33 | PCM.PN.HOSP ---
Patient Problems: Active and Suspected Problems PNA (pneumonia) (Acute) Respiratory acidosis (Acute) Comatose (Acute) DARYL (acute kidney injury) (Acute) Subjective: Patient seen and examined. He feels better and has no complaints. Shortness of breath has improved significantly. Review of systems otherwise negative. Labs and vitals reviewed. Vitals/I&O's: Vital Signs Temp Pulse Resp BP Pulse Ox 97 F L 72 16 143/72 H 92 09/23/18 08:45 09/23/18 10:41 09/23/18 10:41 09/23/18 08:45 09/23/18 08:45 Oxygen Flow Rate (L/min) 2 Oxygen Delivery Method Nasal Cannula Weight: 216 lb 0.848 oz Body Mass Index (BMI) 32.0 Finger Stick Blood Glucose 150 Intake and Output for Last 24 Hours 09/21/18 09/22/18 09/23/18 23:59 23:59 23:59 Intake Total 775.6 / 775.6 920 / 920 600 / 600 Output Total 1400 / 1400 1000 / 1000 Balance 775.6 / 775.6 -480 / -480 -400 / -400 General: Alert, Oriented x3, Cooperative, No apparent distress HEENT: Atraumatic, PERRLA, EOMI, Normocephalic Oral: Moist Mucosa Neck: Supple, No JVD, Negative Carotid Bruits Lungs: Tachypneic, - - mildly decreased breath sounds bibasally, no wheezes or crackles. on 2L of oxygen Cardiovascular: Regular rate, Regular Rhythm, Normal S1, Normal S2, No murmurs Abdomen: Bowel Sounds Present, Soft, Non Tender, Non-Distended Extremities: No clubbing, No cyanosis, No edema, Capillary Refill Less than 3 Seconds Skin: No rashes, No breakdown Musculoskeletal: No Tenderness to Palpation of Joints or Extremities Lymphatic: No Cervical, Supraclavicular, or Inguinal Adenopathy Neurological: Cranial nerves II-XII grossly intact, Neuro grossly intact, Motor Exam 5/5 strength throughout Psych/Mental Status: Normal Affect, Appropriate, Alert and oriented to time, place, person, mood and affect Microbiology Past 72 Hours 09/17/18 13:44 Blood Culture (Wb) #2 - Right Hand Blood Culture - Final No growth in 5 days. 09/17/18 13:40 Blood Culture (Wb) - Anticubital Left Blood Culture - Final No growth in 5 days. 09/17/18 20:20 Sputum, Induced/Lukens Gram Stain - Final 09/17/18 20:20 Sputum, Induced/Lukens Respiratory Culture - Final Haemophilus influenzae Mixed Meagan 09/18/18 14:30 Sputum, Induced/Lukens Gram Stain - Final 09/18/18 14:30 Sputum, Induced/Lukens Respiratory Culture - Final Culture exhibits no growth. Laboratory Results 09/22/18 16:32: POC Glucose 135 H 09/22/18 21:46: POC Glucose 254 H 09/23/18 05:14: WBC 18.8 H, RBC 4.19 L, Hgb 12.3 L, Hct 37.3 L, MCV 89.0, MCH 29.4, MCHC 33.0, RDW 13.5, RDW Differential 44.3 H, Plt Count 341, MPV 9.4, Neut % (Auto) Not Reportable, Absolute Neuts (auto) 14.5 H, Absolute Lymphs (auto) 2.63, Total Counted 100, Neutrophils % (Manual) 75 H, Band Neutrophils % 2, Lymphocytes % (Manual) 14 L, Monocytes % (Manual) 4, Metamyelocytes % 3 H, Myelocytes % 2 H, Diff Path Review August, Platelet Estimate ADEQUATE, RBC Morphology NORM C+C 09/23/18 05:14: Sodium 145, Potassium 3.8, Chloride 112 H, Carbon Dioxide 23.0, Anion Gap 10, BUN 64 H, Creatinine 2.82 H, Estim Creat Clear Calc 24.45, Est GFR (MDRD) Af Amer 29 L, Est GFR (MDRD) Non-Af 24 L, BUN/Creatinine Ratio 22.7 H, Glucose 63 L, Calcium 9.0 09/23/18 06:36: POC Glucose 63 L 09/23/18 07:20: POC Glucose 96 09/23/18 09:02: POC Glucose 139 H 09/23/18 11:20: POC Glucose 170 H Current Medications Acetaminophen (Tylenol) 650 mg PO Q6H PRN PRN PRN Reason: Mild pain 1-3/Temp > 100.7 F Albuterol Sulfate (Ventolin Aerosols) 2.5 mg INHALATION Q2H PRN PRN PRN Reason: SOB &/OR WHEEZING Last Admin: 09/21/18 15:53 Dose: 2.5 mg Albuterol/Ipratropium (Duoneb) 3 ml INHALATION Q4HWA.RT [facility] Last Admin: 09/23/18 10:41 Dose: 3 ml Dextrose (D50w Syringe) 0 gm IV X1 PRN; Protocol PRN Reason: Hypoglycemia Famotidine (Pepcid) 20 mg GT DAILY [facility] Last Admin: 09/23/18 08:58 Dose: 20 mg Glucagon () 1 mg IM .X1 PRN PRN Reason: Hypoglycemia Heparin Sodium (Porcine) (Heparin Na) 5,000 unit SC Q12 [facility] Last Admin: 09/23/18 08:58 Dose: 5,000 unit Hydralazine HCl (Apresoline Iv) 5 mg IV Q6H PRN PRN PRN Reason: BLOOD PRESSURE Last Admin: 09/21/18 16:25 Dose: 5 mg Sodium Chloride () 250 mls @ 15 mls/hr IV .[id number] PRN PRN Reason: SALINE FLUSH Insulin Glargine (Lantus (Bkc)) 40 units SC 06,18 [facility] Last Admin: 09/23/18 09:04 Dose: Not Given Insulin Human Lispro (Humalog Kwikpen (Bkc)) 0 unit SC ACHS [facility]; Protocol Last Admin: 09/23/18 11:24 Dose: 1 u Labetalol HCl (Trandate) 300 mg PO TID [facility] Last Admin: 09/23/18 06:41 Dose: 300 mg Levofloxacin (Levaquin Tablet) 750 mg PO Q48 [facility] Last Admin: 09/23/18 08:57 Dose: 750 mg Multi-Ingredient Cream (Eucerin) 1 applic TOPICAL BID PRN PRN; Protocol PRN Reason: DRY SKIN Nitroglycerin (Nitrostat) 0.4 mg SUBLINGUAL Q5M PRN PRN Reason: CARDIAC/CHEST PAIN Ondansetron HCl (Zofran) 4 mg IV Q8H PRN PRN PRN Reason: NAUSEA/VOMITING Prednisone () 40 mg PO 1200 [facility] Last Admin: 09/23/18 11:24 Dose: 40 mg Sodium Chloride () 5 - 15 ml IV UD PRN PRN Reason: SALINE FLUSH Last Admin: 09/22/18 06:15 Dose: 10 ml Sodium Chloride () 5 - 15 ml IV UD PRN PRN Reason: SALINE FLUSH Medical Necessity - Tobacco Use Smoking Status: Former smoker Tobacco Use: Cigarettes Assessment/Plan All Active Problems Fall (Acute) Sepsis (Acute) Encephalopathy (Acute) Urinary tract infection (Acute) PNA (pneumonia) (Acute) Respiratory acidosis (Acute) Comatose (Acute) DARYL (acute kidney injury) (Acute) 1. Acute on chronic hypoxic and hypercapnic respiratory failure due to community acquired pneumonia now on 2L of oxygen. 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 Titrate oxygen to maintain sats more than 90%. 2. Sepsis due to community acquired pneumonia now on PO levaquin body wirer on board respiratory panel positive for rhinovirus urine culture, blood cultures, and urine for strep and legionella are negative 3. CKD 3: CR is down to 2.82 today, from 2.35 on admission. nephrology on board. 4. Diabetes: on ISS. Accuchecks q6hrs.n on lantus 40IU bid. 5. Hypertension: on IV hydralazine prn. 6. Chronic diastolic heart failure: stable. will monitor DVT prophylaxis: heparin. GI prophylaxis: famotidine Disposition: Awaiting placement. Code Visit Inpatient E&M: 64114 Subs Hosp L2
--- NOTE | 2018-09-23 13:38 | PN_ITS ---
Patient Problems: Active and Suspected Problems PNA (pneumonia) (Acute) Respiratory acidosis (Acute) Comatose (Acute) DARYL (acute kidney injury) (Acute) Subjective: Patient seen and examined. He feels better and has no complaints. Shortness of breath has improved significantly. Review of systems otherwise negative. Labs and vitals reviewed. Vitals/I&O's: Vital Signs Temp Pulse Resp BP Pulse Ox 97 F L 72 16 143/72 H 92 09/23/18 08:45 09/23/18 10:41 09/23/18 10:41 09/23/18 08:45 09/23/18 08:45 Oxygen Flow Rate (L/min) 2 Oxygen Delivery Method Nasal Cannula Weight: 216 lb 0.848 oz Body Mass Index (BMI) 32.0 Finger Stick Blood Glucose 150 Intake and Output for Last 24 Hours 09/21/18 09/22/18 09/23/18 23:59 23:59 23:59 Intake Total 775.6 / 775.6 920 / 920 600 / 600 Output Total 1400 / 1400 1000 / 1000 Balance 775.6 / 775.6 -480 / -480 -400 / -400 General: Alert, Oriented x3, Cooperative, No apparent distress HEENT: Atraumatic, PERRLA, EOMI, Normocephalic Oral: Moist Mucosa Neck: Supple, No JVD, Negative Carotid Bruits Lungs: Tachypneic, - - mildly decreased breath sounds bibasally, no wheezes or crackles. on 2L of oxygen Cardiovascular: Regular rate, Regular Rhythm, Normal S1, Normal S2, No murmurs Abdomen: Bowel Sounds Present, Soft, Non Tender, Non-Distended Extremities: No clubbing, No cyanosis, No edema, Capillary Refill Less than 3 Seconds Skin: No rashes, No breakdown Musculoskeletal: No Tenderness to Palpation of Joints or Extremities Lymphatic: No Cervical, Supraclavicular, or Inguinal Adenopathy Neurological: Cranial nerves II-XII grossly intact, Neuro grossly intact, Motor Exam 5/5 strength throughout Psych/Mental Status: Normal Affect, Appropriate, Alert and oriented to time, place, person, mood and affect Microbiology Past 72 Hours 09/17/18 13:44 Blood Culture (Wb) #2 - Right Hand Blood Culture - Final No growth in 5 days. 09/17/18 13:40 Blood Culture (Wb) - Anticubital Left Blood Culture - Final No growth in 5 days. 09/17/18 20:20 Sputum, Induced/Lukens Gram Stain - Final 09/17/18 20:20 Sputum, Induced/Lukens Respiratory Culture - Final Haemophilus influenzae Mixed Meagan 09/18/18 14:30 Sputum, Induced/Lukens Gram Stain - Final 09/18/18 14:30 Sputum, Induced/Lukens Respiratory Culture - Final Culture exhibits no growth. Laboratory Results 09/22/18 16:32: POC Glucose 135 H 09/22/18 21:46: POC Glucose 254 H 09/23/18 05:14: WBC 18.8 H, RBC 4.19 L, Hgb 12.3 L, Hct 37.3 L, MCV 89.0, MCH 29.4, MCHC 33.0, RDW 13.5, RDW Differential 44.3 H, Plt Count 341, MPV 9.4, Neut % (Auto) Not Reportable, Absolute Neuts (auto) 14.5 H, Absolute Lymphs (auto) 2.63, Total Counted 100, Neutrophils % (Manual) 75 H, Band Neutrophils % 2, Lymphocytes % (Manual) 14 L, Monocytes % (Manual) 4, Metamyelocytes % 3 H, Myelocytes % 2 H, Diff Path Review August, Platelet Estimate ADEQUATE, RBC Morphology NORM C+C 09/23/18 05:14: Sodium 145, Potassium 3.8, Chloride 112 H, Carbon Dioxide 23.0, Anion Gap 10, BUN 64 H, Creatinine 2.82 H, Estim Creat Clear Calc 24.45, Est GFR (MDRD) Af Amer 29 L, Est GFR (MDRD) Non-Af 24 L, BUN/Creatinine Ratio 22.7 H, Glucose 63 L, Calcium 9.0 09/23/18 06:36: POC Glucose 63 L 09/23/18 07:20: POC Glucose 96 09/23/18 09:02: POC Glucose 139 H 09/23/18 11:20: POC Glucose 170 H Current Medications Acetaminophen (Tylenol) 650 mg PO Q6H PRN PRN PRN Reason: Mild pain 1-3/Temp > 100.7 F Albuterol Sulfate (Ventolin Aerosols) 2.5 mg INHALATION Q2H PRN PRN PRN Reason: SOB &/OR WHEEZING Last Admin: 09/21/18 15:53 Dose: 2.5 mg Albuterol/Ipratropium (Duoneb) 3 ml INHALATION Q4HWA.RT [facility] Last Admin: 09/23/18 10:41 Dose: 3 ml Dextrose (D50w Syringe) 0 gm IV X1 PRN; Protocol PRN Reason: Hypoglycemia Famotidine (Pepcid) 20 mg GT DAILY [facility] Last Admin: 09/23/18 08:58 Dose: 20 mg Glucagon () 1 mg IM .X1 PRN PRN Reason: Hypoglycemia Heparin Sodium (Porcine) (Heparin Na) 5,000 unit SC Q12 [facility] Last Admin: 09/23/18 08:58 Dose: 5,000 unit Hydralazine HCl (Apresoline Iv) 5 mg IV Q6H PRN PRN PRN Reason: BLOOD PRESSURE Last Admin: 09/21/18 16:25 Dose: 5 mg Sodium Chloride () 250 mls @ 15 mls/hr IV .[id number] PRN PRN Reason: SALINE FLUSH Insulin Glargine (Lantus (Bkc)) 40 units SC 06,18 [facility] Last Admin: 09/23/18 09:04 Dose: Not Given Insulin Human Lispro (Humalog Kwikpen (Bkc)) 0 unit SC ACHS [facility]; Protocol Last Admin: 09/23/18 11:24 Dose: 1 u Labetalol HCl (Trandate) 300 mg PO TID [facility] Last Admin: 09/23/18 06:41 Dose: 300 mg Levofloxacin (Levaquin Tablet) 750 mg PO Q48 [facility] Last Admin: 09/23/18 08:57 Dose: 750 mg Multi-Ingredient Cream (Eucerin) 1 applic TOPICAL BID PRN PRN; Protocol PRN Reason: DRY SKIN Nitroglycerin (Nitrostat) 0.4 mg SUBLINGUAL Q5M PRN PRN Reason: CARDIAC/CHEST PAIN Ondansetron HCl (Zofran) 4 mg IV Q8H PRN PRN PRN Reason: NAUSEA/VOMITING Prednisone () 40 mg PO 1200 [facility] Last Admin: 09/23/18 11:24 Dose: 40 mg Sodium Chloride () 5 - 15 ml IV UD PRN PRN Reason: SALINE FLUSH Last Admin: 09/22/18 06:15 Dose: 10 ml Sodium Chloride () 5 - 15 ml IV UD PRN PRN Reason: SALINE FLUSH Medical Necessity - Tobacco Use Smoking Status: Former smoker Tobacco Use: Cigarettes Assessment/Plan All Active Problems Fall (Acute) Sepsis (Acute) Encephalopathy (Acute) Urinary tract infection (Acute) PNA (pneumonia) (Acute) Respiratory acidosis (Acute) Comatose (Acute) DARYL (acute kidney injury) (Acute) 1. Acute on chronic hypoxic and hypercapnic respiratory failure due to community acquired pneumonia * now on 2L of oxygen. 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 Titrate oxygen to maintain sats more than 90%. * 2. Sepsis due to community acquired pneumonia * now on PO levaquin * refined syrup operator on board * respiratory panel positive for rhinovirus * urine culture, blood cultures, and urine for strep and legionella are negative * 3. CKD 3: * CR is down to 2.82 today, from 2.35 on admission. nephrology on board. * 4. Diabetes: on ISS. Accuchecks q6hrs.n on lantus 40IU bid. 5. Hypertension: on IV hydralazine prn. 6. Chronic diastolic heart failure: * stable. * will monitor * DVT prophylaxis: heparin. GI prophylaxis: famotidine Disposition: Awaiting placement. Code Visit Inpatient E&M: 51417 Subs Hosp L2
--- NOTE | 2018-09-23 14:12 | CASEMGMT ---
[facility] can take pt, Mai explains that the first 20 days are covered at 100%, then there is a copay that would be covered once pt meets his out of pocket costs. They will start precert. [facility] spoke w/pt, pt's sister in law Melissa and nephew Christopher in the room. SW explained to pt that [facility] is out of network so referral was sent to [facility]. SW explained that they can take him and are going to insurance for precert. SW explained that the first 20 days are covered at 100%. Also, [facility] explained did tell Mai at [facility] that pt will need help w/housing. Pt's sister in law said that she has made calls also and is helping pt to find an apartment. SW verified her number, she asked to be called when pt is discharged, pt agreeable to this. SW will call to let her know when pt goes. [facility]LEY explained that we are now waiting for precert, pt may not get discharged until tomorrow. Pt and family state understanding. Plan: [facility], precert pending. GUY Goyal
[2018-09-23 14:35] LABS: Pathologist Review Reviewed
[2018-09-23 14:36] LABS: Pathologist Review Reviewed
[2018-09-23 14:40] LABS: Pathologist Review Reviewed
--- NOTE | 2018-09-23 14:55 | CHAPLAIN ---
Type of Pastoral Visit ___ Initial Visit _x__ Follow-up Visit ___ On-call Visit ___ General Patient Visit ___ Spiritual Assessment ___ Family Conference ___ Bereavement ___ Rapid Response ___ Code Blue ___ Other (describe below) Pastoral Care Referral From _x__ Patient _x__ Family ___ Nurse ___ Physician ___ Rn Recovery ___ Pairer Inspector ___ Other (describe below) Sacrament/Intervention _x__ Active listening ___ Anointing ___ Temple ___ Bereavement ___ Communion _x__ Sravanthi exploration ___ _x__ Life review _x__ Prayer ___ Reconciliation ___ Sacrament of Sick _x__ Supportive presence ___ Wedding ___ Other (describe below) Pastoral Comments patient and his [id number] are focused on what options pt has for rehab and then watermaster living arrangements; consulted with [facility] who was already in process on request;
[2018-09-23 17:21] LABS: Bedside Glucose 188 mg/dL (70-110)
[2018-09-23 22:05] LABS: Bedside Glucose 189 mg/dL (70-110)
[2018-09-24] VITALS (8 sets, daily range): BP systolic 138–146; BP diastolic 71–73; PULSE 68–77; RESP 16–17; TEMP 36.1–36.6; O2SAT 88–93
[2018-09-24 06:35] LABS: Bedside Glucose 88 mg/dL (70-110)
[2018-09-24] MEDS: Labetalol 200 MG Tablet 300 MG PO ×2 (06:52→14:17)
[2018-09-24 07:00] LABS: Hematocrit 38.1 % (40-54); Hemoglobin 12.6 g/dl (13.0-16.5); Mean Corp Hgb Conc 33.1 g/gl (32-36); Mean Corpuscular Hgb 29.4 pg (27.0-32.0); Mean Corpuscular Volume 88.8 fL (80-94); Mean Platelet Vol. 9.5 fl (6.2-12.0); Platelet Count 312 K/mm3 (150-450); RBC Distribution Width CV 13.6 % (11.6-14.6); RBC Distribution Width SD 43.6 fl (35.1-43.9); Red Blood Count 4.29 M/mm3 (4.6-6.2); White Blood Count 16.1 K/mm3 (4.4-11.0)
[2018-09-24] MEDS: Ipratropium/Albuterol Sulfate 3 ML AMPUL.NEB INHALATION ×2 (07:10→10:18)
[2018-09-24 07:12] LABS: Differential Indicated MANUAL DIFF; POSITIVE COUNT YES; POSITIVE DIFFERENTIAL NO; POSITIVE MORPHOLOGY YES
[2018-09-24 07:26] LABS: Anion Gap 9 (5-15); BUN 59 mg/dL (7-18); BUN/Creat Ratio 23.4 RATIO (10-20); Calcium,Total 9.1 mg/dL (8.5-10.1); Chloride 110 mmol/L (98-107); Creatinine, Serum 2.52 mg/dL (0.70-1.30); EST Glomerular Filtration Rate 27 mL/min (>60); Est Glom Filt Rate - Afr Amer 32 mL/min (>60); Estimated Creatinine Clearance 27.36 ml/min; Glucose 87 mg/dL (74-106); Sodium Level 142 mmol/L (136-145)
--- NOTE | 2018-09-24 07:58 | PN_ITS ---
Patient Problems: Active and Suspected Problems PNA (pneumonia) (Acute) Respiratory acidosis (Acute) Comatose (Acute) DARYL (acute kidney injury) (Acute) Subjective: Patient did okay overnight from a respiratory standpoint. Patient did have recurrent hypoglycemia this morning leading to holding of Lantus. Patient does report a cough that is productive of clear to white sputum. Patient denies any chest pain, abdominal pain, nausea or vomiting. Patient reportedly was at the bedside chair yesterday and tolerated okay. - Physical Exam General: Alert, Cooperative, No apparent distress, Disoriented, - - No conversational dyspnea appreciated HEENT: Atraumatic, PERRLA, EOMI, Normocephalic, - - Slight scleral injection without icterus Oral: Moist Mucosa, No Gingival or Mucosal Lesions/ Ulcerations Neck: Supple, No JVD, No Nodes, Trachea Midline Lungs: No rhonchi, No wheeze, No rales, Diminished, - - Symmetric expansion. No dullness to percussion. Fair effort. Cardiovascular: Regular rate, Regular Rhythm, Normal S1, Normal S2, No murmurs, No rub noted, No Gallop Abdomen: Bowel Sounds Present, Soft, Non Tender, Non-Distended, Obese Extremities: No clubbing, No cyanosis, Edema - Trace lower extremity Skin: - - No significant change compared to previous Musculoskeletal: No Tenderness to Palpation of Joints or Extremities Lymphatic: No Cervical, Supraclavicular, or Inguinal Adenopathy Neurological: Cranial nerves II-XII grossly intact, Neuro grossly intact, Motor Exam 5/5 strength throughout Psych/Mental Status: Flat Affect, Restless Vital Signs Temp Pulse Resp BP Pulse Ox 36.6 C 69 16 138/71 H 93 09/24/18 03:58 09/24/18 07:09 09/24/18 07:09 09/24/18 03:58 09/24/18 07:09 Oxygen Flow Rate (L/min) 2 Oxygen Delivery Method Nasal Cannula Weight: 97.6 kg Body Mass Index (BMI) 32.0 Finger Stick Blood Glucose 150 Intake and Output for Last 24 Hours 09/22/18 09/23/18 09/24/18 23:59 23:59 23:59 Intake Total 920 / 920 840 / 840 480 / 480 Output Total 1400 / 1400 1000 / 1000 1000 / 1000 Balance -480 / -480 -160 / -160 -520 / -520 Microbiology Past 72 Hours 09/17/18 13:44 Blood Culture - Final Blood Culture (Wb) #2 - Right Hand No growth in 5 days. 09/17/18 13:40 Blood Culture - Final Blood Culture (Wb) - Anticubital Left No growth in 5 days. 09/17/18 20:20 Gram Stain - Final Sputum, Induced/Lukens Respiratory Culture - Final Haemophilus influenzae Mixed Meagan Laboratory Tests Past 24 Hrs 09/20/18 09/21/18 09/22/18 04:25 06:15 05:20 WBC RBC Hgb Hct MCV MCH MCHC RDW RDW Differential Plt Count MPV Neut % (Auto) Absolute Neuts (auto) Total Counted Diff Path Review Reviewed Reviewed Reviewed Sodium Potassium Chloride Carbon Dioxide Anion Gap BUN Creatinine Estim Creat Clear Calc Est GFR (MDRD) Af Amer Est GFR (MDRD) Non-Af BUN/Creatinine Ratio Glucose Calcium 09/24/18 09/24/18 06:30 06:30 WBC 16.1 H RBC 4.29 L Hgb 12.6 L Hct 38.1 L MCV 88.8 MCH 29.4 MCHC 33.1 RDW 13.6 RDW Differential 43.6 Plt Count 312 MPV 9.5 Neut % (Auto) Not Reportable Absolute Neuts (auto) Not Reportable Total Counted Pending Diff Path Review Sodium 142 Potassium 4.0 Chloride 110 H Carbon Dioxide 23.0 Anion Gap 9 BUN 59 H Creatinine 2.52 H Estim Creat Clear Calc 27.36 Est GFR (MDRD) Af Amer 32 L Est GFR (MDRD) Non-Af 27 L BUN/Creatinine Ratio 23.4 H Glucose 87 Calcium 9.1 POC Glucose 09/24/18 09/23/18 09/23/18 05:53 21:44 17:04 POC Glucose 88 189 H 188 H 09/23/18 09/23/18 11:20 09:02 POC Glucose 170 H 139 H Medical Necessity - Tobacco Use Smoking Status: Former smoker Tobacco Use: Cigarettes Assessment/Plan All Active Problems Fall (Acute) Sepsis (Acute) Encephalopathy (Acute) Urinary tract infection (Acute) PNA (pneumonia) (Acute) Respiratory acidosis (Acute) Comatose (Acute) DARYL (acute kidney injury) (Acute) RECOMMENDATIONS: 1. Wean supplemental oxygen to maintain saturations at or above 90%. 2. Finish a 7-day treatment course of antibiotics. 3. Continue scheduled bronchodilators and prednisone. 4. Continue subcutaneous heparin for prophylaxis. 5. Decrease Lantus and sliding scale insulin coverage. 6. Encourage incentive spirometer use and mobilize patient as tolerated. 7. Perform walking oximetry study prior to consideration for discharge from the hospital. 8. The patient would benefit from outpatient pulmonary follow-up. 9. Likely stable enough to be transferred to an F IMPRESSIONS: 1. Acute on chronic hypoxemic and hypercarbic respiratory failure secondary to presumptive COPD with exacerbation Patient with rhinovirus and probable Haemophilus superinfection. Patient is on appropriate antibiotics at this time. Would continue with prednisone and bronchodilators at current dosing for now. Tree-in-bud pattern is suggestive of small airways obstruction, commonly seen with viral infections. Prednisone can be weaned over the next 12 to 14 days. Smoking cessation is encouraged. Antici royal a protracted course of recovery given infection. Complete pulmonary function test for quantification and clarification of lung function as an outpatient would be recommended. 2. Severe sepsis 2/2 Rhinovirus URI and suspected Haemophilus influenza pneumonia Continue current antimicrobial coverage. The patient remains hemodynamically stable. 3. Long-standing tobacco abuse history As noted above, clinical concern for underlying obstructive lung disease. Recommend outpatient pulmonary follow-up and baseline pulmonary function joaquin dies. Smoking cessation is advisable. Nicotine replacement therapy can be offered to the patient while admitted to the hospital. 4. Acute on chronic kidney disease Relatively unchanged compared to previous. Renal function initially worsened in the setting of diuretic therapy on admission to the hospital. All diuretics and potentially nephrotoxic medications were discontinued. Nephrology is currently following. Renal function is approaching baseline at this time 5. Diabetes mellitus/baseline MRDD/hypertension Complicates care, management, recovery and prognosis. Continue basal insulin and sliding scale insulin coverage. Code Visit Inpatient E&M: 80911 Subs Hosp L2
[2018-09-24 08:41] LABS: Lymphocyte 18 % (19-41); Metamyelocyte 5 % (0-1); Myelocyte 1 (0-0); Neutrophil-Band 1 % (0-5); Neutrophil-Segmented 75 % (47-70); Platelet Estimate ADEQUATE (ADEQ); Red Cell Morphology NORM C+C NORMAL (NORM C&C); Total Cells Counted 100 (MANUAL DIFF)
[2018-09-24 08:42] LABS: Absolute Neutrophil Count 12.2 X10^3/uL (2.0-7.7)
[2018-09-24] MEDS: Famotidine 20 MG Tablet GT (09:00)
[2018-09-24] MEDS: Heparin Injection (Vial) 5,000 UNIT/ML VIAL 5000 UNIT SC (09:01)
--- NOTE | 2018-09-24 10:31 | PCM.PN.REN ---
Patient Problems: Active and Suspected Problems PNA (pneumonia) (Acute) Respiratory acidosis (Acute) Comatose (Acute) DARYL (acute kidney injury) (Acute) Subjective: no new events - Physical Exam General: Alert, Oriented x3, Cooperative HEENT: Atraumatic, PERRLA, EOMI, Normocephalic Neck: Supple, No JVD, Negative Carotid Bruits Lungs: Clear to auscultation, Normal air movement Cardiovascular: Regular rate, No murmurs Abdomen: Bowel Sounds Present, Soft, Non Tender Extremities: No edema, Capillary Refill Less than 3 Seconds Skin: No rashes, No breakdown Musculoskeletal: No Tenderness to Palpation of Joints or Extremities Neurological: Cranial nerves II-XII grossly intact Psych/Mental Status: Normal Affect, Appropriate Vital Signs Temp Pulse Resp BP Pulse Ox 98 F 74 16 146/71 H 92 09/24/18 08:57 09/24/18 08:57 09/24/18 08:57 09/24/18 08:57 09/24/18 08:57 Oxygen Flow Rate (L/min) 2 Oxygen Delivery Method Nasal Cannula Weight: 97.6 kg Body Mass Index (BMI) 32.0 Finger Stick Blood Glucose 150 Intake and Output for Last 24 Hours 09/22/18 09/23/18 09/24/18 23:59 23:59 23:59 Intake Total 920 / 920 840 / 840 480 / 480 Output Total 1400 / 1400 1000 / 1000 1000 / 1000 Balance -480 / -480 -160 / -160 -520 / -520 Microbiology Past 72 Hours 09/17/18 13:44 Blood Culture - Final Blood Culture (Wb) #2 - Right Hand No growth in 5 days. 09/17/18 13:40 Blood Culture - Final Blood Culture (Wb) - Anticubital Left No growth in 5 days. 09/17/18 20:20 Gram Stain - Final Sputum, Induced/Lukens Respiratory Culture - Final Haemophilus influenzae Mixed Meagan Laboratory Tests Past 24 Hrs 09/20/18 09/21/18 09/22/18 04:25 06:15 05:20 WBC RBC Hgb Hct MCV MCH MCHC RDW RDW Differential Plt Count MPV Neut % (Auto) Absolute Neuts (auto) Absolute Lymphs (auto) Total Counted Neutrophils % (Manual) Band Neutrophils % Lymphocytes % (Manual) Metamyelocytes % Myelocytes % Diff Path Review Reviewed Reviewed Reviewed Platelet Estimate RBC Morphology Sodium Potassium Chloride Carbon Dioxide Anion Gap BUN Creatinine Estim Creat Clear Calc Est GFR (MDRD) Af Amer Est GFR (MDRD) Non-Af BUN/Creatinine Ratio Glucose Calcium 09/24/18 09/24/18 06:30 06:30 WBC 16.1 H RBC 4.29 L Hgb 12.6 L Hct 38.1 L MCV 88.8 MCH 29.4 MCHC 33.1 RDW 13.6 RDW Differential 43.6 Plt Count 312 MPV 9.5 Neut % (Auto) Not Reportable Absolute Neuts (auto) 12.2 H Absolute Lymphs (auto) 2.80 Total Counted 100 Neutrophils % (Manual) 75 H Band Neutrophils % 1 Lymphocytes % (Manual) 18 L Metamyelocytes % 5 H Myelocytes % 1 H Diff Path Review May foll Platelet Estimate ADEQUATE RBC Morphology NORM C+C Sodium 142 Potassium 4.0 Chloride 110 H Carbon Dioxide 23.0 Anion Gap 9 BUN 59 H Creatinine 2.52 H Estim Creat Clear Calc 27.36 Est GFR (MDRD) Af Amer 32 L Est GFR (MDRD) Non-Af 27 L BUN/Creatinine Ratio 23.4 H Glucose 87 Calcium 9.1 POC Glucose 09/24/18 09/23/18 09/23/18 05:53 21:44 17:04 POC Glucose 88 189 H 188 H 09/23/18 11:20 POC Glucose 170 H Medical Necessity - Tobacco Use Smoking Status: Former smoker Tobacco Use: Cigarettes Assessment/Plan All Active Problems Fall (Acute) Sepsis (Acute) Encephalopathy (Acute) Urinary tract infection (Acute) PNA (pneumonia) (Acute) Respiratory acidosis (Acute) Comatose (Acute) DARYL (acute kidney injury) (Acute) Acute renal failure Chronic kidney disease stage III. Baseline creatinine was around 2.0 in the past. Sustained acute renal failure. Renal ultrasound without any hydronephrosis. Urine analysis was fairly dirty but culture negative. creatinine stable. He has significantly elevated globulin when compared to albumin. Serum protein electrophoresis is pending. Electrolytes are acceptable. Volume status is okay. will arrange follow up after dc patient was homeless at the time of admit but is looking for new place now
[2018-09-24 12:00] LABS: Pathologist Review Reviewed
[2018-09-24] MEDS: predniSONE 20 MG Tablet 40 MG PO (12:25)
[2018-09-24] MEDS: Insulin Lispro 100 UNIT/ML INSULN.PEN SC (12:25)
[2018-09-24 12:31] LABS: Bedside Glucose 151 mg/dL (70-110)
--- NOTE | 2018-09-24 13:04 | TREXTCAR_ITS ---
- Diet 09/20/18 09:49 Diet: Calorie Controlled Food consistency:: Regular Liquid Consistency:: Regular/Thin Is pt able to select menu?: Yes How many daily calories?: 1999 calorie - Routine Orders/Code Status Enema Type: Fleetz Enema Frequency: Daily PRN Suppository Type: Dulcolax 10mg Suppository Frequency: Daily PRN O2 Liters per Minute: 2 O2 Frequency: Continuous Keep PO Greater than or Equal to (%): 90 - Wound(s) groin Wound Type: escoriated LH s/p IV site Wound Type: Puncture - Therapies Physical Therapy: Eval and Treat Occupational Therapy: Eval and Treat - Allergies/Procedures Done in Hospital Allergies/Adverse Reactions: Allergies bee venom protein (honey bee) Allergy (Verified 09/17/18 13:12) Anaphylaxis - Type of Care/Length of Stay Estimated LOS: Convalescent Care Less Than 30 days Type of Care Needed: Skilled Rehab Potential: Fair Prognosis: Fair - Additional Orders/Day of Discharge Day of Discharge: 09/24/18 - Dietary and Speech Recommendations Dietitian Recommendations/Changes: Recommend diet change to 2000 calorie controlled, cardiac/low sodium diet. - Follow Up Care Primary Care Physician: NOT,DEFINED [NON-STAFF] - Please follow up with your Primary Care Physician in: [facility]CP in jail in one week Please Follow Up With: Dony Vela MD When: one week Please Follow Up With: Iglesia Hirsch MD When: 1-2 weeks
--- NOTE | 2018-09-24 13:07 | DS.PCM_ITS ---
Discharge Date and Diagnosis Date of Admission: 09/17/18 Date of Discharge: 09/24/18 - Primary Discharge Diagnosis Active and Suspected Problems community acquired PNA (pneumonia) (Acute) Respiratory acidosis (Acute) Comatose (Acute) DARYL (acute kidney injury) (Acute) acute hypoxic respiratory failure - Secondary Discharge Diagnosis Chronic Problems Generalized weakness (Chronic) Diabetes mellitus (Chronic) Hypertension (Chronic) Hyperlipidemia (Chronic) COPD (chronic obstructive pulmonary disease) (Chronic) Stroke (Chronic) Chronic kidney disease (Chronic) GERD (gastroesophageal reflux disease) (Chronic) CKD (chronic kidney disease) stage 3, GFR 30-59 ml/min (Chronic) Acute and chronic respiratory failure with hypoxia (Chronic) Diastolic CHF (Chronic) Acute and chronic respiratory failure (Chronic) Tobacco user (Chronic) Hypertensive retinopathy (Chronic) Benign essential HTN (Chronic) Hospital Course and Treatment Imaging Results: Diagnostic Data Chest X-Ray 09/18/18 05:20 IMPRESSION: Stable examination. Electronically Signed: Oscar Alvarez at 8:59 EDT , Service support , KUB X-Ray 09/18/18 09:05 IMPRESSION: The tip of the orogastric tube is in the distal portion of the stomach. Electronically Signed: Oscar Alvarez at 9:33 EDT , Service support , Renal Ultrasound 09/19/18 06:55 IMPRESSION: Normal ultrasound of the kidneys. Electronically Signed: Oscar Alvarez at 13:14 EDT , Service support , Chest CT 09/21/18 16:37 IMPRESSION: 1. Bronchovascular micronodularity most typically related to infectious bronchiolitis. Localized consolidation or infiltrate in the right lung base. 2. Severe left renal atrophy. 3. Cholelithiasis. Electronically Signed: Demetris Irwin MD at 17:34 EDT , Service support , critical care- Dr Carranza Operations: None Procedures: 2-D Echocardiogram Summary of Care Provided: The patient is a 72 year old M past medical history as listed who was admitted through the ED on 09/17/2018 with a complaint of shortness of breath and productive cough. He was found to be tachycardic, hypotensive, tachypneic and hypoxemic. He had elevated white cell count of 22,000 and evidence of AK on CKD with creatinine of 2.35. Troponin was negative and BNP was normal and MRSA screen was negative. Chest x-ray showed prominent interstitial markings with clear costophrenic angles. He was admitted and managed for acute on chronic hypoxemic and hypercapnic respiratory failure on account of pH of 7.24 with PCO2 of 55.6 and PO2 of 86. This was thought to be due to community-acquired pneumonia as well as COPD. He was also managed for severe sepsis due to community-acquired pneumonia and AK on CKD. Patient was initially started on BiPAP but was not tolerating this well and so he ended up being intubated. He was on breathing treatments and was started on steroids. Was also started on IV Zosyn for community acquired pneumonia and was hydrated with fluids for kidney impairment. Blood cultures were negative and urine cultures were also negative. Urine for strep and Legionella were negative. Patient was successfully extubated on 2518 to 3 L of oxygen. Creatinine also trended down. Patient remained stable on intranasal oxygen and was transferred to the progressive care unit. Oxygen was gradually weaned down to 2 L. His stay was complicated by recurrent mild hypoglycemia early in the morning. Of note, patient also tested positive for rhinovirus infection. Respiratory culture was also positive for H. influenzae. Patient remained stable but could not be weaned off of oxygen completely. Antibiotics were de-escalated to p.o. Levaquin. Patient remained stable and was [facility]. Walking pulse ox done showed patient desaturated to 88% on room air and required 2 L of oxygen to maintain saturation above 90%. Patient was therefore discharged with home oxygen to the detention. He is follow-up with his primary care doctor and critical care doctor as well as nephrology. Seen and examined prior to discharge. He had no complaints and felt well. Shortness of breath had improved markedly. Review of systems otherwise negative. Labs and vitals reviewed. Home medication reviewed and reconciled. o/e: Vital Signs Height 5 ft 10 in Weight: 215 lb 2.738 oz Weight in Pounds 215.2 lbs Pulse Ox [At REST on Room Air] 88 Pulse Ox 92 Temperature 97 F Pulse Rate 77 Respiratory Rate 16 Blood Pressure [BP] 156/71 Blood Pressure 146/73 Blood Pressure Position [BP] Sitting Blood Pressure Position Semi-Fowlers [] General: Alert, Oriented x3, Cooperative, No apparent distress HEENT: Atraumatic, PERRLA, EOMI, Normocephalic Oral: Moist Mucosa Neck: Supple, No JVD, Negative Carotid Bruits Lungs: Tachypneic, - - mildly decreased breath sounds bibasally, no wheezes or crackles. on 2L of oxygen Cardiovascular: Regular rate, Regular Rhythm, Normal S1, Normal S2, No murmurs Abdomen: Bowel Sounds Present, Soft, Non Tender, Non-Distended Extremities: No clubbing, No cyanosis, No edema, Capillary Refill Less than 3 Seconds Skin: No rashes, No breakdown Musculoskeletal: No Tenderness to Palpation of Joints or Extremities Lymphatic: No Cervical, Supraclavicular, or Inguinal Adenopathy Neurological: Cranial nerves II-XII grossly intact, Neuro grossly intact, Motor Exam 5/5 strength throughout Psych/Mental Status: Normal Affect, Appropriate, Alert and oriented to time, place, person, mood and affect Of note, patient had been on insulin Lantus 40 units twice daily on admission. In light of recurrent mild hypoglycemia, evening dose of Lantus was decreased to 30 units and he is to continue with 40 units of Lantus in the mornings. Rest of management and plan as above. - Physical Exam Vital Signs Temp Pulse Resp BP Pulse Ox 98 F 76 16 146/71 H 92 09/24/18 08:57 09/24/18 10:18 09/24/18 10:18 09/24/18 08:57 09/24/18 08:57 Oxygen Flow Rate (L/min) 2 Oxygen Delivery Method Nasal Cannula Weight: 215 lb 2.738 oz Body Mass Index (BMI) 32.0 Finger Stick Blood Glucose 150 Intake and Output for Last 24 Hours 09/22/18 09/23/18 09/24/18 23:59 23:59 23:59 Intake Total 920 / 920 840 / 840 720 / 720 Output Total 1400 / 1400 1000 / 1000 1000 / 1000 Balance -480 / -480 -160 / -160 -280 / -280 Microbiology Past 72 Hours 09/17/18 13:44 Blood Culture - Final Blood Culture (Wb) #2 - Right Hand No growth in 5 days. 09/17/18 13:40 Blood Culture - Final Blood Culture (Wb) - Anticubital Left No growth in 5 days. 09/17/18 20:20 Gram Stain - Final Sputum, Induced/Lukens Respiratory Culture - Final Haemophilus influenzae Mixed Meagan Laboratory Tests Past 24 Hrs 09/20/18 09/21/18 09/22/18 04:25 06:15 05:20 WBC RBC Hgb Hct MCV MCH MCHC RDW RDW Differential Plt Count MPV Neut % (Auto) Absolute Neuts (auto) Absolute Lymphs (auto) Total Counted Neutrophils % (Manual) Band Neutrophils % Lymphocytes % (Manual) Metamyelocytes % Myelocytes % Diff Path Review Reviewed Reviewed Reviewed Platelet Estimate RBC Morphology Sodium Potassium Chloride Carbon Dioxide Anion Gap BUN Creatinine Estim Creat Clear Calc Est GFR (MDRD) Af Amer Est GFR (MDRD) Non-Af BUN/Creatinine Ratio Glucose Calcium 09/23/18 09/24/18 09/24/18 05:14 06:30 06:30 WBC 16.1 H RBC 4.29 L Hgb 12.6 L Hct 38.1 L MCV 88.8 MCH 29.4 MCHC 33.1 RDW 13.6 RDW Differential 43.6 Plt Count 312 MPV 9.5 Neut % (Auto) Not Reportable Absolute Neuts (auto) 12.2 H Absolute Lymphs (auto) 2.80 Total Counted 100 Neutrophils % (Manual) 75 H Band Neutrophils % 1 Lymphocytes % (Manual) 18 L Metamyelocytes % 5 H Myelocytes % 1 H Diff Path Review Reviewed May foll Platelet Estimate ADEQUATE RBC Morphology NORM C+C Sodium 142 Potassium 4.0 Chloride 110 H Carbon Dioxide 23.0 Anion Gap 9 BUN 59 H Creatinine 2.52 H Estim Creat Clear Calc 27.36 Est GFR (MDRD) Af Amer 32 L Est GFR (MDRD) Non-Af 27 L BUN/Creatinine Ratio 23.4 H Glucose 87 Calcium 9.1 POC Glucose 05/29/19 05/29/19 05/28/19 12:22 05:53 21:44 POC Glucose 151 H 88 189 H 09/23/18 17:04 POC Glucose 188 H Discharge Diet: Low fat/ Low Cholesterol Discharge Activity: Return to Normal Activity Weight Bearing Status: Weight bearing as tolerated Call your doctor if you observe: Fever of 101 or Higher, Shortness of breath, Fainting spells, Swelling in the ankles Home Medications: Medications to take at Discharge Labetalol HCl 300 mg PO TID 09/17/18 Albuterol IH (ProAir) [Proair Hfa] 1 - 2 puff INHALATION Q4H PRN PRN #1 inhaler 09/24/18 Insulin Glargine,Hum.rec.anlog [Toujeo Solostar] 40 unit SQ UD #2 ml 09/24/18 levoFLOXacin tablet [Levaquin tablet] 750 mg PO Q48 #4 tab 09/24/18 Following Prescrptions Were Given to Patient: Albuterol IH (ProAir) [Proair Hfa] 1 - 2 puff INHALATION Q4H PRN PRN #1 inhaler PRN Reason: Shortness Of Breath Insulin Glargine,Hum.rec.anlog [Toujeo Solostar] 40 unit SQ UD #2 ml levoFLOXacin tablet [Levaquin tablet] 750 mg PO Q48 #4 tab Primary Care Physician: NOT,DEFINED [NON-STAFF] - Please follow up with your Primary Care Physician in: PCP in detention in one week Please Follow Up With: Dony Vela MD When: one week Please Follow Up With: Iglesia Hirsch MD When: 1-2 weeks Disposition: Intermediate facility Minutes spent on discharge:: 45 Patient Condition:: Stable Medical Necessity - Tobacco Use Smoking Status: Former smoker Tobacco Use: Cigarettes Meaningful Use Info Meaningful Use Diagnoses (Choose all that apply): None applicable Code Visit Inpatient E&M: 13462 Disch Hosp
--- NOTE | 2018-09-24 14:24 | CASEMGMT ---
Insurance approved patient to go to [facility]. RILEY notified physician. Once orders completed they were faxed to [facility]. Completed convalescent on [facility]. RILEY called [facility] for transport via van and neither of them had availability. RILEY called Mojgan at [facility] and their van can shredder picker patient at [phone]. RILEY notified RN, patient, and left a message for his sister in law Melissa. Plan: [facility] under skilled level of care on a convalescent stay. [facility] transported patient. Phuong BOB MSW
--- NOTE | 2018-09-24 14:48 | NURSING ---
report called to Karlene at [facility]
[2018-09-25 14:26] LABS: Pathologist Review Reviewed
== END 2018-09-24 14:37 | disposition skilled nursing facility (03) | DRG 871 ==
LOC: ED 14:00 → PCU 15:35 → ICU 09-18 05:05 → PCU 09-20 20:52
PROVIDERS: Internal Medicine; Internal Medicine Critical Care Medicine; Physician Assistant; Admitting Provider Internal Medicine; Emergency Provider Emergency Medicine; Visit Provider Student in an Organized Health Care Education/Training Program
DX: A41.9 Sepsis, unspecified organism (principal); J96.21 Acute and chronic respiratory failure with hypoxia; J18.9 Pneumonia, unspecified organism; J96.22 Acute and chronic respiratory failure with hypercapnia; J44.0 Chronic obstructive pulmonary disease with (acute) lower respiratory infection; E87.2 Acidosis; N17.9 Acute kidney failure, unspecified; I13.0 Hypertensive heart and chronic kidney disease with heart failure and stage 1 through stage 4 chronic kidney disease, or unspecified chronic kidney disease; I50.32 Chronic diastolic (congestive) heart failure; R65.20 Severe sepsis without septic shock; N18.3 Chronic kidney disease, stage 3 (moderate); E11.22 Type 2 diabetes mellitus with diabetic chronic kidney disease; H35.039 Hypertensive retinopathy, unspecified eye; K21.9 Gastro-esophageal reflux disease without esophagitis; Z86.73 Personal history of transient ischemic attack (TIA), and cerebral infarction without residual deficits; E78.5 Hyperlipidemia, unspecified; Z87.891 Personal history of nicotine dependence; E66.9 Obesity, unspecified; Z68.32 Body mass index [BMI] 32.0-32.9, adult; Z99.81 Dependence on supplemental oxygen; Z59.0 Homelessness; R41.89 Other symptoms and signs involving cognitive functions and awareness; R53.1 Weakness; Z79.4 Long term (current) use of insulin; Z79.899 Other long term (current) drug therapy; R41.83 Borderline intellectual functioning; B97.89 Other viral agents as the cause of diseases classified elsewhere; E11.649 Type 2 diabetes mellitus with hypoglycemia without coma; B96.3 Hemophilus influenzae [H. influenzae] as the cause of diseases classified elsewhere
CPT/HCPCS: 31500; 31720; 36415; 36600; 71045; 71046; 71250; 74018; 76770; 80048; 80069; 80076; 81001; 82550; 82803; 82962; 83605; 83880; 84478; 84484; 85025; 87040; 87070; 87077; 87086; 87205; 87449; 87633; 87641; 93005; 93306; 94002; 94003; 94640; 94660; 94667; 94668; 95831; 97110; 97162; 97166; 97530; 97535; 97802; 99251; 99285; J7030; J7040; J7050; Q9957; A4216; C8929; G0463; J1940

== ENCOUNTER 2018-09-26 21:37 | Inpatient (IN) | payer MEDICARE, MEDICAID, SELFPAY ==
[2018-09-17 16:26] VITALS: BMI 32.0
[2018-09-26] VITALS (8 sets, daily range): BP systolic 156–211; BP diastolic 91–95; PULSE 89–95; RESP 24–32; TEMP 37.6–37.8; O2SAT 95–96; BMI 34.1
--- NOTE | 2018-09-26 21:48 | EKG12_ITS ---
Test Reason : Blood Pressure : / mmHG Vent. Rate : 093 BPM Atrial Rate : 093 BPM P-R Int : 170 ms QRS Dur : 086 ms QT Int : 354 ms P-R-T Axes : 052 -10 082 degrees QTc Int : 440 ms Normal sinus rhythm Inferior infarct , age undetermined Anterolateral infarct , age undetermined Abnormal ECG Confirmed by MARILU ZIMMERMAN, FIORDALIZA ([id number]), video news editor DENNYS THAO ([id number]) on 09/29/2018 1:45:57 PM Referred By: Miles Manuel Confirmed By:FIORDALIZA MICHEL MD
--- NOTE | 2018-09-26 21:54 | ED.VISSUMM ---
- ER Visit Summary Date of Service: 09/26/18 Chief Complaint: Shortness of breath History of Present Illness: The patient is a 72 M who presents the emergency department with reported shortness of breath. Patient was recently admitted into the hospital with Haemophilus influenza pneumonia. He required intubation. His CODE STATUS with was subsequently changed to DNR Comfort Care. He was transferred to [facility] on 24 September. Tonight it was reported that the patient was having grunting respirations and not doing well. He was on oxygen at discharge and is on oxygen currently. He is still wearing a hospital gown. Patient states that he is very tired and fatigued from his hospitalization. He states his breathing is okay. He was discharged home on Levaquin. Physical Examination: Heart rate 90 respirations 25 pulse ox 95% on 4 L temperature 99.7 tympanic blood pressure 204/95. Temperature is 100.3 orally Gen: Well-nourished well-developed patient appears fatigued Head: Normocephalic atraumatic Eyes: Perrl EOMI ENT: TMs clear no rhinorrhea moist mucous membranes Neck: Supple no lymphadenopathy no JVD nontender CVS: Regular rate rhythm no murmurs normal S1-S2 Respiratory: No distress rhonchorous lung sounds and rhonchorous cough chest nontender Abdomen: Soft nontender nondistended normal bowel sounds no masses Back: Nontender Extremity: Nontender 1+ lower extremity edema Skin: Normal color no rash Neuro: alert orientated ?3 CN II-XII intact normal strength sensation Test Results: White count nonspecifically elevated at 13. White count slightly elevated at 13.4. Creatinine 2.78. This is not new. Troponin negative. Lactic acid normal. Urinalysis which was a straight cath was also normal. Chest x-ray shows no infiltrate. Emergency Department Course and Treatment: Patient received IV fluids. Also given a DuoNeb. For his hypertension we gave labetalol. We went ahead and dorothea blood cultures. I do not know if the patient is coming bacteremic. I do not have an obvious source for his systemic immune response. He is not wheezing. He is still on Levaquin and should be on Levaquin for the next couple days. Our plan is admission. Impression: 1. Systemic inflammatory response syndrome 2. Hypertensive urgency This note was generated with [employer] software. It may contain incorrect words, spelling, and punctuation that were not noted in review of the chart prior to signing ED Disposition - Plan for ED Patient: Referrals: Care Physician,No Primary [Primary Care Provider] -
[2018-09-26] MEDS: 0.9% Normal Saline 1,000 ML 150 ML IV (22:02)
[2018-09-26 22:04] LABS: Absolute Lymphocyte Count 1.37 X10^3/ul (0.83-4.51); Absolute Neutrophil Count 10.1 X10^3/uL (2.0-7.7); Basophil# 0.03 X10^3/uL; Basophil% 0.2 % (0-1); Eosinophil# 0.29 X10^3/uL; Eosinophils% 2.2 % (0-5); Hemoglobin 13.9 g/dl (13.0-16.5); Lymphocyte # 1.37 X10^3/ul (4.0); Lymphocyte % 10.3 % (19-41); Mean Corp Hgb Conc 33.1 g/gl (32-36); Mean Corpuscular Hgb 29.5 pg (27.0-32.0); Mean Corpuscular Volume 89.2 fL (80-94); Mean Platelet Vol. 9.4 fl (6.2-12.0); Monocyte# 1.42 X10^3/uL; Monocyte% 10.6 % (0-10); Neutrophil # 10.12 X10^3/uL (2.7-7.7); Neutrophil % 75.7 % (47-70); POSITIVE COUNT NO; POSITIVE DIFFERENTIAL NO; POSITIVE MORPHOLOGY NO; Platelet Count 324 K/mm3 (150-450); RBC Distribution Width CV 13.6 % (11.6-14.6); RBC Distribution Width SD 44.6 fl (35.1-43.9); Red Blood Count 4.71 M/mm3 (4.6-6.2); White Blood Count 13.4 K/mm3 (4.4-11.0)
--- NOTE | 2018-09-26 22:05 | RAD_ITS ---
HISTORY:SHORTNESS OF BREATH, CHEST PAIN. SHORTNESS OF BREATH, CHEST PAIN. EXAM: XR Chest 1 View: COMPARISON: September 18, 2018 FINDINGS: # of images incl. paperwork: 1 LINES/DEVICES: Interval removal of endotracheal tube LUNGS: Emphysematous changes are seen within the upper lobes. There is minimal atelectasis and/or scarring in the right lung base. No consolidation, edema or effusion. No pneumothorax. MEDIASTINUM AND CARDIOVASCULAR STRUCTURES: Cardiac silhouette not enlarged. BONES AND SOFT TISSUES: Unremarkable. RAD/Chest 1 View (Portable) IMPRESSION: Interval removal of endotracheal tube Atelectasis and/or scarring in the right lower lobe Emphysematous changes similar to prior study at 2226 Reported and signed by: Tamiko Tobin DO Electronically Signed: Tamiko Tobin DO at 22:25 EDT Tel , Service support ,
[2018-09-26 22:11] LABS: Allen Test POS; Base Excess -4 mmol/L (-2 to +2); Bicarbonate 21.9 mmol/L (22-26); Blood Gas Specimen Type ART; O2 Delivery Device Nasal Can; PO2 69 mmHG (75-100); SITE L Radial; SO2 92 % (95-99); Total Carbon Dioxide 23 mmol/L; pCO2 40.8 mmHg (35-45); pH 7.34 (7.35-7.45)
--- NOTE | 2018-09-26 22:13 | CPS ---
RESULTS READ TO DR. FREY
[2018-09-26 22:16] LABS: AST(SGOT) 18 U/L (15-37); Alanine Aminotransfer ALT/SGPT 31 U/L (16-61); Alkaline Phosphatase 75 U/L (45-117); Anion Gap 7 (5-15); BUN 44 mg/dL (7-18); BUN/Creat Ratio 15.8 RATIO (10-20); Bilirubin, Direct 0.13 mg/dL (0.00-0.30); Calcium,Total 8.7 mg/dL (8.5-10.1); Chloride 106 mmol/L (98-107); Creatinine, Serum 2.78 mg/dL (0.70-1.30); EST Glomerular Filtration Rate 24 mL/min (>60); Est Glom Filt Rate - Afr Amer 29 mL/min (>60); Globulin 4.4 g/dL (2.2-4.2); Glucose 125 mg/dL (74-106); Lipase 423 U/L (73-393); Potassium 3.9 mmol/L (3.5-5.1); Protein, Total 7.4 g/dL (6.4-8.2); Sodium Level 140 mmol/L (136-145)
[2018-09-26 22:19] LABS: Lactic Acid 0.7 mmol/L (0.4-2.0)
[2018-09-26 22:20] LABS: International Normalized Ratio 1.1; Prothrombin Time (Protime)PT. 13.5 SECONDS (11.7-14.9)
[2018-09-26 22:21] LABS: Partial Thromboplast Time 37.7 Seconds (24.1-36.2)
[2018-09-26 22:31] LABS: BNP,B-Type NATRIURETIC PEPTIDE 78.4 pg/mL (0-100)
[2018-09-26 22:46] LABS: Bacteria 0 SEEN /hpf (None Seen); Mucous, Urine 0 SEEN /hpf (<or=2+); Red Blood Cells-Urine 0 SEEN /hpf (0-5); Squamous Epithelial Cells - UA 0 SEEN /hpf (0-5)
[2018-09-26 22:53] LABS: Color, Urine Yellow (Yellow); Glucose, Dipstick 50 mg/dl (Normal); Ketone-Dipstick Negative (Negative); Leukocyte Esterase-Dipstick Negative /ul (Negative); Nitrite-Dipstick Negative (Negative); Occult Blood-Urine 10 /ul (Negative); Protein-Dipstick 100 mg/dl (Negative); Urine Bilirubin Dipstick Negative (Negative); Urine Clarity Clear (Clear); Urine Urobilinogen Normal (Normal)
[2018-09-26 22:59] LABS: White Blood Cells 0-5 SEEN /hpf (0-5)
--- NOTE | 2018-09-26 23:04 | PCM.HP.STD ---
Problem List (1) Acute bronchitis Status: Acute History of Present Illness Date of Admission: 09/26/18 Chief Complaint: shortness of breath and grunting History was predominantly taken for emergency department doctor since patient is less talkative. The patient is a 72 year old M with a significant history of hypertension; COPD; CVA; CKD stage III; former tobacco abuse who was admitted on 09/17/2018 and [facility] 09/[facility]/2018 [facility] who presented to the emergency department with shortness of breath and grunting. At the ED he had a temperature of 100.3 F and his systolic blood pressure was in the 200s With his previous hospital discharge he was intubated and was found to have Haemophilus Influenza and Rhinovirus. He received IV Zosyn and was discharged to home on Levaquin; and nasal cannula oxygen. Past Medical History Past Medical History (Chronic Problems): Chronic Problems Generalized weakness (Chronic) Diabetes mellitus (Chronic) Hypertension (Chronic) Hyperlipidemia (Chronic) COPD (chronic obstructive pulmonary disease) (Chronic) Stroke (Chronic) Chronic kidney disease (Chronic) GERD (gastroesophageal reflux disease) (Chronic) CKD (chronic kidney disease) stage 3, GFR 30-59 ml/min (Chronic) Acute and chronic respiratory failure with hypoxia (Chronic) Diastolic CHF (Chronic) Acute and chronic respiratory failure (Chronic) Tobacco user (Chronic) Hypertensive retinopathy (Chronic) Benign essential HTN (Chronic) Allergies bee venom protein (honey bee) Allergy (Verified 09/26/18 21:38) Anaphylaxis Home Medications: Ambulatory Orders Medication Instructions Recorded Labetalol HCl 300 mg PO TID 09/17/18 Albuterol IH (ProAir) [Proair Hfa] 1 - 2 puff INHALATION Q4H PRN PRN 09/24/18 #1 inhaler levoFLOXacin tablet [Levaquin 750 mg PO Q48 #4 tab 09/24/18 tablet] Insulin Glargine [Lantus (BKC)] 30 units SC QHS 09/26/18 Insulin Glargine,Hum.rec.anlog 40 unit SQ BREAKFAST 09/26/18 [Evelio Herndon] Surgical History: - - ankle surgery Lives: [facility] Smoking Status: Former smoker - *Family History Maternal History Items: Hypertension Paternal History Items: Hypertension Review of Systems Constitutional: Denies: Chills, Weight Change HEENT: Denies: Head Aches, Sinus Congestion, Sinus Drainage Cardiovascular: Denies: Chest Pain, Palpitations Respiratory: Reports: Cough - non productive, Shortness of Breath Gastrointestinal: Denies: Abdominal Pain, Nausea, Vomiting Genitourinary: Denies: Dysuria Musculoskeletal: Denies: Joint Pain, Joint Tenderness Skin: Denies: Rash, Wounds Neurological: Denies: Numbness, Tingling, Focal weakness Psychiatric: Denies: Anxiety, Depression, Homicidal Ideations, Suicidal Ideations Hematologic/ Lymphatic: Denies: Easy Bruising, Easy Bleeding VTE Information - Inpt Only VTE Present on Admission: No VTE Mechan Device Prophylaxis: None VTE Pharm Prophylaxis ordered?: Yes Patient Problems: Active and Suspected Problems Acute bronchitis (Acute) - Physical Exam General: Alert, Oriented x3, Cooperative HEENT: Atraumatic, PERRLA, EOMI, Normocephalic Neck: Supple, No JVD, Negative Carotid Bruits Lungs: Rhonchi - mild, Tachypneic, Wheezes - mild Cardiovascular: Regular rate, No murmurs Abdomen: Bowel Sounds Present, Soft, Non Tender Extremities: No edema, Capillary Refill Less than 3 Seconds Skin: No rashes, No breakdown Musculoskeletal: No Tenderness to Palpation of Joints or Extremities Neurological: Neuro grossly intact Psych/Mental Status: Normal Affect, Appropriate Vital Signs Temp Pulse Resp BP Pulse Ox 100.1 F H 93 25 H 201/95 H 95 09/26/18 22:48 09/26/18 22:48 09/26/18 22:48 09/26/18 22:48 09/26/18 22:48 Oxygen Flow Rate (L/min) 2 Oxygen Delivery Method Nasal Cannula Weight: 108 kg Body Mass Index (BMI) 34.1 Finger Stick Blood Glucose 240 Laboratory Tests Past 24 Hrs 09/26/18 09/26/18 09/26/18 21:45 21:45 21:45 WBC 13.4 H RBC 4.71 Hgb 13.9 Hct 42.0 MCV 89.2 MCH 29.5 MCHC 33.1 RDW 13.6 RDW Differential 44.6 H Plt Count 324 MPV 9.4 Immature Gran % (Auto) 1.000 H Neut % (Auto) 75.7 H Lymph % (Auto) 10.3 L [place] % (Auto) 10.6 H Eos % (Auto) 2.2 Baso % (Auto) 0.2 Absolute Neuts (auto) 10.1 H Absolute Lymphs (auto) 1.37 Total Counted Not Reportable PT 13.5 INR 1.1 APTT 37.7 H Specimen Type Sample Site pH Bicarbonate Actual POC Total CO2 Base Excess O2 Saturation ABG pCO2 ABG pO2 Elias Test O2 Delivery Device Liter Flow Blood Gas Notified Whom Sodium 140 Potassium 3.9 Chloride 106 Carbon Dioxide 27.0 Anion Gap 7 BUN 44 H Creatinine 2.78 H Estim Creat Clear Calc 24.80 Est GFR (MDRD) Af Amer 29 L Est GFR (MDRD) Non-Af 24 L BUN/Creatinine Ratio 15.8 Glucose 125 H Lactic Acid Calcium 8.7 Total Bilirubin 0.30 Direct Bilirubin 0.13 AST 18 ALT 31 Alkaline Phosphatase 75 Troponin I 0.018 B-Natriuretic Peptide Total Protein 7.4 Albumin 3.0 L Globulin 4.4 H Lipase 423 H Urine Color Urine Clarity Urine pH Ur Specific [place] Urine Protein Urine Glucose (UA) Urine Ketones Urine Occult Blood Urine Nitrite Urine Bilirubin Urine Urobilinogen Ur Leukocyte Esterase Urine RBC Urine WBC Ur Squamous Epith Cells Urine Bacteria Urine Mucus 09/26/18 09/26/18 09/26/18 21:45 21:45 22:03 WBC RBC Hgb Hct MCV MCH MCHC RDW RDW Differential Plt Count MPV Immature Gran % (Auto) Neut % (Auto) Lymph % (Auto) [place] % (Auto) Eos % (Auto) Baso % (Auto) Absolute Neuts (auto) Absolute Lymphs (auto) Total Counted PT INR APTT Specimen Type ART Sample Site L Radial pH 7.34 L Bicarbonate Actual 21.9 L POC Total CO2 23 Base Excess -4 L O2 Saturation 92 L ABG pCO2 40.8 ABG pO2 69 L Elias Test POS O2 Delivery Device Nasal Can Liter Flow 2.0 Blood Gas Notified Whom ED MD Sodium Potassium Chloride Carbon Dioxide Anion Gap BUN Creatinine Estim Creat Clear Calc Est GFR (MDRD) Af Amer Est GFR (MDRD) Non-Af BUN/Creatinine Ratio Glucose Lactic Acid 0.7 Calcium Total Bilirubin Direct Bilirubin AST ALT Alkaline Phosphatase Troponin I B-Natriuretic Peptide 78.4 Total Protein Albumin Globulin Lipase Urine Color Urine Clarity Urine pH Ur Specific [place] Urine Protein Urine Glucose (UA) Urine Ketones Urine Occult Blood Urine Nitrite Urine Bilirubin Urine Urobilinogen Ur Leukocyte Esterase Urine RBC Urine WBC Ur Squamous Epith Cells Urine Bacteria Urine Mucus 09/26/18 22:40 WBC RBC Hgb Hct MCV MCH MCHC RDW RDW Differential Plt Count MPV Immature Gran % (Auto) Neut % (Auto) Lymph % (Auto) [place] % (Auto) Eos % (Auto) Baso % (Auto) Absolute Neuts (auto) Absolute Lymphs (auto) Total Counted PT INR APTT Specimen Type Sample Site pH Bicarbonate Actual POC Total CO2 Base Excess O2 Saturation ABG pCO2 ABG pO2 Elias Test O2 Delivery Device Liter Flow Blood Gas Notified Whom Sodium Potassium Chloride Carbon Dioxide Anion Gap BUN Creatinine Estim Creat Clear Calc Est GFR (MDRD) Af Amer Est GFR (MDRD) Non-Af BUN/Creatinine Ratio Glucose Lactic Acid Calcium Total Bilirubin Direct Bilirubin AST ALT Alkaline Phosphatase Troponin I B-Natriuretic Peptide Total Protein Albumin Globulin Lipase Urine Color Yellow Urine Clarity Clear Urine pH 5.0 Ur Specific [place] 1.020 Urine Protein 100 H Urine Glucose (UA) 50 H Urine Ketones Negative Urine Occult Blood 10 H Urine Nitrite Negative Urine Bilirubin Negative Urine Urobilinogen Normal Ur Leukocyte Esterase Negative Urine RBC 0 SEEN Urine WBC 0-5 SEEN Ur Squamous Epith Cells 0 SEEN Urine Bacteria 0 SEEN Urine Mucus 0 SEEN Assessment/Plan All Active Problems Fall (Acute) Sepsis (Acute) Encephalopathy (Acute) Urinary tract infection (Acute) PNA (pneumonia) (Acute) Respiratory acidosis (Acute) Comatose (Acute) DARYL (acute kidney injury) (Acute) Acute bronchitis (Acute) The patient is a 72 year old M with a significant history of hypertension; COPD; CVA; CKD stage III; former tobacco abuse who was admitted on 09/17/2018 and discharged on 09/24/2018 for severe sepsis secondary to Haemophilus Influenza pneumonia and Rhinovirus presenting with shortness of breath; and also found to have severely elevated blood pressure consistent with likely acute bronchitis bronchitis and hypertensive urgency. Acute bronchitis CXR with atelectasis and/or scarring in the right lower lobe. CXR was independently reviewed. I agree with radiologist interpretation. Likely postviral bronchitis. We will continue patient on his Levaquin 750 mg every other day. We will give patient prednisone 40 mg x 1. Evaluate for further needs of steroids. Scheduled DuoNeb and as needed albuterol ordered. Incentive spirometer and Acapella ordered. Blood cultures x2 was ordered at the emergency department; follow. Continue nasal oxygen to maintain oxygenation more than 92%. Hypertensive urgency Review of monitor at emergency department showed highest systolic blood pressure of 246. Received labetalol 20 mg IV at emergency department. We will continue home scheduled labetalol. We will start amlodipine PRN. Hydralazine 5 mg every 4 hours as needed for systolic blood pressure > 185. Trend blood pressure and adjust blood pressure medication. DARYL on CKD stage 3 On presentation his creatinine was 2.78 Review of old records show that on 08/15/2018 his creatinine was 2.12; and on 10/30/2017 his creatinine was 2.14. BUN was 44. BUN over creatinine was 15.8; indicating probable intrinsic renal. However, rule out prerenal at this time. Normal saline IV fluid was started emergency department. Continue normal saline infusion. Avoid nephrotoxins Trend BMP. Diabetes On presentation her blood glucose was within goal De-escalate outpatient basal insulin Add correction scale insulin Accu-cheks qachs and 3 am with correction scale insulin. DVT prophylaxis Subcutaneous Lovenox. Code Visit Inpatient E&M: 28272 Init Hosp L3
--- NOTE | 2018-09-26 23:40 | ED.RN ---
[facility] UPDATED ON PT STATUS
[2018-09-27] VITALS (24 sets, daily range): BP systolic 134–172; BP diastolic 63–81; PULSE 68–97; RESP 18–33; TEMP 37.2–38.3; O2SAT 91–98; BMI 30.2
[2018-09-27] MEDS: Albuterol 2.5 MG/3 ML VIAL.NEB. INHALATION (01:05)
--- NOTE | 2018-09-27 01:07 | NURSING ---
Current scheduled meds and last dose taken received from [facility] at this time. List of pt PRN medication son paper chart.
[2018-09-27] MEDS: 0.9% Normal Saline 1,000 ML 100 ML IV (01:32)
[2018-09-27] MEDS: 0.9% NaCl Peripheral Flush Adult/Peds IV (01:32)
[2018-09-27] MEDS: amLODIPine 5 MG Tablet PO ×2 (01:39→12:26)
[2018-09-27] MEDS: predniSONE 20 MG Tablet 40 MG PO (01:40)
[2018-09-27] MEDS: levoFLOXacin 750 MG Tablet PO (02:15)
--- NOTE | 2018-09-27 03:47 | NURSING ---
Called [facility] and requested MAR. Have not yet received MAR at this time.
--- NOTE | 2018-09-27 04:56 | NURSING ---
Dr. Manuel called at this time and said to order a respiratory panel.
[2018-09-27 05:01] LABS: Bedside Glucose 102 mg/dL (70-110)
--- NOTE | 2018-09-27 06:36 | RAD_ITS ---
STUDY: X-RAY CHEST REASON FOR EXAM: Male, 72 years old. Fusion, weakness, drowsy TECHNIQUE: Portable chest COMPARISON: 09/26/1989. FINDINGS: There is stable 8 mm left upper lobe pulmonary nodular density. There is linear bibasilar subsegmental atelectasis. Normal size heart. Normal mediastinum and rica. Normal visualized pulmonary arteries. Normal visualized aortic arch and descending thoracic aorta. Normal visualized thoracic spine. Normal visualized ribs, clavicles, and shoulders. There is no demonstrated abnormality of the visualized soft tissue structures of the upper abdomen. RAD/Chest 1 View (Portable) IMPRESSION: Stable 8 mm left upper lobe pulmonary nodule Mildly improving bibasilar subsegmental atelectasis Electronically Signed: Rick Haile, at 7:44 EDT Tel , Service support ,
[2018-09-27] MEDS: Labetalol 100 MG Tablet 300 MG PO ×3 (06:39→21:38)
[2018-09-27 06:55] LABS: Base Excess -5 mmol/L (-2 to +2); Bicarbonate 21.3 mmol/L (22-26); Blood Gas Specimen Type ART; O2 Delivery Device Nasal Can; PO2 75 mmHG (75-100); SITE L Radial; SO2 94 % (95-99); Time Given 650; Total Carbon Dioxide 22 mmol/L; pCO2 39.7 mmHg (35-45); pH 7.34 (7.35-7.45)
[2018-09-27] MEDS: Ipratropium/Albuterol Sulfate 3 ML AMPUL.NEB INHALATION ×4 (06:55→19:22)
[2018-09-27 07:01] LABS: Bedside Glucose 137 mg/dL (70-110)
[2018-09-27 07:13] LABS: Absolute Lymphocyte Count 0.53 X10^3/ul (0.83-4.51); Absolute Neutrophil Count 9.7 X10^3/uL (2.0-7.7); Basophil# 0.02 X10^3/uL; Basophil% 0.2 % (0-1); Eosinophil# 0.02 X10^3/uL; Eosinophils% 0.2 % (0-5); Hematocrit 39.9 % (40-54); Hemoglobin 11.2 g/dl (13.0-16.5); Lymphocyte # 0.53 X10^3/ul (4.0); Mean Corp Hgb Conc 28.1 g/gl (32-36); Mean Corpuscular Hgb 24.8 pg (27.0-32.0); Mean Corpuscular Volume 88.3 fL (80-94); Mean Platelet Vol. 9.5 fl (6.2-12.0); Monocyte# 0.24 X10^3/uL; Monocyte% 2.3 % (0-10); Neutrophil # 9.67 X10^3/uL (2.7-7.7); Neutrophil % 91.3 % (47-70); Platelet Count 321 K/mm3 (150-450); RBC Distribution Width CV 13.7 % (11.6-14.6); RBC Distribution Width SD 43.4 fl (35.1-43.9); Red Blood Count 4.52 M/mm3 (4.6-6.2); White Blood Count 10.6 K/mm3 (4.4-11.0)
[2018-09-27 07:15] LABS: Differential Indicated SCAN CRITERIA MET; POSITIVE COUNT NO; POSITIVE DIFFERENTIAL YES; POSITIVE MORPHOLOGY NO
[2018-09-27 07:20] LABS: Anion Gap 9 (5-15); BUN 42 mg/dL (7-18); BUN/Creat Ratio 17.5 RATIO (10-20); Calcium,Total 8.6 mg/dL (8.5-10.1); Chloride 109 mmol/L (98-107); EST Glomerular Filtration Rate 28 mL/min (>60); Est Glom Filt Rate - Afr Amer 34 mL/min (>60); Estimated Creatinine Clearance 28.73 ml/min; Glucose 128 mg/dL (74-106); Potassium 4.3 mmol/L (3.5-5.1); Sodium Level 141 mmol/L (136-145)
--- NOTE | 2018-09-27 09:46 | CASEMGMT ---
Patient was just sent to [facility] this week. SW checked in with patient. He did not open his eyes, but he did respond to SW. SW asked if he plans on returning to [facility] when ready for discharge and he said yes. SW to follow for return to [facility]. Patient will require insurance authorization before he can return to [facility]. Phuong BOB MSW
[2018-09-27 11:15] LABS: Bedside Glucose 131 mg/dL (70-110)
--- NOTE | 2018-09-27 11:21 | CPS ---
patient unable to perform incentive and acapella at time of visit.
[2018-09-27] MEDS: Enoxaparin 30 MG/0.3 ML Syringe SC (12:24)
--- NOTE | 2018-09-27 12:32 | NURSING ---
Pt more alert and talking. Stated his name and and that he was at [facility]. Pt took bites of his lunch and took some oral fluids.
--- NOTE | 2018-09-27 14:48 | PCM.PN.HOSP ---
Patient Problems: Active and Suspected Problems Acute bronchitis (Acute) Subjective: Patient is drowsy and lethargic. Patient was awake last night. Last week I have seen the patient for acute hypoxic and hypercarbic respiratory failure and was intubated on 09/17 and later on extubated. Patient was discharged on 09/24 after management for severe sepsis secondary to community-acquired pneumonia and acute kidney injury on CKD. Blood cultures and urine cultures were negative. Urinary antigens were negative. Respiratory panel showed rhinovirus. His sputum culture grew Haemophilus influenzae and mixed lex. Patient was admitted last night for shortness of breath and grunting sound. Temperature was 100.3 Fahrenheit blood pressure systolic was in 200s. Vitals/I&O's: Vital Signs Temp Pulse Resp BP Pulse Ox 99.6 F H 68 29 H 143/67 H 92 09/27/18 08:26 09/27/18 12:01 09/27/18 11:21 09/27/18 08:26 09/27/18 11:21 Oxygen Flow Rate (L/min) 2.0 Oxygen Delivery Method Nasal Cannula Weight: 210 lb 5.136 oz Body Mass Index (BMI) 30.2 Finger Stick Blood Glucose 240 Intake and Output for Last 24 Hours 09/25/18 09/26/18 09/27/18 23:59 23:59 23:59 Intake Total 1121 / 1121 Balance 1121 / 1121 General: Confused, Disoriented, Lethargic HEENT: Atraumatic, PERRLA, EOMI, Normocephalic Oral: Dry Mucosa, - - Upper airway grunting sound Neck: Supple, No JVD, Negative Carotid Bruits Lungs: Diminished, Rhonchi, Short of Breath Abdomen: Bowel Sounds Present, Soft, Non Tender, Non-Distended Extremities: No edema, Capillary Refill Less than 3 Seconds Skin: No rashes, No breakdown Musculoskeletal: Arthritic Changes Neurological: Cranial nerves II-XII grossly intact, Deep Tendon Reflexes 2+/4 and Symmetrical Microbiology Past 72 Hours 09/27/18 06:40 Mucosa - Nasopharyngeal Respiratory Panel (PCR) - Final Parainfluenza 3 Laboratory Results 09/26/18 21:45: WBC 13.4 H, RBC 4.71, Hgb 13.9, Hct 42.0, MCV 89.2, MCH 29.5, MCHC 33.1, RDW 13.6, RDW Differential 44.6 H, Plt Count 324, MPV 9.4, Immature Gran % (Auto) 1.000 H, Neut % (Auto) 75.7 H, Lymph % (Auto) 10.3 L, Polk % (Auto) 10.6 H, Eos % (Auto) 2.2, Baso % (Auto) 0.2, Absolute Neuts (auto) 10.1 H, Absolute Lymphs (auto) 1.37, Total Counted Not Reportable 09/26/18 21:45: PT 13.5, INR 1.1, APTT 37.7 H 09/26/18 21:45: Sodium 140, Potassium 3.9, Chloride 106, Carbon Dioxide 27.0, Anion Gap 7, BUN 44 H, Creatinine 2.78 H, Estim Creat Clear Calc 24.80, Est GFR (MDRD) Af Amer 29 L, Est GFR (MDRD) Non-Af 24 L, BUN/Creatinine Ratio 15.8, Glucose 125 H, Calcium 8.7, Total Bilirubin 0.30, Direct Bilirubin 0.13, AST 18, ALT 31, Alkaline Phosphatase 75, Troponin I 0.018, Total Protein 7.4, Albumin 3.0 L, Globulin 4.4 H, Lipase 423 H 09/26/18 21:45: Lactic Acid 0.7 09/26/18 21:45: B-Natriuretic Peptide 78.4 09/26/18 22:03: Specimen Type ART, Sample Site L Radial, pH 7.34 L, Bicarbonate Actual 21.9 L, POC Total CO2 23, Base Excess -4 L, O2 Saturation 92 L, ABG pCO2 40.8, ABG pO2 69 L, Elias Test POS, O2 Delivery Device Nasal Can, Liter Flow 2.0, Blood Gas Notified Whom ED 09/26/18 22:40: Urine Color Yellow, Urine Clarity Clear, Urine pH 5.0, Ur Specific [employer] 1.020, Urine Protein 100 H, Urine Glucose (UA) 50 H, Urine Ketones Negative, Urine Occult Blood 10 H, Urine Nitrite Negative, Urine Bilirubin Negative, Urine Urobilinogen Normal, Ur Leukocyte Esterase Negative, Urine RBC 0 SEEN, Urine WBC 0-5 SEEN, Ur Squamous Epith Cells 0 SEEN, Urine Bacteria 0 SEEN, Urine Mucus 0 SEEN 09/27/18 03:50: POC Glucose 102 09/27/18 06:50: Sodium 141, Potassium 4.3, Chloride 109 H, Carbon Dioxide 23.0, Anion Gap 9, BUN 42 H, Creatinine 2.40 H, Estim Creat Clear Calc 28.73, Est GFR (MDRD) Af Amer 34 L, Est GFR (MDRD) Non-Af 28 L, BUN/Creatinine Ratio 17.5, Glucose 128 H, Calcium 8.6 09/27/18 06:50: WBC 10.6, RBC 4.52 L, Hgb 11.2 L, Hct 39.9 L, MCV 88.3, MCH 24.8 L, MCHC 28.1 L, RDW 13.7, RDW Differential 43.4, Plt Count 321, MPV 9.5, Immature Gran % (Auto) 1.000 H, Neut % (Auto) 91.3 H, Lymph % (Auto) 5.0 L, Polk % (Auto) 2.3, Eos % (Auto) 0.2, Baso % (Auto) 0.2, Absolute Neuts (auto) 9.7 H, Absolute Lymphs (auto) 0.53 L, Total Counted Not Reportable 09/27/18 06:50: Specimen Type ART, Sample Site L Radial, pH 7.34 L, Bicarbonate Actual 21.3 L, POC Total CO2 22, Base Excess -5 L, O2 Saturation 94 L, ABG pCO2 39.7, ABG pO2 75, Elias Test NA, O2 Delivery Device Nasal Can, Liter Flow 2.0, Blood Gas Notified Whom SANA ZIMMERMAN, Blood Gas Notified Time 650 09/27/18 06:56: POC Glucose 137 H 09/27/18 11:12: POC Glucose 131 H Current Medications Acetaminophen (Tylenol) 650 mg PO Q6H PRN PRN PRN Reason: Mild Pain (1-3)/Temp > 100.7 F Albuterol Sulfate (Ventolin Aerosols) 2.5 mg INHALATION Q2H PRN PRN PRN Reason: SHORTNESS OF BREATH Last Admin: 09/27/18 01:05 Dose: 2.5 mg Albuterol/Ipratropium (Duoneb) 3 ml INHALATION Q4HWA.RT KARENA Last Admin: 09/27/18 11:20 Dose: 3 ml Amlodipine Besylate (Norvasc) 5 mg PO DAILY KARENA Last Admin: 09/27/18 12:26 Dose: 5 mg Dextrose (D50w Syringe) 0 gm IV X1 PRN; Protocol PRN Reason: Hypoglycemia Enoxaparin Sodium (Lovenox) 30 mg SC DAILY@1000 [facility] Last Admin: 09/27/18 12:24 Dose: 30 mg Glucagon () 1 mg IM .X1 PRN PRN Reason: Hypoglycemia Hydralazine HCl (Apresoline Iv) 5 mg IV Q4H PRN PRN PRN Reason: SBP > 185 Sodium Chloride () 250 mls @ 15 mls/hr IV .[id number] PRN PRN Reason: SALINE FLUSH Insulin Glargine (Lantus (Bk)) 15 units SC BREAKFAST [facility] Last Admin: 09/27/18 07:49 Dose: Not Given Insulin Glargine (Lantus (Bk)) 20 units SC QHS [facility] Last Admin: 09/27/18 01:05 Dose: Not Given Insulin Human Lispro (Humalog Kwikpen ([facility])) 0 unit SQ ACHS & 3AM KARENA; Protocol Last Admin: 09/27/18 11:41 Dose: Not Given Labetalol HCl (Trandate) 300 mg PO TID [facility] Last Admin: 09/27/18 14:34 Dose: 300 mg Levofloxacin (Levaquin Tablet) 750 mg PO Q48 [facility] Last Admin: 09/27/18 02:15 Dose: 750 mg Ondansetron HCl (Zofran) 4 mg IV Q8H PRN PRN PRN Reason: NAUSEA/VOMITING Sodium Chloride () 5 - 15 ml IV UD PRN PRN Reason: SALINE FLUSH Last Admin: 09/27/18 01:32 Dose: 10 ml Medical Necessity - Tobacco Use Smoking Status: Former smoker Assessment/Plan All Active Problems Fall (Acute) Sepsis (Acute) Encephalopathy (Acute) Urinary tract infection (Acute) PNA (pneumonia) (Acute) Respiratory acidosis (Acute) Comatose (Acute) DARYL (acute kidney injury) (Acute) Acute bronchitis (Acute) Patient is drowsy and lethargic. Patient was awake last night. Last week I have seen the patient for acute hypoxic and hypercarbic respiratory failure and was intubated on 09/17 and later on extubated. Patient was discharged on 09/24 after management for severe sepsis secondary to community-acquired pneumonia and acute kidney injury on CKD. Patient was admitted last night for shortness of breath and grunting sound. Temperature was 100.3 Fahrenheit blood pressure systolic was in 200s. The patient is a 72 year old M with a significant history of hypertension; COPD; CVA; CKD stage III; former tobacco abuse who was admitted on 09/17/2018 and discharged on 09/24/2018 for severe sepsis secondary to Haemophilus Influenza pneumonia and Rhinovirus, acute kidney injury on CKD stage III was admitted with shortness of breath and hypertensive urgency, systolic blood pressure in 200s. 1. Acute bronchitis with recent history of haemophilus influenzae and rhinovirus community-acquired pneumonia: Patient is being admitted in PCU. On bronchodilator DuoNeb, incentive spirometry, chest physiotherapy. On 09/17 admission, blood cultures and urine cultures were negative. Urinary antigens were negative. Respiratory panel showed rhinovirus. His sputum culture grew Haemophilus influenzae and mixed lex. During this admission respiratory panel shows parainfluenza 3. 2. Acute on chronic combined hypoxic and hypercarbic respiratory failure mostly secondary to obesity hypoventilation syndrome/obstructive sleep apnea: Need CPAP or BiPAP support. Patient was discharged on 2 L of oxygen. 3. Hypertensive urgency: Blood pressure is controlled. On hydralazine 5 mg every 4 hourly as needed. Continue home labetalol. 4. Acute kidney injury and CKD stage III: Patient baseline creatinine runs around 2.2. Patient came up with 2.78. Review of old records show that on 08/15/2018 his creatinine was 2.12; and on 10/30/2017 his creatinine was 2.14. During previous admission was admitted with 3.5 and discharged with creatinine 2.5. Patient was resuscitated with IV fluid. 5. Diabetes mellitus type 2: Accu-Chek SCDs and cover with NovoLog sliding scale. Blood sugars are well controlled. CODE STATUS: DNR CC Active Medications Acetaminophen (Tylenol) 650 mg PO Q6H PRN PRN PRN Reason: Mild Pain (1-3)/Temp > 100.7 F Albuterol Sulfate (Ventolin Aerosols) 2.5 mg INHALATION Q2H PRN PRN PRN Reason: SHORTNESS OF BREATH Last Admin: 09/27/18 01:05 Dose: 2.5 mg Albuterol/Ipratropium (Duoneb) 3 ml INHALATION Q4HWA.RT KARENA Last Admin: 09/27/18 11:20 Dose: 3 ml Amlodipine Besylate (Norvasc) 5 mg PO DAILY [facility] Last Admin: 09/27/18 12:26 Dose: 5 mg Dextrose (D50w Syringe) 0 gm IV X1 PRN; Protocol PRN Reason: Hypoglycemia Enoxaparin Sodium (Lovenox) 30 mg SC DAILY@1000 [facility] Last Admin: 09/27/18 12:24 Dose: 30 mg Glucagon () 1 mg IM .X1 PRN PRN Reason: Hypoglycemia Hydralazine HCl (Apresoline Iv) 5 mg IV Q4H PRN PRN PRN Reason: SBP > 185 Sodium Chloride () 250 mls @ 15 mls/hr IV .[id number] PRN PRN Reason: SALINE FLUSH Insulin Glargine (Lantus (Bkc)) 15 units SC BREAKFAST [facility] Last Admin: 09/27/18 07:49 Dose: Not Given Insulin Glargine (Lantus (Bkc)) 20 units SC QHS [facility] Last Admin: 09/27/18 01:05 Dose: Not Given Insulin Human Lispro (Humalog Kwikpen (Bkc)) 0 unit SQ ACHS & 3AM [facility]; Protocol Last Admin: 09/27/18 11:41 Dose: Not Given Labetalol HCl (Trandate) 300 mg PO TID [facility] Last Admin: 09/27/18 14:34 Dose: 300 mg Levofloxacin (Levaquin Tablet) 750 mg PO Q48 [facility] Last Admin: 09/27/18 02:15 Dose: 750 mg Ondansetron HCl (Zofran) 4 mg IV Q8H PRN PRN PRN Reason: NAUSEA/VOMITING Sodium Chloride () 5 - 15 ml IV UD PRN PRN Reason: SALINE FLUSH Last Admin: 09/27/18 01:32 Dose: 10 ml Microbiology Past 72 Hours 09/27/18 06:40 Mucosa - Nasopharyngeal Respiratory Panel (PCR) - Final Parainfluenza 3 Laboratory Results 09/26/18 21:45: WBC 13.4 H, RBC 4.71, Hgb 13.9, Hct 42.0, MCV 89.2, MCH 29.5, MCHC 33.1, RDW 13.6, RDW Differential 44.6 H, Plt Count 324, MPV 9.4, Immature Gran % (Auto) 1.000 H, Neut % (Auto) 75.7 H, Lymph % (Auto) 10.3 L, Polk % (Auto) 10.6 H, Eos % (Auto) 2.2, Baso % (Auto) 0.2, Absolute Neuts (auto) 10.1 H, Absolute Lymphs (auto) 1.37, Total Counted Not Reportable 09/26/18 21:45: PT 13.5, INR 1.1, APTT 37.7 H 09/26/18 21:45: Sodium 140, Potassium 3.9, Chloride 106, Carbon Dioxide 27.0, Anion Gap 7, BUN 44 H, Creatinine 2.78 H, Estim Creat Clear Calc 24.80, Est GFR (MDRD) Af Amer 29 L, Est GFR (MDRD) Non-Af 24 L, BUN/Creatinine Ratio 15.8, Glucose 125 H, Calcium 8.7, Total Bilirubin 0.30, Direct Bilirubin 0.13, AST 18, ALT 31, Alkaline Phosphatase 75, Troponin I 0.018, Total Protein 7.4, Albumin 3.0 L, Globulin 4.4 H, Lipase 423 H 09/26/18 21:45: Lactic Acid 0.7 09/26/18 21:45: B-Natriuretic Peptide 78.4 09/26/18 22:03: Specimen Type ART, Sample Site L Radial, pH 7.34 L, Bicarbonate Actual 21.9 L, POC Total CO2 23, Base Excess -4 L, O2 Saturation 92 L, ABG pCO2 40.8, ABG pO2 69 L, Elias Test POS, O2 Delivery Device Nasal Can, Liter Flow 2.0, Blood Gas Notified Whom ED 09/26/18 22:40: Urine Color Yellow, Urine Clarity Clear, Urine pH 5.0, Ur Specific [employer] 1.020, Urine Protein 100 H, Urine Glucose (UA) 50 H, Urine Ketones Negative, Urine Occult Blood 10 H, Urine Nitrite Negative, Urine Bilirubin Negative, Urine Urobilinogen Normal, Ur Leukocyte Esterase Negative, Urine RBC 0 SEEN, Urine WBC 0-5 SEEN, Ur Squamous Epith Cells 0 SEEN, Urine Bacteria 0 SEEN, Urine Mucus 0 SEEN 09/27/18 03:50: POC Glucose 102 09/27/18 06:50: Sodium 141, Potassium 4.3, Chloride 109 H, Carbon Dioxide 23.0, Anion Gap 9, BUN 42 H, Creatinine 2.40 H, Estim Creat Clear Calc 28.73, Est GFR (MDRD) Af Amer 34 L, Est GFR (MDRD) Non-Af 28 L, BUN/Creatinine Ratio 17.5, Glucose 128 H, Calcium 8.6 09/27/18 06:50: WBC 10.6, RBC 4.52 L, Hgb 11.2 L, Hct 39.9 L, MCV 88.3, MCH 24.8 L, MCHC 28.1 L, RDW 13.7, RDW Differential 43.4, Plt Count 321, MPV 9.5, Immature Gran % (Auto) 1.000 H, Neut % (Auto) 91.3 H, Lymph % (Auto) 5.0 L, Polk % (Auto) 2.3, Eos % (Auto) 0.2, Baso % (Auto) 0.2, Absolute Neuts (auto) 9.7 H, Absolute Lymphs (auto) 0.53 L, Total Counted Not Reportable 09/27/18 06:50: Specimen Type ART, Sample Site L Radial, pH 7.34 L, Bicarbonate Actual 21.3 L, POC Total CO2 22, Base Excess -5 L, O2 Saturation 94 L, ABG pCO2 39.7, ABG pO2 75, Elias Test NA, O2 Delivery Device Nasal Can, Liter Flow 2.0, Blood Gas Notified Whom HOSP , Blood Gas Notified Time 650 09/27/18 06:56: POC Glucose 137 H 09/27/18 11:12: POC Glucose 131 H Code Visit Inpatient E&M: [id number] [facility] Hosp L3
--- NOTE | 2018-09-27 14:53 | PN_ITS ---
Patient Problems: Active and Suspected Problems Acute bronchitis (Acute) Subjective: Patient is drowsy and lethargic. Patient was awake last night. Last week I have seen the patient for acute hypoxic and hypercarbic respiratory failure and was intubated on 09/17 and later on extubated. Patient was discharged on 09/24 after management for severe sepsis secondary to community-acquired pneumonia and acute kidney injury on CKD. Blood cultures and urine cultures were negative. Urinary antigens were negative. Respiratory panel showed rhinovirus. His sputum culture grew Haemophilus influenzae and mixed lex. Patient was admitted last night for shortness of breath and grunting sound. Temperature was 100.3 Fahrenheit blood pressure systolic was in 200s. Vitals/I&O's: Vital Signs Temp Pulse Resp BP Pulse Ox 99.6 F H 68 29 H 143/67 H 92 09/27/18 08:26 09/27/18 12:01 09/27/18 11:21 09/27/18 08:26 09/27/18 11:21 Oxygen Flow Rate (L/min) 2.0 Oxygen Delivery Method Nasal Cannula Weight: 210 lb 5.136 oz Body Mass Index (BMI) 30.2 Finger Stick Blood Glucose 240 Intake and Output for Last 24 Hours 09/25/18 09/26/18 09/27/18 23:59 23:59 23:59 Intake Total 1121 / 1121 Balance 1121 / 1121 General: Confused, Disoriented, Lethargic HEENT: Atraumatic, PERRLA, EOMI, Normocephalic Oral: Dry Mucosa, - - Upper airway grunting sound Neck: Supple, No JVD, Negative Carotid Bruits Lungs: Diminished, Rhonchi, Short of Breath Abdomen: Bowel Sounds Present, Soft, Non Tender, Non-Distended Extremities: No edema, Capillary Refill Less than 3 Seconds Skin: No rashes, No breakdown Musculoskeletal: Arthritic Changes Neurological: Cranial nerves II-XII grossly intact, Deep Tendon Reflexes 2+/4 and Symmetrical Microbiology Past 72 Hours 09/27/18 06:40 Mucosa - Nasopharyngeal Respiratory Panel (PCR) - Final Parainfluenza 3 Laboratory Results 09/26/18 21:45: WBC 13.4 H, RBC 4.71, Hgb 13.9, Hct 42.0, MCV 89.2, MCH 29.5, MCHC 33.1, RDW 13.6, RDW Differential 44.6 H, Plt Count 324, MPV 9.4, Immature Gran % (Auto) 1.000 H, Neut % (Auto) 75.7 H, Lymph % (Auto) 10.3 L, Perkins % (Auto) 10.6 H, Eos % (Auto) 2.2, Baso % (Auto) 0.2, Absolute Neuts (auto) 10.1 H , Absolute Lymphs (auto) 1.37, Total Counted Not Reportable 09/26/18 21:45: PT 13.5, INR 1.1, APTT 37.7 H 09/26/18 21:45: Sodium 140, Potassium 3.9, Chloride 106, Carbon Dioxide 27.0, Anion Gap 7, BUN 44 H, Creatinine 2.78 H, Estim Creat Clear Calc 24.80, Est GFR (MDRD) Af Amer 29 L, Est GFR (MDRD) Non-Af 24 L, BUN/Creatinine Ratio 15.8, Glucose 125 H, Calcium 8.7, Total Bilirubin 0.30, Direct Bilirubin 0.13, AST 18, ALT 31, Alkaline Phosphatase 75, Troponin I 0.018, Total Protein 7.4, Albumin 3.0 L, Globulin 4.4 H, Lipase 423 H 09/26/18 21:45: Lactic Acid 0.7 09/26/18 21:45: B-Natriuretic Peptide 78.4 09/26/18 22:03: Specimen Type ART, Sample Site L Radial, pH 7.34 L, Bicarbonate Actual 21.9 L, POC Total CO2 23, Base Excess -4 L, O2 Saturation 92 L, ABG pCO2 40.8, ABG pO2 69 L, Elias Test POS, O2 Delivery Device Nasal Can, Liter Flow 2.0, Blood Gas Notified Whom ED 09/26/18 22:40: Urine Color Yellow, Urine Clarity Clear, Urine pH 5.0, Ur Specific Rusk 1.020, Urine Protein 100 H, Urine Glucose (UA) 50 H, Urine Ketones Negative, Urine Occult Blood 10 H, Urine Nitrite Negative, Urine Bilirubin Negative, Urine Urobilinogen Normal, Ur Leukocyte Esterase Negative, Urine RBC 0 SEEN, Urine WBC 0-5 SEEN, Ur Squamous Epith Cells 0 SEEN, Urine Bacteria 0 SEEN, Urine Mucus 0 SEEN 09/27/18 03:50: POC Glucose 102 09/27/18 06:50: Sodium 141, Potassium 4.3, Chloride 109 H, Carbon Dioxide 23.0, Anion Gap 9, BUN 42 H, Creatinine 2.40 H, Estim Creat Clear Calc 28.73, Est GFR (MDRD) Af Amer 34 L, Est GFR (MDRD) Non-Af 28 L, BUN/Creatinine Ratio 17.5, Glucose 128 H, Calcium 8.6 09/27/18 06:50: WBC 10.6, RBC 4.52 L, Hgb 11.2 L, Hct 39.9 L, MCV 88.3, MCH 24.8 L, MCHC 28.1 L, RDW 13.7, RDW Differential 43.4, Plt Count 321, MPV 9.5, Immature Gran % (Auto) 1.000 H, Neut % (Auto) 91.3 H, Lymph % (Auto) 5.0 L, Perkins % (Auto) 2.3, Eos % (Auto) 0.2, Baso % (Auto) 0.2, Absolute Neuts (auto) 9.7 H, Absolute Lymphs (auto) 0.53 L, Total Counted Not Reportable 09/27/18 06:50: Specimen Type ART, Sample Site L Radial, pH 7.34 L, Bicarbonate Actual 21.3 L, POC Total CO2 22, Base Excess -5 L, O2 Saturation 94 L, ABG pCO2 39.7, ABG pO2 75, Elias Test NA, O2 Delivery Device Nasal Can, Liter Flow 2.0, Blood Gas Notified Whom SANA ZIMMERMAN, Blood Gas Notified Time 650 09/27/18 06:56: POC Glucose 137 H 09/27/18 11:12: POC Glucose 131 H Current Medications Acetaminophen (Tylenol) 650 mg PO Q6H PRN PRN PRN Reason: Mild Pain (1-3)/Temp > 100.7 F Albuterol Sulfate (Ventolin Aerosols) 2.5 mg INHALATION Q2H PRN PRN PRN Reason: SHORTNESS OF BREATH Last Admin: 09/27/18 01:05 Dose: 2.5 mg Albuterol/Ipratropium (Duoneb) 3 ml INHALATION Q4HWA.RT [facility] Last Admin: 09/27/18 11:20 Dose: 3 ml Amlodipine Besylate (Norvasc) 5 mg PO DAILY [facility] Last Admin: 09/27/18 12:26 Dose: 5 mg Dextrose (D50w Syringe) 0 gm IV X1 PRN; Protocol PRN Reason: Hypoglycemia Enoxaparin Sodium (Lovenox) 30 mg SC DAILY@1000 [facility] Last Admin: 09/27/18 12:24 Dose: 30 mg Glucagon () 1 mg IM .X1 PRN PRN Reason: Hypoglycemia Hydralazine HCl (Apresoline Iv) 5 mg IV Q4H PRN PRN PRN Reason: SBP > 185 Sodium Chloride () 250 mls @ 15 mls/hr IV .[id number] PRN PRN Reason: SALINE FLUSH Insulin Glargine (Lantus (Bk)) 15 units SC BREAKFAST [facility] Last Admin: 09/27/18 07:49 Dose: Not Given Insulin Glargine (Lantus (Bk)) 20 units SC QHS [facility] Last Admin: 09/27/18 01:05 Dose: Not Given Insulin Human Lispro (Humalog Kwikpen ([facility])) 0 unit SQ ACHS & 3AM [facility]; Protocol Last Admin: 09/27/18 11:41 Dose: Not Given Labetalol HCl (Trandate) 300 mg PO TID [facility] Last Admin: 09/27/18 14:34 Dose: 300 mg Levofloxacin (Levaquin Tablet) 750 mg PO Q48 [facility] Last Admin: 09/27/18 02:15 Dose: 750 mg Ondansetron HCl (Zofran) 4 mg IV Q8H PRN PRN PRN Reason: NAUSEA/VOMITING Sodium Chloride () 5 - 15 ml IV UD PRN PRN Reason: SALINE FLUSH Last Admin: 09/27/18 01:32 Dose: 10 ml Medical Necessity - Tobacco Use Smoking Status: Former smoker Assessment/Plan All Active Problems Fall (Acute) Sepsis (Acute) Encephalopathy (Acute) Urinary tract infection (Acute) PNA (pneumonia) (Acute) Respiratory acidosis (Acute) Comatose (Acute) DARYL (acute kidney injury) (Acute) Acute bronchitis (Acute) Patient is drowsy and lethargic. Patient was awake last night. Last week I have seen the patient for acute hypoxic and hypercarbic respiratory failure and was intubated on 09/17 and later on extubated. Patient was discharged on 09/24 after management for severe sepsis secondary to community-acquired pneumonia and acute kidney injury on CKD. Patient was admitted last night for shortness of breath and grunting sound. Temperature was 100.3 Fahrenheit blood pressure systolic was in 200s. The patient is a 72 year old M with a significant history of hypertension; COPD; CVA; CKD stage III; former tobacco abuse who was admitted on 09/17/2018 and discharged on 09/24/2018 for severe sepsis secondary to Haemophilus Influenza pneumonia and Rhinovirus, acute kidney injury on CKD stage III was admitted with shortness of breath and hypertensive urgency, systolic blood pressure in 200s. 1. Acute bronchitis with recent history of haemophilus influenzae and rhinovirus community-acquired pneumonia: Patient is being admitted in PCU. On bronchodilator DuoNeb, incentive spirometry, chest physiotherapy. On 09/17 admission, blood cultures and urine cultures were negative. Urinary antigens were negative. Respiratory panel showed rhinovirus. His sputum culture grew Haemophilus influenzae and mixed lex. During this admission respiratory panel shows parainfluenza 3. 2. Acute on chronic combined hypoxic and hypercarbic respiratory failure mostly secondary to obesity hypoventilation syndrome/obstructive sleep apnea: Need CPAP or BiPAP support. Patient was discharged on 2 L of oxygen. 3. Hypertensive urgency: Blood pressure is controlled. On hydralazine 5 mg every 4 hourly as needed. Continue home labetalol. 4. Acute kidney injury and CKD stage III: Patient baseline creatinine runs around 2.2. Patient came up with 2.78. Review of old records show that on 08/15/2018 his creatinine was 2.12; and on 10/30/2017 his creatinine was 2.14. During previous admission was admitted with 3.5 and discharged with creatinine 2.5. Patient was resuscitated with IV fluid. 5. Diabetes mellitus type 2: Accu-Chek SCDs and cover with NovoLog sliding scale. Blood sugars are well controlled. CODE STATUS: DNR CC Active Medications Acetaminophen (Tylenol) 650 mg PO Q6H PRN PRN PRN Reason: Mild Pain (1-3)/Temp > 100.7 F Albuterol Sulfate (Ventolin Aerosols) 2.5 mg INHALATION Q2H PRN PRN PRN Reason: SHORTNESS OF BREATH Last Admin: 09/27/18 01:05 Dose: 2.5 mg Albuterol/Ipratropium (Duoneb) 3 ml INHALATION Q4HWA.RT [facility] Last Admin: 09/27/18 11:20 Dose: 3 ml Amlodipine Besylate (Norvasc) 5 mg PO DAILY [facility] Last Admin: 09/27/18 12:26 Dose: 5 mg Dextrose (D50w Syringe) 0 gm IV X1 PRN; Protocol PRN Reason: Hypoglycemia Enoxaparin Sodium (Lovenox) 30 mg SC DAILY@1000 [facility] Last Admin: 09/27/18 12:24 Dose: 30 mg Glucagon () 1 mg IM .X1 PRN PRN Reason: Hypoglycemia Hydralazine HCl (Apresoline Iv) 5 mg IV Q4H PRN PRN PRN Reason: SBP > 185 Sodium Chloride () 250 mls @ 15 mls/hr IV .[id number] PRN PRN Reason: SALINE FLUSH Insulin Glargine (Lantus (Bkc)) 15 units SC BREAKFAST [facility] Last Admin: 09/27/18 07:49 Dose: Not Given Insulin Glargine (Lantus (Bkc)) 20 units SC QHS [facility] Last Admin: 09/27/18 01:05 Dose: Not Given Insulin Human Lispro (Humalog Kwikpen ([facility])) 0 unit SQ ACHS & 3AM [facility]; Protocol Last Admin: 09/27/18 11:41 Dose: Not Given Labetalol HCl (Trandate) 300 mg PO TID [facility] Last Admin: 09/27/18 14:34 Dose: 300 mg Levofloxacin (Levaquin Tablet) 750 mg PO Q48 [facility] Last Admin: 09/27/18 02:15 Dose: 750 mg Ondansetron HCl (Zofran) 4 mg IV Q8H PRN PRN PRN Reason: NAUSEA/VOMITING Sodium Chloride () 5 - 15 ml IV UD PRN PRN Reason: SALINE FLUSH Last Admin: 09/27/18 01:32 Dose: 10 ml Microbiology Past 72 Hours 09/27/18 06:40 Mucosa - Nasopharyngeal Respiratory Panel (PCR) - Final Parainfluenza 3 Laboratory Results 09/26/18 21:45: WBC 13.4 H, RBC 4.71, Hgb 13.9, Hct 42.0, MCV 89.2, MCH 29.5, MCHC 33.1, RDW 13.6, RDW Differential 44.6 H, Plt Count 324, MPV 9.4, Immature Gran % (Auto) 1.000 H, Neut % (Auto) 75.7 H, Lymph % (Auto) 10.3 L, Perkins % (Auto) 10.6 H, Eos % (Auto) 2.2, Baso % (Auto) 0.2, Absolute Neuts (auto) 10.1 H , Absolute Lymphs (auto) 1.37, Total Counted Not Reportable 09/26/18 21:45: PT 13.5, INR 1.1, APTT 37.7 H 09/26/18 21:45: Sodium 140, Potassium 3.9, Chloride 106, Carbon Dioxide 27.0, Anion Gap 7, BUN 44 H, Creatinine 2.78 H, Estim Creat Clear Calc 24.80, Est GFR (MDRD) Af Amer 29 L, Est GFR (MDRD) Non-Af 24 L, BUN/Creatinine Ratio 15.8, Glucose 125 H, Calcium 8.7, Total Bilirubin 0.30, Direct Bilirubin 0.13, AST 18, ALT 31, Alkaline Phosphatase 75, Troponin I 0.018, Total Protein 7.4, Albumin 3.0 L, Globulin 4.4 H, Lipase 423 H 09/26/18 21:45: Lactic Acid 0.7 09/26/18 21:45: B-Natriuretic Peptide 78.4 09/26/18 22:03: Specimen Type ART, Sample Site L Radial, pH 7.34 L, Bicarbonate Actual 21.9 L, POC Total CO2 23, Base Excess -4 L, O2 Saturation 92 L, ABG pCO2 40.8, ABG pO2 69 L, Elias Test POS, O2 Delivery Device Nasal Can, Liter Flow 2.0, Blood Gas Notified Whom ED 09/26/18 22:40: Urine Color Yellow, Urine Clarity Clear, Urine pH 5.0, Ur Specific Rusk 1.020, Urine Protein 100 H, Urine Glucose (UA) 50 H, Urine Ketones Negative, Urine Occult Blood 10 H, Urine Nitrite Negative, Urine Bilirubin Negative, Urine Urobilinogen Normal, Ur Leukocyte Esterase Negative, Urine RBC 0 SEEN, Urine WBC 0-5 SEEN, Ur Squamous Epith Cells 0 SEEN, Urine Bacteria 0 SEEN, Urine Mucus 0 SEEN 09/27/18 03:50: POC Glucose 102 09/27/18 06:50: Sodium 141, Potassium 4.3, Chloride 109 H, Carbon Dioxide 23.0, Anion Gap 9, BUN 42 H, Creatinine 2.40 H, Estim Creat Clear Calc 28.73, Est GFR (MDRD) Af Amer 34 L, Est GFR (MDRD) Non-Af 28 L, BUN/Creatinine Ratio 17.5, Glucose 128 H, Calcium 8.6 09/27/18 06:50: WBC 10.6, RBC 4.52 L, Hgb 11.2 L, Hct 39.9 L, MCV 88.3, MCH 24.8 L, MCHC 28.1 L, RDW 13.7, RDW Differential 43.4, Plt Count 321, MPV 9.5, Immature Gran % (Auto) 1.000 H, Neut % (Auto) 91.3 H, Lymph % (Auto) 5.0 L, Perkins % (Auto) 2.3, Eos % (Auto) 0.2, Baso % (Auto) 0.2, Absolute Neuts (auto) 9.7 H, Absolute Lymphs (auto) 0.53 L, Total Counted Not Reportable 09/27/18 06:50: Specimen Type ART, Sample Site L Radial, pH 7.34 L, Bicarbonate Actual 21.3 L, POC Total CO2 22, Base Excess -5 L, O2 Saturation 94 L, ABG pCO2 39.7, ABG pO2 75, Elias Test NA, O2 Delivery Device Nasal Can, Liter Flow 2.0, Blood Gas Notified Whom [facility]OS[facility] , Blood Gas Notified Time 650 09/27/18 06:56: POC Glucose 137 H 09/27/18 11:12: POC Glucose 131 H Code Visit Inpatient E&M: [id number] [facility] Hosp L3
[2018-09-27 16:36] LABS: Bedside Glucose 129 mg/dL (70-110)
[2018-09-27 17:26] LABS: Bedside Glucose 113 mg/dL (70-110)
[2018-09-27 21:46] LABS: Bedside Glucose 101 mg/dL (70-110)
[2018-09-28] VITALS (24 sets, daily range): BP systolic 131–161; BP diastolic 62–74; PULSE 64–71; RESP 18–28; TEMP 36.6–37.2; O2SAT 92–97
[2018-09-28 02:35] LABS: Bedside Glucose 110 mg/dL (70-110)
[2018-09-28] MEDS: Labetalol 100 MG Tablet 300 MG PO ×3 (06:34→21:07)
[2018-09-28 06:56] LABS: Bedside Glucose 110 mg/dL (70-110)
[2018-09-28] MEDS: Ipratropium/Albuterol Sulfate 3 ML AMPUL.NEB INHALATION ×5 (06:59→22:11)
[2018-09-28] MEDS: Enoxaparin 30 MG/0.3 ML Syringe SC (08:58)
[2018-09-28] MEDS: amLODIPine 5 MG Tablet PO (08:58)
[2018-09-28 09:10] LABS: Anion Gap 7 (5-15); BUN 42 mg/dL (7-18); BUN/Creat Ratio 17.5 RATIO (10-20); Calcium,Total 8.6 mg/dL (8.5-10.1); Chloride 107 mmol/L (98-107); EST Glomerular Filtration Rate 28 mL/min (>60); Est Glom Filt Rate - Afr Amer 34 mL/min (>60); Estimated Creatinine Clearance 28.73 ml/min; Glucose 135 mg/dL (74-106); Sodium Level 140 mmol/L (136-145)
[2018-09-28 11:30] LABS: Bedside Glucose 135 mg/dL (70-110)
--- NOTE | 2018-09-28 14:20 | PCM.PN.HOSP ---
Patient Problems: Active and Suspected Problems Acute bronchitis (Acute) Subjective: The patient is more awake and alert today. Patient still looks short of breath but better than yesterday. On 2 L of oxygen. Patient is more conversant today and answers simple questions. Vitals/I&O's: Vital Signs Temp Pulse Resp BP Pulse Ox 98.2 F 71 20 H 148/62 H 95 09/28/18 13:23 09/28/18 13:23 09/28/18 13:23 09/28/18 13:23 09/28/18 13:23 Oxygen Flow Rate (L/min) 2 Oxygen Delivery Method Nasal Cannula Weight: 210 lb 5.136 oz Body Mass Index (BMI) 30.2 Finger Stick Blood Glucose 240 Intake and Output for Last 24 Hours 09/26/18 09/27/18 09/28/18 23:59 23:59 23:59 Intake Total 1241 / 1241 480 / 480 Balance 1241 / 1241 480 / 480 General: Alert, Oriented x3, Cooperative HEENT: Atraumatic, PERRLA, EOMI, Normocephalic Neck: Supple, No JVD, Negative Carotid Bruits Lungs: Diminished - Air entry is diffusely diminished., Rhonchi, Short of Breath, Wheezes Cardiovascular: Regular rate, Regular Rhythm, Normal S1, Normal S2, No murmurs Abdomen: Bowel Sounds Present, Soft, Non Tender, Non-Distended Extremities: Capillary Refill Less than 3 Seconds, Edema Skin: No rashes, No breakdown Musculoskeletal: No Tenderness to Palpation of Joints or Extremities, Arthritic Changes Neurological: Cranial nerves II-XII grossly intact, Deep Tendon Reflexes 2+/4 and Symmetrical, Neuro grossly intact Psych/Mental Status: Normal Affect, Appropriate Microbiology Past 72 Hours 09/27/18 06:40 Mucosa - Nasopharyngeal Respiratory Panel (PCR) - Final Parainfluenza 3 Laboratory Results 09/27/18 07:31: POC Glucose 129 H 09/27/18 15:51: POC Glucose 113 H 09/27/18 21:35: POC Glucose 101 09/28/18 02:29: POC Glucose 110 09/28/18 06:27: POC Glucose 110 09/28/18 08:38: Sodium 140, Potassium 4.0, Chloride 107, Carbon Dioxide 26.0, Anion Gap 7, BUN 42 H, Creatinine 2.40 H, Estim Creat Clear Calc 28.73, Est GFR (MDRD) Af Amer 34 L, Est GFR (MDRD) Non-Af 28 L, BUN/Creatinine Ratio 17.5, Glucose 135 H, Calcium 8.6 09/28/18 11:22: POC Glucose 135 H Current Medications Acetaminophen (Tylenol) 650 mg PO Q6H PRN PRN PRN Reason: Mild Pain (1-3)/Temp > 100.7 F Albuterol Sulfate (Ventolin Aerosols) 2.5 mg INHALATION Q2H PRN PRN PRN Reason: SHORTNESS OF BREATH Last Admin: 09/27/18 01:05 Dose: 2.5 mg Albuterol/Ipratropium (Duoneb) 3 ml INHALATION Q4HWA.RT [facility] Last Admin: 09/28/18 11:44 Dose: 3 ml Amlodipine Besylate (Norvasc) 5 mg PO DAILY [facility] Last Admin: 09/28/18 08:58 Dose: 5 mg Dextrose (D50w Syringe) 0 gm IV X1 PRN; Protocol PRN Reason: Hypoglycemia Enoxaparin Sodium (Lovenox) 30 mg SC DAILY@1000 [facility] Last Admin: 09/28/18 08:58 Dose: 30 mg Glucagon () 1 mg IM .X1 PRN PRN Reason: Hypoglycemia Hydralazine HCl (Apresoline Iv) 5 mg IV Q4H PRN PRN PRN Reason: SBP > 185 Sodium Chloride () 250 mls @ 15 mls/hr IV .[id number] PRN PRN Reason: SALINE FLUSH Insulin Glargine (Lantus (Bkc)) 15 units SC BREAKFAST [facility] Last Admin: 09/28/18 07:50 Dose: Not Given Insulin Glargine (Lantus (Bkc)) 15 units SC QHS [facility] Last Admin: 09/27/18 21:36 Dose: Not Given Insulin Human Lispro (Humalog Kwikpen (Bk)) 0 unit SQ ACHS & 3AM [facility]; Protocol Last Admin: 09/28/18 11:28 Dose: Not Given Labetalol HCl (Trandate) 300 mg PO TID [facility] Last Admin: 09/28/18 13:21 Dose: 300 mg Levofloxacin (Levaquin Tablet) 750 mg PO Q48 [facility] Last Admin: 09/27/18 02:15 Dose: 750 mg Ondansetron HCl (Zofran) 4 mg IV Q8H PRN PRN PRN Reason: NAUSEA/VOMITING Sodium Chloride () 5 - 15 ml IV UD PRN PRN Reason: SALINE FLUSH Last Admin: 09/27/18 01:32 Dose: 10 ml Medical Necessity - Tobacco Use Smoking Status: Former smoker Assessment/Plan All Active Problems Fall (Acute) Sepsis (Acute) Encephalopathy (Acute) Urinary tract infection (Acute) PNA (pneumonia) (Acute) Respiratory acidosis (Acute) Comatose (Acute) DARYL (acute kidney injury) (Acute) Acute bronchitis (Acute) The patient is a 72 year old M with a significant history of hypertension; COPD; CVA; CKD stage III; former tobacco abuse who was admitted on 09/17/2018 and discharged on 09/24/2018 for severe sepsis secondary to Haemophilus Influenza pneumonia and Rhinovirus, acute kidney injury on CKD stage III was admitted with shortness of breath and hypertensive urgency, systolic blood pressure in 200s. 1. Acute bronchitis with recent history of haemophilus influenzae and rhinovirus community-acquired pneumonia with possible COPD exacerbation: Patient is being admitted in PCU. On bronchodilator DuoNeb, incentive spirometry, chest physiotherapy. On 09/17 admission, blood cultures and urine cultures were negative. Urinary antigens were negative. Respiratory panel showed rhinovirus. His sputum culture grew Haemophilus influenzae and mixed lex. During this admission respiratory panel shows parainfluenza 3. Patient is wheezing therefore started on Solu-Medrol can be transitioned to prednisone tomorrow. 2. Acute on chronic combined hypoxic and hypercarbic respiratory failure mostly secondary to obesity hypoventilation syndrome/obstructive sleep apnea: Need CPAP or BiPAP support. Currently, on 2 L of oxygen. 3. Hypertensive urgency: Systolic blood pressure was in 200s at time of admission. Blood pressure is controlled. On hydralazine 5 mg every 4 hourly as needed. Continue home labetalol. 4. Acute kidney injury and CKD stage III: Patient baseline creatinine runs around 2.2. Patient came up with 2.78. Review of old records show that on 08/15/2018 his creatinine was 2.12; and on 10/30/2017 his creatinine was 2.14. During previous admission was admitted with 3.5 and discharged with creatinine 2.5. Patient was resuscitated with IV fluid. 5. Diabetes mellitus type 2: Accu-Chek SCDs and cover with NovoLog sliding scale. Blood sugars are well controlled. CODE STATUS: DNR CC Microbiology Past 72 Hours 09/27/18 06:40 Mucosa - Nasopharyngeal Respiratory Panel (PCR) - Final Parainfluenza 3 Active Medications Acetaminophen (Tylenol) 650 mg PO Q6H PRN PRN PRN Reason: Mild Pain (1-3)/Temp > 100.7 F Albuterol Sulfate (Ventolin Aerosols) 2.5 mg INHALATION Q2H PRN PRN PRN Reason: SHORTNESS OF BREATH Last Admin: 09/27/18 01:05 Dose: 2.5 mg Albuterol/Ipratropium (Duoneb) 3 ml INHALATION Q4HWA.RT [facility] Last Admin: 09/28/18 11:44 Dose: 3 ml Amlodipine Besylate (Norvasc) 5 mg PO DAILY [facility] Last Admin: 09/28/18 08:58 Dose: 5 mg Dextrose (D50w Syringe) 0 gm IV X1 PRN; Protocol PRN Reason: Hypoglycemia Enoxaparin Sodium (Lovenox) 30 mg SC DAILY@1000 [facility] Last Admin: 09/28/18 08:58 Dose: 30 mg Glucagon () 1 mg IM .X1 PRN PRN Reason: Hypoglycemia Hydralazine HCl (Apresoline Iv) 5 mg IV Q4H PRN PRN PRN Reason: SBP > 185 Sodium Chloride () 250 mls @ 15 mls/hr IV .[id number] PRN PRN Reason: SALINE FLUSH Insulin Glargine (Lantus (Bkc)) 15 units SC BREAKFAST [facility] Last Admin: 09/28/18 07:50 Dose: Not Given Insulin Glargine (Lantus (Bkc)) 15 units SC QHS [facility] Last Admin: 09/27/18 21:36 Dose: Not Given Insulin Human Lispro (Humalog Kwikpen ([facility])) 0 unit SQ ACHS & 3AM [facility]; Protocol Last Admin: 09/28/18 11:28 Dose: Not Given Labetalol HCl (Trandate) 300 mg PO TID [facility] Last Admin: 09/28/18 13:21 Dose: 300 mg Levofloxacin (Levaquin Tablet) 750 mg PO Q48 [facility] Last Admin: 09/27/18 02:15 Dose: 750 mg Ondansetron HCl (Zofran) 4 mg IV Q8H PRN PRN PRN Reason: NAUSEA/VOMITING Sodium Chloride () 5 - 15 ml IV UD PRN PRN Reason: SALINE FLUSH Last Admin: 09/27/18 01:32 Dose: 10 ml Microbiology Past 72 Hours 09/27/18 06:40 Mucosa - Nasopharyngeal Respiratory Panel (PCR) - Final Parainfluenza 3 Laboratory Results 09/28/18 08:38: Sodium 140, Potassium 4.0, Chloride 107, Carbon Dioxide 26.0, Anion Gap 7, BUN 42 H, Creatinine 2.40 H, Estim Creat Clear Calc 28.73, Est GFR (MDRD) Af Amer 34 L, Est GFR (MDRD) Non-Af 28 L, BUN/Creatinine Ratio 17.5, Glucose 135 H, Calcium 8.6 09/28/18 11:22: POC Glucose 135 H Code Visit Inpatient E&M: 31214 [facility] Hosp L3
--- NOTE | 2018-09-28 14:26 | PN_ITS ---
Patient Problems: Active and Suspected Problems Acute bronchitis (Acute) Subjective: The patient is more awake and alert today. Patient still looks short of breath but better than yesterday. On 2 L of oxygen. Patient is more conversant today and answers simple questions. Vitals/I&O's: Vital Signs Temp Pulse Resp BP Pulse Ox 98.2 F 71 20 H 148/62 H 95 09/28/18 13:23 09/28/18 13:23 09/28/18 13:23 09/28/18 13:23 09/28/18 13:23 Oxygen Flow Rate (L/min) 2 Oxygen Delivery Method Nasal Cannula Weight: 210 lb 5.136 oz Body Mass Index (BMI) 30.2 Finger Stick Blood Glucose 240 Intake and Output for Last 24 Hours 09/26/18 09/27/18 09/28/18 23:59 23:59 23:59 Intake Total 1241 / 1241 480 / 480 Balance 1241 / 1241 480 / 480 General: Alert, Oriented x3, Cooperative HEENT: Atraumatic, PERRLA, EOMI, Normocephalic Neck: Supple, No JVD, Negative Carotid Bruits Lungs: Diminished - Air entry is diffusely diminished., Rhonchi, Short of Breath, Wheezes Cardiovascular: Regular rate, Regular Rhythm, Normal S1, Normal S2, No murmurs Abdomen: Bowel Sounds Present, Soft, Non Tender, Non-Distended Extremities: Capillary Refill Less than 3 Seconds, Edema Skin: No rashes, No breakdown Musculoskeletal: No Tenderness to Palpation of Joints or Extremities, Arthritic Changes Neurological: Cranial nerves II-XII grossly intact, Deep Tendon Reflexes 2+/4 and Symmetrical, Neuro grossly intact Psych/Mental Status: Normal Affect, Appropriate Microbiology Past 72 Hours 09/27/18 06:40 Mucosa - Nasopharyngeal Respiratory Panel (PCR) - Final Parainfluenza 3 Laboratory Results 09/27/18 07:31: POC Glucose 129 H 09/27/18 15:51: POC Glucose 113 H 09/27/18 21:35: POC Glucose 101 09/28/18 02:29: POC Glucose 110 09/28/18 06:27: POC Glucose 110 09/28/18 08:38: Sodium 140, Potassium 4.0, Chloride 107, Carbon Dioxide 26.0, Anion Gap 7, BUN 42 H, Creatinine 2.40 H, Estim Creat Clear Calc 28.73, Est GFR (MDRD) Af Amer 34 L, Est GFR (MDRD) Non-Af 28 L, BUN/Creatinine Ratio 17.5, Glucose 135 H, Calcium 8.6 09/28/18 11:22: POC Glucose 135 H Current Medications Acetaminophen (Tylenol) 650 mg PO Q6H PRN PRN PRN Reason: Mild Pain (1-3)/Temp > 100.7 F Albuterol Sulfate (Ventolin Aerosols) 2.5 mg INHALATION Q2H PRN PRN PRN Reason: SHORTNESS OF BREATH Last Admin: 09/27/18 01:05 Dose: 2.5 mg Albuterol/Ipratropium (Duoneb) 3 ml INHALATION Q4HWA.RT [facility] Last Admin: 09/28/18 11:44 Dose: 3 ml Amlodipine Besylate (Norvasc) 5 mg PO DAILY [facility] Last Admin: 09/28/18 08:58 Dose: 5 mg Dextrose (D50w Syringe) 0 gm IV X1 PRN; Protocol PRN Reason: Hypoglycemia Enoxaparin Sodium (Lovenox) 30 mg SC DAILY@1000 [facility]ARENA Last Admin: 09/28/18 08:58 Dose: 30 mg Glucagon () 1 mg IM .X1 PRN PRN Reason: Hypoglycemia Hydralazine HCl (Apresoline Iv) 5 mg IV Q4H PRN PRN PRN Reason: SBP > 185 Sodium Chloride () 250 mls @ 15 mls/hr IV .[id number] PRN PRN Reason: SALINE FLUSH Insulin Glargine (Lantus (Bkc)) 15 units SC BREAKFAST [facility] Last Admin: 09/28/18 07:50 Dose: Not Given Insulin Glargine (Lantus (Bkc)) 15 units SC QHS [facility] Last Admin: 09/27/18 21:36 Dose: Not Given Insulin Human Lispro (Humalog Kwikpen (Bk)) 0 unit SQ ACHS & 3AM [facility]; Protocol Last Admin: 09/28/18 11:28 Dose: Not Given Labetalol HCl (Trandate) 300 mg PO TID [facility] Last Admin: 09/28/18 13:21 Dose: 300 mg Levofloxacin (Levaquin Tablet) 750 mg PO Q48 [facility] Last Admin: 09/27/18 02:15 Dose: 750 mg Ondansetron HCl (Zofran) 4 mg IV Q8H PRN PRN PRN Reason: NAUSEA/VOMITING Sodium Chloride () 5 - 15 ml IV UD PRN PRN Reason: SALINE FLUSH Last Admin: 09/27/18 01:32 Dose: 10 ml Medical Necessity - Tobacco Use Smoking Status: Former smoker Assessment/Plan All Active Problems Fall (Acute) Sepsis (Acute) Encephalopathy (Acute) Urinary tract infection (Acute) PNA (pneumonia) (Acute) Respiratory acidosis (Acute) Comatose (Acute) DARYL (acute kidney injury) (Acute) Acute bronchitis (Acute) The patient is a 72 year old M with a significant history of hypertension; COPD; CVA; CKD stage III; former tobacco abuse who was admitted on 09/17/2018 and discharged on 09/24/2018 for severe sepsis secondary to Haemophilus Influenza pneumonia and Rhinovirus, acute kidney injury on CKD stage III was admitted with shortness of breath and hypertensive urgency, systolic blood pressure in 200s. 1. Acute bronchitis with recent history of haemophilus influenzae and rhinovirus community-acquired pneumonia with possible COPD exacerbation: Patient is being admitted in PCU. On bronchodilator DuoNeb, incentive spirometry, chest physiotherapy. On 09/17 admission, blood cultures and urine cultures were negative. Urinary antigens were negative. Respiratory panel showed rhinovirus. His sputum culture grew Haemophilus influenzae and mixed lex. During this admission respiratory panel shows parainfluenza 3. Patient is wheezing therefore started on Solu-Medrol can be transitioned to prednisone tomorrow. 2. Acute on chronic combined hypoxic and hypercarbic respiratory failure mostly secondary to obesity hypoventilation syndrome/obstructive sleep apnea: Need CPAP or BiPAP support. Currently, on 2 L of oxygen. 3. Hypertensive urgency: Systolic blood pressure was in 200s at time of admission. Blood pressure is controlled. On hydralazine 5 mg every 4 hourly as needed. Continue home labetalol. 4. Acute kidney injury and CKD stage III: Patient baseline creatinine runs around 2.2. Patient came up with 2.78. Review of old records show that on 08/15/2018 his creatinine was 2.12; and on 10/30/2017 his creatinine was 2.14. During previous admission was admitted with 3.5 and discharged with creatinine 2.5. Patient was resuscitated with IV fluid. 5. Diabetes mellitus type 2: Accu-Chek SCDs and cover with NovoLog sliding scale. Blood sugars are well controlled. CODE STATUS: DNR CC Microbiology Past 72 Hours 09/27/18 06:40 Mucosa - Nasopharyngeal Respiratory Panel (PCR) - Final Parainfluenza 3 Active Medications Acetaminophen (Tylenol) 650 mg PO Q6H PRN PRN PRN Reason: Mild Pain (1-3)/Temp > 100.7 F Albuterol Sulfate (Ventolin Aerosols) 2.5 mg INHALATION Q2H PRN PRN PRN Reason: SHORTNESS OF BREATH Last Admin: 09/27/18 01:05 Dose: 2.5 mg Albuterol/Ipratropium (Duoneb) 3 ml INHALATION Q4HWA.RT [facility] Last Admin: 09/28/18 11:44 Dose: 3 ml Amlodipine Besylate (Norvasc) 5 mg PO DAILY [facility] Last Admin: 09/28/18 08:58 Dose: 5 mg Dextrose (D50w Syringe) 0 gm IV X1 PRN; Protocol PRN Reason: Hypoglycemia Enoxaparin Sodium (Lovenox) 30 mg SC DAILY@1000 [facility] Last Admin: 09/28/18 08:58 Dose: 30 mg Glucagon () 1 mg IM .X1 PRN PRN Reason: Hypoglycemia Hydralazine HCl (Apresoline Iv) 5 mg IV Q4H PRN PRN PRN Reason: SBP > 185 Sodium Chloride () 250 mls @ 15 mls/hr IV .[id number] PRN PRN Reason: SALINE FLUSH Insulin Glargine (Lantus (Bkc)) 15 units SC BREAKFAST [facility] Last Admin: 09/28/18 07:50 Dose: Not Given Insulin Glargine (Lantus (Bkc)) 15 units SC QHS [facility] Last Admin: 09/27/18 21:36 Dose: Not Given Insulin Human Lispro (Humalog Kwikpen (Bkc)) 0 unit SQ ACHS & 3AM [facility]; Protocol Last Admin: 09/28/18 11:28 Dose: Not Given Labetalol HCl (Trandate) 300 mg PO TID [facility] Last Admin: 09/28/18 13:21 Dose: 300 mg Levofloxacin (Levaquin Tablet) 750 mg PO Q48 [facility] Last Admin: 09/27/18 02:15 Dose: 750 mg Ondansetron HCl (Zofran) 4 mg IV Q8H PRN PRN PRN Reason: NAUSEA/VOMITING Sodium Chloride () 5 - 15 ml IV UD PRN PRN Reason: SALINE FLUSH Last Admin: 09/27/18 01:32 Dose: 10 ml Microbiology Past 72 Hours 09/27/18 06:40 Mucosa - Nasopharyngeal Respiratory Panel (PCR) - Final Parainfluenza 3 Laboratory Results 09/28/18 08:38: Sodium 140, Potassium 4.0, Chloride 107, Carbon Dioxide 26.0, Anion Gap 7, BUN 42 H, Creatinine 2.40 H, Estim Creat Clear Calc 28.73, Est GFR (MDRD) Af Amer 34 L, Est GFR (MDRD) Non-Af 28 L, BUN/Creatinine Ratio 17.5, Glucose 135 H, Calcium 8.6 09/28/18 11:22: POC Glucose 135 H Code Visit Inpatient E&M: 46326 Subs Hosp L3
[2018-09-28] MEDS: hydrALAZINE 25 MG Tablet PO ×2 (15:17→21:04)
[2018-09-28 16:25] LABS: Bedside Glucose 119 mg/dL (70-110)
--- NOTE | 2018-09-28 17:26 | NURSING ---
this RN assuming care of pt at this time
[2018-09-28] MEDS: Insulin Lispro 100 UNIT/ML INSULN.PEN SQ (21:04)
[2018-09-28] MEDS: 0.9% NaCl Peripheral Flush Adult/Peds IV ×2 (21:06→21:08)
[2018-09-28 21:51] LABS: Bedside Glucose 201 mg/dL (70-110)
[2018-09-29] VITALS (24 sets, daily range): BP systolic 120–160; BP diastolic 60–71; PULSE 61–77; RESP 16–25; TEMP 36.4–37.1; O2SAT 92–95
--- NOTE | 2018-09-29 00:53 | CPS ---
Patient wore CPAP for about 1 hour before asking to come off. Asked patient what was causing discomfort, but he said he didn't want to wear it any longer. Patient aware of advantages of wearing CPAP and that its available at bedside. Told pt. to tell RN if he wanted to go back on tonight. RT will monitor patient and place back on CPAP if pt requests.
[2018-09-29] MEDS: Insulin Lispro 100 UNIT/ML INSULN.PEN SQ ×5 (02:55→22:44)
[2018-09-29 03:01] LABS: Bedside Glucose 217 mg/dL (70-110)
[2018-09-29] MEDS: hydrALAZINE 25 MG Tablet PO ×3 (05:40→22:44)
[2018-09-29] MEDS: Labetalol 100 MG Tablet 300 MG PO ×3 (05:41→22:44)
[2018-09-29 06:10] LABS: Anion Gap 8 (5-15); BUN 44 mg/dL (7-18); BUN/Creat Ratio 18.7 RATIO (10-20); Calcium,Total 8.9 mg/dL (8.5-10.1); Chloride 103 mmol/L (98-107); Creatinine, Serum 2.35 mg/dL (0.70-1.30); EST Glomerular Filtration Rate 29 mL/min (>60); Est Glom Filt Rate - Afr Amer 35 mL/min (>60); Estimated Creatinine Clearance 29.34 ml/min; Glucose 190 mg/dL (74-106); Potassium 4.2 mmol/L (3.5-5.1); Sodium Level 135 mmol/L (136-145)
[2018-09-29 06:11] LABS: Absolute Lymphocyte Count 0.64 X10^3/ul (0.83-4.51); Absolute Neutrophil Count 4.8 X10^3/uL (2.0-7.7); Basophil# 0.01 X10^3/uL; Basophil% 0.2 % (0-1); Eosinophil# 0.01 X10^3/uL; Eosinophils% 0.2 % (0-5); Hematocrit 39.1 % (40-54); Hemoglobin 12.8 g/dl (13.0-16.5); Lymphocyte # 0.64 X10^3/ul (4.0); Lymphocyte % 11.1 % (19-41); Mean Corp Hgb Conc 32.7 g/gl (32-36); Mean Corpuscular Hgb 29.1 pg (27.0-32.0); Mean Corpuscular Volume 88.9 fL (80-94); Mean Platelet Vol. 9.3 fl (6.2-12.0); Monocyte# 0.26 X10^3/uL; Monocyte% 4.5 % (0-10); Neutrophil # 4.84 X10^3/uL (2.7-7.7); Neutrophil % 83.8 % (47-70); Platelet Count 308 K/mm3 (150-450); RBC Distribution Width CV 13.6 % (11.6-14.6); RBC Distribution Width SD 44.3 fl (35.1-43.9); White Blood Count 5.8 K/mm3 (4.4-11.0)
[2018-09-29 06:45] LABS: Bedside Glucose 184 mg/dL (70-110)
[2018-09-29 06:56] LABS: POSITIVE COUNT NO; POSITIVE DIFFERENTIAL NO; POSITIVE MORPHOLOGY NO
[2018-09-29] MEDS: Ipratropium/Albuterol Sulfate 3 ML AMPUL.NEB INHALATION ×4 (07:18→19:51)
--- NOTE | 2018-09-29 10:08 | CASEMGMT ---
RILEY faxed updates to [facility]. RILEY also called [facility] and asked that they start the precert. Plan: d/c back to [facility] pending insurance approval. Phuong ZAVALA
[2018-09-29] MEDS: Enoxaparin 30 MG/0.3 ML Syringe SC (10:35)
[2018-09-29] MEDS: amLODIPine 5 MG Tablet PO (10:36)
[2018-09-29] MEDS: 0.9% NaCl Peripheral Flush Adult/Peds IV (10:36)
--- NOTE | 2018-09-29 10:51 | PCM.PN.HOSP ---
Patient Problems: Active and Suspected Problems Acute bronchitis (Acute) Subjective: Patient seen and examined. Shortness of breath has improved. He remains on 2 L of oxygen. He denies any wheezing, palpitations, dizziness, chest pain, diarrhea vomiting. Review of systems otherwise negative. Labs and vitals reviewed. Vitals/I&O's: Vital Signs Temp Pulse Resp BP Pulse Ox 97.9 F 70 20 H 152/63 H 92 09/29/18 10:25 09/29/18 10:25 09/29/18 10:25 09/29/18 10:25 09/29/18 10:25 Oxygen Flow Rate (L/min) 2 Oxygen Delivery Method Nasal Cannula Weight: 210 lb 5.136 oz Body Mass Index (BMI) 30.2 Finger Stick Blood Glucose 240 Intake and Output for Last 24 Hours 09/27/18 09/28/18 09/29/18 23:59 23:59 23:59 Intake Total 1241 / 1241 840 / 840 120 / 120 Balance 1241 / 1241 840 / 840 120 / 120 General: Alert, Oriented x3, Cooperative, No apparent distress HEENT: Atraumatic, PERRLA, EOMI, Normocephalic Oral: Moist Mucosa Neck: Supple, No JVD, Negative Carotid Bruits Lungs: - - diminished breath sounds bibasally. No wheezes or crackles. on 2L of oxygen Cardiovascular: Regular rate, Regular Rhythm, Normal S1, Normal S2, No murmurs Abdomen: Bowel Sounds Present, Soft, Non Tender, Non-Distended, No Hepato-splenomegaly Extremities: No clubbing, No cyanosis, No edema, Capillary Refill Less than 3 Seconds Skin: No rashes, No breakdown Musculoskeletal: No Tenderness to Palpation of Joints or Extremities Lymphatic: No Cervical, Supraclavicular, or Inguinal Adenopathy Neurological: Cranial nerves II-XII grossly intact, Neuro grossly intact, Motor Exam 5/5 strength throughout Psych/Mental Status: Normal Affect, Appropriate, Alert and oriented to time, place, person, mood and affect Microbiology Past 72 Hours 09/27/18 06:40 Mucosa - Nasopharyngeal Respiratory Panel (PCR) - Final Parainfluenza 3 Laboratory Results 09/28/18 11:22: POC Glucose 135 H 09/28/18 16:18: POC Glucose 119 H 09/28/18 20:55: POC Glucose 201 H 09/29/18 02:53: POC Glucose 217 H 09/29/18 05:35: WBC 5.8, RBC 4.40 L, Hgb 12.8 L, Hct 39.1 L, MCV 88.9, MCH 29.1, MCHC 32.7, RDW 13.6, RDW Differential 44.3 H, Plt Count 308, MPV 9.3, Immature Gran % (Auto) 0.200, Neut % (Auto) 83.8 H, Lymph % (Auto) 11.1 L, [place] % (Auto) 4.5, Eos % (Auto) 0.2, Baso % (Auto) 0.2, Absolute Neuts (auto) 4.8, Absolute Lymphs (auto) 0.64 L, Total Counted Not Reportable 09/29/18 05:35: Sodium 135 L, Potassium 4.2, Chloride 103, Carbon Dioxide 24.0, Anion Gap 8, BUN 44 H, Creatinine 2.35 H, Estim Creat Clear Calc 29.34, Est GFR (MDRD) Af Amer 35 L, Est GFR (MDRD) Non-Af 29 L, BUN/Creatinine Ratio 18.7, Glucose 190 H, Calcium 8.9 09/29/18 06:31: POC Glucose 184 H Diagnostic Data Chest X-Ray 09/27/18 06:36 IMPRESSION: Stable 8 mm left upper lobe pulmonary nodule Mildly improving bibasilar subsegmental atelectasis Electronically Signed: Rick Haile, at 7:44 EDT Tel , Service support , Current Medications Acetaminophen (Tylenol) 650 mg PO Q6H PRN PRN PRN Reason: Mild Pain (1-3)/Temp > 100.7 F Albuterol Sulfate (Ventolin Aerosols) 2.5 mg INHALATION Q2H PRN PRN PRN Reason: SHORTNESS OF BREATH Last Admin: 09/27/18 01:05 Dose: 2.5 mg Albuterol/Ipratropium (Duoneb) 3 ml INHALATION Q4HWA.RT [facility] Last Admin: 09/29/18 07:18 Dose: 3 ml Amlodipine Besylate (Norvasc) 5 mg PO DAILY [facility] Last Admin: 09/29/18 10:36 Dose: 5 mg Dextrose (D50w Syringe) 0 gm IV X1 PRN; Protocol PRN Reason: Hypoglycemia Enoxaparin Sodium (Lovenox) 30 mg SC DAILY@1000 [facility]ARENA Last Admin: 09/29/18 10:35 Dose: 30 mg Glucagon () 1 mg IM .X1 PRN PRN Reason: Hypoglycemia Hydralazine HCl (Apresoline Iv) 5 mg IV Q4H PRN PRN PRN Reason: SBP > 185 Hydralazine HCl (Apresoline) 25 mg PO TID [facility] Last Admin: 09/29/18 05:40 Dose: 25 mg Sodium Chloride () 250 mls @ 15 mls/hr IV .[id number] PRN PRN Reason: SALINE FLUSH Insulin Glargine (Lantus (Bkc)) 15 units SC BREAKFAST [facility] Last Admin: 09/29/18 08:42 Dose: 15 units Insulin Glargine (Lantus (Bkc)) 15 units SC QHS [facility] Last Admin: 09/28/18 21:05 Dose: 15 unit Insulin Human Lispro (Humalog Kwikpen (Bkc)) 0 unit SQ ACHS & 3AM [facility]; Protocol Last Admin: 09/29/18 08:41 Dose: 1 unit Labetalol HCl (Trandate) 300 mg PO TID [facility] Last Admin: 09/29/18 05:41 Dose: 300 mg Levofloxacin (Levaquin Tablet) 750 mg PO Q48 [facility] Last Admin: 09/27/18 02:15 Dose: 750 mg Methylprednisolone (Solu-Medrol) 40 mg IV Q12 [facility] Last Admin: 09/29/18 10:36 Dose: 40 mg Ondansetron HCl (Zofran) 4 mg IV Q8H PRN PRN PRN Reason: NAUSEA/VOMITING Sodium Chloride () 5 - 15 ml IV UD PRN PRN Reason: SALINE FLUSH Last Admin: 09/29/18 10:36 Dose: 10 ml Medical Necessity - Tobacco Use Smoking Status: Former smoker Assessment/Plan All Active Problems Fall (Acute) Sepsis (Acute) Encephalopathy (Acute) Urinary tract infection (Acute) PNA (pneumonia) (Acute) Respiratory acidosis (Acute) Comatose (Acute) DARYL (acute kidney injury) (Acute) Acute bronchitis (Acute) 1. Acute bronchitis due to parainfluenza infection has no complaints today. on 2L of oxygen continue breathing treatments on IV solumedrol; will switch to PO prednisone today titrate oxygen to maintain sats >90% continue BIPAP prn 2. Acute on chronic hypoxic and hypercapnic respiratory failure due to acute bronchits, NICHOL and OHS currently on 2L fo oxygen which is his baseline titrate oxygen to maintain sats >90% 3. Hypertensive urgency: resolved. BP down in 140s -150s today 4. DARYL on CKD: Cr is 2.35 today. baseline is ~ 2.2 Diabetes mellitus: on ISS. Maureen BAINS. Code status: DNRCC Code Visit Inpatient E&M: 64110 Subs Hosp L2
--- NOTE | 2018-09-29 11:00 | PN_ITS ---
Patient Problems: Active and Suspected Problems Acute bronchitis (Acute) Subjective: Patient seen and examined. Shortness of breath has improved. He remains on 2 L of oxygen. He denies any wheezing, palpitations, dizziness, chest pain, diarrhea vomiting. Review of systems otherwise negative. Labs and vitals reviewed. Vitals/I&O's: Vital Signs Temp Pulse Resp BP Pulse Ox 97.9 F 70 20 H 152/63 H 92 09/29/18 10:25 09/29/18 10:25 09/29/18 10:25 09/29/18 10:25 09/29/18 10:25 Oxygen Flow Rate (L/min) 2 Oxygen Delivery Method Nasal Cannula Weight: 210 lb 5.136 oz Body Mass Index (BMI) 30.2 Finger Stick Blood Glucose 240 Intake and Output for Last 24 Hours 09/27/18 09/28/18 09/29/18 23:59 23:59 23:59 Intake Total 1241 / 1241 840 / 840 120 / 120 Balance 1241 / 1241 840 / 840 120 / 120 General: Alert, Oriented x3, Cooperative, No apparent distress HEENT: Atraumatic, PERRLA, EOMI, Normocephalic Oral: Moist Mucosa Neck: Supple, No JVD, Negative Carotid Bruits Lungs: - - diminished breath sounds bibasally. No wheezes or crackles. on 2L of oxygen Cardiovascular: Regular rate, Regular Rhythm, Normal S1, Normal S2, No murmurs Abdomen: Bowel Sounds Present, Soft, Non Tender, Non-Distended, No Hepato- splenomegaly Extremities: No clubbing, No cyanosis, No edema, Capillary Refill Less than 3 Seconds Skin: No rashes, No breakdown Musculoskeletal: No Tenderness to Palpation of Joints or Extremities Lymphatic: No Cervical, Supraclavicular, or Inguinal Adenopathy Neurological: Cranial nerves II-XII grossly intact, Neuro grossly intact, Motor Exam 5/5 strength throughout Psych/Mental Status: Normal Affect, Appropriate, Alert and oriented to time, place, person, mood and affect Microbiology Past 72 Hours 09/27/18 06:40 Mucosa - Nasopharyngeal Respiratory Panel (PCR) - Final Parainfluenza 3 Laboratory Results 09/28/18 11:22: POC Glucose 135 H 09/28/18 16:18: POC Glucose 119 H 09/28/18 20:55: POC Glucose 201 H 09/29/18 02:53: POC Glucose 217 H 09/29/18 05:35: WBC 5.8, RBC 4.40 L, Hgb 12.8 L, Hct 39.1 L, MCV 88.9, MCH 29.1, MCHC 32.7, RDW 13.6, RDW Differential 44.3 H, Plt Count 308, MPV 9.3, Immature Gran % (Auto) 0.200, Neut % (Auto) 83.8 H, Lymph % (Auto) 11.1 L, [place] % (Auto) 4.5, Eos % (Auto) 0.2, Baso % (Auto) 0.2, Absolute Neuts (auto) 4.8, Absolute Lymphs (auto) 0.64 L, Total Counted Not Reportable 09/29/18 05:35: Sodium 135 L, Potassium 4.2, Chloride 103, Carbon Dioxide 24.0, Anion Gap 8, BUN 44 H, Creatinine 2.35 H, Estim Creat Clear Calc 29.34, Est GFR (MDRD) Af Amer 35 L, Est GFR (MDRD) Non-Af 29 L, BUN/Creatinine Ratio 18.7, Glucose 190 H, Calcium 8.9 09/29/18 06:31: POC Glucose 184 H Diagnostic Data Chest X-Ray 09/27/18 06:36 IMPRESSION: Stable 8 mm left upper lobe pulmonary nodule Mildly improving bibasilar subsegmental atelectasis Electronically Signed: Rick Haile, at 7:44 EDT Tel , Service support , Current Medications Acetaminophen (Tylenol) 650 mg PO Q6H PRN PRN PRN Reason: Mild Pain (1-3)/Temp > 100.7 F Albuterol Sulfate (Ventolin Aerosols) 2.5 mg INHALATION Q2H PRN PRN PRN Reason: SHORTNESS OF BREATH Last Admin: 09/27/18 01:05 Dose: 2.5 mg Albuterol/Ipratropium (Duoneb) 3 ml INHALATION Q4HWA.RT [facility] Last Admin: 09/29/18 07:18 Dose: 3 ml Amlodipine Besylate (Norvasc) 5 mg PO DAILY [facility] Last Admin: 09/29/18 10:36 Dose: 5 mg Dextrose (D50w Syringe) 0 gm IV X1 PRN; Protocol PRN Reason: Hypoglycemia Enoxaparin Sodium (Lovenox) 30 mg SC DAILY@1000 [facility] Last Admin: 09/29/18 10:35 Dose: 30 mg Glucagon () 1 mg IM .X1 PRN PRN Reason: Hypoglycemia Hydralazine HCl (Apresoline Iv) 5 mg IV Q4H PRN PRN PRN Reason: SBP > 185 Hydralazine HCl (Apresoline) 25 mg PO TID [facility] Last Admin: 09/29/18 05:40 Dose: 25 mg Sodium Chloride () 250 mls @ 15 mls/hr IV .[id number] PRN PRN Reason: SALINE FLUSH Insulin Glargine (Lantus (Bkc)) 15 units SC BREAKFAST [facility] Last Admin: 09/29/18 08:42 Dose: 15 units Insulin Glargine (Lantus (Bkc)) 15 units SC QHS [facility] Last Admin: 09/28/18 21:05 Dose: 15 unit Insulin Human Lispro (Humalog Kwikpen (Bkc)) 0 unit SQ ACHS & 3AM [facility]; Protocol Last Admin: 09/29/18 08:41 Dose: 1 unit Labetalol HCl (Trandate) 300 mg PO TID [facility] Last Admin: 09/29/18 05:41 Dose: 300 mg Levofloxacin (Levaquin Tablet) 750 mg PO Q48 [facility] Last Admin: 09/27/18 02:15 Dose: 750 mg Methylprednisolone (Solu-Medrol) 40 mg IV Q12 [facility] Last Admin: 09/29/18 10:36 Dose: 40 mg Ondansetron HCl (Zofran) 4 mg IV Q8H PRN PRN PRN Reason: NAUSEA/VOMITING Sodium Chloride () 5 - 15 ml IV UD PRN PRN Reason: SALINE FLUSH Last Admin: 09/29/18 10:36 Dose: 10 ml Medical Necessity - Tobacco Use Smoking Status: Former smoker Assessment/Plan All Active Problems Fall (Acute) Sepsis (Acute) Encephalopathy (Acute) Urinary tract infection (Acute) PNA (pneumonia) (Acute) Respiratory acidosis (Acute) Comatose (Acute) DARYL (acute kidney injury) (Acute) Acute bronchitis (Acute) 1. Acute bronchitis due to parainfluenza infection * has no complaints today. on 2L of oxygen * continue breathing treatments * on IV solumedrol; will switch to PO prednisone today * titrate oxygen to maintain sats >90% * continue BIPAP prn * 2. Acute on chronic hypoxic and hypercapnic respiratory failure due to acute bronchits, NICHOL and OHS * currently on 2L fo oxygen which is his baseline * titrate oxygen to maintain sats >90% * 3. Hypertensive urgency: resolved. BP down in 140s -150s today 4. DARYL on CKD: Cr is 2.35 today. baseline is ~ 2.2 Diabetes mellitus: on ISS. Maureen BAINS. Code status: DNRCC Code Visit Inpatient E&M: 74483 Subs Hosp L2
[2018-09-29] MEDS: levoFLOXacin 750 MG Tablet PO (11:37)
[2018-09-29 12:36] LABS: Bedside Glucose 212 mg/dL (70-110)
[2018-09-29 17:10] LABS: Bedside Glucose 168 mg/dL (70-110)
--- NOTE | 2018-09-29 22:51 | NURSING ---
patient refusing to wear cpap tonight. will notify RT.
[2018-09-29 22:56] LABS: Bedside Glucose 175 mg/dL (70-110)
[2018-09-30] VITALS (12 sets, daily range): BP systolic 125–153; BP diastolic 45–61; PULSE 61–73; RESP 18–20; TEMP 36.4–36.6; O2SAT 92–98
[2018-09-30 02:46] LABS: Bedside Glucose 132 mg/dL (70-110)
--- NOTE | 2018-09-30 05:49 | CPS ---
pt refused cpap last night
[2018-09-30] MEDS: Labetalol 100 MG Tablet 300 MG PO ×2 (06:35→14:10)
[2018-09-30] MEDS: hydrALAZINE 25 MG Tablet PO ×2 (06:35→14:09)
[2018-09-30 06:45] LABS: Bedside Glucose 112 mg/dL (70-110)
[2018-09-30] MEDS: Ipratropium/Albuterol Sulfate 3 ML AMPUL.NEB INHALATION ×2 (07:17→11:27)
[2018-09-30] MEDS: amLODIPine 5 MG Tablet PO (08:33)
[2018-09-30] MEDS: predniSONE 20 MG Tablet 40 MG PO (08:33)
[2018-09-30] MEDS: Enoxaparin 30 MG/0.3 ML Syringe SC (08:33)
[2018-09-30] MEDS: Insulin Lispro 100 UNIT/ML INSULN.PEN SQ (11:30)
[2018-09-30 11:40] LABS: Bedside Glucose 162 mg/dL (70-110)
--- NOTE | 2018-09-30 13:36 | PCM.TXEXTCAR ---
- Diet 09/27/18 00:07 Diet: Calorie Controlled Food consistency:: Regular Liquid Consistency:: Regular/Thin Diet Comments: 2g Sodium diet How many daily calories?: 1800 calorie - Routine Orders/Code Status Enema Type: Fleetz Enema Frequency: Daily PRN Suppository Type: Dulcolax 10mg Suppository Frequency: Daily PRN O2 Liters per Minute: 2 O2 Frequency: Continuous Keep PO Greater than or Equal to (%): 90 Code Status: DNRCC - Therapies Physical Therapy: Eval and Treat Occupational Therapy: Eval and Treat - Allergies/Procedures Done in Hospital Allergies/Adverse Reactions: Allergies bee venom protein (honey bee) Allergy (Verified 09/26/18 21:38) Anaphylaxis Procedures: None - Type of Care/Length of Stay Estimated LOS: Convalescent Care Less Than 30 days Type of Care Needed: Skilled Rehab Potential: Fair Prognosis: Fair - Additional Orders/Day of Discharge Day of Discharge: 09/30/18 - Dietary and Speech Recommendations Dietitian Recommendations/Changes: Suggest diet change to 1800 calorie, cardiac/low sodium. Please reweigh. - Follow Up Care Primary Care Physician: Care Physician,No Primary [Primary Care Provider] - Please follow up with your Primary Care Physician in: PCP in SNF in one week
--- NOTE | 2018-09-30 13:39 | PCM.DC.SUM ---
Discharge Date and Diagnosis - Problem List Patient Problems: Active and Suspected Problems Acute bronchitis (Acute) Date of Admission: 09/26/18 Date of Discharge: 09/30/18 - Primary Discharge Diagnosis Active and Suspected Problems Acute bronchitis (Acute) URTI due to paranfluenza infection - Secondary Discharge Diagnosis Chronic Problems Generalized weakness (Chronic) Diabetes mellitus (Chronic) Hypertension (Chronic) Hyperlipidemia (Chronic) COPD (chronic obstructive pulmonary disease) (Chronic) Stroke (Chronic) Chronic kidney disease (Chronic) GERD (gastroesophageal reflux disease) (Chronic) CKD (chronic kidney disease) stage 3, GFR 30-59 ml/min (Chronic) Acute and chronic respiratory failure with hypoxia (Chronic) Diastolic CHF (Chronic) Acute and chronic respiratory failure (Chronic) Tobacco user (Chronic) Hypertensive retinopathy (Chronic) Benign essential HTN (Chronic) Hospital Course and Treatment Imaging Results: Diagnostic Data Chest X-Ray 09/27/18 06:36 IMPRESSION: Stable 8 mm left upper lobe pulmonary nodule Mildly improving bibasilar subsegmental atelectasis Electronically Signed: Rick Haile, at 7:44 EDT Tel , Service support , Operations: None Procedures: None Summary of Care Provided: The patient is a 72 year old M with past medical history as listed who was admitted through the ED on 09/26/2018 with a complaint of shortness of breath and grunting. Patient had been on admission in the hospital from 09/17/2018 to 09/24/2018 during which she was managed for acute hypoxic respiratory failure due to community-acquired pneumonia from H influenza as well as rhinovirus infection. He was intubated during that admission and subsequently extubated. He had been on IV Zosyn during the admission and was discharged home on p.o. Levaquin and required oxygen as well at time of discharge. 2 days after discharge he came back with symptoms of shortness of breath and grunting. He was found to have a temperature of 100.3 Fahrenheit and he had elevated blood pressure as well. Chest x-ray done on admission showed atelectasis or scarring in the right lower lobe. He was managed for post viral bronchitis and hypertensive urgency on account of systolic blood pressure being 246 on admission. Blood pressure trended down to normal after shortness of breath resolved. Positive for parainfluenza. He was therefore managed for acute upper respiratory infection due to parainfluenza infection as well as hypertensive urgency. Blood pressure control improved and patient's wheezing resolved. Was also put on IV Solu-Medrol and gradually transition to p.o. steroids. He remained stable and was discharged back to his intermediate on 09/30/2018 with p.o. prednisone for 4 days and to continue his oxygen of 2 L to titrate to maintain saturation above 90%. He is follow-up with his primary care doctor in [place]. Patient seen and examined prior to discharge. He had no complaints and felt well. Review of systems otherwise negative. Labs and vitals reviewed. Home medication reviewed and reconciled. o/e: [] Vital Signs Height 5 ft 10 in Weight: 210 lb 5.136 oz Weight in Pounds 210.3 lbs Pulse Ox 92 Temperature 97.6 F Pulse Rate 73 Respiratory Rate 18 Blood Pressure 136/54 Blood Pressure Position Sitting General: Alert, Oriented x3, Cooperative, No apparent distress HEENT: Atraumatic, PERRLA, EOMI, Normocephalic Oral: Moist Mucosa Neck: Supple, No JVD, Negative Carotid Bruits Lungs: - - diminished breath sounds bibasally. No wheezes or crackles. on 2L of oxygen Cardiovascular: Regular rate, Regular Rhythm, Normal S1, Normal S2, No murmurs Abdomen: Bowel Sounds Present, Soft, Non Tender, Non-Distended, No Hepato-splenomegaly Extremities: No clubbing, No cyanosis, No edema, Capillary Refill Less than 3 Seconds Skin: No rashes, No breakdown Musculoskeletal: No Tenderness to Palpation of Joints or Extremities Lymphatic: No Cervical, Supraclavicular, or Inguinal Adenopathy Neurological: Cranial nerves II-XII grossly intact, Neuro grossly intact, Motor Exam 5/5 strength throughout Psych/Mental Status: Normal Affect, Appropriate, Alert and oriented to time, place, person, mood and affect Plan as above. Patient Problems: Active and Suspected Problems Acute bronchitis (Acute) - Physical Exam Vital Signs Temp Pulse Resp BP Pulse Ox 97.7 F L 71 20 H 127/45 H 94 09/30/18 08:24 09/30/18 11:28 09/30/18 11:28 09/30/18 08:24 09/30/18 08:24 Oxygen Flow Rate (L/min) 2 Oxygen Delivery Method Room Air Weight: 210 lb 5.136 oz Body Mass Index (BMI) 30.2 Finger Stick Blood Glucose 240 Intake and Output for Last 24 Hours 09/28/18 09/29/18 09/30/18 23:59 23:59 23:59 Intake Total 840 / 840 960 / 960 Balance 840 / 840 960 / 960 Microbiology Past 72 Hours 09/26/18 23:47 Blood Culture - Preliminary Blood Culture (Wb) - Anticubital Left No growth in 48 hours. 09/26/18 23:40 Blood Culture - Preliminary Blood Culture (Wb) - Left Wrist No growth in 48 hours. 09/27/18 06:40 Respiratory Panel (PCR) - Final Mucosa - Nasopharyngeal Parainfluenza 3 POC Glucose 09/30/18 09/30/18 09/30/18 11:28 06:33 02:24 POC Glucose 162 H 112 H 132 H 09/29/18 09/29/18 22:39 17:00 POC Glucose 175 H 168 H Discharge Diet: Low fat/ Low Cholesterol Discharge Activity: Return to Normal Activity Weight Bearing Status: Weight bearing as tolerated Call your doctor if you observe: Fever of 101 or Higher, Shortness of breath Home Medications: Medications to take at Discharge Labetalol HCl 300 mg PO TID 09/17/18 Albuterol IH (ProAir) [Proair Hfa] 1 - 2 puff INHALATION Q4H PRN PRN #1 inhaler 09/24/18 Acetaminophen 650 mg PO Q4H PRN 09/27/18 Acetaminophen [Tylenol] 650 mg RECTAL Q4H PRN PRN 09/27/18 Bisacodyl 10 mg RC PRN PRN 09/27/18 Dextrose [Glucose Gel] 38 gm PO PRN 09/27/18 Glucagon,Human Recombinant [Glucagon Emergency Kit] 1 ml IM PRN PRN 09/27/18 Guaifenesin [Robitussin] 10 ml PO Q4H PRN 09/27/18 Insulin Glargine,Hum.rec.anlog [Basaglar Kwikpen U-100] 0 unit SC 09/27/18 Mag Hydrox/Al Hydrox/Simeth [Mylanta II] 30 ml PO Q4H PRN 09/27/18 Magnesium Hydroxide [Milk Of Magnesia] 30 ml PO PRN PRN 09/27/18 Na Phos,M-B/Na Phos,Di-Ba [Fleet Enema] PRN 09/27/18 predniSONE tablet 40 mg PO DAILY@0800 4 Days #8 tab 09/30/18 Following Prescrptions Were Given to Patient: predniSONE tablet 40 mg PO DAILY@0800 4 Days #8 tab Primary Care Physician: Care Physician,No Primary [Primary Care Provider] - Please follow up with your Primary Care Physician in: PCP in SNF in one week Disposition: [facility] facility Minutes spent on discharge:: 40 Patient Condition:: Stable Medical Necessity - Tobacco Use Smoking Status: Former smoker Meaningful Use Info Meaningful Use Diagnoses (Choose all that apply): None applicable Code Visit Inpatient E&M: 48951 Disch Hosp
--- NOTE | 2018-09-30 13:49 | CASEMGMT ---
Received call from Mojgan at [facility] and she received insurance authorization for patient. RILEY called [facility] if they have any wc vans available today. She said they do not. RILEY called Mojgan back and asked if their transportation could pick patient up. She will check with their transportation and get back with RILEY. RILEY faxed orders to [facility]. Phuong BOB MSW
== END 2018-09-30 15:38 | DRG 202 ==
LOC: ED 23:28 → PCU 09-27 07:22
PROVIDERS: Internal Medicine; Admitting Provider Hospitalist; Emergency Provider Emergency Medicine; Referring Provider Hospitalist; Visit Provider Student in an Organized Health Care Education/Training Program
DX: J20.4 Acute bronchitis due to parainfluenza virus (principal); J96.21 Acute and chronic respiratory failure with hypoxia; J96.22 Acute and chronic respiratory failure with hypercapnia; I50.32 Chronic diastolic (congestive) heart failure; I13.0 Hypertensive heart and chronic kidney disease with heart failure and stage 1 through stage 4 chronic kidney disease, or unspecified chronic kidney disease; J44.0 Chronic obstructive pulmonary disease with (acute) lower respiratory infection; N17.9 Acute kidney failure, unspecified; E66.2 Morbid (severe) obesity with alveolar hypoventilation; Z66 Do not resuscitate; Z87.891 Personal history of nicotine dependence; Z86.73 Personal history of transient ischemic attack (TIA), and cerebral infarction without residual deficits; N18.3 Chronic kidney disease, stage 3 (moderate); E11.22 Type 2 diabetes mellitus with diabetic chronic kidney disease; H35.039 Hypertensive retinopathy, unspecified eye; I16.0 Hypertensive urgency; Z68.34 Body mass index [BMI] 34.0-34.9, adult
CPT/HCPCS: 36415; 36600; 71045; 80048; 80076; 81001; 82803; 82962; 83605; 83690; 83880; 84484; 85025; 85610; 85730; 87040; 87633; 93005; 94640; 94660; 94667; 94668; 97110; 97162; 97165; 97530; 99285; J7030; P9612; A4216

== ENCOUNTER → 2019-01-20 | Outpatient (CLI) | payer MEDICARE, SELFPAY ==
[2018-12-15 10:28] VITALS: BMI 33.4
--- NOTE | 2019-01-20 17:26 | PFT ---
INTRODUCTION: The patient is a 73-year-old male that presents for pulmonary function studies secondary to a diagnosis of COPD. Respiratory therapy reports good patient effort. Bronchodilators were used during testing. INTERPRETATION: Forced expiration spirometry demonstrates the presence of a moderately severe large airways obstructive ventilatory defect. There was no significant response to aerosolized bronchodilators. Spirograms are of good quality and do not plateau indicating slow emptying of the lungs. Body plethysmography was performed and reveals an elevated RV to 143% of predicted, indicative of underlying air trapping. Diffusing capacity by single breath CO is within normal limits. IMPRESSION: Irreversible moderately severe large airways obstructive ventilatory defect with associated air trapping and preserved diffusing capacity.
== END | disposition home or self-care (01) ==
LOC: PSN 10:44
PROVIDERS: Family Provider Family Medicine; PCP Family Medicine; Referring Provider Internal Medicine Critical Care Medicine; Visit Provider Internal Medicine Critical Care Medicine
DX: J44.9 Chronic obstructive pulmonary disease, unspecified (principal); F17.211 Nicotine dependence, cigarettes, in remission
CPT/HCPCS: 94060; 94726; 94729

== ENCOUNTER → 2019-06-08 08:48 | Outpatient (CLI) | payer MEDICARE, MEDICAID, SELFPAY ==
[2019-05-06 13:06] VITALS: BMI 35.2
--- NOTE | 2019-06-08 08:52 | VDUE_ITS ---
Reason For Study: CKD Stage 4 Right Arm Left Arm Right Cephalic Vein at the wrist measures Left Cephalic Vein at the wrist measures 0.25 x 0.25 cm. 0.24 x 0.24 cm. Right Cephalic Vein in the forearm measures Left Cephalic Vein in the forearm measures 0.26 x 0.25 cm. 0.27 x 0.28 cm. Right Cephalic Vein below antecub measures Left Cephalic Vein below antecub measures 0.25 x 0.25 cm. 0.29 x 0.27 cm. Right Cephalic Vein above antecub measures Left Cephalic Vein above antecub measures 0.42 x 0.41 cm. 0.17 x 0.16 cm. Right Cephalic Vein mid bicep measures 0.38 Left Cephalic Vein at mid bicep measures x 0.39 cm. 0.20 x 0.20 cm. Right Cephalic Vein at the shoulder measures Left Cephalic Vein at the shoulder measures 0.42 x 0.42 cm. 0.17 x 0.17 cm. Right Basilic Vein at the origin measures Basilic vein at origin measures 0.61 x 0.64 0.62 x 0.66 cm. cm. Right Basilic Vein mid bicep measures 0.62 x Basilic vein at bicep measures 0.59 x 0.58 0.62 cm. cm. Right Basilic Vein above antecub measures Basilic vein above antecub measures 0.56 x 0.56 x 0.57 cm. 0.60 cm. Right Brachial artery measures 0.53 x 0.54 Left Brachial artery measures 0.53 x 0.54 cm cm with a velocity of 119.1 cm/sec. with a velocity of 150 cm/sec. Right Radial artery measures 0.25 x 0.24 cm Left Radial artery measures 0.22 x 0.21 cm with a velocity of 96.5 cm/sec. with a velocity of 86.3 cm/sec. Interpretation Summary Patent and compressible bilateral cephalic and basilic veins with dimensions as noted Adequate diameter and flow bilateral brachial arteries Adequate bilateral radial artery flow with slightly borderline dimensions on the left Ordering Physician: Linda Chaves Referring Physician: Saul Nath Performed By: Julieta Dennison RVT ?
== END ==
PROVIDERS: PCP Family Medicine; Referring Provider Internal Medicine Nephrology; Visit Provider Internal Medicine Nephrology
DX: Z01.818 Encounter for other preprocedural examination (principal); N18.4 Chronic kidney disease, stage 4 (severe)
CPT/HCPCS: 93970